=== PATIENT | male | born 1950 | race Caucasian/White ===

== ENCOUNTER 2021-12-23 11:54 | Emergency (ER) | payer MEDICARE, OTHER ==
--- NOTE | 2021-12-23 15:15 | ED ---
General Adult HPI - General Source: patient, EMS, RN notes reviewed, old records reviewed Mode of arrival: EMS Limitations: physical limitation <Gabriel Richardson - Last Filed: 12/23/21 15:41> <Blaze Simpson - Last Filed: 12/23/21 19:21> - General Chief complaint: Recheck/Abnormal Lab/Rx Stated complaint: PEG tube replaced Time Seen by Provider: 12/23/21 12:31 - History of Present Illness Initial comments: Patient is a 71-year-old male with past medical history remarkable for feeding tube, tracheostomy, hypothyroidism, hypertension who presents emergency Department complaining of feeding tube malfunction. Uncertain if it is a PEG tube or a G-tube. They were unable to flush it at the patient's facility. Presents for further evaluation of this time. Otherwise has no acute complaints at this time. Denies fever, abdominal pain. [facility] No medical records here in our department for the patient. Presents for further evaluation. (Gabriel Richardson) - Related Data Allergies Allergy/AdvReac Type Severity Reaction Status Date / Time Iodinated Contrast Media Allergy Unknown Verified 12/23/21 12:20 Penicillins Allergy Unknown Verified 12/23/21 12:20 Review of Systems ROS Other: All systems not noted in ROS Statement are negative. <Gabriel Richardson - Last Filed: 12/23/21 15:41> ROS Other: All systems not noted in ROS Statement are negative. <Blaze Simpson - Last Filed: 12/23/21 19:21> ROS Statement: Those systems with pertinent positive or pertinent negative responses have been documented in the HPI. Review of Systems: CONST: Denies fever EYES: Denies blurry vision ENT: Denies nasal congestion C/V: Denies Chest pain RESP: Denies shortness of breath GI: Denies abdominal pain : Denies dysuria SKIN: Denies rash. MSK: Denies joint pain. NEURO: Denies headache (Gabriel Richardson) Past Medical History History of Any Multi-Drug Resistant Organisms: None Reported Additional Past Surgical History / Comment(s): peg tube, tracheotomy Past Psychological History: No Psychological Hx Reported Smoking Status: Former smoker Past Alcohol Use History: Occasional Past Drug Use History: None Reported <Gabriel Richardson - Last Filed: 12/23/21 15:41> General Exam Limitations: physical limitation <Gabriel Richardson - Last Filed: 12/23/21 15:41> - General Exam Comments Initial Comments: General: Appears in no acute distress. HEAD: Normal with no signs of head trauma. EYES: PERRLA, EOMI, conjunctiva normal, no discharge. ENT: Hearing grossly intact, normal oropharynx. RESPIRATORY: Clear breath sounds bilaterally C/V: Regular rate and rhythm ABD: Abdomen is soft, nondistended. Feeding tube in place. Difficult to see if it is a PEG tube versus GJ tube. Does not flush. EXT: Normal range of motion for the patient. SKIN: No rashes or lesions observed on exposed skin. NEURO: Alert and oriented 4. No focal deficits. (Gabriel Richardson) Course <Blaze Simpson - Last Filed: 12/23/21 19:21> Vital Signs 12/23/21 12/23/21 12/23/21 12:07 16:00 16:32 Temperature 97.6 F Pulse Rate 97 98 98 Respiratory 20 18 19 Rate Blood Pressure 121/78 127/79 119/76 O2 Sat by Pulse 95 94 L 93 L Oximetry - Reevaluation(s) Reevaluation #1: 12/23/21 17:18 Abdominal x-ray findings were discussed with Dr. Salazar (general surgery). He recommends placing a replacement gastric tube in the ED. He states that he does not feel that a distal jejunal tube needs to be placed in the ED urgently at this time, and he states that that can be done at a later time if necessary. He recommends discharging the patient back to his assisted once his feeding tube has been replaced. He has no further recommendations at this time. (Blaze Simpson) Procedures - Feeding Tube Replacement Reason for Replacement: not functioning/damaged Initial Tube Inserted: greater than 2 weeks Type of Tube: jejunostomy Use of Tube: medications and feeding Insertion Site Prior to Procedure: clean Tube Used for Reinsertion: other (22 Belizean gastric tube) [place]an Tube Size (F): 22 Balloon Size (mls): 15 Verification of Placement: KUB Tube Secured by: tape/dressing Patient Tolerated Procedure: well, no complications Complications: other (none) <Blaze Simpson - Last Filed: 12/23/21 19:21> Medical Decision Making <Gabriel Richardson - Last Filed: 12/23/21 15:41> <Blaze Simpson - Last Filed: 12/23/21 19:21> - Medical Decision Making Based on the patient's presentation and physical exam, I'm concerned for feeding tube malfunction. Unknown what happened to this is. I initially believed it was a PEG tube, however the writing on the tube when I went to place it says jejunum. Appears somewhat different in nature. I contacted the on-call surgeon, Dr. Salazar, who recommended that we obtain an x-ray as well as attempt to clean it out with a brush. I was unable to flush it open. I was in agreement this plan. Cleaning was unsuccessful, as when they went to flush it again, there is a hole near the skin insertion site. Still needs to be replaced. X-ray still pending at this time. Signed out to Dr. Simpson. (Gabriel Richardson) Patient was endorsed to me by Dr. Richardson (secondary to shift change) with the patient's abdominal x-ray still pending. Dr. Richardson has discussed the patient's case with the on-call surgeon, and he recommended calling the on-call surgeon back with the patient's abdominal x-ray report. Case was discussed with the on-call surgeon (Dr. Salazar) after the patient's abdominal x-ray report returned. He recommended replacing the patient's feeding tube with a G-tube, and having the patient follow up with his primary care provider and GI as an outpatient. Patient's feeding tube was successfully replaced with a 22-Belizean gastric tube in the ED myself. KUB with gastric tube contrast injection was performed confirming appropriate placement and no leakage. Will discharge patient back to his assisted at this time. (Blaze Simpson) - Radiology Data Abdominal x-ray: PEG tube is visualized with single postcontrast imaging only with the distal tip projecting over the left abdomen. There is some increased density within the lumen of the tube. Upper abdominal surgical clips and sternotomy wires. Moderate stenosis of the arterial vasculature. KUB with gastric tube contrast: The gastrostomy tube appears to be in the gastric antrum. No evidence of a leak. (Blaze Simpson) Disposition <Gabriel Richardson - Last Filed: 08/26/22 15:41> Is patient prescribed a controlled substance at d/c from ED?: No Time of Disposition: 19:17 <Blaze Simpson - Last Filed: 12/23/21 19:21> Clinical Impression: Encounter for feeding tube placement Narrative: feeding tube malfunction (Gabriel Richardson) Disposition: HOME SELF-CARE Condition: Stable Additional Instructions: Return to the ER immediately should you develop a fever, vomiting, significant pain, inability to feed through the feeding tube, or new or worsening symptoms. Follow up closely with your primary care provider, as well as a GI doctor. Referrals: Nonstaff,Physician [Primary Care Provider] - 1-2 days Eloy Alford MD [STAFF PHYSICIAN] - 1-2 days Digna So MD [STAFF PHYSICIAN] - 1-2 days
--- NOTE | 2021-12-23 15:51 | XR ---
EXAMINATION TYPE: XR abdomen 1V DATE OF EXAM: 12/23/2021 3:21 PM INDICATION: Patient age:Male; 71 years old; Reason for study: gastric tube; COMPARISON: None. TECHNIQUE: One radiographic view of the abdomen was obtained. FINDINGS: PEG tube is visualized with single postcontrast imaging only with the distal tip projecting over the left abdomen. There is some increased density within the lumen of the tube. Upper abdominal surgical clips and sternotomy wires. Moderate stenosis of the arterial vasculature. IMPRESSION: Consider before and after PEG o gram study with [employer] and post administration of oral contrast throug h the PEG tube for definitive placement of distal tip.
[2021-12-23] MEDS ORDERED: MORPHINE SULFATE 4 MG/ML SYRINGE IVP STA (16:36)
[2021-12-23] MEDS ORDERED: MORPHINE SULFATE 4 MG/ML SYRINGE IM STA (16:48)
--- NOTE | 2021-12-23 18:56 | XR ---
EXAMINATION TYPE: XR KUB DATE OF EXAM: 12/23/2021 COMPARISON: 12/23/2021 HISTORY: Check tube placement TECHNIQUE: Single view FINDINGS: 20 mL of contrast was injected into the gastrostomy tube. There is contrast opacification o f the gastric antrum and the duodenum. No extravasation seen. IMPRESSION: The gastrostomy tube appears to be in the gastric antrum. No evidence of a leak.
[2021-12-23 20:32] VITALS: BP 103/72; PULSE 104; RESP 22; TEMP 97.9
== END 2021-12-23 23:00 | disposition home or self-care (01) ==
LOC: EC 11:54
DX: K94.23 Gastrostomy malfunction (principal); Z87.891 Personal history of nicotine dependence; Z88.0 Allergy status to penicillin; Z91.041 Radiographic dye allergy status
CPT/HCPCS: 99283; 43763; 74018; 96372; J2270; 43762

== ENCOUNTER 2021-12-26 18:20 | Inpatient (IN) | payer MEDICARE, OTHER ==
[2021-12-26] MEDS ORDERED: IPRATROPIUM-ALBUTEROL 3 ML NEB INHALATION STA (18:32)
[2021-12-26] MEDS ORDERED: SODIUM CHLORIDE 0.9% 1,000 ML IV STA ×2 (18:32)
[2021-12-26] MEDS ORDERED: AZITHROMYCIN 500 MG in SODIUM CHLORIDE 0.9% 250 ML IVPB STA (18:37)
[2021-12-26 19:18] LABS: Basophils # (A) 0.3 k/uL (0-0.2); Basophils % (A) 2 %; Eosinophils # (A) 0.2 k/uL (0-0.7); Eosinophils % (A) 2 %; HCT 44.6 % (39.0-53.0); HGB 13.8 gm/dL (13.0-17.5); Hypochromasia Slight; Lymphocytes # (A) 2.2 k/uL (1.0-4.8); Lymphocytes % (A) 20 %; MCV 100.2 fL (80.0-100.0); Macrocytosis Slight; Mean Platelet Volume 11.5; Monocytes # (A) 0.9 k/uL (0-1.0); Monocytes % (A) 8 %; Neutrophils # (A) 7.6 k/uL (1.3-7.7); Neutrophils % (A) 67 %; RBC 4.45 m/uL (4.30-5.90); RDW 14.6 % (11.5-15.5); WBC 11.3 k/uL (3.8-10.6)
[2021-12-26 19:27] LABS: Calcium 8.5 mg/dL (8.4-10.2); Magnesium 2.4 mg/dL (1.6-2.3); Potassium 4.3 mmol/L (3.5-5.1); Total Bilirubin 0.8 mg/dL (0.2-1.3)
[2021-12-26 19:33] LABS: Platelet Count 56 k/uL (150-450)
[2021-12-26 19:39] LABS: Partial Thromboplastin Time 21.5 sec (22.0-30.0); Prothrombin Time 11.1 sec (9.0-12.0)
--- NOTE | 2021-12-26 19:53 | XR ---
EXAMINATION TYPE: XR chest 1V portable DATE OF EXAM: 12/26/2021 COMPARISON: NONE HISTORY: Short of breath TECHNIQUE: Single view FINDINGS: Heart appears enlarged. There is coarse interstitial density in the lungs. No obvious heart failure. Thoracic aorta is atheromatous. There is tracheostomy tube. There are sternal wires. There is old left-sided rib fractures. There is deformity of the left shoulder which is not well visualized . IMPRESSION: Pulmonary fibrosis. Cardiomegaly. No obvious heart failure. Lower lobe pneumonia not enti rely excluded.
[2021-12-26] MEDS: LACTATED RINGERS 1,000 ML IV STA (20:55)
--- NOTE | 2021-12-26 21:47 | ED ---
SOB HPI - General Chief Complaint: Shortness of Breath Stated Complaint: Phneumonia Time Seen by Provider: 12/26/21 18:25 Source: EMS Mode of arrival: EMS Limitations: physical limitation - History of Present Illness Initial Comments: This 71-year-old male presents from the correction with difficulty in breathing. Exact history is not definitively determined but he apparently had an x-ray at the facility today and they noted pneumonia. He has had thick yellowish secretions coming from his tracheostomy tube. The patient also does not communicate well so it is difficult to obtain history. Very limited history is obtained per correction records. He presents hypoxic with some minimal hypotension. He does have a history of tracheostomy as well as loss of left arm and PEG tube present. Additional history is unknown and unobtainable. - Related Data Home Medications Medication Instructions Recorded Confirmed Famotidine [Pepcid] 20 mg PEG/G-TUBE BID 12/26/21 12/26/21 Furosemide 40 mg PEG/G-TUBE DAILY 12/26/21 12/26/21 Ipratropium-Albuterol Nebulize 3 ml INHALATION RT-Q6H PRN 12/26/21 12/26/21 [Duoneb 0.5 mg-3 mg/3 ml Soln] L.acidoph,Paracasei, B.lactis 1 cap PEG/G-TUBE BID 12/26/21 12/26/21 [Probiotic] Levothyroxine Sodium [Synthroid] 50 mcg PEG/G-TUBE DAILY 12/26/21 12/26/21 Metoprolol Tartrate [Lopressor] 25 mg PEG/G-TUBE BID 12/26/21 12/26/21 Potassium Chloride ER [K-Dur 20] 20 meq PEG/G-TUBE DAILY 12/26/21 12/26/21 Scopolamine 1.5mg/72hour 1 patch TRANSDERM Q72H 12/26/21 12/26/21 Sertraline HCl [Sertraline HCl 50 mg PEG/G-TUBE DAILY 12/26/21 12/26/21 Oral Conc] guaiFENesin-DM 100-10MG/5ML 10 ml PEG/G-TUBE TID@0700,1300,1900 12/26/21 12/26/21 [Robitussin DM] traMADol HCL 25 mg PO TID@0700,1300,1900 12/26/21 12/26/21 Allergies Allergy/AdvReac Type Severity Reaction Status Date / Time Iodinated Contrast Media Allergy Unknown Verified 12/26/21 21:03 Penicillins Allergy Unknown Verified 12/26/21 21:03 Review of Systems ROS Statement: Those systems with pertinent positive or pertinent negative responses have been documented in the HPI. ROS Other: All systems not noted in ROS Statement are negative. Past Medical History Additional Past Medical History / Comment(s): left arm amputation, trach, peg History of Any Multi-Drug Resistant Organisms: None Reported Additional Past Surgical History / Comment(s): peg tube, tracheotomy Past Psychological History: No Psychological Hx Reported Smoking Status: Former smoker Past Alcohol Use History: Occasional Past Drug Use History: None Reported General Exam - General Exam Comments Initial Comments: GENERAL: The patient is well nourished but slightly dehydrated.. VITAL SIGNS: Heart rate, blood pressure, respiratory rate reviewed as recorded in nurse's notes. EYES: Pupils are round and reactive. Extraocular movements are intact. No conjunctival / lid redness or swelling. ENT: No external evidence of injury, swelling, or ecchymosis. Airway is patent. Throat is clear. NECK: Nontender. No swelling or evidence of injury. No subcutaneous emphysema. Trachea is midline. No thyroid mass. Tracheostomy tube present with yellowish p hlegm-like material coming from tracheostomy tube. HEART: Regular rate and rhythm. Good peripheral pulses. LUNGS/CHEST: Breath sounds clear and equal bilaterally. No rales, rhonchi, or wheezes. No ecchymosis, subcutaneous emphysema, or tenderness. ABDOMEN: Abdomen soft without tenderness. No palpable masses or organomegaly. No peritoneal signs. No abdominal wall swelling or ecchymosis. EXTREMITIES: No extremity tenderness. Normal muscle tone and function. No thoracolumbar tenderness. Patient has loss of left arm. NEUROLOGIC: Sensation is grossly intact. Cranial nerve exam reveals face is s ymmetrical, tongue is midline, speech is difficult to understand. SKIN: No abrasions or ecchymosis is noted. No induration or masses noted. PSYCHIATRIC: Alert and seems to understand but is unable to communicate verbally. Limitations: physical limitation Course Vital Signs 12/26/21 12/26/21 12/26/21 18:23 18:33 19:10 Temperature 97.0 F L Pulse Rate 100 100 Respiratory 18 20 Rate Blood Pressure 93/56 O2 Sat by Pulse 88 L Oximetry Fraction of Inspired Oxygen (FIO2) 12/26/21 12/26/21 12/26/21 19: 19:25 20:00 Temperature 98.1 F Pulse Rate 102 H 92 Respiratory 17 Rate Blood Pressure 102/64 O2 Sat by Pulse 95 Oximetry Fraction of 35 Inspired Oxygen (FIO2) Medical Decision Making - Medical Decision Making The patient was seen and examined. All diagnostics were reviewed. Patient's pressure was slightly lower and therefore you're does receive some fluid hydrat ion. The chest x-ray is done and shows evidence of a likely left lower lobe infiltrate/pneumonia. Rocephin and Zithromax are initiated. He does receive a DuoNeb breathing treatment. Oxygen is given via tent over tracheostomy. Laboratory came back showing hypernatremia as well as hyperchloremia. There is slight leukocytosis as well. Additional fluids are given. Blood cultures are taken and are pending. Lactic acid is normal. It is felt as though he would benefit from admission for further treatment. His initial pulse ox was 88% on room air. He did go up to 94% on recheck. Case is discussed with internal medicine and patient was admitted to Dr. Hassan. Approximately 30 minutes cri [facility] care time is utilized and the treatment of the patient. - Lab Data Result diagrams: 12/26/21 19:05 12/26/21 19:05 Lab Results 12/26/21 12/26/21 12/26/21 Range/Units 19:05 19:05 19:05 WBC 11.3 H (3.8-10.6) k/uL RBC 4.45 (4.30-5.90) m/uL Hgb 13.8 (13.0-17.5) gm/dL Hct 44.6 (39.0-53.0) % MCV 100.2 H (80.0-100.0) fL MCH 31.0 (25.0-35.0) pg MCHC 31.0 (31.0-37.0) g/dL RDW 14.6 (11.5-15.5) % Plt Count 56 L (150-450) k/uL MPV 11.5 Neutrophils % 67 % Lymphocytes % 20 % Monocytes % 8 % Eosinophils % 2 % Basophils % 2 % Neutrophils # 7.6 (1.3-7.7) k/uL Lymphocytes # 2.2 (1.0-4.8) k/uL Monocytes # 0.9 (0-1.0) k/uL Eosinophils # 0.2 (0-0.7) k/uL Basophils # 0.3 H (0-0.2) k/uL Manual Slide Review Performed Hypochromasia Slight Macrocytosis Slight PT 11.1 (9.0-12.0) sec INR 1.0 (<1.2) APTT 21.5 L (22.0-30.0) sec Sodium 151 H (137-145) mmol/L Potassium 4.3 (3.5-5.1) mmol/L Chloride 111 H (98-107) mmol/L Carbon Dioxide 31 H (22-30) mmol/L Anion Gap 9 mmol/L BUN 77 H (9-20) mg/dL Creatinine 1.39 H (0.66-1.25) mg/dL Est GFR (CKD-EPI)AfAm 59 (>60 ml/min/1.73 sqM) Est GFR (CKD-EPI)NonAf 51 (>60 ml/min/1.73 sqM) Glucose 134 H (74-99) mg/dL Plasma Lactic Acid Sy (0.7-2.0) mmol/L Calcium 8.5 (8.4-10.2) mg/dL Magnesium 2.4 H (1.6-2.3) mg/dL Total Bilirubin 0.8 (0.2-1.3) mg/dL AST 87 H (17-59) U/L ALT 76 H (4-49) U/L Alkaline Phosphatase 324 H (38-126) U/L Troponin I (0.000-0.034) ng/mL Total Protein 8.0 (6.3-8.2) g/dL Albumin 3.0 L (3.5-5.0) g/dL 12/26/21 12/26/21 Range/Units 19:05 19:05 WBC (3.8-10.6) k/uL RBC (4.30-5.90) m/uL Hgb (13.0-17.5) gm/dL Hct (39.0-53.0) % MCV (80.0-100.0) fL MCH (25.0-35.0) pg MCHC (31.0-37.0) g/dL RDW (11.5-15.5) % Plt Count (150-450) k/uL MPV Neutrophils % % Lymphocytes % % Monocytes % % Eosinophils % % Basophils % % Neutrophils # (1.3-7.7) k/uL Lymphocytes # (1.0-4.8) k/uL Monocytes # (0-1.0) k/uL Eosinophils # (0-0.7) k/uL Basophils # (0-0.2) k/uL Manual Slide Review Hypochromasia Macrocytosis PT (9.0-12.0) sec INR (<1.2) APTT (22.0-30.0) sec Sodium (137-145) mmol/L Potassium (3.5-5.1) mmol/L Chloride (98-107) mmol/L Carbon Dioxide (22-30) mmol/L Anion Gap mmol/L BUN (9-20) mg/dL Creatinine (0.66-1.25) mg/dL Est GFR (CKD-EPI)AfAm (>60 ml/min/1.73 sqM) Est GFR (CKD-EPI)NonAf (>60 ml/min/1.73 sqM) Glucose (74-99) mg/dL Plasma Lactic Acid Sy 1.4 (0.7-2.0) mmol/L Calcium (8.4-10.2) mg/dL Magnesium (1.6-2.3) mg/dL Total Bilirubin (0.2-1.3) mg/dL AST (17-59) U/L ALT (4-49) U/L Alkaline Phosphatase (38-126) U/L Troponin I 0.032 (0.000-0.034) ng/mL Total Protein (6.3-8.2) g/dL Albumin (3.5-5.0) g/dL Disposition Clinical Impression: Acute respiratory failure, Pneumonia, Leukocytosis, Hypernatremia, Hyperchloremia, Transaminitis Disposition: ADMITTED IP TO THIS [facility] Condition: Fair Is patient prescribed a controlled substance at d/c from ED?: No Referrals: Nonstaff,Physician [Primary Care Provider] - 1-2 days Time of Disposition: 21:47 Decision Date: 12/26/21 Decision Time: 21:47
[2021-12-26] MEDS ORDERED: PNEUMONIA PROTOCOL UTILIZED 1 EACH MISC PO PRN (21:48)
[2021-12-26 22:15] LABS: Appearance,Urine Cloudy (Clear); Bacteria,Urine Occasional /hpf; Bilirubin,Urine Negative (Negative); Blood,Urine Negative (Negative); Color,Urine Yellow; Glucose,Urine (UA) Negative (Negative); Ketones,Urine Negative (Negative); Leukocyte Esterase,Urine Negative (Negative); Mucus,Urine Rare /hpf; Nitrite,Urine Negative (Negative); Protein,Urine Negative (Negative); RBC,Urine <1 /hpf (0-5); Specific Gravity,Urine 1.018 (1.001-1.035); WBC,Urine <1 /hpf (0-5)
[2021-12-27] MEDS: LACTATED RINGERS 1,000 ML IV STA (01:59)
[2021-12-27] MEDS: traMADol 50 MG TAB PEG/G-TUBE SCH ×3 (05:46→21:00)
[2021-12-27] MEDS: LEVOTHYROXINE 50 MCG TAB PEG/G-TUBE SCH (05:47)
[2021-12-27] MEDS: IPRATROPIUM-ALBUTEROL 3 ML NEB INHALATION PRN ×2 (08:03→12:17)
[2021-12-27] MEDS: guaiFENesin-DM 100-10MG/5ML 10 ML CUP PEG/G-TUBE SCH ×3 (08:03→21:01)
[2021-12-27] MEDS: LACTOBACILLUS ACIDOPH & BULGAR 1 EACH PACKET PEG/G-TUBE SCH ×2 (08:04→21:00)
[2021-12-27] MEDS: METOPROLOL TARTRATE 25 MG TAB PEG/G-TUBE SCH ×2 (08:04→21:00)
[2021-12-27] MEDS: ENOXAPARIN 40 MG/0.4 ML SYRINGE SQ SCH (08:04)
[2021-12-27] MEDS: FAMOTIDINE 20 MG TAB PEG/G-TUBE SCH ×2 (08:04→21:00)
[2021-12-27] MEDS: SCOPOLAMINE 1 MG/72 HR PATCH TRANSDERM SCH (08:05)
[2021-12-27] MEDS: SERTRALINE 50 MG TAB PEG/G-TUBE SCH (08:05)
[2021-12-27] MEDS ORDERED: FUROSEMIDE 40 MG TAB PEG/G-TUBE SCH (09:00)
[2021-12-27 10:10] LABS: Basophils # (A) 0.1 k/uL (0-0.2); Basophils % (A) 1 %; Eosinophils # (A) 0.2 k/uL (0-0.7); Eosinophils % (A) 2 %; HCT 42.4 % (39.0-53.0); HGB 13.2 gm/dL (13.0-17.5); Hypochromasia Slight; Lymphocytes # (A) 2.6 k/uL (1.0-4.8); Lymphocytes % (A) 26 %; MCH 31.8 pg (25.0-35.0); MCHC 31.1 g/dL (31.0-37.0); MCV 102.3 fL (80.0-100.0); Macrocytosis Slight; Mean Platelet Volume 11.2; Monocytes # (A) 0.7 k/uL (0-1.0); Monocytes % (A) 7 %; Neutrophils # (A) 6.1 k/uL (1.3-7.7); Neutrophils % (A) 62 %; RBC 4.15 m/uL (4.30-5.90); RDW 15.1 % (11.5-15.5); WBC 9.9 k/uL (3.8-10.6)
[2021-12-27 10:12] LABS: Platelet Count 133 k/uL (150-450)
[2021-12-27 10:17] LABS: African American GFR (CKD) 68 (>60 ml/min/1.73 sqM); Anion Gap 9 mmol/L; Blood Urea Nitrogen 63 mg/dL (9-20); Calcium 8.2 mg/dL (8.4-10.2); Carbon Dioxide 30 mmol/L (22-30); Chloride 117 mmol/L (98-107); Glucose 109 mg/dL (74-99); Non-African American GFR(CKD) 59 (>60 ml/min/1.73 sqM); Potassium 3.8 mmol/L (3.5-5.1); Sodium 156 mmol/L (137-145)
[2021-12-27] MEDS ORDERED: DEXTROSE 5% IN WATER 1,000 ML IV ONE (11:25)
--- NOTE | 2021-12-27 14:34 | P.HPIM ---
History of Present Illness H&P Date: 12/27/21 This is a pleasant 71-year-old male who has been a resident at [facility] and presented to the emergency department via EMS with difficulty in breathing. It was reported there was an x-ray done at the facility that was noted to have pneumonia and patient having increased yellow secretions from his tracheostomy tube. Patient is alert although does not communicate very well status post tr acheostomy and PEG tube placement from April where he had extensive pneumonia requiring tracheostomy placement. Patient had been residing at other [facility] facility's continued to have multiple episodes of pneumonia. Chest x-ray in the emergency department on admission shows pulmonary fibrosis cardiomegaly with no obvious heart failure with lower lobe pneumonia not entirely excluded. There is also noted old left-sided rib fractures and deformity of the left shoulder which is not well-visualized. Labs revealed a mildly elevated WBC of 11.3 with a hemoglobin of 13.8, platelets were 56, INR 1.0, sodium 151, potassium 4.3, creatinine 1.39 with a BUN of 77, lactic acid was 1.4 with magnesium of 2.4 and LFTs mildly elevated of an AST of 87 and ALT is 76 with an alk phos of 324, troponin was 0.032. Urinalysis was done which was negative and Covid, influenza were not detected. Patient is high risk for aspiration and is maintained on tube feeds. Plan is for patient to return to [facility] once stabilized and discharged. Patient's being started on IV antibiotics in the form of Zith romax and ceftriaxone and will add cefepime and consult infectious disease. Patient is requesting water although unsure if patient tolerates any oral intake and will consult speech and appreciate evaluation. Patient's sodium increased at 156 this morning and will add D5 in water and recommend gentle hydration and repeat labs in a.m. Recommend DuoNeb treatments 4 times a day and when necessary, sputum culture obtained and pending at this time along with blood cultures. Patient denies chest pain or palpitations. Patient is afebrile. Patient requesting water with no reports of nausea or vomiting noted. Review Of Systems: Unable to fully complete as patient is nonverbal PHYSICAL EXAMINATION: GENERAL: The patient is alert and oriented x3, nonverbal thin built, ill- appearing HEENT: Pupils are round and equally reacting to light. EOMI. no scleral icterus. No conjunctival pallor. Normocephalic, atraumatic. No pharyngeal erythema. No thyromegaly. Tracheostomy noted with purulent drainage around the site CARDIOVASCULAR: S1 and S2 muffled PULMONARY: diminished breath sounds bilaterally with some scattered rhonchi noted. ABDOMEN: soft. Nontender on exam. PEG tube noted non-distended, normoactive bowel sounds. No palpable organomegaly. MUSCULOSKELETAL: No joint swelling or deformity. EXTREMITIES: No cyanosis, clubbing, or pedal edema. NEUROLOGICAL: Gross neurological examination did not reveal any focal deficits. Diffuse weakness SKIN: No rashes. Assessment: Shortness of breath, secondary to pneumonia, possibly community-acquired Leukocytosis secondary to above Acute on chronic hypoxic respiratory failure secondary to pneumonia History of tracheostomy and PEG tube in April 2021 History of left arm amputation Hypernatremia secondary to dehydration Hyperchloremia Elevated LFTs, unknown etiology will monitor and repeat labs GI prophylaxis, Pepcid DVT prophylaxis, subcutaneous Lovenox Full code Plan: Recommend continue with DuoNeb treatments 4 times a day and when necessary Patient was given a dose of Zithromax and ceftriaxone and will add cefepime and consult infectious disease Sputum culture has been received and pending at this time and will await f inalized cultures Patient with hypernatremia most likely a component of dehydration with a sodium of 156 and was given normal saline and will discontinue and transition to D5 and water and follow-up labs LFTs elevated, transaminitis of unknown etiology and will repeat labs and monitor the trend Patient requesting water although poor historian and mostly nonverbal will consult speech and appreciate input and recommendations Patient to continue with PEG tube and tube feeds with consulted dietitian Case management is following and plan is to return to [facility] where he has a resident once stabilized and discharged Due to multiple complex medical issues, prognosis is guarded The impression and plan of care has been dictated by Tiesha Quinteros, nurse practitioner as directed. Dr. Sean MD I have performed a history and examination and MDM of this patient, discussed the same with the dictator, and agree with the dictator's assessment and plan as written ,documented as a scribe. Based on total visit time, I have performed more than 50% of the visit. Any additional findings or plans will be noted. Past Medical History Additional Past Medical History / Comment(s): left arm amputation, trach, peg History of Any Multi-Drug Resistant Organisms: None Reported Additional Past Surgical History / Comment(s): peg tube, tracheotomy Past Anesthesia/Blood Transfusion Reactions: Unable to Obtain Smoking Status: Former smoker Medications and Allergies Home Medications Medication Instructions Recorded Confirmed Type Famotidine [Pepcid] 20 mg PEG/G-TUBE BID 12/26/21 12/26/21 History Furosemide 40 mg PEG/G-TUBE DAILY 12/26/21 12/26/21 History Ipratropium-Albuterol Nebulize 3 ml INHALATION RT-Q6H PRN 12/26/21 12/26/21 History [Duoneb 0.5 mg-3 mg/3 ml Soln] L.acidoph,Paracasei, B.lactis 1 cap PEG/G-TUBE BID 12/26/21 12/26/21 History [Probiotic] Levothyroxine Sodium [Synthroid] 50 mcg PEG/G-TUBE DAILY 12/26/21 12/26/21 History Metoprolol Tartrate [Lopressor] 25 mg PEG/G-TUBE BID 12/26/21 12/26/21 History Potassium Chloride ER [K-Dur 20] 20 meq PEG/G-TUBE DAILY 12/26/21 12/26/21 History Scopolamine 1.5mg/72hour 1 patch TRANSDERM Q72H 12/26/21 12/26/21 History Sertraline HCl [Sertraline HCl 50 mg PEG/G-TUBE DAILY 12/26/21 12/26/21 History Oral Conc] guaiFENesin-DM 100-10MG/5ML 10 ml PEG/G-TUBE TID@0700,1300,1900 12/26/21 0 12/26/21 History [Robitussin DM] traMADol HCL 25 mg PO TID@0700,1300,1900 12/26/21 12/26/21 History Allergies Allergy/AdvReac Type Severity Reaction Status Date / Time Iodinated Contrast Media Allergy Unknown Verified 12/26/21 21:03 Penicillins Allergy Unknown Verified 12/26/21 21:03 Physical Exam Vitals: Vital Signs Temp Pulse Pulse Resp BP BP Pulse Ox 12/27/21 08:18 94 12/27/21 08:08 88 12/27/21 07:37 97.5 F L 103 H 20 94/43 84 L 12/27/21 04:00 12/27/21 01:37 97.7 F 100 15 107/66 90 L 12/26/21 20:00 98.1 F 92 17 102/64 95 12/26/21 19:25 102 H 12/26/21 19:22 12/26/21 19:10 100 12/26/21 18:33 20 12/26/21 18:23 97.0 F L 100 18 93/56 88 L FiO2 12/27/21 08:18 12/27/21 08:08 35 12/27/21 07:37 12/27/21 04:00 35 12/27/21 01:37 12/26/21 20:00 12/26/21 19:25 12/26/21 19:22 35 12/26/21 19:10 12/26/21 18:33 12/26/21 18:23 Intake and Output 12/26/21 12/27/21 12/27/21 22:59 06:59 14:59 Intake Total 2 Output Total 650 Balance -648 Intake: Oral 2 Output: Urine 650 Other: Weight 72.575 kg 72.575 kg Results CBC & Chem 7: 12/27/21 09:28 12/27/21 09:28 Labs: Abnormal Lab Results - Last 24 Hours (Table) 12/26/21 12/26/21 12/26/21 Range/Units 18:33 19:05 19:05 WBC 11.3 H (3.8-10.6) k/uL MCV 100.2 H (80.0-100.0) fL Plt Count 56 L (150-450) k/uL Basophils # 0.3 H (0-0.2) k/uL APTT 21.5 L (22.0-30.0) sec Sodium (137-145) mmol/L Chloride (98-107) mmol/L Carbon Dioxide (22-30) mmol/L BUN (9-20) mg/dL Creatinine (0.66-1.25) mg/dL Glucose (74-99) mg/dL Magnesium (1.6-2.3) mg/dL AST (17-59) U/L ALT (4-49) U/L Alkaline Phosphatase (38-126) U/L Albumin (3.5-5.0) g/dL Urine Bacteria Occasional H (None) /hpf Urine Mucus Rare H (None) /hpf 12/26/21 Range/Units 19:05 WBC (3.8-10.6) k/uL MCV (80.0-100.0) fL Plt Count (150-450) k/uL Basophils # (0-0.2) k/uL APTT (22.0-30.0) sec Sodium 151 H (137-145) mmol/L Chloride 111 H (98-107) mmol/L Carbon Dioxide 31 H (22-30) mmol/L BUN 77 H (9-20) mg/dL Creatinine 1.39 H (0.66-1.25) mg/dL Glucose 134 H (74-99) mg/dL Magnesium 2.4 H (1.6-2.3) mg/dL AST 87 H (17-59) U/L ALT 76 H (4-49) U/L Alkaline Phosphatase 324 H (38-126) U/L Albumin 3.0 L (3.5-5.0) g/dL Urine Bacteria (None) /hpf Urine Mucus (None) /hpf Microbiology - Last 24 Hours (Table) 12/26/21 19:34 Gram Stain - Preliminary Sputum Sputum Culture - Preliminary Thrombosis Risk Factor Assmnt - DVT/VTE Prophylaxis DVT/VTE Prophylaxis: Pharmacologic Prophylaxis ordered - Choose All That Apply Each Factor Represents 1 point: Medical pt on bed rest Each Risk Factor Represents 2 Points: Age 61-74 years Other congenital or acquired thrombophilia - If yes, enter type in comment: No Thrombosis Risk Factor Assessment Total Risk Factor Score: 3 Thrombosis Risk Factor Assessment Level: Moderate Risk Assessment and Plan Time with Patient: Greater than 30
[2021-12-27] MEDS: IPRATROPIUM-ALBUTEROL 3 ML NEB INHALATION SCH ×2 (17:04→19:59)
[2021-12-27] MEDS: CEFEPIME 2 GM in SODIUM CHLORIDE 0.9% 100 ML IVPB SCH (20:29)
[2021-12-27] MEDS ORDERED: AZITHROMYCIN 500 MG in SODIUM CHLORIDE 0.9% 250 ML IVPB SCH (21:00)
--- NOTE | 2021-12-27 21:41 | P.CONS ---
History of Present Illness - Reason for Consult Consult date: 12/27/21 Pneumonia Requesting physician: Tiesha Quinteros - Chief Complaint Increasing shortness of breath x one daily - History of Present Illness Patient is a 71-year-old male with a past medical history significant for a respiratory failure felt to be extubated requiring a tracheostomy and a PEG tube placement and residential resident patient was sent to the ER from the residential for evaluation of difficulty in breathing apparently the patient symptom has been going on for few days before presentation to the hospital no clear history of any nausea vomiting choking on the food patient on presentation to the hospital was afebrile and no fever recorded subsequently patient did have hypoxemia with O2 sats of 88% requiring supplemental oxygen the trach collar cu rrently on 35% FiO2 patient did have white count of 11.3 with a left shift BUN and creatinine was minimally elevated as well as liver enzymes urine was negative influenza christensen PCR and urine for Legionella antigen were negative patient blood cultures are currently pending sputum showing a gram-negative patient did have a chest x-ray pulmonary fibrosis lower lobe pneumonia not entirely excluded patient is currently being treated with a cefepime and azithromycin infectious disease was consulted for further management of antibiotic therapy most information has been obtained on review of the chart as the patient was not able for reliable history Review of Systems Positive points has been mentioned in HPI complete review could not be obtained because of his underlying mental status Past Medical History Additional Past Medical History / Comment(s): left arm amputation, trach, peg History of Any Multi-Drug Resistant Organisms: None Reported Additional Past Surgical History / Comment(s): peg tube, tracheotomy Past Anesthesia/Blood Transfusion Reactions: Unable to Obtain Smoking Status: Former smoker Medications and Allergies Home Medications Medication Instructions Recorded Confirmed Type Famotidine [Pepcid] 20 mg PEG/G-TUBE BID 12/26/21 12/26/21 History Furosemide 40 mg PEG/G-TUBE DAILY 12/26/21 12/26/21 History Ipratropium-Albuterol Nebulize 3 ml INHALATION RT-Q6H PRN 12/26/21 12/26/21 History [Duoneb 0.5 mg-3 mg/3 ml Soln] L.acidoph,Paracasei, B.lactis 1 cap PEG/G-TUBE BID 12/26/21 12/26/21 History [Probiotic] Levothyroxine Sodium [Synthroid] 50 mcg PEG/G-TUBE DAILY 12/26/21 12/26/21 History Metoprolol Tartrate [Lopressor] 25 mg PEG/G-TUBE BID 12/26/21 12/26/21 History Potassium Chloride ER [K-Dur 20] 20 meq PEG/G-TUBE DAILY 12/26/21 12/26/21 History Scopolamine 1.5mg/72hour 1 patch TRANSDERM Q72H 12/26/21 12/26/21 History Sertraline HCl [Sertraline HCl 50 mg PEG/G-TUBE DAILY 12/26/21 12/26/21 History Oral Conc] guaiFENesin-DM 100-10MG/5ML 10 ml PEG/G-TUBE TID@0700,1300,1900 12/26/21 12/26/21 History [Robitussin DM] traMADol HCL 25 mg PO TID@0700,1300,1900 12/26/21 12/26/21 History cefUROXime axetiL [Ceftin] 500 mg PO BID 7 Days #14 tab 12/30/21 Rx Allergies Allergy/AdvReac Type Severity Reaction Status Date / Time Iodinated Contrast Media Allergy Unknown Verified 12/26/21 21:03 Penicillins Allergy Unknown Verified 12/26/21 21:03 Physical Exam Vitals: Vital Signs Temp Pulse Pulse Resp BP BP Pulse Ox 12/27/21 17:26 92 12/27/21 17:04 88 12/27/21 14:00 98.1 F 80 18 91/48 93 L 12/27/21 12:31 96 12/27/21 12:18 92 12/27/21 08:18 94 12/27/21 08:08 88 12/27/21 08:00 103 H 12/27/21 07:45 90 92 L 12/27/21 07:37 97.5 F L 103 H 20 94/43 84 L 12/27/21 04:00 12/27/21 01:37 97.7 F 100 15 107/66 90 L 12/26/21 20:00 98.1 F 92 17 102/64 95 12/26/21 19:25 102 H 12/26/21 19:22 12/26/21 19:10 100 12/26/21 18:33 20 12/26/21 18:23 97.0 F L 100 18 93/56 88 L FiO2 12/27/21 17:26 12/27/21 17:04 12/27/21 14:00 12/27/21 12:31 12/27/21 12:18 12/27/21 08:18 12/27/21 08:08 35 12/27/21 08:00 12/27/21 07:45 12/27/21 07:37 12/27/21 04:00 35 12/27/21 01:37 12/26/21 20:00 12/26/21 19:25 12/26/21 19:22 35 12/26/21 19:10 12/26/21 18:33 12/26/21 18:23 Intake and Output 12/27/21 12/27/21 12/27/21 06:59 14:59 22:59 Intake Total 2 0 Output Total 650 Balance -648 0 Intake: Oral 2 0 Output: Urine 650 Other: Voiding Method Diaper Incontinent Weight 72.575 kg GENERAL DESCRIPTION: Elderly male lying in bed, no distress. No tachypnea or accessory muscle of respiration use. HEENT: Shows Pallor , no scleral icterus. Oral mucous membrane is dry. NECK: Trachea central, no drainage around the trachea LUNGS: Unlabored breathing. Coarse breast sounds bilaterally HEART: S1, S2, regular rate and rhythm. No loud murmur ABDOMEN: Soft, no tenderness , guarding or rigidity, no organomegaly EXTREMITIES: No edema of feet. SKIN: No rash, no masses palpable. NEUROLOGICAL: The patient is lethargic orientation could not be determined Results CBC & Chem 7: 12/30/21 06:09 12/30/21 06:09 Labs: Abnormal Lab Results - Last 24 Hours (Table) 12/26/21 12/26/21 12/26/21 Range/Units 18:33 19:05 19:05 WBC 11.3 H (3.8-10.6) k/uL RBC (4.30-5.90) m/uL MCV 100.2 H (80.0-100.0) fL Plt Count 56 L (150-450) k/uL Basophils # 0.3 H (0-0.2) k/uL APTT 21.5 L (22.0-30.0) sec Sodium (137-145) mmol/L Chloride (98-107) mmol/L Carbon Dioxide (22-30) mmol/L BUN (9-20) mg/dL Creatinine (0.66-1.25) mg/dL Glucose (74-99) mg/dL Calcium (8.4-10.2) mg/dL Magnesium (1.6-2.3) mg/dL AST (17-59) U/L ALT (4-49) U/L Alkaline Phosphatase (38-126) U/L Albumin (3.5-5.0) g/dL Urine Bacteria Occasional H (None) /hpf Urine Mucus Rare H (None) /hpf 12/26/21 12/27/21 12/27/21 Range/Units 19:05 09:28 09:28 WBC (3.8-10.6) k/uL RBC 4.15 L (4.30-5.90) m/uL MCV 102.3 H (80.0-100.0) fL Plt Count 133 L D (150-450) k/uL Basophils # (0-0.2) k/uL APTT (22.0-30.0) sec Sodium 151 H 156 H (137-145) mmol/L Chloride 111 H 117 H (98-107) mmol/L Carbon Dioxide 31 H (22-30) mmol/L BUN 77 H 63 H (9-20) mg/dL Creatinine 1.39 H (0.66-1.25) mg/dL Glucose 134 H 109 H (74-99) mg/dL Calcium 8.2 L (8.4-10.2) mg/dL Magnesium 2.4 H (1.6-2.3) mg/dL AST 87 H (17-59) U/L ALT 76 H (4-49) U/L Alkaline Phosphatase 324 H (38-126) U/L Albumin 3.0 L (3.5-5.0) g/dL Urine Bacteria (None) /hpf Urine Mucus (None) /hpf Microbiology - Last 24 Hours (Table) 12/26/21 19:34 Gram Stain - Preliminary Sputum Sputum Culture - Preliminary Gram Neg Bacilli Assessment and Plan (1) Pneumonia Current Visit: Yes Status: Acute Code(s): J18.9 - PNEUMONIA, UNSPECIFIED ORGANISM SNOMED Code(s): 381494998 Plan: 1patient presented to hospital with increasing shortness of breath which is likely multifactorial in this patient with a chronic trach and PEG and concern for right lower lobe pneumonia with a sputum showing a gram-negative we will need to cover for the resistant gram-negative keeping in mind the residential resident and history of recurrent pneumonia. 2we will check inflammatory markers. 3continue with cefepime however discontinue Zithromax. 4aspiration precaution. We will follow on clinical condition and cultures to further adjust medication if needed Thank you for this consultation will follow this patient along with you Time with Patient: Greater than 30
[2021-12-28] MEDS: ACETAMINOPHEN TAB 325 MG TAB PEG/G-TUBE PRN (02:00)
[2021-12-28] MEDS: traMADol 50 MG TAB PEG/G-TUBE SCH ×3 (05:57→21:35)
[2021-12-28] MEDS: LEVOTHYROXINE 50 MCG TAB PEG/G-TUBE SCH (05:57)
[2021-12-28] MEDS: guaiFENesin-DM 100-10MG/5ML 10 ML CUP PEG/G-TUBE SCH ×3 (05:57→21:35)
[2021-12-28] MEDS: SERTRALINE 50 MG TAB PEG/G-TUBE SCH (08:51)
[2021-12-28] MEDS: LACTOBACILLUS ACIDOPH & BULGAR 1 EACH PACKET PEG/G-TUBE SCH ×2 (08:51→21:35)
[2021-12-28] MEDS: FAMOTIDINE 20 MG TAB PEG/G-TUBE SCH ×2 (08:52→21:35)
[2021-12-28] MEDS: METOPROLOL TARTRATE 25 MG TAB PEG/G-TUBE SCH ×2 (08:52→21:35)
[2021-12-28] MEDS: ENOXAPARIN 40 MG/0.4 ML SYRINGE SQ SCH (08:52)
[2021-12-28] MEDS: CEFEPIME 2 GM in SODIUM CHLORIDE 0.9% 100 ML IVPB SCH (08:53)
[2021-12-28] MEDS: IPRATROPIUM-ALBUTEROL 3 ML NEB INHALATION SCH ×4 (09:17→21:41)
[2021-12-28 11:34] LABS: African American GFR (CKD) 60.3 (60.0-200.0); Albumin 2.5 g/dL (3.8-4.9); Albumin/Globulin Ratio 0.57 (1.60-3.17); Anion Gap 8.2 mmol/L (10.00-18.00); BUN/Creat Ratio 37.13 Ratio (12.00-20.00); Blood Urea Nitrogen 50.5 mg/dL (9.0-27.0); C Reactive Protein 1.5 mg/dL (0.00-0.80); Calcium 8.4 mg/dL (8.7-10.3); Carbon Dioxide 28.4 mmol/L (20.0-27.5); Globulin 4.4 g/dL (1.6-3.3); Magnesium 2.2 mg/dL (1.5-2.4); Potassium 3.6 mmol/L (3.5-5.5); Total Bilirubin 1.1 mg/dL (0.30-1.20); Total Protein 6.9 g/dL (6.2-8.2)
[2021-12-28 12:04] LABS: HCT 38.1 % (39.6-50.0); HGB 11.7 g/dL (13.0-17.0); MCH 31.5 pg (27.0-32.0); MCHC 30.7 g/dL (32.0-37.0); MCV 102.4 fL (80.0-97.0); NRBC Per 100 WBC 0 /100 WBCS (0.0-0.0); Platelet Count 125 X 10*3/uL (140-440); RBC 3.72 X 10*6/uL (4.40-5.60); RDW 16.3 % (11.5-14.5); WBC 12.69 X 10*3/uL (4.50-10.00)
[2021-12-28] MEDS: DEXTROSE 5% IN WATER 1,000 ML IV SCH (12:45)
--- NOTE | 2021-12-28 18:31 | P.PN ---
Subjective This is a pleasant 71-year-old male who has been a resident at [facility] and presented to the emergency department via EMS with difficulty in breathing. It was reported there was an x-ray done at the facility that was noted to have pneumonia and patient having increased yellow secretions from his tracheostomy tube. Patient is alert although does not communicate very well status post tracheostomy and PEG tube placement from April where he had extensive pneumonia requiring tracheostomy placement. Patient had been residing at other [facility] facility's continued to have multiple episodes of pneumonia. Chest x-ray in the emergency department on admission shows pulmonary fibrosis cardiomegaly with no obvious heart failure with lower lobe pneumonia not entirely excluded. There is also noted old left-sided rib fractures and deformity of the left shoulder which is not well-visualized. Labs revealed a mildly elevated WBC of 11.3 with a hemoglobin of 13.8, platelets were 56, INR 1.0, sodium 151, potassium 4.3, creatinine 1.39 with a BUN of 77, lactic acid was 1.4 with magnesium of 2.4 and LFTs mildly elevated of an AST of 87 and ALT is 76 with an alk phos of 324, troponin was 0.032. Urinalysis was done which was negative and Covid, influenza were not detected. Patient is high risk for aspiration and is maintained on tube feeds. Plan is for patient to return to [facility] once stabilized and discharged. Patient's being started on IV antibiotics in the form of Zithromax and ceftriaxone and will add cefepime and consult infectious disease. Patient is requesting water although unsure if patient tolerates any oral intake and will consult speech and appreciate evaluation. Patient's sodium increased at 156 this morning and will add D5 in water and recommend gentle hydration and repeat labs in a.m. Recommend DuoNeb treatments 4 times a day and when necessary, sputum culture obtained and pending at this time along with blood cultures. Patient denies chest pain or palpitations. Patient is afebrile. Patient requesting water with no reports of nausea or vomiting noted. 12/28/2021 Patient still being treated for pneumonia with sputum culture growing sensitive protein and therefore his antibiotic was suggested cefepime and downgraded into ceftriaxone 2 g daily. ID team on the case. Patient remains performed the confused, sitting up in bed, mildly tachypneic but does not follow commands. Most likely he is metabolic encephalopathy secondary to infection and significant hypernatremia, sodium is 153. He is not on IV fluid. We started him on D5W today and water flushes 100 mL every 6-8 hours through his PEG tube. 4gallstone at 0.15. He is on 8 L/m via his trach collar with FiO2 of 35%. Check labs in the morning Objective - Vital Signs Vital signs: Vital Signs Temp 98.4 F 12/28/21 07:43 Pulse 75 12/28/21 09:29 Resp 20 12/28/21 07:43 BP 114/73 12/28/21 07:43 Pulse Ox 98 12/28/21 08:48 FiO2 35 12/28/21 08:48 Intake & Output 12/27/21 12/28/21 12/28/21 18:59 06:59 18:59 Intake Total 0 0 Output Total 300 Balance 0 -300 Intake: Oral 0 0 Output: Urine 300 Other: Voiding Method Diaper Diaper Diaper Incontinent Incontinent Incontinent # Voids 1 - Exam -GENERAL: The patient is confused, not in any acute distress. Well developed, well nourished. HEENT: Pupils are round and equally reacting to light. EOMI. No scleral icterus. No conjunctival pallor. Normocephalic, atraumatic. No pharyngeal erythema. No thyromegaly. CARDIOVASCULAR: S1 and S2 present. No murmurs, rubs, or gallops. -PULMONARY: Chest is clear to auscultation, no wheezing or crackles. Status post tracheostomy -ABDOMEN: Soft, nontender, nondistended, normoactive bowel sounds. No palpable organomegaly. Status post PEG tube MUSCULOSKELETAL: No joint swelling or deformity. EXTREMITIES: No cyanosis, clubbing, or pedal edema. NEUROLOGICAL: Gross neurological examination did not reveal any focal deficits. SKIN: No rashes. no petechiae. - Labs CBC & Chem 7: 12/28/21 06:41 12/28/21 06:41 Labs: Microbiology - Last 24 Hours (Table) 12/26/21 19:34 Gram Stain - Final Sputum Sputum Culture - Final Proteus mirabilis 12/26/21 19:22 Blood Culture - Preliminary Blood No Growth after 24 hours 12/26/21 19:22 Blood Culture - Preliminary Blood No Growth after 24 hours Assessment and Plan Assessment: Metabolic/toxic encephalopathy Hospital acquired pneumonia, secondary to sensitive Proteus Acute hypoxic respiratory failure Hyponatremia secondary to significant dehydration History of tracheostomy and PEG tube in April 2021 History of left arm amputation Elevated LFTs, improving Plan: History a pleasant 71 years old male with pneumonia and hyponatremia Start D5 W and water flushes and monitor sodium level Continue with ceftriaxone, ID team on the case Check chest x-ray in the morning Start tube feeding, direct consult Labs and medication were reviewed.. Continue same treatment. Continue with symptomatic treatment. Resume home medication. Monitor lytes and vitals. DVT and GI prophylaxis. Further recommendations as per clinical course of the patient DVT prophylaxis: Subcutaneous Lovenox GI Prophylaxis: Pepcid Prognosis is guarded
[2021-12-29] MEDS: LEVOTHYROXINE 50 MCG TAB PEG/G-TUBE SCH (05:59)
[2021-12-29] MEDS: DEXTROSE 5% IN WATER 1,000 ML IV SCH ×2 (05:59→20:13)
[2021-12-29] MEDS: IPRATROPIUM-ALBUTEROL 3 ML NEB INHALATION SCH ×4 (09:20→21:05)
[2021-12-29] MEDS: METOPROLOL TARTRATE 25 MG TAB PEG/G-TUBE SCH ×2 (11:28→21:39)
[2021-12-29] MEDS: guaiFENesin-DM 100-10MG/5ML 10 ML CUP PEG/G-TUBE SCH ×3 (11:28→21:38)
[2021-12-29] MEDS: ENOXAPARIN 40 MG/0.4 ML SYRINGE SQ SCH (11:28)
[2021-12-29] MEDS: traMADol 50 MG TAB PEG/G-TUBE SCH ×3 (11:28→21:38)
[2021-12-29] MEDS: FAMOTIDINE 20 MG TAB PEG/G-TUBE SCH ×2 (11:32→21:38)
[2021-12-29] MEDS: SERTRALINE 50 MG TAB PEG/G-TUBE SCH (11:32)
[2021-12-29] MEDS: LACTOBACILLUS ACIDOPH & BULGAR 1 EACH PACKET PEG/G-TUBE SCH ×2 (11:32→21:38)
[2021-12-29 11:57] LABS: Basophils # (A) 0.03 X 10*3/uL (0.00-0.10); Basophils % (A) 0.3 %; Eosinophils # (A) 0.35 X 10*3/uL (0.04-0.35); Eosinophils % (A) 3.6 %; HCT 39.3 % (39.6-50.0); HGB 12.2 g/dL (13.0-17.0); Immature Grans, Automated 0.5 %; Lymphocytes # (A) 2.24 X 10*3/uL (0.90-5.00); Lymphocytes % (A) 23.2 %; MCH 32.1 pg (27.0-32.0); MCV 103.4 fL (80.0-97.0); Mean Platelet Volume 13.8 fL (9.5-12.2); Monocytes # (A) 0.85 X 10*3/uL (0.20-1.00); Monocytes % (A) 8.8 %; NRBC Per 100 WBC 0 /100 WBCS (0.0-0.0); Neutrophils # (A) 6.14 X 10*3/uL (1.80-7.70); Neutrophils % (A) 63.6 %; Platelet Count 109 X 10*3/uL (140-440); RDW 15.7 % (11.5-14.5); WBC 9.66 X 10*3/uL (4.50-10.00)
[2021-12-29 15:54] LABS: Albumin 2.2 g/dL (3.8-4.9); Albumin/Globulin Ratio 0.47 (1.60-3.17); Anion Gap 12.9 mmol/L (10.00-18.00); BUN/Creat Ratio 31.98 Ratio (12.00-20.00); Bilirubin, Conjugated 0.28 mg/dL (0.20-0.40); Bilirubin,Unconjugated 0.45 mg/dL (0.20-1.00); Blood Urea Nitrogen 37.1 mg/dL (9.0-27.0); Calcium 8.3 mg/dL (8.7-10.3); Carbon Dioxide 22.6 mmol/L (20.0-27.5); Globulin 4.6 g/dL (1.6-3.3); Total Bilirubin 0.7 mg/dL (0.30-1.20); Total Protein 6.8 g/dL (6.2-8.2)
--- NOTE | 2021-12-29 18:56 | P.PN ---
Subjective This is a pleasant 71-year-old male who has been a resident at [facility] and presented to the emergency department via EMS with difficulty in breathing. It was reported there was an x-ray done at the facility that was noted to have pneumonia and patient having increased yellow secretions from his tracheostomy tube. Patient is alert although does not communicate very well status post tracheostomy and PEG tube placement from April where he had extensive pneumonia requiring tracheostomy placement. Patient had been residing at other [facility] facility's continued to have multiple episodes of pneumonia. Chest x-ray in the emergency department on admission shows pulmonary fibrosis cardiomegaly with no obvious heart failure with lower lobe pneumonia not entirely excluded. There is also noted old left-sided rib fractures and deformity of the left shoulder which is not well-visualized. Labs revealed a mildly elevated WBC of 11.3 with a hemoglobin of 13.8, platelets were 56, INR 1.0, sodium 151, potassium 4.3, creatinine 1.39 with a BUN of 77, lactic acid was 1.4 with magnesium of 2.4 and LFTs mildly elevated of an AST of 87 and ALT is 76 with an alk phos of 324, troponin was 0.032. Urinalysis was done which was negative and Covid, influenza were not detected. Patient is high risk for aspiration and is maintained on tube feeds. Plan is for patient to return to [facility] once stabilized and discharged. Patient's being started on IV antibiotics in the form of Zithromax and ceftriaxone and will add cefepime and consult infectious disease. Patient is requesting water although unsure if patient tolerates any oral intake and will consult speech and appreciate evaluation. Patient's sodium increased at 156 this morning and will add D5 in water and recommend gentle hydration and repeat labs in a.m. Recommend DuoNeb treatments 4 times a day and when necessary, sputum culture obtained and pending at this time along with blood cultures. Patient denies chest pain or palpitations. Patient is afebrile. Patient requesting water with no reports of nausea or vomiting noted. 12/28/2021 Patient still being treated for pneumonia with sputum culture growing sensitive protein and therefore his antibiotic was suggested cefepime and downgraded into ceftriaxone 2 g daily. ID team on the case. Patient remains performed the confused, sitting up in bed, mildly tachypneic but does not follow commands. Most likely he is metabolic encephalopathy secondary to infection and significant hypernatremia, sodium is 153. He is not on IV fluid. We started him on D5W today and water flushes 100 mL every 6-8 hours through his PEG tube. 4gallstone at 0.15. He is on 8 L/m via his trach collar with FiO2 of 35%. Check labs in the morning 12/29/2021 Patient remains confused and hypernatremic with sodium 150. We will increase his D5W to 100 mL per hour and increase water flushes through PEG tube to 150 mL every 6-8 hours. Also is getting tube feeding and he is tolerating diet. He is hemodynamically stable, blood pressure borderline which looks stable. He is asymptomatic regarding this. He remains on ceftriaxone for left lower lobe pneumonia secondary to sensitive a Proteus per culture. Sodium today is 150. Remains on 8 L per minute of oxygen via trach collar with FiO2 of 35% Check chest x-ray tomorrow Objective - Vital Signs Vital signs: Vital Signs Temp 97.5 F L 12/29/21 02:00 Pulse 80 12/29/21 09:35 Resp 20 12/29/21 02:00 BP 94/57 12/29/21 02:00 Pulse Ox 96 12/29/21 09:21 FiO2 35 12/29/21 09:21 Intake & Output 12/28/21 12/29/21 12/29/21 18:59 06:59 18:59 Output Total 300 Balance -300 Weight 40 kg Output: Urine 300 Other: Voiding Method Diaper Diaper Incontinent Incontinent - Exam -GENERAL: The patient is confused, not in any acute distress. Well developed, well nourished. HEENT: Pupils are round and equally reacting to light. EOMI. No scleral icterus. No conjunctival pallor. Normocephalic, atraumatic. No pharyngeal erythema. No thyromegaly. CARDIOVASCULAR: S1 and S2 present. No murmurs, rubs, or gallops. -PULMONARY: Chest is clear to auscultation, no wheezing or crackles. Status post tracheostomy -ABDOMEN: Soft, nontender, nondistended, normoactive bowel sounds. No palpable organomegaly. Status post PEG tube MUSCULOSKELETAL: No joint swelling or deformity. EXTREMITIES: No cyanosis, clubbing, or pedal edema. NEUROLOGICAL: Gross neurological examination did not reveal any focal deficits. SKIN: No rashes. no petechiae. - Labs CBC & Chem 7: 12/29/21 07:19 12/29/21 07:19 Labs: Abnormal Lab Results - Last 24 Hours (Table) 12/28/21 12/28/21 12/28/21 Range/Units 06:41 06:41 06:41 WBC 12.69 H (4.50-10.00) X 10*3/uL RBC 3.72 L (4.40-5.60) X 10*6/uL Hgb 11.7 L (13.0-17.0) g/dL Hct 38.1 L (39.6-50.0) % MCV 102.4 H (80.0-97.0) fL MCHC 30.7 L (32.0-37.0) g/dL RDW 16.3 H (11.5-14.5) % Plt Count 125 L (140-440) X 10*3/uL MPV 14.0 H (9.5-12.2) fL Sodium 153 H (135-145) mmol/L Chloride 117 H (96-109) mmol/L Carbon Dioxide 28.4 H (20.0-27.5) mmol/L Anion Gap 8.20 L (10.00-18.00) mmol/L BUN 50.5 H (9.0-27.0) mg/dL Est GFR (CKD-EPI)NonAf 52.0 L (60.0-200.0) BUN/Creatinine Ratio 37.13 H (12.00-20.00) Ratio Glucose 118 H (70-110) mg/dL Calcium 8.4 L (8.7-10.3) mg/dL AST 64 H (14-35) U/L ALT 60 H (10-49) U/L C-Reactive Protein 1.50 H (0.00-0.80) mg/dL Albumin 2.5 L (3.8-4.9) g/dL Globulin 4.4 H (1.6-3.3) g/dL Albumin/Globulin Ratio 0.57 L (1.60-3.17) g/dL Procalcitonin 0.15 H (0.02-0.09) ng/mL Microbiology - Last 24 Hours (Table) 12/26/21 19:22 Blood Culture - Preliminary Blood No Growth after 48 hours 12/26/21 19:22 Blood Culture - Preliminary Blood No Growth after 48 hours 12/26/21 19:34 Gram Stain - Final Sputum Sputum Culture - Final Proteus mirabilis Assessment and Plan Assessment: Metabolic/toxic encephalopathy Hospital acquired pneumonia, secondary to sensitive Proteus Acute hypoxic respiratory failure Hyponatremia secondary to significant dehydration History of tracheostomy and PEG tube in April 2021 History of left arm amputation Elevated LFTs, improving Plan: History a pleasant 71 years old male with pneumonia and hyponatremia Start D5 W and water flushes and monitor sodium level Continue with ceftriaxone, ID team on the case Start tube feeding, direct consult Labs and medication were reviewed.. Continue same treatment. Continue with symptomatic treatment. Resume home medication. Monitor lytes and vitals. DVT and GI prophylaxis. Further recommendations as per clinical course of the patient DVT prophylaxis: Subcutaneous Lovenox GI Prophylaxis: Pepcid Prognosis is guarded
[2021-12-30] MEDS: ACETAMINOPHEN TAB 325 MG TAB PEG/G-TUBE PRN (01:44)
[2021-12-30] MEDS: DEXTROSE 5% IN WATER 1,000 ML IV SCH ×2 (03:36→13:51)
[2021-12-30] MEDS: IPRATROPIUM-ALBUTEROL 3 ML NEB INHALATION SCH ×4 (07:12→21:05)
[2021-12-30] MEDS: guaiFENesin-DM 100-10MG/5ML 10 ML CUP PEG/G-TUBE SCH ×2 (07:33→13:46)
[2021-12-30] MEDS: traMADol 50 MG TAB PEG/G-TUBE SCH ×2 (07:34→13:46)
[2021-12-30] MEDS: LEVOTHYROXINE 50 MCG TAB PEG/G-TUBE SCH (07:34)
[2021-12-30] MEDS: SCOPOLAMINE 1 MG/72 HR PATCH TRANSDERM SCH (07:36)
--- NOTE | 2021-12-30 08:10 | P.PN ---
Subjective Progress Note Date: 12/28/21 Principal diagnosis: Pneumonia Patient is a 71-year-old male with respiratory failure with chronic tracking. Presented to the hospital with difficulty breathing patient was hypoxic and did have evidence of lower lobe pneumonia with sputum finalized with Proteus. On today's evaluation that is 12/28/2021, the patient is afebrile the patient seemed to be breathing comfortably on trach collar, tolerating his tube feeds no vomiting or diarrhea has been reported patient was unable to provide any history Objective - Vital Signs Vital signs: Vital Signs Temp 97.9 F 12/28/21 09:00 Pulse 75 12/28/21 09:00 Resp 16 12/28/21 09:00 BP 106/65 12/28/21 09:00 Pulse Ox 96 12/28/21 09:00 FiO2 35 12/28/21 09:00 Intake & Output 12/28/21 8:59 Output Total Balance Weight 40 kg Output: Urine Other: Voiding Method Diaper Incontinent - Exam GENERAL DESCRIPTION: An elderly male lying in bed in no distress RESPIRATORY SYSTEM: Unlabored breathing , decreased breath sounds at bases HEART: S1 S2 regular rate and rhythm , ABDOMEN: Soft , no tenderness EXTREMITIES: No edema feet - Labs CBC & Chem 7: 12/29/21 07:19 12/29/21 07:19 Labs: Abnormal Lab Results - Last 24 Hours (Table) 12/28/21 12/29/21 Range/Units 06:41 07:19 RBC 3.80 L (4.40-5.60) X 10*6/uL Hgb 12.2 L (13.0-17.0) g/dL Hct 39.3 L (39.6-50.0) % MCV 103.4 H (80.0-97.0) fL MCH 32.1 H (27.0-32.0) pg MCHC 31.0 L (32.0-37.0) g/dL RDW 15.7 H (11.5-14.5) % Plt Count 109 L (140-440) X 10*3/uL MPV 13.8 H (9.5-12.2) fL Immature Gran # 0.05 H (0.00-0.04) X 10*3/uL Procalcitonin 0.15 H (0.02-0.09) ng/mL Microbiology - Last 24 Hours (Table) 12/26/21 19:22 Blood Culture - Preliminary Blood No Growth after 48 hours 12/26/21 19:22 Blood Culture - Preliminary Blood No Growth after 48 hours 12/26/21 19:34 Gram Stain - Final Sputum Sputum Culture - Final Proteus mirabilis Assessment and Plan (1) Pneumonia Current Visit: Yes Status: Acute Code(s): J18.9 - PNEUMONIA, UNSPECIFIED ORGANISM SNOMED Code(s): 686231226 Plan: 1patient presented to hospital with increasing shortness of breath which is likely multifactorial in this patient with a chronic trach and PEG and concern for right lower lobe pneumonia with a sputum showing a gram-negative we will need to cover for the resistant gram-negative keeping in mind the halfway resident and history of recurrent pneumonia. 2 aspiration precaution. 3patient's sputum has been finalized with Proteus sensitive pathogen antibiotics switched over to Rocephin 2 g daily
--- NOTE | 2021-12-30 08:13 | P.PN ---
Subjective Progress Note Date: 12/29/21 Principal diagnosis: Pneumonia Patient is a 71-year-old male with respiratory failure with chronic tracking. Presented to the hospital with difficulty breathing patient was hypoxic and did have evidence of lower lobe pneumonia with sputum finalized with Proteus. On today's evaluation that is 12/29/2021, the patient remains to be afebrile the patient is breathing comfortably on trach collar, the patient tolerating his tube feeds no vomiting or diarrhea has been reported patient was unable to provide any history Objective - Vital Signs Vital signs: Vital Signs Temp 97.5 F L 12/29/21 12:55 Pulse 65 12/29/21 12:55 Resp 16 12/29/21 12:55 BP 110/66 12/29/21 12:55 Pulse Ox 94 L 12/29/21 12:55 FiO2 35 12/29/21 12:55 Intake & Output 12/29/21 12:59 Weight Other: Voiding Method Diaper Incontinent - Exam GENERAL DESCRIPTION: An elderly male lying in bed in no distress RESPIRATORY SYSTEM: Unlabored breathing , decreased breath sounds at bases HEART: S1 S2 regular rate and rhythm , ABDOMEN: Soft , no tenderness EXTREMITIES: No edema feet - Labs CBC & Chem 7: 12/29/21 07:19 12/29/21 07:19 Labs: Abnormal Lab Results - Last 24 Hours (Table) 12/29/21 12/29/21 Range/Units 07:19 07:19 RBC 3.80 L (4.40-5.60) X 10*6/uL Hgb 12.2 L (13.0-17.0) g/dL Hct 39.3 L (39.6-50.0) % MCV 103.4 H (80.0-97.0) fL MCH 32.1 H (27.0-32.0) pg MCHC 31.0 L (32.0-37.0) g/dL RDW 15.7 H (11.5-14.5) % Plt Count 109 L (140-440) X 10*3/uL MPV 13.8 H (9.5-12.2) fL Immature Gran # 0.05 H (0.00-0.04) X 10*3/uL Sodium 150 H (135-145) mmol/L Chloride 114 H (96-109) mmol/L BUN 37.1 H (9.0-27.0) mg/dL BUN/Creatinine Ratio 31.98 H (12.00-20.00) Ratio Calcium 8.3 L (8.7-10.3) mg/dL AST 74 H (14-35) U/L ALT 58 H (10-49) U/L Albumin 2.2 L (3.8-4.9) g/dL Globulin 4.6 H (1.6-3.3) g/dL Albumin/Globulin Ratio 0.47 L (1.60-3.17) g/dL Microbiology - Last 24 Hours (Table) 12/26/21 19:22 Blood Culture - Preliminary Blood No Growth after 72 hours 12/26/21 19:22 Blood Culture - Preliminary Blood No Growth after 72 hours Assessment and Plan (1) Pneumonia Current Visit: Yes Status: Acute Code(s): J18.9 - PNEUMONIA, UNSPECIFIED ORGANISM SNOMED Code(s): 676687228 Plan: 1patient presented to hospital with increasing shortness of breath which is likely multifactorial in this patient with a chronic trach and PEG and concern for right lower lobe pneumonia with a sputum showing a gram-negative we will need to cover for the resistant gram-negative keeping in mind the [facility] resident and history of recurrent pneumonia. 2 aspiration precaution. 3patient's sputum has been finalized with Proteus sensitive pathogen patient is currently being treated with Rocephin 2 g daily with a plan to finish therapy with oral Ceftin Time with Patient: Less than 30
--- NOTE | 2021-12-30 09:21 | XR ---
EXAMINATION TYPE: XR chest 1V DATE OF EXAM: 12/30/2021 COMPARISON: 12/26/2021 HISTORY: Shortness of breath TECHNIQUE: Single frontal view of the chest is obtained. FINDINGS: Postoperative changes with tracheostomy tube. There is the absence of the left humerus luke gical. Bilateral lower lobe infiltrate and pleural effusion. Right rib cage deformities noted. Heart size stable with elevated left hemidiaphragm. Coarsened interstitium. IMPRESSION: Bilateral lower lobe infiltrates likely superimposed on a background COPD and chronic in terstitial lung disease. Superimposed interstitial pneumonitis in the differential diagnosis
[2021-12-30 09:38] LABS: African American GFR (CKD) 91.5 (60.0-200.0); Anion Gap 6.4 mmol/L (10.00-18.00); BUN/Creat Ratio 27.21 Ratio (12.00-20.00); Blood Urea Nitrogen 26.2 mg/dL (9.0-27.0); Calcium 7.9 mg/dL (8.7-10.3); Carbon Dioxide 26.3 mmol/L (20.0-27.5); Non-African American GFR(CKD) 78.9 (60.0-200.0); Potassium 3.7 mmol/L (3.5-5.5)
[2021-12-30 10:12] LABS: Basophils # (A) 0.04 X 10*3/uL (0.00-0.10); Basophils % (A) 0.5 %; Eosinophils # (A) 0.29 X 10*3/uL (0.04-0.35); Eosinophils % (A) 3.8 %; HCT 36.2 % (39.6-50.0); HGB 11.6 g/dL (13.0-17.0); Lymphocytes # (A) 2.38 X 10*3/uL (0.90-5.00); Mean Platelet Volume 13.5 fL (9.5-12.2); Monocytes # (A) 0.88 X 10*3/uL (0.20-1.00); Monocytes % (A) 11.5 %; NRBC Per 100 WBC 0 /100 WBCS (0.0-0.0); Neutrophils % (A) 52.2 %; Platelet Count 121 X 10*3/uL (140-440); RBC 3.62 X 10*6/uL (4.40-5.60); WBC 7.67 X 10*3/uL (4.50-10.00)
[2021-12-30] MEDS: ENOXAPARIN 40 MG/0.4 ML SYRINGE SQ SCH (10:40)
[2021-12-30] MEDS: FAMOTIDINE 20 MG TAB PEG/G-TUBE SCH (10:41)
[2021-12-30] MEDS: METOPROLOL TARTRATE 25 MG TAB PEG/G-TUBE SCH (10:42)
[2021-12-30] MEDS: LACTOBACILLUS ACIDOPH & BULGAR 1 EACH PACKET PEG/G-TUBE SCH (10:42)
[2021-12-30] MEDS: SERTRALINE 50 MG TAB PEG/G-TUBE SCH (10:43)
[2021-12-30 14:38] VITALS: BMI 15.1
--- NOTE | 2021-12-30 14:59 | P.PN ---
Subjective Progress Note Date: 12/30/21 Principal diagnosis: Pneumonia Patient is a 71-year-old male with respiratory failure with chronic tracking. Presented to the hospital with difficulty breathing patient was hypoxic and did have evidence of lower lobe pneumonia with sputum finalized with Proteus. On today's evaluation that is 12/30/2021, the patient continues to be afebrile the patient is breathing comfortably on trach collar, the patient is tolerating his tube feeds no vomiting or diarrhea has been reported patient cannot provide any reliable history Objective - Vital Signs Vital signs: Vital Signs Temp 98.1 F 12/30/21 13:18 Pulse 64 12/30/21 13:18 Resp 16 12/30/21 13:18 BP 106/53 12/30/21 13:18 Pulse Ox 96 12/30/21 13:18 FiO2 35 12/30/21 07:14 Intake & Output 12/29/21 12/30/21 12/30/21 18:59 06:59 18:59 Weight 48 kg Other: Voiding Method Diaper Diaper Incontinent Incontinent - Exam GENERAL DESCRIPTION: An elderly male lying in bed in no distress RESPIRATORY SYSTEM: Unlabored breathing , decreased breath sounds at bases HEART: S1 S2 regular rate and rhythm , ABDOMEN: Soft , no tenderness EXTREMITIES: No edema feet - Labs CBC & Chem 7: 12/30/21 06:09 12/30/21 06:09 Labs: Abnormal Lab Results - Last 24 Hours (Table) 12/29/21 12/30/21 12/30/21 Range/Units 07:19 06:09 06:09 RBC 3.62 L (4.40-5.60) X 10*6/uL Hgb 11.6 L (13.0-17.0) g/dL Hct 36.2 L (39.6-50.0) % MCV 100.0 H (80.0-97.0) fL RDW 15.0 H (11.5-14.5) % Plt Count 121 L (140-440) X 10*3/uL MPV 13.5 H (9.5-12.2) fL Immature Gran # 0.08 H (0.00-0.04) X 10*3/uL Sodium 150 H (135-145) mmol/L Chloride 114 H (96-109) mmol/L Anion Gap 6.40 L (10.00-18.00) mmol/L BUN 37.1 H (9.0-27.0) mg/dL BUN/Creatinine Ratio 31.98 H 27.21 H (12.00-20.00) Ratio Glucose 124 H (70-110) mg/dL Calcium 8.3 L 7.9 L (8.7-10.3) mg/dL AST 74 H (14-35) U/L ALT 58 H (10-49) U/L Albumin 2.2 L (3.8-4.9) g/dL Globulin 4.6 H (1.6-3.3) g/dL Albumin/Globulin Ratio 0.47 L (1.60-3.17) g/dL Microbiology - Last 24 Hours (Table) 12/26/21 19:22 Blood Culture - Preliminary Blood No Growth after 72 hours 12/26/21 19:22 Blood Culture - Preliminary Blood No Growth after 72 hours Assessment and Plan (1) Pneumonia Current Visit: Yes Status: Acute Code(s): J18.9 - PNEUMONIA, UNSPECIFIED ORGANISM SNOMED Code(s): 309326391 Plan: 1patient presented to hospital with increasing shortness of breath which is likely multifactorial in this patient with a chronic trach and PEG and concern for right lower lobe pneumonia with a sputum showing a gram-negative we will need to cover for the resistant gram-negative keeping in mind the long term resident and history of recurrent pneumonia. 2 aspiration precaution. 3patient's sputum has been finalized with Proteus sensitive pathogen patient seemed to have shown clinical improvement with Rocephin 2 g daily with a plan to finish therapy with oral Ceftin 7 days on discharge Time with Patient: Less than 30
[2021-12-31] MEDS: guaiFENesin-DM 100-10MG/5ML 10 ML CUP PEG/G-TUBE SCH ×4 (00:18→22:12)
[2021-12-31] MEDS: traMADol 50 MG TAB PEG/G-TUBE SCH ×4 (00:18→22:10)
[2021-12-31] MEDS: LACTOBACILLUS ACIDOPH & BULGAR 1 EACH PACKET PEG/G-TUBE SCH ×3 (00:19→22:12)
[2021-12-31] MEDS: FAMOTIDINE 20 MG TAB PEG/G-TUBE SCH ×3 (00:19→22:10)
[2021-12-31] MEDS: METOPROLOL TARTRATE 25 MG TAB PEG/G-TUBE SCH ×3 (00:19→22:11)
[2021-12-31] MEDS: HYDROcodone/APAP 7.5-325MG 1 EACH TAB PO PRN ×2 (00:19→14:44)
[2021-12-31] MEDS: PREGABALIN 100 MG CAP PO SCH ×2 (01:01→09:08)
[2021-12-31] MEDS: LEVOTHYROXINE 50 MCG TAB PEG/G-TUBE SCH (06:23)
[2021-12-31] MEDS: IPRATROPIUM-ALBUTEROL 3 ML NEB INHALATION SCH ×4 (09:07→19:37)
[2021-12-31] MEDS: SERTRALINE 50 MG TAB PEG/G-TUBE SCH (09:08)
[2021-12-31] MEDS: ENOXAPARIN 40 MG/0.4 ML SYRINGE SQ SCH (09:08)
[2021-12-31 12:14] LABS: Anion Gap 5.6 mmol/L (10.00-18.00); BUN/Creat Ratio 29.33 Ratio (12.00-20.00); Calcium 7.9 mg/dL (8.7-10.3); Carbon Dioxide 29.2 mmol/L (20.0-27.5); Non-African American GFR(CKD) 92.3 (60.0-200.0); Potassium 3.7 mmol/L (3.5-5.5)
[2021-12-31 12:58] LABS: Basophils # (A) 0.04 X 10*3/uL (0.00-0.10); Basophils % (A) 0.5 %; Eosinophils # (A) 0.29 X 10*3/uL (0.04-0.35); Eosinophils % (A) 3.6 %; HCT 35.4 % (39.6-50.0); HGB 11.4 g/dL (13.0-17.0); Immature Grans, Automated 1.1 %; Lymphocytes # (A) 2.64 X 10*3/uL (0.90-5.00); Lymphocytes % (A) 32.4 %; MCHC 32.2 g/dL (32.0-37.0); MCV 99.4 fL (80.0-97.0); Mean Platelet Volume 13.5 fL (9.5-12.2); Monocytes # (A) 0.81 X 10*3/uL (0.20-1.00); Monocytes % (A) 9.9 %; NRBC Per 100 WBC 0 /100 WBCS (0.0-0.0); Neutrophils # (A) 4.29 X 10*3/uL (1.80-7.70); Neutrophils % (A) 52.5 %; Platelet Count 125 X 10*3/uL (140-440); RBC 3.56 X 10*6/uL (4.40-5.60); WBC 8.16 X 10*3/uL (4.50-10.00)
--- NOTE | 2021-12-31 13:59 | P.PN ---
Subjective Progress Note Date: 12/30/21 71-year-old male who has been a resident at [facility] and presented to the emergency department via EMS with difficulty in breathing. It was reported there was an x-ray done at the facility that was noted to have pneumonia and patient having increased yellow secretions from his tracheostomy tube. Patient is alert although does not communicate very well status post tracheostomy and PEG tube placement from April where he had extensive pneumonia requiring tracheostomy placement. Patient had been residing at other [facility] facility's continued to have multiple episodes of pneumonia. Chest x-ray in the emergency department on admission shows pulmonary fibrosis cardiomegaly with no obvious heart failure with lower lobe pneumonia not entirely excluded. There is also noted old left-sided rib fractures and deformity of the left shoulder which is not well-visualized. Labs revealed a mildly elevated WBC of 11.3 with a hemoglobin of 13.8, platelets were 56, INR 1.0, sodium 151, potassium 4.3, creatinine 1.39 with a BUN of 77, lactic acid was 1.4 with magnesium of 2.4 and LFTs mildly elevated of an AST of 87 and ALT is 76 with an alk phos of 324, troponin was 0.032. Urinalysis was done which was negative and Covid, influenza were not detected. Patient is high risk for aspiration and is maintained on tube feeds. Plan is for patient to return to [facility] once stabilized and discharged. Patient's being started on IV antibiotics in the form of Zithromax and ceftriaxone and will add cefepime and consult infectious disease. Patient is requesting water although unsure if patient tolerates any oral intake and will consult speech and appreciate evaluation. Patient's sodium increased at 156 this morning and will add D5 in water and recommend gentle hydration and repeat labs in a.m. Recommend DuoNeb treatments 4 times a day and when necessary, sputum culture obtained and pending at this time along with blood cultures. Patient denies chest pain or palpitations. Patient is afebrile. Patient requesting water with no reports of nausea or vomiting noted. Objective - Vital Signs Vital signs: Vital Signs Temp 98.1 F 12/30/21 13:18 Pulse 64 12/30/21 13:18 Resp 16 12/30/21 13:18 BP 106/53 12/30/21 13:18 Pulse Ox 96 12/30/21 13:18 FiO2 35 09/02/22 07:14 Intake & Output 12/29/21 12/30/21 12/30/21 18:59 06:59 18:59 Weight 48 kg Other: Voiding Method Diaper Diaper Incontinent Incontinent - Exam -GENERAL: The patient is confused, not in any acute distress. Well developed, well nourished. HEENT: Pupils are round and equally reacting to light. EOMI. No scleral icterus. No conjunctival pallor. Normocephalic, atraumatic. No pharyngeal erythema. No thyromegaly. CARDIOVASCULAR: S1 and S2 present. No murmurs, rubs, or gallops. -PULMONARY: Chest is clear to auscultation, no wheezing or crackles. Status post tracheostomy -ABDOMEN: Soft, nontender, nondistended, normoactive bowel sounds. No palpable organomegaly. Status post PEG tube MUSCULOSKELETAL: No joint swelling or deformity. EXTREMITIES: No cyanosis, clubbing, or pedal edema. NEUROLOGICAL: Gross neurological examination did not reveal any focal deficits. SKIN: No rashes. no petechiae. - Labs CBC & Chem 7: 12/31/21 07:56 12/31/21 07:56 Labs: Abnormal Lab Results - Last 24 Hours (Table) 12/29/21 12/30/21 12/30/21 Range/Units 07:19 06:09 06:09 RBC 3.62 L (4.40-5.60) X 10*6/uL Hgb 11.6 L (13.0-17.0) g/dL Hct 36.2 L (39.6-50.0) % MCV 100.0 H (80.0-97.0) fL RDW 15.0 H (11.5-14.5) % Plt Count 121 L (140-440) X 10*3/uL MPV 13.5 H (9.5-12.2) fL Immature Gran # 0.08 H (0.00-0.04) X 10*3/uL Sodium 150 H (135-145) mmol/L Chloride 114 H (96-109) mmol/L Anion Gap 6.40 L (10.00-18.00) mmol/L BUN 37.1 H (9.0-27.0) mg/dL BUN/Creatinine Ratio 31.98 H 27.21 H (12.00-20.00) Ratio Glucose 124 H (70-110) mg/dL Calcium 8.3 L 7.9 L (8.7-10.3) mg/dL AST 74 H (14-35) U/L ALT 58 H (10-49) U/L Albumin 2.2 L (3.8-4.9) g/dL Globulin 4.6 H (1.6-3.3) g/dL Albumin/Globulin Ratio 0.47 L (1.60-3.17) g/dL Microbiology - Last 24 Hours (Table) 12/26/21 19:22 Blood Culture - Preliminary Blood No Growth after 72 hours 12/26/21 19:22 Blood Culture - Preliminary Blood No Growth after 72 hours Assessment and Plan Assessment: Metabolic/toxic encephalopathy Hospital acquired pneumonia, secondary to sensitive Proteus Acute hypoxic respiratory failure Hyponatremia secondary to significant dehydration History of tracheostomy and PEG tube in April 2021 History of left arm amputation Elevated LFTs, improving Plan: History a pleasant 71 years old male with pneumonia and hyponatremia Start D5 W and water flushes and monitor sodium level Continue with ceftriaxone, ID team on the case Start tube feeding, direct consult Labs and medication were reviewed.. Continue same treatment. Continue with symptomatic treatment. Resume home medication. Monitor lytes and vitals. DVT and GI prophylaxis. Further recommendations as per clinical course of the patient DVT prophylaxis: Subcutaneous Lovenox GI Prophylaxis: Pepcid Prognosis is guarded
--- NOTE | 2021-12-31 20:55 | P.PN ---
Subjective Progress Note Date: 12/31/21 Principal diagnosis: Metabolic/toxic encephalopathy Hospital acquired pneumonia Acute hypoxic respiratory failure Hyponatremia secondary to significant dehydration 71-year-old male who has been a resident at [facility] and presented to the emergency department via EMS with difficulty in breathing. It was reported there was an x-ray done at the facility that was noted to have pneumonia and patient having increased yellow secretions from his tracheostomy tube. Patient is alert although does not communicate very well status post tracheostomy and PEG tube placement from April where he had extensive pneumonia requiring tracheostomy placement. Patient had been residing at other [facility] facility's continued to have multiple episodes of pneumonia. Chest x-ray in the emergency department on admission shows pulmonary fibrosis cardiomegaly with no obvious heart failure with lower lobe pneumonia not entirely excluded. There is also noted old left-sided rib fractures and deformity of the left shoulder which is not well-visualized. Labs revealed a mildly elevated WBC of 11.3 with a hemoglobin of 13.8, platelets were 56, INR 1.0, sodium 151, potassium 4.3, creatinine 1.39 with a BUN of 77, lactic acid was 1.4 with magnesium of 2.4 and LFTs mildly elevated of an AST of 87 and ALT is 76 with an alk phos of 324, troponin was 0.032. Urinalysis was done which was negative and Covid, influenza were not detected. Patient is high risk for aspiration and is maintained on tube feeds. Plan is for patient to return to [facility] once stabilized and discharged. Patient's being started on IV antibiotics in the form of Zithromax and ceftriaxone and will add cefepime and consult infectious disease. Patient is requesting water although unsure if patient tolerates any oral intake and will consult speech and appreciate evaluation. Patient's sodium increased at 156 this morning and will add D5 in water and recommend gentle hydration and repeat labs in a.m. Recommend DuoNeb treatments 4 times a day and when necessary, sputum culture obtained and pending at this time along with blood cultures. Patient denies chest pain or palpitations. Patient is afebrile. Patient requesting water with no reports of nausea or vomiting noted. 12/31/2021 Patient is seen and evaluated and discussed with nursing staff Vital signs are stable with temperature of 98.1, pulse 73, respiration 18 and blood pressure of 110/58 Patient admitted to the hospital with right lower lobe pneumonia likely aspiration with sputum cultures showing gram-negative organisms; patient remains on IV antibiotics; aspiration precautions are in place; continue with Rocephin 2 g IV daily which will be completed with oral Ceftin for 7 days upon discharge - DEPLOYMENT ENGINEER is consulted and recommendations are pending Objective - Vital Signs Vital signs: Vital Signs Temp 98.4 F 12/31/21 13:54 Pulse 101 H 12/31/21 13:54 Resp 16 12/31/21 13:54 BP 116/72 12/31/21 13:54 Pulse Ox 100 12/31/21 13:54 FiO2 35 12/31/21 09:09 Intake & Output 12/30/21 12/31/21 12/31/21 18:59 06:59 18:59 Weight 48 kg 44 kg Other: Voiding Method Diaper External Catheter External Catheter Incontinent - Exam -GENERAL: The patient is confused, not in any acute distress. Well developed, well nourished. HEENT: Pupils are round and equally reacting to light. EOMI. No scleral icterus. No conjunctival pallor. Normocephalic, atraumatic. No pharyngeal erythema. No thyromegaly. CARDIOVASCULAR: S1 and S2 present. No murmurs, rubs, or gallops. -PULMONARY: Chest is clear to auscultation, no wheezing or crackles. Status post tracheostomy -ABDOMEN: Soft, nontender, nondistended, normoactive bowel sounds. No palpable organomegaly. Status post PEG tube MUSCULOSKELETAL: No joint swelling or deformity. EXTREMITIES: No cyanosis, clubbing, or pedal edema. NEUROLOGICAL: Gross neurological examination did not reveal any focal deficits. SKIN: No rashes. no petechiae. - Labs CBC & Chem 7: 12/31/21 07:56 12/31/21 07:56 Labs: Abnormal Lab Results - Last 24 Hours (Table) 12/31/21 12/31/21 Range/Units 07:56 07:56 RBC 3.56 L (4.40-5.60) X 10*6/uL Hgb 11.4 L (13.0-17.0) g/dL Hct 35.4 L (39.6-50.0) % MCV 99.4 H (80.0-97.0) fL RDW 15.0 H (11.5-14.5) % Plt Count 125 L (140-440) X 10*3/uL MPV 13.5 H (9.5-12.2) fL Immature Gran # 0.09 H (0.00-0.04) X 10*3/uL Carbon Dioxide 29.2 H (20.0-27.5) mmol/L Anion Gap 5.60 L (10.00-18.00) mmol/L BUN/Creatinine Ratio 29.33 H (12.00-20.00) Ratio Glucose 131 H (70-110) mg/dL Calcium 7.9 L (8.7-10.3) mg/dL Microbiology - Last 24 Hours (Table) 12/26/21 19:22 Blood Culture - Preliminary Blood No Growth after 96 hours 12/26/21 19:22 Blood Culture - Preliminary Blood No Growth after 96 hours Assessment and Plan Assessment: Metabolic/toxic encephalopathy Hospital acquired pneumonia, secondary to sensitive Proteus Acute hypoxic respiratory failure Hyponatremia secondary to significant dehydration History of tracheostomy and PEG tube in April 2021 History of left arm amputation Elevated LFTs, improving Plan: History a pleasant 71 years old male with pneumonia and hyponatremia Start D5 W and water flushes and monitor sodium level Continue with ceftriaxone, ID team on the case Start tube feeding, direct consult Labs and medication were reviewed.. Continue same treatment. Continue with symptomatic treatment. Resume home medication. Monitor lytes and vitals. DVT and GI prophylaxis. Further recommendations as per clinical course of the patient DVT prophylaxis: Subcutaneous Lovenox GI Prophylaxis: Pepcid Prognosis is guarded
[2022-01-01] MEDS: HYDROcodone/APAP 7.5-325MG 1 EACH TAB PO PRN ×2 (02:47→16:43)
[2022-01-01] MEDS: IPRATROPIUM-ALBUTEROL 3 ML NEB INHALATION SCH ×4 (09:09→19:58)
[2022-01-01 09:17] LABS: Basophils # (A) 0.03 X 10*3/uL (0.00-0.10); Basophils % (A) 0.4 %; Eosinophils # (A) 0.23 X 10*3/uL (0.04-0.35); HCT 34.8 % (39.6-50.0); HGB 11.2 g/dL (13.0-17.0); Immature Grans, Automated 0.9 %; Lymphocytes # (A) 2.01 X 10*3/uL (0.90-5.00); Lymphocytes % (A) 25.8 %; MCH 32.1 pg (27.0-32.0); MCHC 32.2 g/dL (32.0-37.0); MCV 99.7 fL (80.0-97.0); Mean Platelet Volume 13.6 fL (9.5-12.2); Monocytes # (A) 0.77 X 10*3/uL (0.20-1.00); Monocytes % (A) 9.9 %; NRBC Per 100 WBC 0 /100 WBCS (0.0-0.0); Neutrophils # (A) 4.68 X 10*3/uL (1.80-7.70); Platelet Count 124 X 10*3/uL (140-440); RBC 3.49 X 10*6/uL (4.40-5.60); RDW 15.2 % (11.5-14.5); WBC 7.79 X 10*3/uL (4.50-10.00)
[2022-01-01] MEDS: LACTOBACILLUS ACIDOPH & BULGAR 1 EACH PACKET PEG/G-TUBE SCH ×2 (09:41→20:36)
[2022-01-01] MEDS: ENOXAPARIN 40 MG/0.4 ML SYRINGE SQ SCH (09:41)
[2022-01-01] MEDS: METOPROLOL TARTRATE 25 MG TAB PEG/G-TUBE SCH ×2 (09:41→20:36)
[2022-01-01] MEDS: guaiFENesin-DM 100-10MG/5ML 10 ML CUP PEG/G-TUBE SCH ×3 (09:41→20:34)
[2022-01-01] MEDS: FAMOTIDINE 20 MG TAB PEG/G-TUBE SCH ×2 (09:41→20:34)
[2022-01-01] MEDS: SERTRALINE 50 MG TAB PEG/G-TUBE SCH (09:42)
[2022-01-01] MEDS: traMADol 50 MG TAB PEG/G-TUBE SCH ×3 (09:42→20:34)
[2022-01-01] MEDS: LEVOTHYROXINE 50 MCG TAB PEG/G-TUBE SCH (09:42)
[2022-01-01] MEDS: PREGABALIN 100 MG CAP PO SCH (09:42)
[2022-01-01 11:52] LABS: African American GFR (CKD) 104.2 (60.0-200.0); Anion Gap 8.8 mmol/L (10.00-18.00); BUN/Creat Ratio 27.63 Ratio (12.00-20.00); Blood Urea Nitrogen 22.1 mg/dL (9.0-27.0); Calcium 7.7 mg/dL (8.7-10.3); Carbon Dioxide 27.2 mmol/L (20.0-27.5); Non-African American GFR(CKD) 89.9 (60.0-200.0)
--- NOTE | 2022-01-01 16:49 | P.PN ---
Subjective Progress Note Date: 01/01/22 Principal diagnosis: Metabolic/toxic encephalopathy Hospital acquired pneumonia Acute hypoxic respiratory failure Hyponatremia secondary to significant dehydration 71-year-old male who has been a resident at [facility] and presented to the emergency department via EMS with difficulty in breathing. It was reported there was an x-ray done at the facility that was noted to have pneumonia and patient having increased yellow secretions from his tracheostomy tube. Patient is alert although does not communicate very well status post tracheostomy and PEG tube placement from April where he had extensive pneumonia requiring tracheostomy placement. Patient had been residing at other [facility] facility's continued to have multiple episodes of pneumonia. Chest x-ray in the emergency department on admission shows pulmonary fibrosis cardiomegaly with no obvious heart failure with lower lobe pneumonia not entirely excluded. There is also noted old left-sided rib fractures and deformity of the left shoulder which is not well-visualized. Labs revealed a mildly elevated WBC of 11.3 with a hemoglobin of 13.8, platelets were 56, INR 1.0, sodium 151, potassium 4.3, creatinine 1.39 with a BUN of 77, lactic acid was 1.4 with magnesium of 2.4 and LFTs mildly elevated of an AST of 87 and ALT is 76 with an alk phos of 324, troponin was 0.032. Urinalysis was done which was negative and Covid, influenza were not detected. Patient is high risk for aspiration and is maintained on tube feeds. Plan is for patient to return to [facility] once stabilized and discharged. Patient's being started on IV antibiotics in the form of Zithromax and ceftriaxone and will add cefepime and consult infectious disease. Patient is requesting water although unsure if patient tolerates any oral intake and will consult speech and appreciate evaluation. Patient's sodium increased at 156 this morning and will add D5 in water and recommend gentle hydration and repeat labs in a.m. Recommend DuoNeb treatments 4 times a day and when necessary, sputum culture obtained and pending at this time along with blood cultures. Patient denies chest pain or palpitations. Patient is afebrile. Patient requesting water with no reports of nausea or vomiting noted. 12/31/2021 Patient is seen and evaluated and discussed with nursing staff Vital signs are stable with temperature of 98.1, pulse 73, respiration 18 and blood pressure of 110/58 Patient admitted to the hospital with right lower lobe pneumonia likely aspiration with sputum cultures showing gram-negative organisms; patient remains on IV antibiotics; aspiration precautions are in place; continue with Rocephin 2 g IV daily which will be completed with oral Ceftin for 7 days upon discharge - MANAGER CREDIT COLLECTIONS is consulted and recommendations are pending 01/01/2022 Patient is seen and evaluated resting in bed; responds by opening eyes; no significant events Vital signs remained stable; lab review shows a WBC of 7.7, hemoglobin of 11.2, platelet count of 124, sodium 137, potassium 4.0, BUN/creatinine of 22/0.8 Patient remains on IV Rocephin 2 g daily with recommendations to switch to oral Ceftin for a total of 7 days postdischarge Await MANAGER CREDIT COLLECTIONS to evaluate Objective - Vital Signs Vital signs: Vital Signs Temp 98.2 F 01/01/22 08:00 Pulse 72 01/01/22 11:49 Resp 22 01/01/22 08:00 BP 107/56 01/01/22 08:00 Pulse Ox 95 01/01/22 09:09 FiO2 35 01/01/22 09:09 Intake & Output 12/31/21 01/01/22 01/01/22 18:59 06:59 18:59 Intake Total 0 Balance 0 Weight 50 kg Intake: Oral 0 Other: Voiding Method External Catheter External Catheter # Voids 3 # Bowel Movements 2 - Exam -GENERAL: The patient is confused, not in any acute distress. Well developed, well nourished. HEENT: Pupils are round and equally reacting to light. EOMI. No scleral icterus. No conjunctival pallor. Normocephalic, atraumatic. No pharyngeal erythema. No thyromegaly. CARDIOVASCULAR: S1 and S2 present. No murmurs, rubs, or gallops. -PULMONARY: Chest is clear to auscultation, no wheezing or crackles. Status post tracheostomy -ABDOMEN: Soft, nontender, nondistended, normoactive bowel sounds. No palpable organomegaly. Status post PEG tube MUSCULOSKELETAL: No joint swelling or deformity. EXTREMITIES: No cyanosis, clubbing, or pedal edema. NEUROLOGICAL: Gross neurological examination did not reveal any focal deficits. SKIN: No rashes. no petechiae. - Labs CBC & Chem 7: 01/01/22 03:18 01/01/22 03:18 Labs: Abnormal Lab Results - Last 24 Hours (Table) 12/31/21 12/31/21 01/01/22 Range/Units 07:56 07:56 03:18 RBC 3.56 L 3.49 L (4.40-5.60) X 10*6/uL Hgb 11.4 L 11.2 L (13.0-17.0) g/dL Hct 35.4 L 34.8 L (39.6-50.0) % MCV 99.4 H 99.7 H (80.0-97.0) fL MCH 32.1 H (27.0-32.0) pg RDW 15.0 H 15.2 H (11.5-14.5) % Plt Count 125 L 124 L (140-440) X 10*3/uL MPV 13.5 H 13.6 H (9.5-12.2) fL Immature Gran # 0.09 H 0.07 H (0.00-0.04) X 10*3/uL Carbon Dioxide 29.2 H (20.0-27.5) mmol/L Anion Gap 5.60 L (10.00-18.00) mmol/L BUN/Creatinine Ratio 29.33 H (12.00-20.00) Ratio Glucose 131 H (70-110) mg/dL Calcium 7.9 L (8.7-10.3) mg/dL 01/01/22 Range/Units 03:18 RBC (4.40-5.60) X 10*6/uL Hgb (13.0-17.0) g/dL Hct (39.6-50.0) % MCV (80.0-97.0) fL MCH (27.0-32.0) pg RDW (11.5-14.5) % Plt Count (140-440) X 10*3/uL MPV (9.5-12.2) fL Immature Gran # (0.00-0.04) X 10*3/uL Carbon Dioxide (20.0-27.5) mmol/L Anion Gap 8.80 L (10.00-18.00) mmol/L BUN/Creatinine Ratio 27.63 H (12.00-20.00) Ratio Glucose (70-110) mg/dL Calcium 7.7 L (8.7-10.3) mg/dL Microbiology - Last 24 Hours (Table) 12/26/21 19:22 Blood Culture - Preliminary Blood No Growth after 120 hours 12/26/21 19:22 Blood Culture - Preliminary Blood No Growth after 120 hours Assessment and Plan Assessment: Metabolic/toxic encephalopathy Hospital acquired pneumonia, secondary to sensitive Proteus Acute hypoxic respiratory failure Hyponatremia secondary to significant dehydration History of tracheostomy and PEG tube in April 2021 History of left arm amputation Elevated LFTs, improving Plan: History a pleasant 71 years old male with pneumonia and hyponatremia Start D5 W and water flushes and monitor sodium level Continue with ceftriaxone, ID team on the case Start tube feeding, direct consult Labs and medication were reviewed.. Continue same treatment. Continue with symptomatic treatment. Resume home medication. Monitor lytes and vitals. DVT and GI prophylaxis. Further recommendations as per clinical course of the patient DVT prophylaxis: Subcutaneous Lovenox GI Prophylaxis: Pepcid Prognosis is guarded
--- NOTE | 2022-01-01 17:30 | P.PN ---
Subjective Progress Note Date: 12/31/21 Principal diagnosis: Pneumonia Patient is a 71-year-old male with respiratory failure with chronic tracking. Presented to the hospital with difficulty breathing patient was hypoxic and did have evidence of lower lobe pneumonia with sputum finalized with Proteus. On today's evaluation that is 12/31/2021, the patient remains to be afebrile the patient is breathing comfortably on trach collar, the patient is tolerating his tube feeds no vomiting or diarrhea has been reported , patient was sleepy and did not answer any questions Objective - Vital Signs Vital signs: Vital Signs Temp 98.4 F 12/31/21 13:54 Pulse 76 12/31/21 15:21 Resp 16 12/31/21 13:54 BP 116/72 12/31/21 13:54 Pulse Ox 100 12/31/21 13:54 FiO2 35 12/31/21 09:09 Intake & Output 12/30/21 12/31/21 12/31/21 18:59 06:59 18:59 Weight 48 kg 44 kg Other: Voiding Method Diaper External Catheter External Catheter Incontinent - Exam GENERAL DESCRIPTION: An elderly male lying in bed in no distress RESPIRATORY SYSTEM: Unlabored breathing , decreased breath sounds at bases HEART: S1 S2 regular rate and rhythm , ABDOMEN: Soft , no tenderness EXTREMITIES: No edema feet - Labs CBC & Chem 7: 01/01/22 03:18 01/01/22 03:18 Labs: Abnormal Lab Results - Last 24 Hours (Table) 12/31/21 12/31/21 Range/Units 07:56 07:56 RBC 3.56 L (4.40-5.60) X 10*6/uL Hgb 11.4 L (13.0-17.0) g/dL Hct 35.4 L (39.6-50.0) % MCV 99.4 H (80.0-97.0) fL RDW 15.0 H (11.5-14.5) % Plt Count 125 L (140-440) X 10*3/uL MPV 13.5 H (9.5-12.2) fL Immature Gran # 0.09 H (0.00-0.04) X 10*3/uL Carbon Dioxide 29.2 H (20.0-27.5) mmol/L Anion Gap 5.60 L (10.00-18.00) mmol/L BUN/Creatinine Ratio 29.33 H (12.00-20.00) Ratio Glucose 131 H (70-110) mg/dL Calcium 7.9 L (8.7-10.3) mg/dL Microbiology - Last 24 Hours (Table) 12/26/21 19:22 Blood Culture - Preliminary Blood No Growth after 96 hours 12/26/21 19:22 Blood Culture - Preliminary Blood No Growth after 96 hours Assessment and Plan (1) Pneumonia Current Visit: Yes Status: Acute Code(s): J18.9 - PNEUMONIA, UNSPECIFIED OR GANISM SNOMED Code(s): 410042660 Plan: 1patient presented to hospital with increasing shortness of breath which is likely multifactorial in this patient with a chronic trach and PEG and concern for right lower lobe pneumonia with a sputum showing a gram-negative we will need to cover for the resistant gram-negative keeping in mind the senior care resident and history of recurrent pneumonia. 2 aspiration precaution. 3patient's sputum has been finalized with Proteus sensitive pathogen patient seemed to have shown clinical improvement with Rocephin 2 g daily which will be continued while inpatient Time with Patient: Less than 30
--- NOTE | 2022-01-01 17:31 | P.PN ---
Subjective Progress Note Date: 01/01/22 Principal diagnosis: Pneumonia Patient is a 71-year-old male with respiratory failure with chronic tracking. Presented to the hospital with difficulty breathing patient was hypoxic and did have evidence of lower lobe pneumonia with sputum finalized with Proteus. On today's evaluation that is 01/01/2022, the patient continues to be afebrile the patient is breathing comfortably on trach collar requiring a amount of FiO2, the patient is tolerating his tube feeds no vomiting or diarrhea has been reported , patient did not answer any questions Objective - Vital Signs Vital signs: Vital Signs Temp 97.9 F 01/01/22 14:00 Pulse 72 01/01/22 15:29 Resp 16 01/01/22 14:00 BP 104/70 01/01/22 14:00 Pulse Ox 95 01/01/22 15:15 FiO2 35 01/01/22 15:15 Intake & Output 12/31/21 01/01/22 01/01/22 18:59 06:59 18:59 Intake Total 0 Balance 0 Weight 50 kg Intake: Oral 0 Other: Voiding Method External Catheter External Catheter # Voids 3 # Bowel Movements 2 - Exam GENERAL DESCRIPTION: An elderly male lying in bed in no distress RESPIRATORY SYSTEM: Unlabored breathing , decreased breath sounds at bases HEART: S1 S2 regular rate and rhythm , ABDOMEN: Soft , no tenderness EXTREMITIES: No edema feet - Labs CBC & Chem 7: 01/01/22 03:18 01/01/22 03:18 Labs: Abnormal Lab Results - Last 24 Hours (Table) 01/01/22 01/01/22 Range/Units 03:18 03:18 RBC 3.49 L (4.40-5.60) X 10*6/uL Hgb 11.2 L (13.0-17.0) g/dL Hct 34.8 L (39.6-50.0) % MCV 99.7 H (80.0-97.0) fL MCH 32.1 H (27.0-32.0) pg RDW 15.2 H (11.5-14.5) % Plt Count 124 L (140-440) X 10*3/uL MPV 13.6 H (9.5-12.2) fL Immature Gran # 0.07 H (0.00-0.04) X 10*3/uL Anion Gap 8.80 L (10.00-18.00) mmol/L BUN/Creatinine Ratio 27.63 H (12.00-20.00) Ratio Calcium 7.7 L (8.7-10.3) mg/dL Microbiology - Last 24 Hours (Table) 12/26/21 19:22 Blood Culture - Preliminary Blood No Growth after 120 hours 12/26/21 19:22 Blood Culture - Preliminary Blood No Growth after 120 hours Assessment and Plan (1) Pneumonia Current Visit: Yes Status: Acute Code(s): J18.9 - PNEUMONIA, UNSPECIFIED ORGANISM SNOMED Code(s): 170967998 Plan: 1patient presented to hospital with increasing shortness of breath which is likely multifactorial in this patient with a chronic trach and PEG and concern for right lower lobe pneumonia with a sputum showing a gram-negative we will need to cover for the resistant gram-negative keeping in mind the long-term resident and history of recurrent pneumonia. 2 aspiration precaution. 3patient's sputum has been finalized with Proteus sensitive pathogen patient has shown clinical improvement with Rocephin 2 g daily which will be continued while inpatient and finishing therapy with oral Ceftin Time with Patient: Less than 30
[2022-01-02 04:05] LABS: HGB 12.1 gm/dL (13.0-17.5); Hypochromasia Slight; MCH 30.6 pg (25.0-35.0); MCHC 30.3 g/dL (31.0-37.0); MCV 100.9 fL (80.0-100.0); Macrocytosis Slight; Mean Platelet Volume 10.4; RBC 3.96 m/uL (4.30-5.90); RDW 14.6 % (11.5-15.5); WBC 7.8 k/uL (3.8-10.6)
[2022-01-02 04:28] LABS: African American GFR (CKD) >90 (>60 ml/min/1.73 sqM); Anion Gap 5 mmol/L; Blood Urea Nitrogen 24 mg/dL (9-20); Calcium 7.9 mg/dL (8.4-10.2); Carbon Dioxide 31 mmol/L (22-30); Chloride 102 mmol/L (98-107); Glucose 106 mg/dL (74-99); Non-African American GFR(CKD) >90 (>60 ml/min/1.73 sqM); Potassium 4.3 mmol/L (3.5-5.1); Sodium 138 mmol/L (137-145)
[2022-01-02 04:48] LABS: Band Neutrophils % 7 %; Eosinophils # (M) 0.23 k/uL (0-0.7); Lymphocytes # (M) 1.33 k/uL (1.0-4.8); Monocytes # (M) 0.55 k/uL (0-1.0); Myelocytes # (M) 0.08 k/uL (0); Myelocytes % 1 %; Neutrophils % (M) 65 %; Nucleated Red Blood Cells 0 /100 WBC (0-0); Total Cells Counted 200
[2022-01-02 04:49] LABS: Platelet Count 97 k/uL (150-450)
[2022-01-02] MEDS: HYDROcodone/APAP 7.5-325MG 1 EACH TAB PO PRN (05:10)
[2022-01-02] MEDS: LEVOTHYROXINE 50 MCG TAB PEG/G-TUBE SCH (05:12)
[2022-01-02] MEDS: IPRATROPIUM-ALBUTEROL 3 ML NEB INHALATION SCH ×4 (07:48→19:44)
[2022-01-02] MEDS: ENOXAPARIN 40 MG/0.4 ML SYRINGE SQ SCH (10:17)
[2022-01-02] MEDS: traMADol 50 MG TAB PEG/G-TUBE SCH ×3 (10:17→21:00)
[2022-01-02] MEDS: guaiFENesin-DM 100-10MG/5ML 10 ML CUP PEG/G-TUBE SCH ×3 (10:17→21:00)
[2022-01-02] MEDS: METOPROLOL TARTRATE 25 MG TAB PEG/G-TUBE SCH ×2 (10:18→21:00)
[2022-01-02] MEDS: LACTOBACILLUS ACIDOPH & BULGAR 1 EACH PACKET PEG/G-TUBE SCH ×2 (10:18→21:00)
[2022-01-02] MEDS: PREGABALIN 100 MG CAP PO SCH (10:18)
[2022-01-02] MEDS: SERTRALINE 50 MG TAB PEG/G-TUBE SCH (10:18)
[2022-01-02] MEDS: FAMOTIDINE 20 MG TAB PEG/G-TUBE SCH ×2 (10:18→21:00)
[2022-01-02] MEDS: SCOPOLAMINE 1 MG/72 HR PATCH TRANSDERM SCH (10:18)
--- NOTE | 2022-01-02 14:43 | P.PN ---
Subjective This is a pleasant 71-year-old male who has been a resident at [facility] and presented to the emergency department via EMS with difficulty in breathing. It was reported there was an x-ray done at the facility that was noted to have pneumonia and patient having increased yellow secretions from his tracheostomy tube. Patient is alert although does not communicate very well status post tracheostomy and PEG tube placement from April where he had extensive pneumonia requiring tracheostomy placement. Patient had been residing at other [facility] facility's continued to have multiple episodes of pneumonia. Chest x-ray in the emergency department on admission shows pulmonary fibrosis cardiomegaly with no obvious heart failure with lower lobe pneumonia not entirely excluded. There is also noted old left-sided rib fractures and deformity of the left shoulder which is not well-visualized. Labs revealed a mildly elevated WBC of 11.3 with a hemoglobin of 13.8, platelets were 56, INR 1.0, sodium 151, potassium 4.3, creatinine 1.39 with a BUN of 77, lactic acid was 1.4 with magnesium of 2.4 and LFTs mildly elevated of an AST of 87 and ALT is 76 with an alk phos of 324, troponin was 0.032. Urinalysis was done which was negative and Covid, influenza were not detected. Patient is high risk for aspiration and is maintained on tube feeds. Plan is for patient to return to [facility] once stabilized and discharged. Patient's being started on IV antibiotics in the form of Zithromax and ceftriaxone and will add cefepime and consult infectious disease. Patient is requesting water although unsure if patient tolerates any oral intake and will consult speech and appreciate evaluation. Patient's sodium increased at 156 this morning and will add D5 in water and recommend gentle hydration and repeat labs in a.m. Recommend DuoNeb treatments 4 times a day and when necessary, sputum culture obtained and pending at this time along with blood cultures. Patient denies chest pain or palpitations. Patient is afebrile. Patient requesting water with no reports of nausea or vomiting noted. 12/28/2021 Patient still being treated for pneumonia with sputum culture growing sensitive protein and therefore his antibiotic was suggested cefepime and downgraded into ceftriaxone 2 g daily. ID team on the case. Patient remains performed the confused, sitting up in bed, mildly tachypneic but does not follow commands. Most likely he is metabolic encephalopathy secondary to infection and significant hypernatremia, sodium is 153. He is not on IV fluid. We started him on D5W today and water flushes 100 mL every 6-8 hours through his PEG tube. 4gallstone at 0.15. He is on 8 L/m via his trach collar with FiO2 of 35%. Check labs in the morning 12/29/2021 Patient remains confused and hypernatremic with sodium 150. We will increase his D5W to 100 mL per hour and increase water flushes through PEG tube to 150 mL every 6-8 hours. Also is getting tube feeding and he is tolerating diet. He is hemodynamically stable, blood pressure borderline which looks stable. He is asymptomatic regarding this. He remains on ceftriaxone for left lower lobe pneumonia secondary to sensitive a Proteus per culture. Sodium today is 150. Remains on 8 L per minute of oxygen via trach collar with FiO2 of 35% Check chest x-ray tomorrow 01/02/2022 Patient is more awake and alert active today, he follows commands, is nonverbal because of his tracheostomy. He is status post left upper extremity amputation. History of have some coughing through his tracheostomy with some secretion which is been cleared. Also he has PEG tube chronic. Sputum culture is growing Proteus which is sensitive to ceftriaxone ID team on the case Possible discharge in 24-48 hours Objective - Vital Signs Vital signs: Vital Signs Temp 98.7 F 01/02/22 07:48 Pulse 84 01/02/22 11:23 Resp 16 01/02/22 07:51 BP 107/63 01/02/22 07:48 Pulse Ox 90 L 01/02/22 07:48 FiO2 35 01/02/22 07:45 Intake & Output 01/01/22 01/02/22 01/02/22 18:59 06:59 18:59 Intake Total 0 Output Total 200 Balance -200 Weight 43.5 kg Intake: Oral 0 Output: Urine 200 Other: Voiding Method External Catheter External Catheter # Voids 3 - Exam -GENERAL: The patient is confused, not in any acute distress. Well developed, well nourished. HEENT: Pupils are round and equally reacting to light. EOMI. No scleral icterus. No conjunctival pallor. Normocephalic, atraumatic. No pharyngeal erythema. No thyromegaly. CARDIOVASCULAR: S1 and S2 present. No murmurs, rubs, or gallops. -PULMONARY: Chest is clear to auscultation, no wheezing or crackles. Status post tracheostomy -ABDOMEN: Soft, nontender, nondistended, normoactive bowel sounds. No palpable organomegaly. Status post PEG tube MUSCULOSKELETAL: No joint swelling or deformity. EXTREMITIES: No cyanosis, clubbing, or pedal edema. NEUROLOGICAL: Gross neurological examination did not reveal any focal deficits. SKIN: No rashes. no petechiae. - Labs CBC & Chem 7: 01/02/22 03:16 01/02/22 03:16 Labs: Abnormal Lab Results - Last 24 Hours (Table) 01/02/22 01/02/22 Range/Units 03:16 03:16 RBC 3.96 L (4.30-5.90) m/uL Hgb 12.1 L (13.0-17.5) gm/dL MCV 100.9 H (80.0-100.0) fL MCHC 30.3 L (31.0-37.0) g/dL Plt Count 97 L (150-450) k/uL Myelocytes # (Manual) 0.08 H (0) k/uL Carbon Dioxide 31 H (22-30) mmol/L BUN 24 H (9-20) mg/dL Glucose 106 H (74-99) mg/dL Calcium 7.9 L (8.4-10.2) mg/dL Microbiology - Last 24 Hours (Table) 12/26/21 19:22 Blood Culture - Final Blood No Growth after 144 hours 12/26/21 19:22 Blood Culture - Final Blood No Growth after 144 hours Assessment and Plan Assessment: Metabolic/toxic encephalopathy Hospital acquired pneumonia, secondary to sensitive Proteus Acute hypoxic respiratory failure Hyponatremia secondary to significant dehydration History of tracheostomy and PEG tube in April 2021 History of left arm amputation Elevated LFTs, improving Plan: History a pleasant 71 years old male with pneumonia and hyponatremia Start D5 W and water flushes and monitor sodium level Continue with ceftriaxone, ID team on the case Start tube feeding, direct consult Labs and medication were reviewed.. Continue same treatment. Continue with symptomatic treatment. Resume home medication. Monitor lytes and vitals. DVT and GI prophylaxis. Further recommendations as per clinical course of the patient DVT prophylaxis: Subcutaneous Lovenox GI Prophylaxis: Pepcid Prognosis is guarded
[2022-01-03 00:05] LABS: Glucose,Whole Blood 109 mg/dL (70-110)
[2022-01-03 03:08] VITALS: BP 132/42; RESP 21; TEMP 99.8
[2022-01-03] MEDS: LEVOTHYROXINE 50 MCG TAB PEG/G-TUBE SCH (06:10)
[2022-01-03] MEDS: guaiFENesin-DM 100-10MG/5ML 10 ML CUP PEG/G-TUBE SCH (06:10)
[2022-01-03] MEDS: traMADol 50 MG TAB PEG/G-TUBE SCH (06:10)
[2022-01-03] MEDS: IPRATROPIUM-ALBUTEROL 3 ML NEB INHALATION SCH ×2 (07:58→11:43)
--- NOTE | 2022-01-03 08:28 | P.PN ---
Subjective Progress Note Date: 01/02/22 Principal diagnosis: Pneumonia Patient is a 71-year-old male with respiratory failure with chronic tracking. Presented to the hospital with difficulty breathing patient was hypoxic and did have evidence of lower lobe pneumonia with sputum finalized with Proteus. On today's evaluation that is 01/02/2022, the patient remains to be afebrile the patient is breathing comfortably on trach collar, the patient is tolerating his tube feeds no vomiting or diarrhea has been reported , no new changes reported Objective - Vital Signs Vital signs: Vital Signs Temp 98.7 F 01/02/22 18:23 Pulse 88 01/02/22 20:00 Resp 20 01/02/22 18:23 BP 125/80 01/02/22 18:23 Pulse Ox 90 L 01/02/22 18:23 FiO2 35 01/02/22 20:00 Intake & Output 01/02/22 01/02/22 01/03/22 06:59 18:59 06:59 Intake Total 0 450 Output Total 200 Balance -200 450 Weight 43.5 kg Intake: Oral 0 Tube Feeding 450 Output: Urine 200 Other: Voiding Method External Catheter # Voids 3 - Exam GENERAL DESCRIPTION: An elderly male lying in bed in no distress RESPIRATORY SYSTEM: Unlabored breathing , decreased breath sounds at bases HEART: S1 S2 regular rate and rhythm , ABDOMEN: Soft , no tenderness EXTREMITIES: No edema feet - Labs CBC & Chem 7: 01/02/22 03:16 01/02/22 03:16 Labs: Abnormal Lab Results - Last 24 Hours (Table) 01/02/22 01/02/22 Range/Units 03:16 03:16 RBC 3.96 L (4.30-5.90) m/uL Hgb 12.1 L (13.0-17.5) gm/dL MCV 100.9 H (80.0-100.0) fL MCHC 30.3 L (31.0-37.0) g/dL Plt Count 97 L (150-450) k/uL Myelocytes # (Manual) 0.08 H (0) k/uL Carbon Dioxide 31 H (22-30) mmol/L BUN 24 H (9-20) mg/dL Glucose 106 H (74-99) mg/dL Calcium 7.9 L (8.4-10.2) mg/dL Microbiology - Last 24 Hours (Table) 12/26/21 19:22 Blood Culture - Final Blood No Growth after 144 hours 12/26/21 19:22 Blood Culture - Final Blood No Growth after 144 hours Assessment and Plan (1) Pneumonia Current Visit: Yes Status: Acute Code(s): J18.9 - PNEUMONIA, UNSPECIFIED ORGANISM SNOMED Code(s): 552978701 Plan: 1patient presented to hospital with increasing shortness of breath which is l ikely multifactorial in this patient with a chronic trach and PEG and concern for right lower lobe pneumonia with a sputum showing a gram-negative we will need to cover for the resistant gram-negative keeping in mind the half-way resident and history of recurrent pneumonia. 2 aspiration precaution. 3patient's sputum has been finalized with Proteus sensitive pathogen patient continued to show clinical improvement with Rocephin 2 g daily finishing therapy with oral Ceftin Time with Patient: Less than 30
[2022-01-03] MEDS: PREGABALIN 100 MG CAP PO SCH (11:00)
[2022-01-03] MEDS: FAMOTIDINE 20 MG TAB PEG/G-TUBE SCH (11:00)
[2022-01-03] MEDS: METOPROLOL TARTRATE 25 MG TAB PEG/G-TUBE SCH (11:01)
[2022-01-03] MEDS: LACTOBACILLUS ACIDOPH & BULGAR 1 EACH PACKET PEG/G-TUBE SCH (11:14)
[2022-01-03] MEDS: ENOXAPARIN 40 MG/0.4 ML SYRINGE SQ SCH (11:14)
[2022-01-03] MEDS: SERTRALINE 50 MG TAB PEG/G-TUBE SCH (11:14)
[2022-01-03 11:39] LABS: Glucose,Whole Blood 137 mg/dL (70-110)
[2022-01-03 11:53] VITALS: PULSE 84
--- NOTE | 2022-01-03 11:53 | P.DS ---
Providers Date of admission: 12/26/21 21:48 Attending physician: Jing Hassan Consults: 12/27/21 12:21 Consult Physician Urgent Consulting Provider: Sunny Edmond Consult Reason/Comments: pna trach/peg Do you want consulting provider notified?: Yes Primary care physician: Physician Nonstaff Hospital Course: Diagnoses: Metabolic/toxic encephalopathy, resulting patient back to basic mental status Hospital acquired pneumonia, secondary to sensitive Proteus Acute hypoxic respiratory failure, improved Hypernatremia secondary to significant dehydration History of tracheostomy and PEG tube in April 2021 History of left arm amputation Elevated LFTs, improving Hospital course: This is a pleasant 71-year-old male who has been a resident at [facility] and presented to the emergency department via EMS with difficulty in breathing. It was reported there was an x-ray done at the facility that was noted to have pneumonia and patient having increased yellow secretions from his tracheostomy tube. Patient is alert although does not communicate very well status post tracheostomy and PEG tube placement from April where he had extensive pneumonia requiring tracheostomy placement. Patient had been residing at other ECF facility's continued to have multiple episodes of pneumonia. Chest x-ray in the emergency department on admission shows pulmonary fibrosis cardiomegaly with no obvious heart failure with lower lobe pneumonia not entirely excluded. Patient's was treated with IV hydration D5W and water flushes through PEG tube. His high sodium 156 on admission improved and currently 138. Patient's dentition status back to baseline, today he is interactive, follow command, nonverbal because of his tracheostomy, he status post left upper extremity amputation as well. However patient is able to Get by gesture and sounds and he states that he feels better and he agreeable to go to his ECF. Patient was cleared for discharge by ID team on Ceftin 7 days. Problems and management plan were discussed with the patient and he verbalized understanding and acceptance Patient was found stable and can be discharged home however he needs follow-up as an outpatient. Patient was instructed to follow up with PCP within one week and patient agrees Physical exam -Gen: patient is a awake, nonverbal interactive and follow-up commands , no distress CVS: S1-S2, RRR, no murmur -Lungs: B/L CTA, no wheezing. Status post tracheostomy -Abdomen: soft, no distention, no tenderness, positive bowel sounds. Status post PEG Extremity: no leg edema or induration Time spent more than 35 minutes Patient Condition at Discharge: Fair Plan - Discharge Summary Discharge Rx Participant: No New Discharge Prescriptions: New cefUROXime axetiL [Ceftin] 500 mg PO BID 7 Days #14 tab Continue traMADol HCL 25 mg PO TID@0700,1300,1900 L.acidoph,Paracasei, B.lactis [Probiotic] 1 cap PEG/G-TUBE BID Famotidine [Pepcid] 20 mg PEG/G-TUBE BID Sertraline HCl [Sertraline HCl Oral Conc] 50 mg PEG/G-TUBE DAILY Levothyroxine Sodium [Synthroid] 50 mcg PEG/G-TUBE DAILY Potassium Chloride ER [K-Dur 20] 20 meq PEG/G-TUBE DAILY Furosemide 40 mg PEG/G-TUBE DAILY Ipratropium-Albuterol Nebulize [Duoneb 0.5 mg-3 mg/3 ml Soln] 3 ml INHALATION RT-Q6H PRN PRN Reason: Shortness Of Breath guaiFENesin-DM 100-10MG/5ML [Robitussin DM] 10 ml PEG/G-TUBE TID@0700,1300,1900 Metoprolol Tartrate [Lopressor] 25 mg PEG/G-TUBE BID Scopolamine 1.5mg/72hour 1 patch TRANSDERM Q72H Discharge Medication List Famotidine [Pepcid] 20 mg PEG/G-TUBE BID 12/26/21 [History] Furosemide 40 mg PEG/G-TUBE DAILY 12/26/21 [History] Ipratropium-Albuterol Nebulize [Duoneb 0.5 mg-3 mg/3 ml Soln] 3 ml INHALATION RT-Q6H PRN 12/26/21 [History] L.acidoph,Paracasei, B.lactis [Probiotic] 1 cap PEG/G-TUBE BID 12/26/21 [History] Levothyroxine Sodium [Synthroid] 50 mcg PEG/G-TUBE DAILY 12/26/21 [History] Metoprolol Tartrate [Lopressor] 25 mg PEG/G-TUBE BID 12/26/21 [History] Potassium Chloride ER [K-Dur 20] 20 meq PEG/G-TUBE DAILY 12/26/21 [History] Scopolamine 1.5mg/72hour 1 patch TRANSDERM Q72H 12/26/21 [History] Sertraline HCl [Sertraline HCl Oral Conc] 50 mg PEG/G-TUBE DAILY 12/26/21 [History] guaiFENesin-DM 100-10MG/5ML [Robitussin DM] 10 ml PEG/G-TUBE TID@0700,1300,1900 12/26/21 [History] traMADol HCL 25 mg PO TID@0700,1300,1900 12/26/21 [History] cefUROXime axetiL [Ceftin] 500 mg PO BID 7 Days #14 tab 12/30/21 [Rx] Follow up Appointment(s)/Referral(s): Nonstaff,Physician [Primary Care Provider] - 1-2 days Discharge Disposition: TRANSFER TO SNF/ECF
[2022-01-03] MEDS ORDERED: CIPROFLOXACIN 0.3% OPHTH SOLN 5 ML BTL BOTH EYES SCH (12:00)
--- NOTE | 2022-01-04 15:54 | CDI ---
Documentation Clarification Form Date: 01/04/2022 03:33:07 PM From: Noreen Sweeney Phone: Admit Date: 12/26/2021 09:48:00 PM Patient Name: Davie Ureña Visit Number: [id number] Discharge Date: 01/03/2022 02:58:00 PM ATTENTION: The Clinical Documentation Specialists (CDI) and [facility] Coding Staff appreciate your assistance in clarifying documentation. Please respond to the clarification below the line at the bottom and electronically sign. The CDI & [facility] Coding staff will review the response and follow-up if needed. Please note: Queries are made part of the Legal Health Record. If you have any questions, please contact the author of this message via ITS. Dr. Cain E Sheet Your patient has diagnostic/radiology results: background COPD and chronic interstitial lung disease per CXR 12/30/21. Please clarify if there is an additional diagnosis and/or clinical significance related to this result. History/Risk Factors: 71yo M, Metabolic/toxic encephalopathy, HAP d/t Proteus, A/CHRF, Hyponatremia, dehydration, trach and PEG, LUE amputation, Elevated LFT, pulmonary fibrosis, cardiomegaly, Hx PNA, Hx smoking Vital Signs/Pulse Oximetry: Temp Pulse Resp BP Pulse Ox 12/27/21 97.5 F L 103 H 20 94/43 84 L Treatment: O2 is given via tent over tracheostomy; O2 sats of 88% requiring supplemental O2; trach collar currently on 35% FiO2; Remains on 8 L per minute of O2 via trach collar with FiO2 of 35%. Antibiotics: Patient was given a dose of Zithromax and ceftriaxone and will add cefepime and consult infectious disease Is there an additional diagnosis and/or clinical significance related to the above diagnostic/radiology result? [ ] Chronic obstructive pulmonary disease with acute lower respiratory infection [ ] Chronic interstitial lung disease [ ] Result is not clinically significant (no additional diagnosis) [ ] Other, please specify [ ] Unable to determine (Template Last Reviewed: May 2020) already mentioned in my discharge summary ( Hospital acquired pneumonia, secondary to sensitive Proteus) VIVID
--- NOTE | 2022-01-10 21:36 | P.PN ---
Subjective Progress Note Date: 01/03/22 Principal diagnosis: Pneumonia Patient is a 71-year-old male with respiratory failure with chronic trach, Presented to the hospital with difficulty breathing patient was hypoxic and did have evidence of lower lobe pneumonia with sputum finalized with Proteus. On today's evaluation that is 01/03/2022, the patient continues to be afebrile the patient is breathing comfortably on trach collar, the patient is tolerating his tube feeds no vomiting or diarrhea has been reported , overall feeling better Objective - Vital Signs Vital signs: Vital Signs Temp 99.8 F H 01/03/22 01:55 Pulse 84 01/03/22 11:51 Resp 21 01/03/22 01:55 BP 132/42 01/03/22 01:55 Pulse Ox 95 01/03/22 07:58 FiO2 35 01/03/22 07:58 Intake & Output 01/03/22 01/03/22 01/04/22 06:59 18:59 06:59 Intake Total 450 Balance 450 Weight 52 kg Intake: Tube Feeding 450 Other: Voiding Method External Catheter - Exam GENERAL DESCRIPTION: An elderly male lying in bed in no distress RESPIRATORY SYSTEM: Unlabored breathing , decreased breath sounds at bases HEART: S1 S2 regular rate and rhythm , ABDOMEN: Soft , no tenderness EXTREMITIES: No edema feet - Labs CBC & Chem 7: 01/02/22 03:16 01/02/22 03:16 Labs: Abnormal Lab Results - Last 24 Hours (Table) 01/03/22 Range/Units 11:37 POC Glucose (mg/dL) 137 H (70-110) mg/dL Assessment and Plan (1) Pneumonia Status: Acute Code(s): J18.9 - PNEUMONIA, UNSPECIFIED ORGANISM SNOMED Code(s): 478290194 Plan: 1patient presented to hospital with increasing shortness of breath which is likely multifactorial in this patient with a chronic trach and PEG and concern for right lower lobe pneumonia with a sputum showing a gram-negative we will need to cover for the resistant gram-negative keeping in mind the senior care resident and history of recurrent pneumonia. 2 aspiration precaution. 3patient's sputum has been finalized with Proteus sensitive pathogen patient has shown clinical improvement with Rocephin 2 g daily finishing therapy with oral Ceftin 7 days on discharge Time with Patient: Less than 30
== END 2022-01-03 14:58 | DRG 177 ==
LOC: EC 18:20 → 4SSUR 21:48
PROVIDERS: ADMIT Hospitalist; ATTEND Hospitalist
PROC: 05H933Z Insertion of Infusion Device into Right Brachial Vein, Percutaneous Approach (ICD-10-PCS; principal; 2021-12-29 21:30)
DX: J15.6 Pneumonia due to other Gram-negative bacteria (principal); G92.8 Other toxic encephalopathy; J96.21 Acute and chronic respiratory failure with hypoxia; E87.0 Hyperosmolality and hypernatremia; E87.1 Hypo-osmolality and hyponatremia; Z93.0 Tracheostomy status; J84.10 Pulmonary fibrosis, unspecified; I95.9 Hypotension, unspecified; B96.4 Proteus (mirabilis) (morganii) as the cause of diseases classified elsewhere; E86.0 Dehydration; E87.8 Other disorders of electrolyte and fluid balance, not elsewhere classified; R74.01 Elevation of levels of liver transaminase levels; K80.20 Calculus of gallbladder without cholecystitis without obstruction; Y95 Nosocomial condition; I51.7 Cardiomegaly; Z20.822 Contact with and (suspected) exposure to COVID-19; Z93.1 Gastrostomy status; Z79.899 Other long term (current) drug therapy; Z79.890 Hormone replacement therapy; Z88.0 Allergy status to penicillin; Z91.041 Radiographic dye allergy status; Z87.891 Personal history of nicotine dependence; Z87.01 Personal history of pneumonia (recurrent); Z87.81 Personal history of (healed) traumatic fracture; Z89.222 Acquired absence of left upper limb above elbow
CPT/HCPCS: 36410; 36415; 43762; 71045; 74018; 76937; 80048; 80053; 80076; 81001; 83605; 83735; 84145; 84484; 85025; 85027; 85610; 85730; 86140; 87040; 87070; 87077; 87186; 87205; 87449; 87502; 87635; 93005; 94640; 94760; 96361; 96365; 96366; 96372; 99283; 99291

== ENCOUNTER 2022-03-01 14:38 | Emergency (ER) | payer MEDICARE, OTHER ==
[2022-03-01 15:06] VITALS: TEMP 97.8
--- NOTE | 2022-03-01 17:21 | ED ---
General Adult HPI - General Chief complaint: Recheck/Abnormal Lab/Rx Stated complaint: PEG Tube replacement Time Seen by Provider: 03/01/22 16:08 Source: EMS Mode of arrival: EMS Limitations: language barrier - History of Present Illness Initial comments: This patient is 72-year-old man sent from [facility] to have evaluation of his peg tube. I was reported that the tube was leaking as the end of the tube had cracked. Tube is functional but leaking. They're concerned about skin breakdown developing due to always been moist now. -: unknown Location: abdomen Severity scale (1-10): 0 Consistency: constant Improves with: none Worsens with: none Associated Symptoms: denies other symptoms - Related Data Home Medications Medication Instructions Recorded Confirmed Famotidine [Pepcid] 20 mg PEG/G-TUBE BID 12/26/21 12/26/21 Furosemide 40 mg PEG/G-TUBE DAILY 12/26/21 12/26/21 Ipratropium-Albuterol Nebulize 3 ml INHALATION RT-Q6H PRN 12/26/21 12/26/21 [Duoneb 0.5 mg-3 mg/3 ml Soln] L.acidoph,Paracasei, B.lactis 1 cap PEG/G-TUBE BID 12/26/21 12/26/21 [Probiotic] Levothyroxine Sodium [Synthroid] 50 mcg PEG/G-TUBE DAILY 12/26/21 12/26/21 Metoprolol Tartrate [Lopressor] 25 mg PEG/G-TUBE BID 12/26/21 12/26/21 Potassium Chloride ER [K-Dur 20] 20 meq PEG/G-TUBE DAILY 12/26/21 12/26/21 Scopolamine 1.5mg/72hour 1 patch TRANSDERM Q72H 12/26/21 12/26/21 Sertraline HCl [Sertraline HCl 50 mg PEG/G-TUBE DAILY 12/26/21 12/26/21 Oral Conc] guaiFENesin-DM 100-10MG/5ML 10 ml PEG/G-TUBE TID@0700,1300,1900 12/26/21 12/26/21 [Robitussin DM] traMADol HCL 25 mg PO TID@0700,1300,1900 12/26/21 12/26/21 Previous Rx's Medication Instructions Recorded cefUROXime axetiL [Ceftin] 500 mg PO BID 7 Days #14 tab 12/30/21 Allergies Allergy/AdvReac Type Severity Reaction Status Date / Time Iodinated Contrast Media Allergy Unknown Verified 03/01/22 14:58 Penicillins Allergy Unknown Verified 03/01/22 14:58 Review of Systems ROS Statement: Those systems with pertinent positive or pertinent negative responses have been documented in the HPI. ROS Other: All systems not noted in ROS Statement are negative. Past Medical History Additional Past Medical History / Comment(s): left arm amputation, trach, peg History of Any Multi-Drug Resistant Organisms: None Reported Additional Past Surgical History / Comment(s): peg tube, tracheotomy Past Anesthesia/Blood Transfusion Reactions: Unable to Obtain Past Psychological History: No Psychological Hx Reported Smoking Status: Former smoker Past Alcohol Use History: None Reported Past Drug Use History: None Reported General Exam Limitations: language barrier General appearance: alert, in no apparent distress GI/Abdominal exam: Present: other (There is a #[address] in left upper quadrant. It is normal other than the tube has a crack at the end and the cap no longer fits.) Course Vital Signs 03/01/22 03/01/22 03/01/22 14:59 16:00 18:05 Temperature 97.8 F Pulse Rate 70 72 Respiratory 18 20 Rate Blood Pressure 96/66 100/63 O2 Sat by Pulse 97 92 L Oximetry Fraction of 35 Inspired Oxygen (FIO2) Medical Decision Making - Medical Decision Making I replaced the tube at the bedside without complication. Disposition Clinical Impression: Leaking PEG tube Disposition: HOME SELF-CARE Condition: Good Instructions (If sedation given, give patient instructions): PEG Tube Insertion (DC) Is patient prescribed a controlled substance at d/c from ED?: No Referrals: Amaris Jiménez DO [Primary Care Provider] - 1-2 days
[2022-03-01 19:13] VITALS: RESP 20
--- NOTE | 2022-03-01 19:14 | CT ---
EXAMINATION TYPE: CT abdomen wo con CT DLP: 431.3 mGycm, Automated exposure control for dose reduction was used. DATE OF EXAM: 03/01/2022 6:35 PM COMPARISON: Abdominal radiograph 12/23/2021. CLINICAL INDICATION:Male, 72 years old with history of PEG placement; peg tube placement. pt allergic to IA TECHNIQUE: Axial CT of the abdomen . Sagittal and coronal reformats were created on a separate works tation. Contrast used: None Oral contrast used: without Oral Contrast FINDINGS: LOWER CHEST: There is an elevated left diaphragm. Streaky2 interstitial lung markings in the right paul ng base. ABDOMEN LIVER: Nodular contour to liver. GALLBLADDER AND BILE DUCTS: Layering increased densities within the lumen consistent with gallstones are present. PANCREAS: Unremarkable. SPLEEN: Unremarkable. ADRENAL GLANDS: Unremarkable. KIDNEYS AND URETERS: Nonobstructing left renal calculi. No evidence of hydronephrosis. STOMACH AND BOWEL: No evidence of bowel obstruction. Inflatable peg tube cuff is near the felt to be within the duodenal bulb/first portion the duodenum. PERITONEUM: No evidence of pneumoperitoneum or free fluid. VASCULATURE: No evidence of aortic aneurysm. Atherosclerosis of the arterial vasculature. MUSCULOSKELETAL: No acute osseous abnormalities, multilevel disc degeneration changes throughout the spine. LYMPH NODES: No gross evidence for lymphadenopathy. SOFT TISSUE/ABDOMINAL WALL: Unremarkable IMPRESSION: 1. PEG tube in with distal tip/implantable cuff felt to be within the first portion of the duodenum/ duodenal bulb. 2. Cholelithiasis. 3. Atherosclerosis of the arterial vasculature. 4. Left obstructing renal calculi. 5. Nodular contour to liver correlate for cirrhosis.
[2022-03-01] MEDS ORDERED: MORPHINE SULFATE 4 MG/ML SYRINGE IM STA (19:31)
[2022-03-01 20:05] VITALS: BP 97/59; PULSE 79
== END 2022-03-01 20:32 | disposition home or self-care (01) ==
LOC: EC 14:38
DX: K94.23 Gastrostomy malfunction (principal); Z87.891 Personal history of nicotine dependence; Z91.041 Radiographic dye allergy status; Z88.0 Allergy status to penicillin; Z79.899 Other long term (current) drug therapy
CPT/HCPCS: 96372; 99284; 74150; 43762; J2270

== ENCOUNTER 2022-08-11 14:25 | Inpatient (IN) | payer MEDICARE, OTHER ==
--- NOTE | 2022-08-11 15:42 | ED ---
General Adult HPI - General Chief complaint: Recheck/Abnormal Lab/Rx Stated complaint: Feeding tube issues Time Seen by Provider: 08/11/22 14:34 Source: patient, EMS Mode of arrival: EMS Limitations: physical limitation - History of Present Illness Initial comments: Dictation was produced using [email or web address] dictation software. please excuse any grammatical, word or spelling errors. Chief Complaint: 72-year-old male with ability tracheostomy presents to the ER for dislodged PEG tube and fever 100.2 History of Present Illness: Patient is 72-year-old male he lives at one of the local nursing homes. He is noted to have a fever of 100.2 today. Actually his PEG tube was displaced. Patient complains some mild sore throat. Denies any f ever. Patient has extensive history of pneumonia. Denies any abdominal pain. The ROS documented in this emergency department record has been reviewed and confirmed by me. Those systems with pertinent positive or negative responses have been documented in the HPI. All other systems are other negative and/or noncontributory. - Related Data Home Medications Medication Instructions Recorded Confirmed Famotidine [Pepcid] 20 mg PEG/G-TUBE BID 12/26/21 08/11/22 Furosemide 40 mg PEG/G-TUBE DAILY 12/26/21 08/11/22 L.acidoph,Paracasei, B.lactis 1 cap PEG/G-TUBE BID 12/26/21 08/11/22 [Probiotic] Sertraline HCl [Sertraline HCl 50 mg PEG/G-TUBE DAILY 12/26/21 08/11/22 Oral Conc] Amino Acids/Protein Hydrolys 1 dose PO HS 08/11/22 08/11/22 [Pro-Stat Awc Liquid] Atropine Ophth Soln 1% 5Ml [Isopto 2 drop BUCCAL BID 08/11/22 08/11/22 Atropine 1% 5Ml] Diclofenac Sodium [Voltaren 2 gm TOPICAL Q8H PRN 08/11/22 08/11/22 Arthritis Pain 1% Gel] Donepezil [Aricept] 5 mg PEG/G-TUBE DAILY 08/11/22 08/11/22 Gentamicin 0.1% Cream 1 applic TOPICAL TID@0700,1300,1900 08/11/22 08/11/22 HYDROcodone/APAP 7.5-325MG [[place] 1 tab PEG/G-TUBE QID@05,11,,08/11/22 08/11/22 7.5-325] Levothyroxine Sodium [Synthroid] 75 mcg PEG/G-TUBE DAILY 08/11/22 08/11/22 Potassium Chloride 20 meq PEG/G-TUBE DAILY 08/11/22 08/11/22 Pregabalin [Lyrica] 50 mg PEG/G-TUBE BID 08/11/22 08/11/22 Propylene Glycol/Peg 400/Pf 1 drop BOTH EYES BID 08/11/22 08/11/22 [Systane 0.3-0.4% Ophth Dropperette] Allergies Allergy/AdvReac Type Severity Reaction Status Date / Time Iodinated Contrast Media Allergy Unknown Verified 08/11/22 19:02 Penicillins Allergy Unknown Verified 08/11/22 19:02 Review of Systems ROS Statement: Those systems with pertinent positive or pertinent negative responses have been documented in the HPI. ROS Other: All systems not noted in ROS Statement are negative. Past Medical History Additional Past Medical History / Comment(s): left arm amputation, trach, peg History of Any Multi-Drug Resistant Organisms: None Reported Additional Past Surgical History / Comment(s): peg tube, tracheotomy Past Anesthesia/Blood Transfusion Reactions: Unable to Obtain Past Psychological History: No Psychological Hx Reported Smoking Status: Former smoker Past Alcohol Use History: None Reported Past Drug Use History: None Reported General Exam - General Exam Comments Initial Comments: PHYSICAL EXAM: General Impression: Alert and oriented x3, not in acute distress, tracheostomy in place, cachexic HEENT: Normocephalic atraumatic, extra-ocular movements intact, pupils equal and reactive to light bilaterally, mucous membranes moist. Cardiovascular: Heart regular rate and rhythm Chest: Able to complete full sentences, no retractions, no tachypnea, diffuse rhonchi Abdomen: abdomen soft, non-tender, non-distended, no organomegaly Musculoskeletal: Pulses present and equal in all extremities, no peripheral edema Motor: no focal deficits noted Neurological: CN II-XII grossly intact, no focal motor or sensory deficits noted Skin: Intact with no visualized rashes, no decubitus ulcers Psych: Normal affect and mood Limitations: physical limitation Course Vital Signs 08/11/22 08/11/22 08/11/22 14:30 15:24 18:59 Temperature 99.0 F Pulse Rate 94 82 Respiratory 18 20 Rate Blood Pressure 100/61 99/63 O2 Sat by Pulse 98 94 L Oximetry Fraction of 40 Inspired Oxygen (FIO2) Medical Decision Making - Medical Decision Making Was pt. sent in by a medical professional or institution (, PA, MARKETING STRATEGIST, urgent care, hospital, or [facility]...) When possible be specific @ -Sent in from [facility] Did you speak to anyone other than the patient for history (EMS, parent, family, police, friend...)? What history was obtained from this source @ -No Did you review nursing and triage notes (agree or disagree)? Why? @ -I reviewed and agree with nursing and triage notes Were old charts reviewed (outside hosp., previous admission, EMS record, old EKG, old radiological studies, urgent care reports/EKG's, [facility] records)? Report findings @ -penitentiary charts reviewed Differential Diagnosis (chest pain, altered mental status, abdominal pain women, abdominal pain men, vaginal bleeding, musculoskeletal, weakness, fever, dyspnea, syncope, headache, dizziness, GI bleed, back pain, seizure, CVA, palpatations, mental health)? @ -Differential Fever: Pneumonia, viral URI, endocarditis, myocarditis, pericarditis, otitis, sinusitis, peritonsillar Abscess, retropharyngeal Abscess, epiglottitis, peritonitis, appendicitis, Emy cystitis, diverticulitis, hepatitis, colitis, UTI, PID, TOA, pyelonephritis, prostatitis, epididymitis, meningitis, ence phalitis, pulmonary embolism, CVA, thyroid storm, pancreatitis, adrenal crisis, cavernous sinus thrombosis, this is not meant to be an all-inclusive list. EKG interpreted by me (3pts min.). @ -My EKG interpretation: Ventricular rate 81, sinus rhythm,. Interval to 32, QRS 109, QTC 429 . No ID prolongation, no QTC prolongation, no ST or T-wave changes noted. EKG compared to 01/01/2022 showing no changes. Overall, this EKG is unremarkable X-rays interpreted by me (1pt min.). @ -Chest x-ray shows left basilar infiltrate CT interpreted by me (1pt min.). @ -None done U/S interpreted by me (1pt. min.). @ -None done What testing was considered but not performed or refused? (CT, X-rays, U/S, labs)? Why? @ -None What meds were considered but not given or refused? Why? @ -None Did you discuss the management of the patient with other professionals (professionals i.e. , PA, MARKETING STRATEGIST, lab, RT, psych nurse, social group worker, lubricating engineer, teacher, chief sustainability officer, piano case maker)? Give summary @ -Discussed Dr. sheet for admission Was smoking cessation discussed for >3mins.? @ -No Was critical care preformed (if so, how long)? @ -No Were there social determinants of health that impacted care today? How? (Homelessness, low income, unemployed, alcoholism, drug addiction, transportation, low edu. Level, literacy, decrease access to med. care, skilled nursing, rehab)? @ -No Was there de-escalation of care discussed even if they declined (Discuss DNR or withdrawal of care, Hospice)? DNR status @ -No What co-morbidities impacted this encounter? (DM, HTN, Smoking, COPD, CAD, Cancer, CVA, ARF, Chemo, Hep., AIDS, mental health diagnosis, sleep apnea, morbid obesity)? @ -Debility, tracheostomy Was patient admitted / discharged? Hospital course, mention meds given and route, prescriptions, significant lab abnormalities, going to OR and other pertinent info. @ -72-year-old male presents emergency department for low-grade temperature and alleged malposition feeding tube. Feeding tube was troubleshooting appears to be functioning well. X-ray shows infiltrate. Labs are unremarkable. Given patient's age and comorbidities he is high risk for rapid compensation. Started on IV antibiotics will be admitted with consultation of pulmonology Undiagnosed new problem with uncertain prognosis? @ -No Drug Therapy requiring intensive monitoring for toxicity (Heparin, Nitro, Insulin, Cardizem)? @ -No Were any procedures done? @ -No Diagnosis/symptom? Acute, or Chronic, or Acute on Chronic? Uncomplicated (without systemic symptoms) or Complicated (systemic symptoms)? @ -1. Acute pneumonia Side effects of treatment? @ -No Exacerbation, Progression, or Severe Exacerbation? @ -No Poses a threat to life or bodily function? How? (Chest pain, USA, MD, pneumonia, PE, COPD, DKA, ARF, appy, cholecystitis, CVA, Diverticulitis, Homicidal, Suicidal, threat to staff... and all critical care pts) @ -yes - Lab Data Result diagrams: 08/11/22 15:40 08/11/22 15:40 Lab Results 08/11/22 08/11/22 08/11/22 Range/Units 15:40 15:40 15:40 WBC 8.1 (3.8-10.6) k/uL RBC 2.86 L (4.30-5.90) m/uL Hgb 9.2 L (13.0-17.5) gm/dL Hct 27.8 L (39.0-53.0) % MCV 97.4 (80.0-100.0) fL MCH 32.2 (25.0-35.0) pg MCHC 33.1 (31.0-37.0) g/dL RDW 13.5 (11.5-15.5) % Plt Count 156 (150-450) k/uL MPV 8.9 Neutrophils % 65 % Lymphocytes % 24 % Monocytes % 7 % Eosinophils % 2 % Basophils % 0 % Neutrophils # 5.3 (1.3-7.7) k/uL Lymphocytes # 1.9 (1.0-4.8) k/uL Monocytes # 0.5 (0-1.0) k/uL Eosinophils # 0.2 (0-0.7) k/uL Basophils # 0.0 (0-0.2) k/uL Sodium 138 (137-145) mmol/L Potassium 5.5 H (3.5-5.1) mmol/L Chloride 100 (98-107) mmol/L Carbon Dioxide 37 H (22-30) mmol/L Anion Gap 1 mmol/L BUN 40 H (9-20) mg/dL Creatinine 0.94 (0.66-1.25) mg/dL Est GFR (CKD-EPI)AfAm >90 (>60 ml/min/1.73 sqM) Est GFR (CKD-EPI)NonAf 81 (>60 ml/min/1.73 sqM) Glucose 91 (74-99) mg/dL Plasma Lactic Acid Sy 1.3 (0.7-2.0) mmol/L Calcium 8.0 L (8.4-10.2) mg/dL Magnesium 2.0 (1.6-2.3) mg/dL Total Bilirubin 0.7 (0.2-1.3) mg/dL AST 46 (17-59) U/L ALT 21 (4-49) U/L Alkaline Phosphatase 158 H (38-126) U/L Troponin I (0.000-0.034) ng/mL Total Protein 8.2 (6.3-8.2) g/dL Albumin 3.1 L (3.5-5.0) g/dL Influenza Type A (PCR) (Not Detectd) Influenza Type B (PCR) (Not Detectd) RSV (PCR) (Not Detectd) SARS-CoV-2 (PCR) (Not Detectd) Group A Strep (PCR) (Not Detectd) 08/11/22 08/11/22 08/11/22 Range/Units 15:40 15:40 16:48 WBC (3.8-10.6) k/uL RBC (4.30-5.90) m/uL Hgb (13.0-17.5) gm/dL Hct (39.0-53.0) % MCV (80.0-100.0) fL MCH (25.0-35.0) pg MCHC (31.0-37.0) g/dL RDW (11.5-15.5) % Plt Count (150-450) k/uL MPV Neutrophils % % Lymphocytes % % Monocytes % % Eosinophils % % Basophils % % Neutrophils # (1.3-7.7) k/uL Lymphocytes # (1.0-4.8) k/uL Monocytes # (0-1.0) k/uL Eosinophils # (0-0.7) k/uL Basophils # (0-0.2) k/uL Sodium (137-145) mmol/L Potassium (3.5-5.1) mmol/L Chloride (98-107) mmol/L Carbon Dioxide (22-30) mmol/L Anion Gap mmol/L BUN (9-20) mg/dL Creatinine (0.66-1.25) mg/dL Est GFR (CKD-EPI)AfAm (>60 ml/min/1.73 sqM) Est GFR (CKD-EPI)NonAf (>60 ml/min/1.73 sqM) Glucose (74-99) mg/dL Plasma Lactic Acid Sy (0.7-2.0) mmol/L Calcium (8.4-10.2) mg/dL Magnesium (1.6-2.3) mg/dL Total Bilirubin (0.2-1.3) mg/dL AST (17-59) U/L ALT (4-49) U/L Alkaline Phosphatase (38-126) U/L Troponin I 0.015 (0.000-0.034) ng/mL Total Protein (6.3-8.2) g/dL Albumin (3.5-5.0) g/dL Influenza Type A (PCR) Not Detected (Not Detectd) Influenza Type B (PCR) Not Detected (Not Detectd) RSV (PCR) Not Detected (Not Detectd) SARS-CoV-2 (PCR) Not Detected (Not Detectd) Group A Strep (PCR) NOT DETECTED (Not Detectd) Disposition Clinical Impression: Pneumonia Disposition: ADMITTED IP TO THIS [facility] Condition: Fair Referrals: Amaris Jiménez DO [Primary Care Provider] - 1-2 days Decision Time: 18:07
--- NOTE | 2022-08-11 15:42 | XR ---
EXAMINATION TYPE: XR chest 1V portable DATE OF EXAM: 08/11/2022 3:29 PM COMPARISON: Chest radiographs from 12/30/2021 TECHNIQUE: XR chest 1V portable Portable AP radiograph of the chest. CLINICAL INDICATION:Male, 72 years old with history of fever; FINDINGS: Patient is rotated which limits evaluation. Lungs/Pleura: Left basilar patchy airspace opacities. No pneumothorax. Blunting of the left costophre mauricio angle. Pulmonary vascularity: Unremarkable. Heart/mediastinum: Cardiomediastinal silhouette is enlarged and stable. Atherosclerotic calcificatio ns are seen in the aorta. Musculoskeletal: No acute osseous pathology. Midline sternotomy wires are noted and stable. Surgical absence of the left humerus again. Other findings: Tracheostomy cannula redemonstrated. Loop recorder overlies the left chest. IMPRESSION: Left basilar infiltrate with small left pleural effusion and cardiomegaly.
[2022-08-11 16:17] LABS: Basophils % (A) 0 %; Eosinophils # (A) 0.2 k/uL (0-0.7); Eosinophils % (A) 2 %; HCT 27.8 % (39.0-53.0); HGB 9.2 gm/dL (13.0-17.5); Lymphocytes # (A) 1.9 k/uL (1.0-4.8); Lymphocytes % (A) 24 %; MCH 32.2 pg (25.0-35.0); MCHC 33.1 g/dL (31.0-37.0); MCV 97.4 fL (80.0-100.0); Mean Platelet Volume 8.9; Monocytes # (A) 0.5 k/uL (0-1.0); Monocytes % (A) 7 %; Neutrophils # (A) 5.3 k/uL (1.3-7.7); Neutrophils % (A) 65 %; Platelet Count 156 k/uL (150-450); RBC 2.86 m/uL (4.30-5.90); RDW 13.5 % (11.5-15.5); WBC 8.1 k/uL (3.8-10.6)
[2022-08-11 16:33] LABS: ALT 21 U/L (4-49); African American GFR (CKD) >90 (>60 ml/min/1.73 sqM); Anion Gap 1 mmol/L; Blood Urea Nitrogen 40 mg/dL (9-20); Carbon Dioxide 37 mmol/L (22-30); Chloride 100 mmol/L (98-107); Glucose 91 mg/dL (74-99); Non-African American GFR(CKD) 81 (>60 ml/min/1.73 sqM); Sodium 138 mmol/L (137-145); Total Bilirubin 0.7 mg/dL (0.2-1.3)
[2022-08-11 16:39] LABS: AST 46 U/L (17-59); Albumin 3.1 g/dL (3.5-5.0); Alkaline Phosphatase 158 U/L (38-126); Potassium 5.5 mmol/L (3.5-5.1); Total Protein 8.2 g/dL (6.3-8.2)
[2022-08-11] MEDS ORDERED: CEFEPIME 2 GM in SODIUM CHLORIDE 0.9% 100 ML IVPB STA (16:45)
[2022-08-11] MEDS ORDERED: SODIUM CHLORIDE 0.9% 100 ML BAG IV SCH (19:15)
[2022-08-11] MEDS ORDERED: PNEUMONIA PROTOCOL UTILIZED 1 EACH MISC PO PRN (20:17)
[2022-08-11] MEDS: SODIUM CHLORIDE 0.9% 1,000 ML IV SCH (20:48)
[2022-08-11] MEDS ORDERED: SODIUM BICARB 8.4% 50 ML SYR (1 MEQ/ML) IV STA (21:57)
[2022-08-11] MEDS ORDERED: ALBUTEROL NEBULIZED 2.5 MG/3 ML INHALATION ONE (22:00)
--- NOTE | 2022-08-11 22:08 | P.HPIM ---
History of Present Illness This is a pleasant 72 years old male who was sent from residential for respiratory difficulty suspicious for pneumonia. Patient has history of PEG tube and tracheostomy and left upper extremity amputation he was sent from his residential for concerns of displaced PEG tube, as per emergency room staff PEG tube was checked and there is no displacement. Patient was in this facility a few with the view months ago for pneumonia. Patient is poor historian, he is awake and alert, he has difficulty coming patient because of his dyspnea and tracheostomy. No abdominal pain. No abdominal tenderness and soft. PEG tube in place. Temperature is 90.9. He is saturating 94% on FiO2 of 40% via trach collar Labs showing no leukocytosis with WC8.1, hemoglobin 9.2, rest of CBC, BMP and liver enzymes were unremarkable. Potassium 5.5 which is slightly elevated but sample was hemolyzed. We given 1 dose of bicarb and albuterol and held his home dose of potassium and recheck potassium level tomorrow. Troponin is negative. Patient was out of negative including RSV coronavirus. Group a Streptococcus is negative EKG showing wide complex QRS with sinus rhythm at 81, evidence of left bundle branch block, similar to EKG seen from 08/06/2021 Chest x-ray showed left basilar infiltrates with small left pleural effusion and cardiomegaly Review of Systems ROS unobtainable: due to endotracheal tube Past Medical History Additional Past Medical History / Comment(s): left arm amputation, trach, peg History of Any Multi-Drug Resistant Organisms: None Reported Additional Past Surgical History / Comment(s): peg tube, tracheotomy Past Anesthesia/Blood Transfusion Reactions: Unable to Obtain Past Psychological History: No Psychological Hx Reported Smoking Status: Former smoker Past Alcohol Use History: None Reported Past Drug Use History: None Reported Medications and Allergies Home Medications Medication Instructions Recorded Confirmed Type Famotidine [Pepcid] 20 mg PEG/G-TUBE BID 12/26/21 08/11/22 History Furosemide 40 mg PEG/G-TUBE DAILY 12/26/21 08/11/22 History L.acidoph,Paracasei, B.lactis 1 cap PEG/G-TUBE BID 12/26/21 08/11/22 History [Probiotic] Sertraline HCl [Sertraline HCl 50 mg PEG/G-TUBE DAILY 12/26/21 08/11/22 History Oral Conc] Amino Acids/Protein Hydrolys 1 dose PO HS 08/11/22 08/11/22 History [Pro-Stat Awc Liquid] Atropine Ophth Soln 1% 5Ml [Isopto 2 drop BUCCAL BID 08/11/22 08/11/22 History Atropine 1% 5Ml] Diclofenac Sodium [Voltaren 2 gm TOPICAL Q8H PRN 08/11/22 08/11/22 History Arthritis Pain 1% Gel] Donepezil [Aricept] 5 mg PEG/G-TUBE DAILY 08/11/22 08/11/22 History Gentamicin 0.1% Cream 1 applic TOPICAL TID@0700,1300,1900 08/11/22 08/11/22 History HYDROcodone/APAP 7.5-325MG [[place] 1 tab PEG/G-TUBE QID@05,11,,08/11/22 08/11/22 History 7.5-325] Levothyroxine Sodium [Synthroid] 75 mcg PEG/G-TUBE DAILY 08/11/22 08/11/22 History Potassium Chloride 20 meq PEG/G-TUBE DAILY 08/11/22 08/11/22 History Pregabalin [Lyrica] 50 mg PEG/G-TUBE BID 08/11/22 08/11/22 History Propylene Glycol/Peg 400/Pf 1 drop BOTH EYES BID 08/11/22 08/11/22 History [Systane 0.3-0.4% Ophth Dropperette] Allergies Allergy/AdvReac Type Severity Reaction Status Date / Time Iodinated Contrast Media Allergy Unknown Verified 08/11/22 19:02 Penicillins Allergy Unknown Verified 08/11/22 19:02 Physical Exam Vitals: Vital Signs Temp Pulse Resp BP Pulse Ox FiO2 08/11/22 21:47 79 18 116/85 94 L 08/11/22 18:59 82 20 99/63 94 L 08/11/22 15:24 40 08/11/22 14:30 99.0 F 94 18 100/61 98 Intake and Output 08/11/22 08/11/22 08/11/22 06:59 14:59 22:59 Other: Weight 52.163 kg GENERAL: The patient is alert and oriented x3, not in any acute distress. Well developed, well nourished. -HEENT: Pupils are round and equally reacting to light. EOMI. No scleral icterus. No conjunctival pallor. Normocephalic, atraumatic. No pharyngeal erythema. No thyromegaly. Tracheostomy in place with purulent discharge CARDIOVASCULAR: S1 and S2 present. No murmurs, rubs, or gallops. PULMONARY: Chest is clear to auscultation, no wheezing or crackles. -ABDOMEN: Soft, nontender, nondistended, normoactive bowel sounds. No palpable organomegaly. PEG tube in place MUSCULOSKELETAL: No joint swelling or deformity. EXTREMITIES: No cyanosis, clubbing, or pedal edema. NEUROLOGICAL: Gross neurological examination did not reveal any focal deficits. SKIN: No rashes. no petechiae. Results CBC & Chem 7: 08/11/22 15:40 08/11/22 15:40 Labs: Abnormal Lab Results - Last 24 Hours (Table) 08/11/22 08/11/22 Range/Units 15:40 15:40 RBC 2.86 L (4.30-5.90) m/uL Hgb 9.2 L (13.0-17.5) gm/dL Hct 27.8 L (39.0-53.0) % Potassium 5.5 H (3.5-5.1) mmol/L Carbon Dioxide 37 H (22-30) mmol/L BUN 40 H (9-20) mg/dL Calcium 8.0 L (8.4-10.2) mg/dL Alkaline Phosphatase 158 H (38-126) U/L Albumin 3.1 L (3.5-5.0) g/dL Assessment and Plan Assessment: Healthcare acquired pneumonia, he has history of sensitive Proteus pneumonia Acute hypoxic respiratory failure, improved History of tracheostomy and PEG tube in April 2021 History of left arm amputation Plan: Continue with antibiotics cefepime Breathing treatment and albuterol Follow-up sputum culture Dietary consult and may resume PEG tube feeding after that. Labs and medication were reviewed.. Continue same treatment. Continue with symptomatic treatment. Resume home medication. Monitor labs and vitals. DVT and GI prophylaxis. Further recommendations as per clinical course of the patient DVT prophylaxis: Subcutaneous heparin GI Prophylaxis: Pepcid PT/OT: Pending Prognosis is guarded
[2022-08-11] MEDS: HYDROcodone/APAP 7.5-325MG 1 EACH TAB PEG/G-TUBE SCH (22:56)
[2022-08-12 02:25] LABS: Appearance,Urine Clear (Clear); Bilirubin,Urine Negative (Negative); Blood,Urine Negative (Negative); Color,Urine Yellow; Glucose,Urine (UA) Negative (Negative); Ketones,Urine Negative (Negative); Leukocyte Esterase,Urine Moderate (Negative); Mucus,Urine Rare /hpf; Nitrite,Urine Negative (Negative); PH, Urine 7.5 (5.0-8.0); Protein,Urine Trace (Negative); Specific Gravity,Urine 1.015 (1.001-1.035); Squamous Epithelial Cell,Urine <1 /hpf (0-4); WBC,Urine 8 /hpf (0-5)
[2022-08-12] MEDS: LEVOTHYROXINE 75 MCG TAB PEG/G-TUBE SCH (06:04)
[2022-08-12] MEDS: CEFEPIME 2 GM in SODIUM CHLORIDE 0.9% 100 ML IVPB SCH ×2 (06:04→17:52)
[2022-08-12] MEDS: HYDROcodone/APAP 7.5-325MG 1 EACH TAB PEG/G-TUBE SCH ×4 (06:04→22:00)
[2022-08-12] MEDS: GENTAMICIN 0.1% CREAM 15 GM TUBE TOPICAL SCH ×3 (06:11→20:21)
--- NOTE | 2022-08-12 07:23 | XR ---
EXAMINATION TYPE: XR chest 1V portable DATE OF EXAM: 08/12/2022 6:34 AM COMPARISON: Chest radiographs from 08/11/2022 TECHNIQUE: XR chest 1V portable Portable AP radiograph of the chest. CLINICAL INDICATION:Male, 72 years old with history of pneumonia; FINDINGS: Patient is rotated which limits evaluation. Lungs/Pleura: Left basilar patchy airspace opacity is redemonstrated. No pneumothorax. Blunting of th e left costophrenic angle. Pulmonary vascularity: Unremarkable. Heart/mediastinum: Cardiomediastinal silhouette is enlarged and stable. Atherosclerotic calcificatio ns are seen in the aorta. Musculoskeletal: No acute osseous pathology. Midline sternotomy wires are noted and stable. Surgical absence of the left humerus again. Other findings: Tracheostomy cannula redemonstrated. Loop recorder overlies the left chest. IMPRESSION: Overall unchanged examination with similar left basilar infiltrate with small left pleural effusion a nd cardiomegaly.
[2022-08-12] MEDS: FAMOTIDINE 8 MG/ML ORAL.SUSP PEG/G-TUBE SCH ×2 (09:54→23:08)
[2022-08-12] MEDS: SERTRALINE 50 MG TAB PEG/G-TUBE SCH (09:54)
[2022-08-12] MEDS: FUROSEMIDE 40 MG TAB PEG/G-TUBE SCH (09:54)
[2022-08-12] MEDS: PREGABALIN 50 MG CAP PEG/G-TUBE SCH ×2 (09:54→22:00)
[2022-08-12] MEDS: HEPARIN SODIUM,PORCINE/PF 5,000 UNIT/0.5 ML SYRINGE SQ SCH ×2 (09:54→22:01)
[2022-08-12] MEDS: DONEPEZIL 5 MG TAB PEG/G-TUBE SCH (10:03)
--- NOTE | 2022-08-12 11:36 | P.CNPUL ---
History of Present Illness Consult date: 08/12/22 Requesting physician: Ant Wyatt Reason for consult: hypoxemia Chief complaint: Fever, PEG tube displaced History of present illness: This is a 72-year-old male patient who resides at [facility] [place] [facility] and has a history of anemias extensive pneumonia in April 2021 that required t racheostomy and PEG tube placements. He also has a history of left arm amputation, former smoker. He was brought here to the emergency room yesterday for a displaced PEG tube, fever and complaints of sore throat. Chest x-ray reveals left basilar infiltrate/atelectasis with small effusion. Cardiomegaly. Tracheostomy cannula demonstrated. Loop recorder over the left chest. Surgical absence of the left humerus. White count 8.1. Hemoglobin 9.2. Platelets 156. Sodium 138. Potassium 5.5. Bicarb 37. BUN 40. Creatinine 0.94. Glucose 91. Troponin negative 1. Urinalysis with trace glucose, moderate leukocyte esterase, high WBC. Influenza screen negative. COVID-19 screen negative. Group A strep negative. RSV negative. Sputum culture pending. Legionella culture pending. Pro-calcitonin pending. He's been initiated on cefepime. He is seen today in consultation on the regular medical floor. Currently resting comfortably in bed. T-piece at 10 L equal to 40% FiO2. Currently afebrile. Hemodynamically stable. Review of Systems ROS unobtainable: due to mental status Past Medical History Additional Past Medical History / Comment(s): left arm amputation, trach, peg History of Any Multi-Drug Resistant Organisms: None Reported Additional Past Surgical History / Comment(s): peg tube, tracheotomy Past Anesthesia/Blood Transfusion Reactions: Unable to Obtain Past Psychological History: No Psychological Hx Reported Smoking Status: Former smoker Past Alcohol Use History: None Reported Past Drug Use History: None Reported Medications and Allergies Home Medications Medication Instructions Recorded Confirmed Type Famotidine [Pepcid] 20 mg PEG/G-TUBE BID 12/26/21 08/11/22 History Furosemide 40 mg PEG/G-TUBE DAILY 12/26/21 08/11/22 History L.acidoph,Paracasei, B.lactis 1 cap PEG/G-TUBE BID 12/26/21 08/11/22 History [Probiotic] Sertraline HCl [Sertraline HCl 50 mg PEG/G-TUBE DAILY 12/26/21 08/11/22 History Oral Conc] Amino Acids/Protein Hydrolys 1 dose PO HS 08/11/22 08/11/22 History [Pro-Stat Awc Liquid] Atropine Ophth Soln 1% 5Ml [Isopto 2 drop BUCCAL BID 08/11/22 08/11/22 History Atropine 1% 5Ml] Diclofenac Sodium [Voltaren 2 gm TOPICAL Q8H PRN 08/11/22 08/11/22 History Arthritis Pain 1% Gel] Donepezil [Aricept] 5 mg PEG/G-TUBE DAILY 08/11/22 08/11/22 History Gentamicin 0.1% Cream 1 applic TOPICAL TID@0700,1300,1900 08/11/22 08/11/22 History HYDROcodone/APAP 7.5-325MG [[place] 1 tab PEG/G-TUBE QID@05,11,,08/11/22 08/11/22 History 7.5-325] Levothyroxine Sodium [Synthroid] 75 mcg PEG/G-TUBE DAILY 08/11/22 08/11/22 History Potassium Chloride 20 meq PEG/G-TUBE DAILY 08/11/22 08/11/22 History Pregabalin [Lyrica] 50 mg PEG/G-TUBE BID 08/11/22 08/11/22 History Propylene Glycol/Peg 400/Pf 1 drop BOTH EYES BID 08/11/22 08/11/22 History [Systane 0.3-0.4% Ophth Dropperette] Allergies Allergy/AdvReac Type Severity Reaction Status Date / Time Iodinated Contrast Media Allergy Unknown Verified 08/11/22 19:02 Penicillins Allergy Unknown Verified 08/11/22 19:02 Physical Exam Vitals: Vital Signs Temp Pulse Pulse Resp BP BP Pulse Ox 08/12/22 08:22 08/12/22 08:00 98.5 F 86 20 131/64 96 08/12/22 00:30 97.5 F L 80 15 143/77 99 08/12/22 00:08 97.7 F 71 15 132/70 97 08/11/22 21:47 79 18 116/85 94 L 08/11/22 18:59 82 20 99/63 94 L 08/11/22 15:24 08/11/22 14:30 99.0 F 94 18 100/61 98 FiO2 08/12/22 08:22 40 08/12/22 08:00 40 08/12/22 00:30 08/12/22 00:08 08/11/22 21:47 08/11/22 18:59 08/11/22 15:24 40 08/11/22 14:30 Intake and Output 08/11/22 08/12/22 08/12/22 22:59 06:59 14:59 Other: Voiding Method Diaper # Voids 3 Weight 52.163 kg GENERAL EXAM: Alert, 72-year-old male patient, tracheostomy tube in place with T piece 40% FiO2, comfortable in no apparent distress. HEAD: Normocephalic. EYES: Normal reaction of pupils, equal size. NOSE: Clear with pink turbinates. THROAT:No erythema or exudates. NECK: Tracheostomy tube in place. No masses, no JVD. CHEST: No chest wall deformity. LUNGS: Equal air entry with few scattered rhonchi. CVS: S1 and S2 normal with no audible murmur, regular rhythm. ABDOMEN: PEG tube secured in place. No hepatosplenomegaly, normal bowel sounds, no guarding or rigidity. SPINE: No scoliosis or deformity SKIN: No rashes CENTRAL NERVOUS SYSTEM: No focal deficits, tone is normal in all 4 extremities. EXTREMITIES: Left upper extremity amputation. There is no peripheral edema. No clubbing, no cyanosis. Peripheral pulses are intact. Results - Laboratory Findings CBC and BMP: 08/11/22 15:40 08/11/22 15:40 Abnormal lab findings: Abnormal Labs 08/11/22 08/11/22 08/12/22 15:40 15:40 01:45 RBC 2.86 L Hgb 9.2 L Hct 27.8 L Potassium 5.5 H Carbon Dioxide 37 H BUN 40 H Calcium 8.0 L Alkaline Phosphatase 158 H Albumin 3.1 L Urine Protein Trace H Ur Leukocyte Esterase Moderate H Urine WBC 8 H Urine Mucus Rare H - Diagnostic Findings Chest x-ray: image reviewed Assessment and Plan Assessment: Febrile illness suspect secondary to possible early pneumonia, aspiration from displaced PEG tube. Possible urinary tract infection. Procalcitonin pending. Influenza, COVID-19, strep, RSV screens all negative all excluded History of extensive pneumonia most requiring tracheostomy and PEG tube placements in April 2021 History of left arm amputation Hypothyroidism History of anxiety/depression snf resident Plan: The patient was seen and evaluated Chest x-ray, labs and medications reviewed Currently on 40% FiO2 via T piece Continue antibiotics for now Check a pro-calcitonin Continue bronchodilators as needed We will continue to follow and make further recommendations based on his clinical status I have personally seen and examined the patient, performed the documentation and the assessment and plan as written. Number of minutes spent on the visit: 20.
[2022-08-12] MEDS: SODIUM CHLORIDE 0.9% 1,000 ML IV SCH (12:46)
[2022-08-12] MEDS: ATROPINE OPHTH SOLN 1% 5ML BTL OPHTHALMIC SCH ×2 (12:46→22:01)
[2022-08-12 13:22] LABS: Basophils # (A) 0.02 X 10*3/uL (0.00-0.10); Basophils % (A) 0.3 %; Eosinophils # (A) 0.25 X 10*3/uL (0.04-0.35); Eosinophils % (A) 3.3 %; HCT 30.2 % (39.6-50.0); HGB 9.3 g/dL (13.0-17.0); Immature Grans, Automated 0.1 %; Lymphocytes # (A) 2.02 X 10*3/uL (0.90-5.00); Lymphocytes % (A) 26.3 %; MCH 31.2 pg (27.0-32.0); MCHC 30.8 g/dL (32.0-37.0); MCV 101.3 fL (80.0-97.0); Mean Platelet Volume 12.2 fL (9.5-12.2); Monocytes % (A) 9.1 %; NRBC Per 100 WBC 0 /100 WBCS (0.0-0.0); Neutrophils # (A) 4.68 X 10*3/uL (1.80-7.70); Neutrophils % (A) 60.9 %; Platelet Count 123 X 10*3/uL (140-440); RBC 2.98 X 10*6/uL (4.40-5.60); RDW 13.6 % (11.5-14.5); WBC 7.68 X 10*3/uL (4.50-10.00)
[2022-08-12 13:35] LABS: African American GFR (CKD) 98.5 (60.0-200.0); Anion Gap 9.2 mmol/L (10.00-18.00); BUN/Creat Ratio 31.33 Ratio (12.00-20.00); Blood Urea Nitrogen 28.2 mg/dL (9.0-27.0); Calcium 8.4 mg/dL (8.7-10.3); Carbon Dioxide 28.8 mmol/L (20.0-27.5); Potassium 3.9 mmol/L (3.5-5.5)
[2022-08-12] MEDS ORDERED: CEFEPIME 1 GM in SODIUM CHLORIDE 0.9% 100 ML IVPB SCH (18:54)
--- NOTE | 2022-08-12 18:55 | P.PN ---
Subjective This is a pleasant 72 years old male who was sent from detention for respiratory difficulty suspicious for pneumonia. Patient has history of PEG tube and tracheostomy and left upper extremity amputation he was sent from his detention for concerns of displaced PEG tube, as per emergency room staff PEG tube was checked and there is no displacement. Patient was in this facility a few with the [facility] months ago for pneumonia. Patient is poor historian, he is awake and alert, he has difficulty coming patient because of his dyspnea and tracheostomy. No abdominal pain. No abdominal tenderness and soft. PEG tube in place. Temperature is 90.9. He is saturating 94% on FiO2 of 40% via trach collar Labs showing no leukocytosis with WC8.1, hemoglobin 9.2, rest of CBC, BMP and liver enzymes were unremarkable. Potassium 5.5 which is slightly elevated but sample was hemolyzed. We given 1 dose of bicarb and albuterol and held his home dose of potassium and recheck potassium level tomorrow. Troponin is negative. Patient was out of negative including RSV coronavirus. Group a Streptococcus is negative EKG showing wide complex QRS with sinus rhythm at 81, evidence of left bundle branch block, similar to EKG seen from 08/06/2021 Chest x-ray showed left basilar infiltrates with small left pleural effusion and cardiomegaly 08/12/2022 Patient generally doing well, he was admitted with possible pneumonia seen with some consolidation on the chest x-ray However patient showed quick improvement in his symptoms recur He has no fever or leukocytosis. Pro-calcitonin is normal 0.06. Patient currently on cefepime with sputum culture is pending. Patient has a lot of secretions were tracheostomy tube. The secretions time of purulent however I don't think the patient has pneumonia, most likely he has possible aspiration pneumonitis. I think we can discharge the patient back to his detention. However we will wait for pulmonary clearance PEG tube is working and is going to be tried by staff with close monitoring of residual Objective - Vital Signs Vital signs: Vital Signs Temp 98.5 F 08/12/22 08:00 Pulse 86 08/12/22 08:00 Resp 20 08/12/22 08:00 BP 131/64 08/12/22 08:00 Pulse Ox 96 08/12/22 08:00 FiO2 40 08/12/22 08:22 Intake & Output 08/11/22 08/12/2223 18:59 06:59 18:59 Weight 52.163 kg 52.163 kg Other: Voiding Method Diaper # Voids 3 - Labs CBC & Chem 7: 08/12/22 06:12 08/12/22 06:12 Labs: Abnormal Lab Results - Last 24 Hours (Table) 08/11/22 08/11/22 08/12/22 Range/Units 15:40 15:40 01:45 RBC 2.86 L (4.30-5.90) m/uL Hgb 9.2 L (13.0-17.5) gm/dL Hct 27.8 L (39.0-53.0) % Potassium 5.5 H (3.5-5.1) mmol/L Carbon Dioxide 37 H (22-30) mmol/L BUN 40 H (9-20) mg/dL Calcium 8.0 L (8.4-10.2) mg/dL Alkaline Phosphatase 158 H (38-126) U/L Albumin 3.1 L (3.5-5.0) g/dL Urine Protein Trace H (Negative) Ur Leukocyte Esterase Moderate H (Negative) Urine WBC 8 H (0-5) /hpf Urine Mucus Rare H (None) /hpf Assessment and Plan Assessment: Most likely aspiration pneumonitis rather than infectious pneumonia Acute hypoxic respiratory failure, resolved History of tracheostomy and PEG tube in April 2021 History of left arm amputation Plan: I will lower the dose of cefepime to 1 mg twice a day . I think patient can be discharged back to his detention either on no antibiotics or short course of oral/PEG tube antibiotic. Breathing treatment and albuterol Resume tube feeding and monitor residual Dietary consult Labs and medication were reviewed.. Continue same treatment. Continue with symptomatic treatment. Resume home medication. Monitor labs and vitals. DVT and GI prophylaxis. Further recommendations as per clinical course of the patient DVT prophylaxis: Subcutaneous heparin GI Prophylaxis: Pepcid
[2022-08-12] MEDS: CEFEPIME 1 GM in SODIUM CHLORIDE 0.9% 50 ML IVPB SCH (22:00)
[2022-08-13] MEDS: LEVOTHYROXINE 75 MCG TAB PEG/G-TUBE SCH (06:06)
[2022-08-13] MEDS: HYDROcodone/APAP 7.5-325MG 1 EACH TAB PEG/G-TUBE SCH ×4 (06:06→22:42)
[2022-08-13] MEDS: GENTAMICIN 0.1% CREAM 15 GM TUBE TOPICAL SCH ×3 (06:56→19:34)
[2022-08-13] MEDS: CEFEPIME 1 GM in SODIUM CHLORIDE 0.9% 50 ML IVPB SCH (09:22)
[2022-08-13] MEDS: FAMOTIDINE 8 MG/ML ORAL.SUSP PEG/G-TUBE SCH ×2 (09:22→20:23)
[2022-08-13] MEDS: ATROPINE OPHTH SOLN 1% 5ML BTL OPHTHALMIC SCH ×2 (09:23→20:23)
[2022-08-13] MEDS: HEPARIN SODIUM,PORCINE/PF 5,000 UNIT/0.5 ML SYRINGE SQ SCH ×2 (09:23→20:23)
[2022-08-13] MEDS: PREGABALIN 50 MG CAP PEG/G-TUBE SCH ×2 (09:24→20:40)
[2022-08-13] MEDS: SERTRALINE 50 MG TAB PEG/G-TUBE SCH (09:24)
[2022-08-13] MEDS: FUROSEMIDE 40 MG TAB PEG/G-TUBE SCH (09:24)
[2022-08-13] MEDS: DONEPEZIL 5 MG TAB PEG/G-TUBE SCH (09:24)
[2022-08-13] MEDS: SODIUM CHLORIDE 0.9% 1,000 ML IV SCH (11:21)
--- NOTE | 2022-08-13 11:43 | P.PN ---
Subjective Progress Note Date: 08/13/22 This is a 72-year-old male patient who resides at [facility] and has a history of anemias extensive pneumonia in April 2021 that required tracheostomy and PEG tube placements. He also has a history of left arm amputation, former smoker. He was brought here to the emergency room yesterday for a displaced PEG tube, fever and complaints of sore throat. Chest x-ray reveals left basilar infiltrate/atelectasis with small effusion. Cardiomegaly. Tracheostomy cannula demonstrated. Loop recorder over the left chest. Surgical absence of the left humerus. White count 8.1. Hemoglobin 9.2. Platelets 156. Sodium 138. Potassium 5.5. Bicarb 37. BUN 40. Creatinine 0.94. Glucose 91. Troponin negative 1. Urinalysis with trace glucose, moderate leukocyte esterase, high WBC. Influenza screen negative. COVID-19 screen negative. Group A strep negative. RSV negative. Sputum culture pending. Legionella culture pending. Pro-calcitonin pending. He's been initiated on cefepime. He is seen today in consultation on the regular medical floor. Currently resting comfortably in bed. T-piece at 10 L equal to 40% FiO2. Currently afebrile. Hemodynamically stable. The patient is seen today 08/13/2022 in follow-up on the regular medical floor. He is currently resting in bed. Awake. Maintaining O2 saturations in the 90s on 35% FiO2 via trach T piece. Blood cultures reveal no growth to date. Sputum culture pending. Legionella culture pending. White count 7.6. Hemoglobin 9.3. Platelets 123. Sodium 142. Potassium 3.9. Bicarb 29. BUN 28. Creatinine 0.9. Pro-calcitonin 0.06. He is currently on cefepime. Objective - Vital Signs Vital signs: Vital Signs Temp 98.9 F 08/13/22 07:36 Pulse 90 08/13/22 07:36 Resp 17 08/13/22 07:36 BP 94/59 08/13/22 07:36 Pulse Ox 97 08/13/22 07:36 FiO2 35 08/13/22 02:47 Intake & Output 08/12/22 08/13/22 08/13/22 18:59 06:59 18:59 Intake Total 30 Output Total 100 Balance -70 Weight 52.163 kg 62.5 kg Intake: Oral 0 Tube Feeding 30 Output: Urine 100 Other: Voiding Method Urinal Urinal Urinal Diaper Incontinent # Voids 4 1 # Bowel Movements 2 - Exam GENERAL EXAM: Alert, 72-year-old male patient, tracheostomy tube in place with T piece 35% FiO2, comfortable in no apparent distress. HEAD: Normocephalic. EYES: Normal reaction of pupils, equal size. NOSE: Clear with pink turbinates. THROAT:No erythema or exudates. NECK: Tracheostomy tube in place. No masses, no JVD. CHEST: No chest wall deformity. LUNGS: Equal air entry with few scattered rhonchi. CVS: S1 and S2 normal with no audible murmur, regular rhythm. ABDOMEN: PEG tube secured in place. No hepatosplenomegaly, normal bowel sounds, no guarding or rigidity. SPINE: No scoliosis or deformity SKIN: No rashes CENTRAL NERVOUS SYSTEM: No focal deficits, tone is normal in all 4 extremities. EXTREMITIES: Left upper extremity amputation. There is no peripheral edema. No clubbing, no cyanosis. Peripheral pulses are intact. - Labs CBC & Chem 7: 08/12/22 06:12 08/12/22 06:12 Labs: Abnormal Lab Results - Last 24 Hours (Table) 08/12/22 08/12/22 Range/Units 06:12 06:12 RBC 2.98 L (4.40-5.60) X 10*6/uL Hgb 9.3 L (13.0-17.0) g/dL Hct 30.2 L (39.6-50.0) % MCV 101.3 H (80.0-97.0) fL MCHC 30.8 L (32.0-37.0) g/dL Plt Count 123 L (140-440) X 10*3/uL Carbon Dioxide 28.8 H (20.0-27.5) mmol/L Anion Gap 9.20 L (10.00-18.00) mmol/L BUN 28.2 H (9.0-27.0) mg/dL BUN/Creatinine Ratio 31.33 H (12.00-20.00) Ratio Calcium 8.4 L (8.7-10.3) mg/dL Microbiology - Last 24 Hours (Table) 08/11/22 21:56 Gram Stain - Preliminary Sputum Sputum Culture - Preliminary 08/11/22 15:55 Blood Culture - Preliminary Blood No Growth after 24 hours 08/11/22 15:40 Blood Culture - Preliminary Blood No Growth after 24 hours 08/11/22 21:45 Legionella Culture - Preliminary Sputum Assessment and Plan Assessment: Febrile illness suspect secondary to possible early pneumonia, aspiration from displaced PEG tube. Possible urinary tract infection. Influenza, COVID-19, strep, RSV screens all negative. Pro-calcitonin 0.06. Cefepime is discontinued. We will add empiric antibiotics in the form of azithromycin. History of extensive pneumonia most requiring tracheostomy and PEG tube placements in April 2021 History of left arm amputation Hypothyroidism History of anxiety/depression [facility] resident Plan: The patient was seen and evaluated Labs and medications reviewed Currently on 35% FiO2 via T piece [place] within normal limits Cefepime discontinue Add azithromycin empirically Continue bronchodilators as needed We will continue to follow I have personally seen and examined the patient, performed the documentation and the assessment and plan as written. Number of minutes spent on the visit: 10.
--- NOTE | 2022-08-13 14:19 | P.PN ---
Subjective Progress Note Date: 08/13/22 This is a pleasant 72 years old male who was sent from group home for respiratory difficulty suspicious for pneumonia. Patient has history of PEG tube and tracheostomy and left upper extremity amputation he was sent from his group home for concerns of displaced PEG tube, as per emergency room staff PEG tube was checked and there is no displacement. Patient was in this facility a few with [facility] months ago for pneumonia. Patient is poor historian, he is awake and alert, he has difficulty coming patient because of his dyspnea and tracheostomy. No abdominal pain. No abdominal tenderness and soft. PEG tube in place. Temperature is 90.9. He is saturating 94% on FiO2 of 40% via trach collar Labs showing no leukocytosis with WC8.1, hemoglobin 9.2, rest of CBC, BMP and liver enzymes were unremarkable. Potassium 5.5 which is slightly elevated but sample was hemolyzed. We given 1 dose of bicarb and albuterol and held his home dose of potassium and recheck potassium level tomorrow. Troponin is negative. Patient was out of negative including RSV coronavirus. Group a Streptococcus is negative EKG showing wide complex QRS with sinus rhythm at 81, evidence of left bundle branch block, similar to EKG seen from 08/06/2021 Chest x-ray showed left basilar infiltrates with small left pleural effusion and cardiomegaly 08/12/2022 Patient generally doing well, he was admitted with possible pneumonia seen with some consolidation on the chest x-ray However patient showed quick improvement in his symptoms recur He has no fever or leukocytosis. Pro-calcitonin is normal 0.06. Patient currently on cefepime with sputum culture is pending. Patient has a lot of secretions were tracheostomy tube. The secretions time of purulent however I don't think the patient has pneumonia, most likely he has possible aspiration pneumonitis. I think we can discharge the patient back to his group home. However we will wait for pulmonary clearance PEG tube is working and is going to be tried by staff with close monitoring of residual 16. Patient seen and examined. Patient currently on 35% FiO2 via trach T piece. Nursing staff has been noticing a lot of secretions from the trach site. White count this morning is 7.68, hemoglobin 9.3, sodium 142, potassium 3.9, BUN is 28.2, creatinine 0.9. REVIEW OF SYSTEMS: CONSTITUTIONAL: No fever, no malaise,. CARDIOVASCULAR: No chest pain, no palpitations, no syncope. PULMONARY: No shortness of breath, no cough, GASTROINTESTINAL: No diarrhea, no nausea, no vomiting, no abdominal pain. NEUROLOGICAL: No headaches, no weakness, PHYSICAL EXAMINATION: GENERAL: The patient is alert and oriented x3, not in any acute distress. Well developed, well nourished. HEENT: Pupils are round and equally reacting to light. EOMI. No scleral icterus. No conjunctival pallor. Normocephalic, atraumatic. No pharyngeal erythema. No th yromegaly. Trach seen secretions noticeable CARDIOVASCULAR: S1 and S2 present. No murmurs, rubs, or gallops. PULMONARY: Diminished breath sounds at the bases bilaterally ABDOMEN: Soft, nontender, nondistended, normoactive bowel sounds. No palpable organomegaly. PEG tube MUSCULOSKELETAL: No joint swelling or deformity. EXTREMITIES: No cyanosis, clubbing, or pedal edema. NEUROLOGICAL: Gross neurological examination did not reveal any focal deficits. SKIN: No rashes. Assessment and plan Most likely aspiration pneumonitis rather than infectious pneumonia Acute hypoxic respiratory failure, resolved History of tracheostomy and PEG tube in April 2021 History of left arm amputation Plan: Monitor vital signs Monitor CBC Follow-up on blood cultures. Continue cefepime Breathing treatment and albuterol Continue tube feeding ID consult Pulmonology on board Labs and medication were reviewed.Further recommendations as per clinical course of the patient Objective - Vital Signs Vital signs: Vital Signs Temp 98.9 F 08/13/22 07:36 Pulse 90 08/13/22 07:36 Resp 17 08/13/22 07:36 BP 94/59 08/13/22 07:36 Pulse Ox 97 08/13/22 07:36 FiO2 35 08/13/22 02:47 Intake & Output 08/12/22 08/13/22 08/13/22 18:59 06:59 18:59 Intake Total 30 Output Total 100 Balance -70 Weight 52.163 kg 62.5 kg Intake: Oral 0 Tube Feeding 30 Output: Urine 100 Other: Voiding Method Urinal Urinal Urinal Diaper Incontinent # Voids 4 1 # Bowel Movements 2 - Labs CBC & Chem 7: 08/12/22 06:12 08/12/22 06:12 Labs: Abnormal Lab Results - Last 24 Hours (Table) 08/12/22 08/12/22 Range/Units 06:12 06:12 RBC 2.98 L (4.40-5.60) X 10*6/uL Hgb 9.3 L (13.0-17.0) g/dL Hct 30.2 L (39.6-50.0) % MCV 101.3 H (80.0-97.0) fL MCHC 30.8 L (32.0-37.0) g/dL Plt Count 123 L (140-440) X 10*3/uL Carbon Dioxide 28.8 H (20.0-27.5) mmol/L Anion Gap 9.20 L (10.00-18.00) mmol/L BUN 28.2 H (9.0-27.0) mg/dL BUN/Creatinine Ratio 31.33 H (12.00-20.00) Ratio Calcium 8.4 L (8.7-10.3) mg/dL Microbiology - Last 24 Hours (Table) 08/11/22 21:56 Gram Stain - Preliminary Sputum Sputum Culture - Preliminary 08/11/22 15:55 Blood Culture - Preliminary Blood No Growth after 24 hours 08/11/22 15:40 Blood Culture - Preliminary Blood No Growth after 24 hours 08/11/22 21:45 Legionella Culture - Preliminary Sputum
[2022-08-13] MEDS: MORPHINE SULFATE 2 MG/ML SYRINGE IVP PRN ×2 (14:55→20:19)
[2022-08-13 21:22] LABS: Glucose,Whole Blood 120 mg/dL (70-110)
--- NOTE | 2022-08-13 21:33 | P.CONS ---
History of Present Illness - Reason for Consult Consult date: 08/13/22 - History of Present Illness Patient is a 72-year-old male with a past medical history significant for extensive pneumonia in April 2021 requiring tracheostomy and PEG tube placement in this patient currently resident of the local [facility] patient was sent to the ER on 08/11/2022 for dislodged PEG tube and complaints of sore throat patient on presentation to the hospital did have a low-grade fever of 99 degrees following height no high-grade fever has been recorded since then patient did have a normal white count kidney function has been normal liver enzymes are normal urine was mildly positive influenza RSV and COVID testing was negative patient did have blood and sputum cultures currently pending patient did have a chest x-ray left basilar infiltrate and small effusion and cardiomegaly concerning for possible pneumonia patient has been treated with the cefepime and Zithromax which subsequently has been discontinued by pulmonary this morning infectious disease was consulted for further management of antibiotic therapy by the admitting team most information has been obtained from review the chart talking to the nursing staff and the patient himself was not a very good historian however he did answer some questions Past Medical History Additional Past Medical History / Comment(s): left arm amputation, trach, peg History of Any Multi-Drug Resistant Organisms: None Reported Additional Past Surgical History / Comment(s): peg tube, tracheotomy Past Anesthesia/Blood Transfusion Reactions: Unable to Obtain Past Psychological History: No Psychological Hx Reported Smoking Status: Former smoker Past Alcohol Use History: None Reported Past Drug Use History: None Reported Medications and Allergies Home Medications Medication Instructions Recorded Confirmed Type Famotidine [Pepcid] 20 mg PEG/G-TUBE BID 12/26/21 08/11/22 History Furosemide 40 mg PEG/G-TUBE DAILY 12/26/21 08/11/22 History L.acidoph,Paracasei, B.lactis 1 cap PEG/G-TUBE BID 12/26/21 08/11/22 History [Probiotic] Sertraline HCl [Sertraline HCl 50 mg PEG/G-TUBE DAILY 12/26/21 08/11/22 History Oral Conc] Amino Acids/Protein Hydrolys 1 dose PO HS 08/11/22 08/11/22 History [Pro-Stat Awc Liquid] Atropine Ophth Soln 1% 5Ml [Isopto 2 drop BUCCAL BID 08/11/22 08/11/22 History Atropine 1% 5Ml] Diclofenac Sodium [Voltaren 2 gm TOPICAL Q8H PRN 08/11/22 08/11/22 History Arthritis Pain 1% Gel] Donepezil [Aricept] 5 mg PEG/G-TUBE DAILY 08/11/22 08/11/22 History Gentamicin 0.1% Cream 1 applic TOPICAL TID@0700,1300,1900 08/11/22 08/11/22 History HYDROcodone/APAP 7.5-325MG [[place] 1 tab PEG/G-TUBE QID@05,,,08/11/22 08/11/22 History 7.5-325] Levothyroxine Sodium [Synthroid] 75 mcg PEG/G-TUBE DAILY 08/11/22 08/11/22 History Potassium Chloride 20 meq PEG/G-TUBE DAILY 08/11/22 08/11/22 History Pregabalin [Lyrica] 50 mg PEG/G-TUBE BID 08/11/22 08/11/22 History Propylene Glycol/Peg 400/Pf 1 drop BOTH EYES BID 08/11/22 08/11/22 History [Systane 0.3-0.4% Ophth Dropperette] Allergies Allergy/AdvReac Type Severity Reaction Status Date / Time Iodinated Contrast Media Allergy Unknown Verified 08/11/22 19:02 Penicillins Allergy Unknown Verified 08/11/22 19:02 Physical Exam Vitals: Vital Signs Temp Pulse Resp BP Pulse Ox FiO2 08/13/22 07:40 35 08/13/22 07:36 98.9 F 90 17 94/59 97 08/13/22 03:30 97.1 F L 81 18 119/69 98 08/13/22 02:47 35 08/13/22 02:37 100 35 08/13/22 00:29 97.9 F 73 19 110/63 100 08/12/22 22:35 40 08/12/22 21:00 20 Intake and Output 08/12/22 08/13/22 08/13/22 22:59 06:59 14:59 Intake Total 15 80 Output Total 100 Balance -85 80 Intake: Oral 0 Tube Feeding 15 80 Output: Urine 100 Other: Voiding Method Urinal Urinal Diaper Incontinent # Voids 1 1 # Bowel Movements 2 Weight 62.5 kg Results CBC & Chem 7: 08/14/22 07:00 08/14/22 07:00 Labs: Microbiology - Last 24 Hours (Table) 08/11/22 21:56 Gram Stain - Preliminary Sputum Sputum Culture - Preliminary 08/11/22 15:55 Blood Culture - Preliminary Blood No Growth after 24 hours 08/11/22 15:40 Blood Culture - Preliminary Blood No Growth after 24 hours 08/11/22 21:45 Legionella Culture - Preliminary Sputum Assessment and Plan Plan: 1patient is 72-year-old male with a history of respiratory failure failed to be extubated currently to have a trach and PEG admitted to the hospital with a dislodged PEG tube patient did not have any fever during this hospital stay patient did have a normal white count procalcitonin had been 0.06 chest x-ray with a left-sided effusion possible atelectasis clinically not behaving as pneumonia, agree with description of antibiotic at this point and the patient will monitor closely off antibiotic therapy We will follow on clinical condition and cultures to further adjust medication if needed Thank you for this consultation we will follow the patient along with you Time with Patient: Greater than 30
[2022-08-14 00:43] LABS: Glucose,Whole Blood 109 mg/dL (70-110)
[2022-08-14] MEDS: LEVOTHYROXINE 75 MCG TAB PEG/G-TUBE SCH (06:01)
[2022-08-14] MEDS: HYDROcodone/APAP 7.5-325MG 1 EACH TAB PEG/G-TUBE SCH ×4 (06:01→21:23)
[2022-08-14] MEDS: SODIUM CHLORIDE 0.9% 1,000 ML IV SCH (06:02)
[2022-08-14] MEDS: GENTAMICIN 0.1% CREAM 15 GM TUBE TOPICAL SCH ×3 (06:02→21:04)
[2022-08-14 06:56] LABS: Glucose,Whole Blood 113 mg/dL (70-110)
[2022-08-14] MEDS: FAMOTIDINE 8 MG/ML ORAL.SUSP PEG/G-TUBE SCH ×2 (09:12→21:57)
[2022-08-14] MEDS: FUROSEMIDE 40 MG TAB PEG/G-TUBE SCH (09:12)
[2022-08-14] MEDS: HEPARIN SODIUM,PORCINE/PF 5,000 UNIT/0.5 ML SYRINGE SQ SCH ×2 (09:12→21:24)
[2022-08-14] MEDS: PREGABALIN 50 MG CAP PEG/G-TUBE SCH ×2 (09:12→21:23)
[2022-08-14] MEDS: AZITHROMYCIN 1,200 MG/30 ML BOTTLE PO SCH (09:12)
[2022-08-14] MEDS: SERTRALINE 50 MG TAB PEG/G-TUBE SCH (09:12)
[2022-08-14] MEDS: DONEPEZIL 5 MG TAB PEG/G-TUBE SCH (09:12)
[2022-08-14] MEDS: ATROPINE OPHTH SOLN 1% 5ML BTL OPHTHALMIC SCH ×2 (09:13→21:24)
[2022-08-14 11:48] LABS: Basophils # (A) 0.02 X 10*3/uL (0.00-0.10); Basophils % (A) 0.3 %; Eosinophils # (A) 0.19 X 10*3/uL (0.04-0.35); Eosinophils % (A) 2.7 %; HCT 28.8 % (39.6-50.0); HGB 8.9 g/dL (13.0-17.0); Immature Grans, Automated 0.1 %; Lymphocytes # (A) 2.01 X 10*3/uL (0.90-5.00); Lymphocytes % (A) 28.6 %; MCH 31.3 pg (27.0-32.0); MCHC 30.9 g/dL (32.0-37.0); MCV 101.4 fL (80.0-97.0); Mean Platelet Volume 12.1 fL (9.5-12.2); Monocytes # (A) 0.75 X 10*3/uL (0.20-1.00); Monocytes % (A) 10.7 %; NRBC Per 100 WBC 0 /100 WBCS (0.0-0.0); Neutrophils # (A) 4.06 X 10*3/uL (1.80-7.70); Neutrophils % (A) 57.6 %; Platelet Count 124 X 10*3/uL (140-440); RBC 2.84 X 10*6/uL (4.40-5.60); RDW 13.6 % (11.5-14.5); WBC 7.04 X 10*3/uL (4.50-10.00)
[2022-08-14 11:52] LABS: Glucose,Whole Blood 152 mg/dL (70-110)
[2022-08-14 12:03] LABS: African American GFR (CKD) 98.5 (60.0-200.0); Albumin 2.7 g/dL (3.8-4.9); Albumin/Globulin Ratio 0.57 (1.60-3.17); Anion Gap 4.1 mmol/L (10.00-18.00); BUN/Creat Ratio 21.56 Ratio (12.00-20.00); Blood Urea Nitrogen 19.4 mg/dL (9.0-27.0); Calcium 8.2 mg/dL (8.7-10.3); Carbon Dioxide 29.9 mmol/L (20.0-27.5); Globulin 4.7 g/dL (1.6-3.3); Potassium 3.8 mmol/L (3.5-5.5); Total Bilirubin 0.5 mg/dL (0.30-1.20); Total Protein 7.4 g/dL (6.2-8.2)
--- NOTE | 2022-08-14 13:03 | P.PN ---
Subjective Progress Note Date: 08/14/22 Principal diagnosis: Shortness of breath/pneumonia. This is a 72-year-old male patient who resides at [facility] and has a history of anemias extensive pneumonia in April 2021 that required tracheostomy and PEG tube placements. He also has a history of left arm amputat ion, former smoker. He was brought here to the emergency room yesterday for a displaced PEG tube, fever and complaints of sore throat. Chest x-ray reveals left basilar infiltrate/atelectasis with small effusion. Cardiomegaly. Tracheostomy cannula demonstrated. Loop recorder over the left chest. Surgical absence of the left humerus. White count 8.1. Hemoglobin 9.2. Platelets 156. Sodium 138. Potassium 5.5. Bicarb 37. BUN 40. Creatinine 0.94. Glucose 91. Troponin negative 1. Urinalysis with trace glucose, moderate leukocyte esterase, high WBC. Influenza screen negative. COVID-19 screen negative. Group A strep negative. RSV negative. Sputum culture pending. Legionella cu lture pending. Pro-calcitonin pending. He's been initiated on cefepime. He is seen today in consultation on the regular medical floor. Currently resting comfortably in bed. T-piece at 10 L equal to 40% FiO2. Currently afebrile. Hemodynamically stable. The patient is seen today 08/13/2022 in follow-up on the regular medical floor. He is currently resting in bed. Awake. Maintaining O2 saturations in the 90s on 35% FiO2 via trach T piece. Blood cultures reveal no growth to date. Sputum culture pending. Legionella culture pending. White count 7.6. Hemoglobin 9.3. Platelets 123. Sodium 142. Potassium 3.9. Bicarb 29. BUN 28. Creatinine 0.9. Pro-calcitonin 0.06. He is currently on cefepime. Progress note dated 08/14/2022. 72-year-old male seen and examined in room 484. The patient is on a trach collar 35%. She's getting Jevity via PEG tube, at 65 mL an hour, to be in creased to 70 mL an hour. He is getting saline at 50 mL an hour. Clinically, the patient appears to be about the same. He is neither worse or better. Laboratory data includes a white count of 7.04, hemoglobin 8.9, hematocrit 28.8, and a platelet count of 124,000. The patient's sodium was 141, potassium 3.8, chlorides 107, CO2 30, BUN 19, creatinine 0.9. The closest 111. Calcium 8.2. Pro-calcitonin level was 0.06. Urinary Legionella antigen was negative. Influenza A and influenza B studies were both negative. Testing for RSV and coronavirus were also negative. Objective - Vital Signs Vital signs: Vital Signs Temp 98.2 F 08/14/22 07:43 Pulse 89 08/14/22 07:43 Resp 18 08/14/22 09:00 BP 115/65 08/14/22 04:13 Pulse Ox 96 08/14/22 09:34 FiO2 35 08/13/22 07:40 Intake & Output 08/13/22 08/14/22 08/14/22 18:59 06:59 18:59 Intake Total 80 45 Balance 80 45 Weight 64 kg Intake: Tube Feeding 80 45 Other: Voiding Method Urinal Diaper Diaper Incontinent # Voids 1 1 - Exam No acute distress, lethargic today. He does arouse and respond appropriately. HEENT examination is grossly unremarkable. Neck supple. Full range of motion. No adenopathy thyromegaly or neck vein distention. A midline tracheostomy tube is noted. He is receiving a trach collar at 35%. Cardiovascular examination reveals regular rhythm rate. S1-S2 normal. No S3 or S4. No discernible murmur noted. Heart sounds are distant. Heart rate 89 bpm. Lungs reveal scattered bilateral rhonchi and expiratory wheezes. No crackles. Breath sounds equal bilaterally but diminished throughout. Abdomen is soft, with bowel sounds. A PEG tube is noted. Extremities are intact. No cyanosis clubbing or edema. Skin is without rash or lesion. Neurologic examination is brief but nonfocal. - Labs CBC & Chem 7: 08/14/22 07:00 08/14/22 07:00 Labs: Abnormal Lab Results - Last 24 Hours (Table) 08/13/22 08/14/22 08/14/22 Range/Units 21:20 06:48 07:00 RBC 2.84 L (4.40-5.60) X 10*6/uL Hgb 8.9 L (13.0-17.0) g/dL Hct 28.8 L (39.6-50.0) % MCV 101.4 H (80.0-97.0) fL MCHC 30.9 L (32.0-37.0) g/dL Plt Count 124 L (140-440) X 10*3/uL Carbon Dioxide (20.0-27.5) mmol/L Anion Gap (10.00-18.00) mmol/L BUN/Creatinine Ratio (12.00-20.00) Ratio Glucose (70-110) mg/dL POC Glucose (mg/dL) 120 H 113 H (70-110) mg/dL Calcium (8.7-10.3) mg/dL Albumin (3.8-4.9) g/dL Globulin (1.6-3.3) g/dL Albumin/Globulin Ratio (1.60-3.17) g/dL 08/14/22 08/14/22 Range/Units 07:00 11:49 RBC (4.40-5.60) X 10*6/uL Hgb (13.0-17.0) g/dL Hct (39.6-50.0) % MCV (80.0-97.0) fL MCHC (32.0-37.0) g/dL Plt Count (140-440) X 10*3/uL Carbon Dioxide 29.9 H (20.0-27.5) mmol/L Anion Gap 4.10 L (10.00-18.00) mmol/L BUN/Creatinine Ratio 21.56 H (12.00-20.00) Ratio Glucose 111 H (70-110) mg/dL POC Glucose (mg/dL) 152 H (70-110) mg/dL Calcium 8.2 L (8.7-10.3) mg/dL Albumin 2.7 L (3.8-4.9) g/dL Globulin 4.7 H (1.6-3.3) g/dL Albumin/Globulin Ratio 0.57 L (1.60-3.17) g/dL Microbiology - Last 24 Hours (Table) 08/11/22 21:56 Gram Stain - Final Sputum Sputum Culture - Final 08/11/22 15:55 Blood Culture - Preliminary Blood No Growth after 48 hours 08/11/22 15:40 Blood Culture - Preliminary Blood No Growth after 48 hours Assessment and Plan Assessment: Febrile illness suspect secondary to possible early pneumonia, aspiration from displaced PEG tube. Possible urinary tract infection. Influenza, COVID-19, strep, RSV screens all negative. Pro-calcitonin 0.06. Cefepime is discontinued. We will add empiric antibiotics in the form of azithromycin. History of extensive pneumonia most requiring tracheostomy and PEG tube placements in April 2021. History of left arm amputation. Hypothyroidism. History of anxiety/depression. halfway resident. Plan: Plan dated 08/14/2022. The patient appears to be stable. The patient's currently just on of azithromycin. The patient's pro-calcitonin level was low. He is getting trach collar 35%. Saturations are adequate. Hemodynamically, he is stable. Cefepime was discontinued. He continues on bronchodilators. We will continue to follow the patient and make recommendations along the way. Prognosis is certainly guarded. Time with Patient: Less than 30
--- NOTE | 2022-08-14 15:35 | P.PN ---
Subjective Progress Note Date: 08/14/22 This is a pleasant 72 years old male who was sent from correction for respiratory difficulty suspicious for pneumonia. Patient has history of PEG tube and tracheostomy and left upper extremity amputation he was sent from his correction for concerns of displaced PEG tube, as per emergency room staff PEG tube was checked and there is no displacement. Patient was in this facility a few with the view months ago for pneumonia. Patient is poor historian, he is awake and alert, he has difficulty coming patient because of his dyspnea and tracheostomy. No abdominal pain. No abdominal tenderness and soft. PEG tube in place. Temperature is 90.9. He is saturating 94% on FiO2 of 40% via trach collar Labs showing no leukocytosis with WC8.1, hemoglobin 9.2, rest of CBC, BMP and liver enzymes were unremarkable. Potassium 5.5 which is slightly elevated but sample was hemolyzed. We given 1 dose of bicarb and albuterol and held his home dose of potassium and recheck potassium level tomorrow. Troponin is negative. Patient was out of negative including RSV coronavirus. Group a Streptococcus is negative EKG showing wide complex QRS with sinus rhythm at 81, evidence of left bundle branch block, similar to EKG seen from 08/06/2021 Chest x-ray showed left basilar infiltrates with small left pleural effusion and cardiomegaly 08/12/2022 Patient generally doing well, he was admitted with possible pneumonia seen with some consolidation on the chest x-ray However patient showed quick improvement in his symptoms recur He has no fever or leukocytosis. Pro-calcitonin is normal 0.06. Patient currently on cefepime with sputum culture is pending. Patient has a lot of secretions were tracheostomy tube. The secretions time of purulent however I don't think the patient has pneumonia, most likely he has possible aspiration pneumonitis. I think we can discharge the patient back to his correction. However we will wait for pulmonary clearance PEG tube is working and is going to be tried by staff with close monitoring of residual 16. Patient seen and examined. Patient currently on 35% FiO2 via trach T piece. Nursing staff has been noticing a lot of secretions from the trach site. White count this morning is 7.68, hemoglobin 9.3, sodium 142, potassium 3.9, BUN is 28.2, creatinine 0.9. 08/14. Patient seen and examined. Vital signs this morning are temperature 98 .2, heart rate 89, respirations 18, currently saturating 96% on 9 L of oxygen via t piece REVIEW OF SYSTEMS: CONSTITUTIONAL: No fever, no malaise,. CARDIOVASCULAR: No chest pain, no palpitations, no syncope. PULMONARY: No shortness of breath, no cough, GASTROINTESTINAL: No diarrhea, no nausea, no vomiting, no abdominal pain. NEUROLOGICAL: No headaches, no weakness, PHYSICAL EXAMINATION: GENERAL: The patient is alert and oriented x3, not in any acute distress. Well developed, well nourished. HEENT: Pupils are round and equally reacting to light. EOMI. No scleral icterus. No conjunctival pallor. Normocephalic, atraumatic. No pharyngeal erythema. No thyromegaly. Trach seen secretions noticeable CARDIOVASCULAR: S1 and S2 present. No murmurs, rubs, or gallops. PULMONARY: Diminished breath sounds at the bases bilaterally ABDOMEN: Soft, nontender, nondistended, normoactive bowel sounds. No palpable organomegaly. PEG tube MUSCULOSKELETAL: No joint swelling or deformity. EXTREMITIES: No cyanosis, clubbing, or pedal edema. NEUROLOGICAL: Gross neurological examination did not reveal any focal deficits. SKIN: No rashes. Assessment and plan Most likely aspiration pneumonitis rather than infectious pneumonia Acute hypoxic respiratory failure, resolved History of tracheostomy and PEG tube in April 2021 History of left arm amputation Plan: Monitor vital signs Monitor CBC Follow-up on blood cultures. Breathing treatment and albuterol Continue tube feeding ID on board, he agreed with continuation of azithromycin for now, DC cefepime Pulmonology on board Labs and medication were reviewed.Further recommendations as per clinical course of the patient Objective - Vital Signs Vital signs: Vital Signs Temp 98.2 F 08/14/22 07:43 Pulse 89 08/14/22 07:43 Resp 18 08/14/22 07:43 BP 115/65 08/14/22 04:13 Pulse Ox 96 08/14/22 09:34 FiO2 35 08/13/22 07:40 Intake & Output 08/13/22 08/14/22 08/14/22 18:59 06:59 18:59 Intake Total 80 45 Balance 80 45 Weight 64 kg Intake: Tube Feeding 80 45 Other: Voiding Method Urinal Diaper Incontinent # Voids 1 - Labs CBC & Chem 7: 08/14/22 07:00 08/14/22 07:00 Labs: Abnormal Lab Results - Last 24 Hours (Table) 08/13/22 08/14/22 Range/Units 21:20 06:48 POC Glucose (mg/dL) 120 H 113 H (70-110) mg/dL Microbiology - Last 24 Hours (Table) 08/11/22 21:56 Gram Stain - Final Sputum Sputum Culture - Final 08/11/22 15:55 Blood Culture - Preliminary Blood No Growth after 48 hours 08/11/22 15:40 Blood Culture - Preliminary Blood No Growth after 48 hours
[2022-08-14 16:54] LABS: Glucose,Whole Blood 87 mg/dL (70-110)
[2022-08-14 21:05] LABS: Glucose,Whole Blood 132 mg/dL (70-110)
--- NOTE | 2022-08-14 21:51 | P.PN ---
Subjective Progress Note Date: 08/14/22 Principal diagnosis: Questionable pneumonia and need for antibiotic therapy Patient is a 72-year-old male with a past medical history significant for extensive pneumonia in April 2021 requiring tracheostomy and PEG tube placement in this patient [facility] patient was sent to the ER on 08/11/2022 for dislodged PEG tube, patient did have abnormal chest x-ray with left lower lobe infiltrate and effusion and concern for possible pneumonia. On today's evaluation that is 08/14/2022, the patient is afebrile patient is currently breathing comfortably on a trach collar patient is slightly sleepy today and did not answer any question no vomiting or diarrhea has been reported Objective - Vital Signs Vital signs: Vital Signs Temp 98.2 F 08/14/22 07:43 Pulse 89 08/14/22 07:43 Resp 18 08/14/22 09:00 BP 115/65 08/14/22 04:13 Pulse Ox 96 08/14/22 09:34 FiO2 35 08/13/22 07:40 Intake & Output 08/13/22 08/14/22 08/14/22 18:59 06:59 18:59 Intake Total 80 45 Balance 80 45 Weight 64 kg Intake: Tube Feeding 80 45 Other: Voiding Method Urinal Diaper Diaper Incontinent # Voids 1 1 - Exam GENERAL DESCRIPTION: An elderly male lying in bed in no distress RESPIRATORY SYSTEM: Unlabored breathing , decreased breath sounds at bases HEART: S1 S2 regular rate and rhythm , ABDOMEN: Soft , no tenderness EXTREMITIES: No edema feet - Labs CBC & Chem 7: 08/14/22 07:00 08/14/22 07:00 Labs: Abnormal Lab Results - Last 24 Hours (Table) 08/13/22 08/14/22 08/14/22 Range/Units 21:20 06:48 07:00 RBC 2.84 L (4.40-5.60) X 10*6/uL Hgb 8.9 L (13.0-17.0) g/dL Hct 28.8 L (39.6-50.0) % MCV 101.4 H (80.0-97.0) fL MCHC 30.9 L (32.0-37.0) g/dL Plt Count 124 L (140-440) X 10*3/uL Carbon Dioxide (20.0-27.5) mmol/L Anion Gap (10.00-18.00) mmol/L BUN/Creatinine Ratio (12.00-20.00) Ratio Glucose (70-110) mg/dL POC Glucose (mg/dL) 120 H 113 H (70-110) mg/dL Calcium (8.7-10.3) mg/dL Albumin (3.8-4.9) g/dL Globulin (1.6-3.3) g/dL Albumin/Globulin Ratio (1.60-3.17) g/dL 08/14/22 08/14/22 Range/Units 07:00 11:49 RBC (4.40-5.60) X 10*6/uL Hgb (13.0-17.0) g/dL Hct (39.6-50.0) % MCV (80.0-97.0) fL MCHC (32.0-37.0) g/dL Plt Count (140-440) X 10*3/uL Carbon Dioxide 29.9 H (20.0-27.5) mmol/L Anion Gap 4.10 L (10.00-18.00) mmol/L BUN/Creatinine Ratio 21.56 H (12.00-20.00) Ratio Glucose 111 H (70-110) mg/dL POC Glucose (mg/dL) 152 H (70-110) mg/dL Calcium 8.2 L (8.7-10.3) mg/dL Albumin 2.7 L (3.8-4.9) g/dL Globulin 4.7 H (1.6-3.3) g/dL Albumin/Globulin Ratio 0.57 L (1.60-3.17) g/dL Microbiology - Last 24 Hours (Table) 08/11/22 21:56 Gram Stain - Final Sputum Sputum Culture - Final 08/11/22 15:55 Blood Culture - Preliminary Blood No Growth after 48 hours 08/11/22 15:40 Blood Culture - Preliminary Blood No Growth after 48 hours Assessment and Plan (1) Abnormal chest x-ray Current Visit: Yes Status: Acute Code(s): R93.89 - ABNORMAL FINDINGS ON DX IMAGING OF OTH BODY STRUCTURES SNOMED Code(s): 280200533 Plan: 1patient is 72-year-old male with a history of respiratory failure failed to be extubated currently to have a trach and PEG admitted to the hospital with a dislodged PEG tube patient did not have any fever during this hospital stay patient did have a normal white count procalcitonin had been 0.06 chest x-ray with a left-sided effusion possible atelectasis clinically not behaving as pneumonia, 2the patient blood as well as sputum culture had been negative we will continue monitor patient closely off antibiotic therapy Time with Patient: Less than 30
[2022-08-15 00:18] LABS: Glucose,Whole Blood 129 mg/dL (70-110)
[2022-08-15] MEDS: MORPHINE SULFATE 2 MG/ML SYRINGE IVP PRN ×3 (01:30→20:23)
[2022-08-15] MEDS: SODIUM CHLORIDE 0.9% 1,000 ML IV SCH ×2 (02:13→15:37)
[2022-08-15] MEDS: HYDROcodone/APAP 7.5-325MG 1 EACH TAB PEG/G-TUBE SCH ×4 (06:08→21:53)
[2022-08-15] MEDS: LEVOTHYROXINE 75 MCG TAB PEG/G-TUBE SCH (06:08)
[2022-08-15] MEDS: GENTAMICIN 0.1% CREAM 15 GM TUBE TOPICAL SCH ×3 (07:00→19:07)
[2022-08-15] MEDS: DONEPEZIL 5 MG TAB PEG/G-TUBE SCH (09:53)
[2022-08-15] MEDS: SERTRALINE 50 MG TAB PEG/G-TUBE SCH (09:53)
[2022-08-15] MEDS: FUROSEMIDE 40 MG TAB PEG/G-TUBE SCH (09:53)
[2022-08-15] MEDS: PREGABALIN 50 MG CAP PEG/G-TUBE SCH ×2 (09:53→21:53)
[2022-08-15] MEDS: HEPARIN SODIUM,PORCINE/PF 5,000 UNIT/0.5 ML SYRINGE SQ SCH ×2 (09:53→21:52)
[2022-08-15] MEDS: AZITHROMYCIN 1,200 MG/30 ML BOTTLE PO SCH (09:55)
[2022-08-15] MEDS: FAMOTIDINE 8 MG/ML ORAL.SUSP PEG/G-TUBE SCH ×2 (09:55→21:52)
[2022-08-15] MEDS: ATROPINE OPHTH SOLN 1% 5ML BTL OPHTHALMIC SCH (09:56)
[2022-08-15 11:59] LABS: Glucose,Whole Blood 128 mg/dL (70-110)
--- NOTE | 2022-08-15 12:33 | P.PN ---
Subjective Progress Note Date: 08/15/22 This is a 72-year-old male patient who resides at [facility] and has a history of extensive pneumonia in April 2021 that required tracheostomy and PEG tube placements. He also has a history of left arm amputation, former smoker. He was brought here to the emergency room yesterday for a displaced PEG tube, fever and complaints of sore throat. Chest x-ray reveals left basilar infiltrate/atelectasis with small effusion. Cardiomegaly. Tracheostomy cannula demonstrated. Loop recorder over the left chest. Surgical absence of the left humerus. White count 8.1. Hemoglobin 9.2. Platelets 156. Sodium 138. Potassium 5.5. Bicarb 37. BUN 40. Creatinine 0.94. Glucose 91. Troponin ne gative 1. Urinalysis with trace glucose, moderate leukocyte esterase, high WBC. Influenza screen negative. COVID-19 screen negative. Group A strep negative. RSV negative. Sputum culture pending. Legionella culture pending. Pro-calcitonin pending. He's been initiated on cefepime. He is seen today in consultation on the regular medical floor. Currently resting comfortably in bed. T-piece at 10 L equal to 40% FiO2. Currently afebrile. Hemodynamically stable. The patient is seen today 08/13/2022 in follow-up on the regular medical floor. He is currently resting in bed. Awake. Maintaining O2 saturations in the 90s on 35% FiO2 via trach T piece. Blood cultures reveal no growth to date. Sputum culture pending. Legionella culture pending. White count 7.6. Hemoglobin 9.3. Platelets 123. Sodium 142. Potassium 3.9. Bicarb 29. BUN 28. Creatinine 0.9. Pro-calcitonin 0.06. He is currently on cefepime. Progress note dated 08/14/2022. 72-year-old male seen and examined in room 484. The patient is on a trach collar 35%. She's getting Jevity via PEG tube, at 65 mL an hour, to be increased to 70 mL an hour. He is getting saline at 50 mL an hour. Clinically, the patient appears to be about the same. He is neither worse or better. Laboratory data includes a white count of 7.04, hemoglobin 8.9, hematocrit 28.8, and a platelet count of 124,000. The patient's sodium was 141, potassium 3.8, chlorides 107, CO2 30, BUN 19, creatinine 0.9. The closest 111. Calcium 8.2. Pro-calcitonin level was 0.06. Urinary Legionella antigen was negative. Influenza A and influenza B studies were both negative. Testing for RSV and coronavirus were also negative. On today's evaluation of 08/15/2022, the patient continues to have copious amounts of rest or secretions. The patient is considered for a potential aspiration pneumonia. He had a temperature 100.4 this morning. His sputum sample was sent and the culture is still pending for now. Meanwhile, the patien t is covered with broad-spectrum antibiotics and the patient is currently on Zithromax. The WBC count is at 7 with a hemoglobin of 8.9 and a platelet count of 124. The BUN is 19 with a creatinine of 0.9 and a sodium level is at 141. Pro-calcitonin level was at 0.57. Legionella urine antigen was negative. Covid 19 and the rest of the vital screening was all negative. Objective - Vital Signs Vital signs: Vital Signs Temp 100.4 F H 08/15/22 07:50 Pulse 109 H 08/15/22 07:50 Resp 20 08/15/22 07:50 BP 110/62 08/15/22 07:50 Pulse Ox 97 08/15/22 07:50 FiO2 35 08/15/22 09:54 Intake & Output 08/14/22 08/15/22 08/15/22 18:59 06:59 18:59 Intake Total 3435 Balance 3435 Weight 64 kg 64 kg Intake: Tube Feeding 3024 Other 411 Other: Voiding Method Diaper Diaper # Voids 1 # Bowel Movements 1 - Exam No acute distress, lethargic today. He does arouse and respond appropriately. HEENT examination is grossly unremarkable. Neck supple. Full range of motion. No adenopathy thyromegaly or neck vein distention. A midline tracheostomy tube is noted. He is receiving a trach collar at 35%. Cardiovascular examination reveals regular rhythm rate. S1-S2 normal. No S3 or S4. No discernible murmur noted. Heart sounds are distant. Lungs reveal scattered bilateral rhonchi and expiratory wheezes. No crackles. Breath sounds equal bilaterally but diminished throughout. Abdomen is soft, with bowel sounds. A PEG tube is noted. Extremities are intact. No cyanosis clubbing or edema. Skin is without rash or lesion. Neurologic examination is brief but nonfocal. - Labs CBC & Chem 7: 08/14/22 07:00 08/14/22 07:00 Labs: Abnormal Lab Results - Last 24 Hours (Table) 08/14/22 08/15/22 08/15/22 Range/Units 21:04 00:17 11:57 POC Glucose (mg/dL) 132 H 129 H 128 H (70-110) mg/dL Microbiology - Last 24 Hours (Table) 08/11/22 15:55 Blood Culture - Preliminary Blood No Growth after 72 hours 08/11/22 15:40 Blood Culture - Preliminary Blood No Growth after 72 hours 08/11/22 21:56 Gram Stain - Final Sputum Sputum Culture - Final Assessment and Plan Plan: Febrile illness suspect secondary to possible early pneumonia, aspiration from displaced PEG tube. Possible urinary tract infection. Influenza, COVID-19, strep, RSV screens all negative. Pro-calcitonin 0.06. History of extensive pneumonia most requiring tracheostomy and PEG tube placements in April 2021. History of left arm amputation. Hypothyroidism. History of anxiety/depression. [facility]. Plan: The patient continues to have significant amount of rest or secretions. Based on his group home status, I would suggest adding cefepime in combination with Zithromax pending further cultures. Patient is currently on 35% Ventimask Recurrent aspiration and suctioning and Pulmicort toileting Continue tube feeding for now We'll continue to follow
[2022-08-15] MEDS: CEFEPIME 2 GM in SODIUM CHLORIDE 0.9% 100 ML IVPB SCH ×2 (12:50→23:58)
--- NOTE | 2022-08-15 14:22 | P.PN ---
Subjective Progress Note Date: 08/15/22 This is a pleasant 72 years old male who was sent from [place] [facility] for respiratory difficulty suspicious for pneumonia. Patient has history of PEG tube and tracheostomy and left upper extremity amputation he was sent from his [place] [facility] for concerns of displaced PEG tube, as per emergency room staff PEG tube was checked and there is no displacement. Patient was in this facility a few with the [facility] months ago for pneumonia. Patient is poor historian, he is awake and alert, he has difficulty coming patient because of his dyspnea and tracheostomy. No abdominal pain. No abdominal tenderness and soft. PEG tube in place. Temperature is 90.9. He is saturating 94% on FiO2 of 40% via trach collar Labs showing no leukocytosis with WC8.1, hemoglobin 9.2, rest of CBC, BMP and liver enzymes were unremarkable. Potassium 5.5 which is slightly elevated but sample was hemolyzed. We given 1 dose of bicarb and albuterol and held his home dose of potassium and recheck potassium level tomorrow. Troponin is negative. Patient was out of negative including RSV coronavirus. Group a Streptococcus is negative EKG showing wide complex QRS with sinus rhythm at 81, evidence of left bundle branch block, similar to EKG seen from 08/06/2021 Chest x-ray showed left basilar infiltrates with small left pleural effusion and cardiomegaly 08/12/2022 Patient generally doing well, he was admitted with possible pneumonia seen with some consolidation on the chest x-ray However patient showed quick improvement in his symptoms recur He has no fever or leukocytosis. Pro-calcitonin is normal 0.06. Patient currently on cefepime with sputum culture is pending. Patient has a lot of secretions were tracheostomy tube. The secretions time of purulent however I don't think the patient has pneumonia, most likely he has possible aspiration pneumonitis. I think we can discharge the patient back to his [place] [facility]. However we will wait for pulmonary clearance PEG tube is working and is going to be tried by staff with close monitoring of residual 16. Patient seen and examined. Patient currently on 35% FiO2 via trach T piece. Nursing staff has been noticing a lot of secretions from the trach site. White count this morning is 7.68, hemoglobin 9.3, sodium 142, potassium 3.9, BUN is 28.2, creatinine 0.9. 08/14. Patient seen and examined. Vital signs this morning are temperature 98 .2, heart rate 89, respirations 18, currently saturating 96% on 9 L of oxygen via t piece 08/15. Patient seen and examined. Patient continues to have excessive secretions. Patient had low-grade fever at 100.4 this morning REVIEW OF SYSTEMS: CONSTITUTIONAL: No fever, no malaise,. CARDIOVASCULAR: No chest pain, no palpitations, no syncope. PULMONARY: No shortness of breath, no cough, GASTROINTESTINAL: No diarrhea, no nausea, no vomiting, no abdominal pain. NEUROLOGICAL: No headaches, no weakness, PHYSICAL EXAMINATION: GENERAL: The patient is alert and oriented x3, not in any acute distress. Well developed, well nourished. HEENT: Pupils are round and equally reacting to light. EOMI. No scleral icterus. No conjunctival pallor. Normocephalic, atraumatic. No pharyngeal erythema. No thyromegaly. Trach seen secretions noticeable CARDIOVASCULAR: S1 and S2 present. No murmurs, rubs, or gallops. PULMONARY: Diminished breath sounds at the bases bilaterally ABDOMEN: Soft, nontender, nondistended, normoactive bowel sounds. No palpable organomegaly. PEG tube MUSCULOSKELETAL: No joint swelling or deformity. EXTREMITIES: No cyanosis, clubbing, or pedal edema. NEUROLOGICAL: Gross neurological examination did not reveal any focal deficits. SKIN: No rashes. Assessment and plan Most likely aspiration pneumonitis rather than infectious pneumonia Acute hypoxic respiratory failure, resolved History of tracheostomy and PEG tube in April 2021 History of left arm amputation Plan: Monitor vital signs Monitor CBC Follow-up on blood cultures. Breathing treatment and albuterol Continue tube feeding Continue cefepime and azithromycin. Follow-up in ID recommendations Pulmonology on board Labs and medication were reviewed.Further recommendations as per clinical course of the patient Objective - Vital Signs Vital signs: Vital Signs Temp 100.4 F H 08/15/22 07:50 Pulse 109 H 08/15/22 07:50 Resp 20 08/15/22 07:50 BP 110/62 08/15/22 07:50 Pulse Ox 97 08/15/22 07:50 FiO2 35 08/15/22 13:59 Intake & Output 08/14/22 08/15/22 08/15/22 18:59 06:59 18:59 Intake Total 3435 Balance 3435 Weight 64 kg 64 kg Intake: Tube Feeding 3024 Other 411 Other: Voiding Method Diaper Diaper # Voids 1 # Bowel Movements 1 - Labs CBC & Chem 7: 08/14/22 07:00 08/14/22 07:00 Labs: Abnormal Lab Results - Last 24 Hours (Table) 08/14/22 08/15/22 08/15/22 Range/Units 21:04 00:17 11:57 POC Glucose (mg/dL) 132 H 129 H 128 H (70-110) mg/dL Microbiology - Last 24 Hours (Table) 08/11/22 21:45 Legionella Culture - Preliminary Sputum 08/11/22 15:55 Blood Culture - Preliminary Blood No Growth after 72 hours 08/11/22 15:40 Blood Culture - Preliminary Blood No Growth after 72 hours
[2022-08-15] MEDS: SCOPOLAMINE 1 MG/72 HR PATCH TRANSDERM SCH (15:36)
[2022-08-15 16:54] LABS: Glucose,Whole Blood 138 mg/dL (70-110)
[2022-08-15] MEDS: ALBUTEROL NEBULIZED 2.5 MG/3 ML INHALATION PRN (17:01)
[2022-08-15] MEDS ORDERED: ACETAMINOPHEN TAB 325 MG TAB PO PRN (20:46)
[2022-08-15 21:20] LABS: Glucose,Whole Blood 129 mg/dL (70-110)
--- NOTE | 2022-08-15 21:47 | P.PN ---
Subjective Progress Note Date: 08/15/22 Principal diagnosis: Questionable pneumonia and need for antibiotic therapy Patient is a 72-year-old male with a past medical history significant for extensive pneumonia in April 2021 requiring tracheostomy and PEG tube placement in this patient currently resident of the local senior living patient was sent to the ER on 08/11/2022 for dislodged PEG tube, patient did have abnormal chest x-ray with left lower lobe infiltrate and effusion and concern for possible pneumonia. On today's evaluation that is 08/15/2022, the patient did spike a low-grade fever 100.4F this morning, the patient is currently breathing comfortably on a trach collar patient denies any chest pain worsening cough no abdominal pain and no diarrhea has been reported Objective - Vital Signs Vital signs: Vital Signs Temp 100.4 F H 08/15/22 07:50 Pulse 109 H 08/15/22 07:50 Resp 20 08/15/22 07:50 BP 110/62 08/15/22 07:50 Pulse Ox 97 08/15/22 07:50 FiO2 35 08/15/22 13:59 Intake & Output 08/14/22 08/15/22 08/15/22 18:59 06:59 18:59 Intake Total 3435 Balance 3435 Weight 64 kg 64 kg Intake: Tube Feeding 3024 Other 411 Other: Voiding Method Diaper Diaper # Voids 1 # Bowel Movements 1 - Exam GENERAL DESCRIPTION: An elderly male lying in bed in no distress RESPIRATORY SYSTEM: Unlabored breathing , decreased breath sounds at bases HEART: S1 S2 regular rate and rhythm , ABDOMEN: Soft , no tenderness EXTREMITIES: No edema feet - Labs CBC & Chem 7: 08/14/22 07:00 08/14/22 07:00 Labs: Abnormal Lab Results - Last 24 Hours (Table) 08/14/22 08/15/22 08/15/22 Range/Units 21:04 00:17 11:57 POC Glucose (mg/dL) 132 H 129 H 128 H (70-110) mg/dL Microbiology - Last 24 Hours (Table) 08/11/22 21:45 Legionella Culture - Preliminary Sputum 08/11/22 15:55 Blood Culture - Preliminary Blood No Growth after 72 hours 08/11/22 15:40 Blood Culture - Preliminary Blood No Growth after 72 hours Assessment and Plan (1) Abnormal chest x-ray Current Visit: Yes Status: Acute Code(s): R93.89 - ABNORMAL FINDINGS ON DX IMAGING OF OTH BODY STRUCTURES SNOMED Code(s): 211768379 Plan: 1patient is 72-year-old male with a history of respiratory failure failed to be extubated currently to have a trach and PEG admitted to the hospital with a dislodged PEG tube patient did not have any fever during this hospital stay patient did have a normal white count procalcitonin had been 0.06 chest x-ray with a left-sided effusion possible atelectasis clinically not behaving as pneumonia, 2the patient did have a new fever cultures will be repeated cefepime has been admitted to continue evaluating for repeat culture finalized Time with Patient: Less than 30
[2022-08-15] MEDS ORDERED: LORazepam 2 MG/ML INJ IV STA (21:50)
[2022-08-15] MEDS: ATROPINE OPHTH SOLN 1% 5ML BTL SUBLINGUAL SCH (21:55)
[2022-08-16] MEDS: LEVOTHYROXINE 75 MCG TAB PEG/G-TUBE SCH (06:06)
[2022-08-16] MEDS: HYDROcodone/APAP 7.5-325MG 1 EACH TAB PEG/G-TUBE SCH ×4 (06:06→20:39)
[2022-08-16] MEDS: GENTAMICIN 0.1% CREAM 15 GM TUBE TOPICAL SCH ×3 (06:07→20:22)
[2022-08-16] MEDS: DONEPEZIL 5 MG TAB PEG/G-TUBE SCH (09:35)
[2022-08-16] MEDS: FAMOTIDINE 8 MG/ML ORAL.SUSP PEG/G-TUBE SCH ×2 (09:35→20:41)
[2022-08-16] MEDS: HEPARIN SODIUM,PORCINE/PF 5,000 UNIT/0.5 ML SYRINGE SQ SCH ×2 (09:35→20:39)
[2022-08-16] MEDS: SERTRALINE 50 MG TAB PEG/G-TUBE SCH (09:35)
[2022-08-16] MEDS: FUROSEMIDE 40 MG TAB PEG/G-TUBE SCH (09:35)
[2022-08-16] MEDS: PREGABALIN 50 MG CAP PEG/G-TUBE SCH ×2 (09:35→20:41)
[2022-08-16] MEDS: AZITHROMYCIN 1,200 MG/30 ML BOTTLE PO SCH (09:36)
[2022-08-16] MEDS: ATROPINE OPHTH SOLN 1% 5ML BTL SUBLINGUAL SCH ×2 (09:49→20:23)
--- NOTE | 2022-08-16 12:02 | XR ---
EXAMINATION TYPE: XR chest 1V DATE OF EXAM: 08/16/2022 COMPARISON: 08/12/2022 HISTORY: Shortness of breath TECHNIQUE: Single frontal view of the chest is obtained. FINDINGS: There is a tracheostomy tube, multiple median sternotomy wires, and a cardiac loop recorder. The left humerus is not present. The heart size is unchanged. The cardiac mediastinal silhouette is unchanged. There is a patchy airs pace opacity within the inferior aspect of the right upper lobe. There is stable slight elevation of the left hemidiaphragm. There is a trace left pleural effusion. There are patchy airspace opacity at the bilateral lung bases. There is no pneumothorax. IMPRESSION: Grossly stable bilateral patchy airspace opacities. This may relate to atelectasis or pneumonia.
[2022-08-16 12:12] LABS: Glucose,Whole Blood 143 mg/dL (70-110)
[2022-08-16] MEDS: CEFEPIME 2 GM in SODIUM CHLORIDE 0.9% 100 ML IVPB SCH ×2 (12:40→23:32)
[2022-08-16] MEDS: SODIUM CHLORIDE 0.9% 1,000 ML IV SCH ×2 (14:13→21:39)
--- NOTE | 2022-08-16 16:05 | P.PN ---
Subjective Progress Note Date: 08/16/22 This is a 72-year-old male patient who resides at [facility] and has a history of extensive pneumonia in April 2021 that required tracheostomy and PEG tube placements. He also has a history of left arm amputation, former smoker. He was brought here to the emergency room yesterday for a displaced PEG tube, fever and complaints of sore throat. Chest x-ray reveals left basilar infiltrate/atelectasis with small effusion. Cardiomegaly. Tracheostomy cannula demonstrated. Loop recorder over the left chest. Surgical absence of the left humerus. White count 8.1. Hemoglobin 9.2. Platelets 156. Sodium 138. Potassium 5.5. Bicarb 37. BUN 40. Creatinine 0.94. Glucose 91. Troponin ne gative 1. Urinalysis with trace glucose, moderate leukocyte esterase, high WBC. Influenza screen negative. COVID-19 screen negative. Group A strep negative. RSV negative. Sputum culture pending. Legionella culture pending. Pro-calcitonin pending. He's been initiated on cefepime. He is seen today in consultation on the regular medical floor. Currently resting comfortably in bed. T-piece at 10 L equal to 40% FiO2. Currently afebrile. Hemodynamically stable. The patient is seen today 08/13/2022 in follow-up on the regular medical floor. He is currently resting in bed. Awake. Maintaining O2 saturations in the 90s on 35% FiO2 via trach T piece. Blood cultures reveal no growth to date. Sputum culture pending. Legionella culture pending. White count 7.6. Hemoglobin 9.3. Platelets 123. Sodium 142. Potassium 3.9. Bicarb 29. BUN 28. Creatinine 0.9. Pro-calcitonin 0.06. He is currently on cefepime. Progress note dated 08/14/2022. 72-year-old male seen and examined in room 484. The patient is on a trach collar 35%. She's getting Jevity via PEG tube, at 65 mL an hour, to be increased to 70 mL an hour. He is getting saline at 50 mL an hour. Clinically, the patient appears to be about the same. He is neither worse or better. Laboratory data includes a white count of 7.04, hemoglobin 8.9, hematocrit 28.8, and a platelet count of 124,000. The patient's sodium was 141, potassium 3.8, chlorides 107, CO2 30, BUN 19, creatinine 0.9. The closest 111. Calcium 8.2. Pro-calcitonin level was 0.06. Urinary Legionella antigen was negative. Influenza A and influenza B studies were both negative. Testing for RSV and coronavirus were also negative. On today's evaluation of 08/15/2022, the patient continues to have copious amounts of rest or secretions. The patient is considered for a potential aspiration pneumonia. He had a temperature 100.4 this morning. His sputum sample was sent and the culture is still pending for now. Meanwhile, the patien t is covered with broad-spectrum antibiotics and the patient is currently on Zithromax. The WBC count is at 7 with a hemoglobin of 8.9 and a platelet count of 124. The BUN is 19 with a creatinine of 0.9 and a sodium level is at 141. Pro-calcitonin level was at 0.57. Legionella urine antigen was negative. Covid 19 and the rest of the vital screening was all negative. On today's evaluation of 08/16/2022,, the patient's condition is unchanged and the patient continues to have copious amounts of respiratory secretions and is requiring frequent suctioning. A repeat chest x-ray was done and it showed stable patchy bilateral airspace opacities and the patient remains on the same antibiotic coverage included a combination of Zithromax and Zosyn. The patient continues also to receive enteral feeding for nutritional support. No aspiration noted. Note that his pro calcitonin level remains low at 0.08. He is on a scopolamine patch the patient is also using DuoNeb about treatments [id number]. Objective - Vital Signs Vital signs: Vital Signs Temp 97.4 F L 08/16/22 14:00 Pulse 86 08/16/22 15:18 Resp 20 08/16/22 15:18 BP 132/66 08/16/22 14:00 Pulse Ox 99 08/16/22 14:00 FiO2 35 08/16/22 08:46 Intake & Output 08/15/22 08/16/22 08/16/22 18:59 06:59 18:59 Weight 66 kg Other: Voiding Method Diaper Diaper Diaper - Exam No acute distress, lethargic today. He does arouse and respond appropriately. HEENT examination is grossly unremarkable. Neck supple. Full range of motion. No adenopathy thyromegaly or neck vein distention. A midline tracheostomy tube is noted. He is receiving a trach collar at 35%. Cardiovascular examination reveals regular rhythm rate. S1-S2 normal. No S3 or S4. No discernible murmur noted. Heart sounds are distant. Lungs reveal scattered bilateral rhonchi and expiratory wheezes. No crackles. Breath sounds equal bilaterally but diminished throughout. Abdomen is soft, with bowel sounds. A PEG tube is noted. Extremities are intact. No cyanosis clubbing or edema. Skin is without rash or lesion. Neurologic examination is brief but nonfocal. - Labs CBC & Chem 7: 08/14/22 07:00 08/14/22 07:00 Labs: Abnormal Lab Results - Last 24 Hours (Table) 08/15/22 08/15/22 08/16/22 Range/Units 16:53 21:16 12:11 POC Glucose (mg/dL) 138 H 129 H 143 H (70-110) mg/dL Microbiology - Last 24 Hours (Table) 08/16/22 06:15 Gram Stain - Preliminary Gastric Aspirate Sputum Culture - Preliminary 08/11/22 15:55 Blood Culture - Preliminary Blood No Growth after 96 hours 08/11/22 15:40 Blood Culture - Preliminary Blood No Growth after 96 hours 08/11/22 21:45 Legionella Culture - Preliminary Sputum Assessment and Plan Plan: Febrile illness suspect secondary to possible early pneumonia, aspiration from displaced PEG tube. Possible urinary tract infection. Influenza, COVID-19, strep, RSV screens all negative. Pro-calcitonin 0.06. The patient continues to have stable patchy bilateral pulmonary infiltrates and the pro calcitonin level remains low. History of extensive pneumonia most requiring tracheostomy and PEG tube placements in April 2021. History of left arm amputation. Hypothyroidism. History of anxiety/depression. half-way resident. Plan: The patient continues to have significant amount of rest or secretions. Patient is currently on 35% Ventimask Recurrent aspiration and suctioning and Pulmicort toileting Continue same antibiotic coverage Continue scopolamine patch Chest x-ray findings are stable Continue tube feeding for now We'll continue to follow We'll make further recommendations based on progress.
--- NOTE | 2022-08-16 16:34 | P.PN ---
Subjective Progress Note Date: 08/16/22 Principal diagnosis: Questionable pneumonia and need for antibiotic therapy Patient is a 72-year-old male with a past medical history significant for extensive pneumonia in April 2021 requiring tracheostomy and PEG tube placement in this patient currently resident of the local intermediate patient was sent to the ER on 08/11/2022 for dislodged PEG tube, patient did have abnormal chest x-ray with left lower lobe infiltrate and effusion and concern for possible pneumonia. On today's evaluation that is 08/16/2022, the patient did spike a low-grade fever 101.F last night, the patient is afebrile this morning, the patient is currently breathing comfortably on a trach collar patient denies any chest pain worsening cough no abdominal pain and no diarrhea has been reported Objective - Vital Signs Vital signs: Vital Signs Temp 98.3 F 08/16/22 08:10 Pulse 86 08/16/22 08:10 Resp 16 08/16/22 08:10 BP 108/58 08/16/22 08:10 Pulse Ox 95 08/16/22 08:46 FiO2 35 08/16/22 08:46 Intake & Output 08/15/22 08/16/22 08/16/22 18:59 06:59 18:59 Weight 66 kg Other: Voiding Method Diaper Diaper Diaper - Exam GENERAL DESCRIPTION: An elderly male lying in bed in no distress RESPIRATORY SYSTEM: Unlabored breathing , decreased breath sounds at bases HEART: S1 S2 regular rate and rhythm , ABDOMEN: Soft , no tenderness EXTREMITIES: No edema feet - Labs CBC & Chem 7: 08/14/22 07:00 08/14/22 07:00 Labs: Abnormal Lab Results - Last 24 Hours (Table) 08/15/22 08/15/22 08/16/22 Range/Units 16:53 21:16 12:11 POC Glucose (mg/dL) 138 H 129 H 143 H (70-110) mg/dL Microbiology - Last 24 Hours (Table) 08/16/22 06:15 Gram Stain - Preliminary Gastric Aspirate Sputum Culture - Preliminary 08/11/22 15:55 Blood Culture - Preliminary Blood No Growth after 96 hours 08/11/22 15:40 Blood Culture - Preliminary Blood No Growth after 96 hours 08/11/22 21:45 Legionella Culture - Preliminary Sputum Assessment and Plan (1) Abnormal chest x-ray Current Visit: Yes Status: Acute Code(s): R93.89 - ABNORMAL FINDINGS ON DX IMAGING OF OTH BODY STRUCTURES SNOMED Code(s): 306222357 Plan: 1patient is 72-year-old male with a history of respiratory failure failed to be extubated currently to have a trach and PEG admitted to the hospital with a dislodged PEG tube patient did have a new fever and concerning for possible gram-negative/aspiration pneumonia blood and sputum culture has been obtained those will be followed 2-patient to continue cefepime while waiting for the cultures to finalize Time with Patient: Less than 30
[2022-08-16] MEDS ORDERED: LORazepam 2 MG/ML INJ IV STA (16:47)
[2022-08-16 17:54] LABS: Glucose,Whole Blood 136 mg/dL (70-110)
--- NOTE | 2022-08-16 20:18 | P.PN ---
Subjective This is a pleasant 72 years old male who was sent from shelter for respiratory difficulty suspicious for pneumonia. Patient has history of PEG tube and tracheostomy and left upper extremity amputation he was sent from his shelter for concerns of displaced PEG tube, as per emergency room staff PEG tube was checked and there is no displacement. Patient was in this facility a few with the view months ago for pneumonia. Patient is poor historian, he is awake and alert, he has difficulty coming patient because of his dyspnea and tracheostomy. No abdominal pain. No abdominal tenderness and soft. PEG tube in place. Temperature is 90.9. He is saturating 94% on FiO2 of 40% via trach collar Labs showing no leukocytosis with WC8.1, hemoglobin 9.2, rest of CBC, BMP and liver enzymes were unremarkable. Potassium 5.5 which is slightly elevated but sample was hemolyzed. We given 1 dose of bicarb and albuterol and held his home dose of potassium and recheck potassium level tomorrow. Troponin is negative. Patient was out of negative including RSV coronavirus. Group a Streptococcus is negative EKG showing wide complex QRS with sinus rhythm at 81, evidence of left bundle branch block, similar to EKG seen from 08/06/2021 Chest x-ray showed left basilar infiltrates with small left pleural effusion and cardiomegaly 08/12/2022 Patient generally doing well, he was admitted with possible pneumonia seen with some consolidation on the chest x-ray However patient showed quick improvement in his symptoms recur He has no fever or leukocytosis. Pro-calcitonin is normal 0.06. Patient currently on cefepime with sputum culture is pending. Patient has a lot of secretions were tracheostomy tube. The secretions time of purulent however I don't think the patient has pneumonia, most likely he has possible aspiration pneumonitis. I think we can discharge the patient back to his shelter. However we will wait for pulmonary clearance PEG tube is working and is going to be tried by staff with close monitoring of residual 08/16/2022 Patient developed low-grade fever yesterday however chest x-ray and protocol stronger [place] most likely patient is having recurrent aspiration pneumonitis. However there is no obvious infectious process. No leukocytosis and clinically looks the same. Mentation is at baseline PEG tube is with you feeding at 90 mL per hour Also he is receiving normal saline at 50 mL/h. Pro-calcitonin remains normal at 0.08 Objective - Vital Signs Vital signs: Vital Signs Temp 98.3 F 08/16/22 08:10 Pulse 86 08/16/22 08:10 Resp 16 08/16/22 08:10 BP 108/58 08/16/22 08:10 Pulse Ox 95 08/16/22 08:46 FiO2 35 08/16/22 08:46 Intake & Output 08/15/22 08/16/22 08/16/22 18:59 06:59 18:59 Weight 66 kg Other: Voiding Method Diaper Diaper Diaper - Exam GENERAL: The patient is alert and oriented x3, not in any acute distress. Well developed, well nourished. -HEENT: Pupils are round and equally reacting to light. EOMI. No scleral icterus. No conjunctival pallor. Normocephalic, atraumatic. No pharyngeal erythema. No thyromegaly. Tracheostomy in place with purulent discharge CARDIOVASCULAR: S1 and S2 present. No murmurs, rubs, or gallops. PULMONARY: Chest is clear to auscultation, no wheezing or crackles. -ABDOMEN: Soft, nontender, nondistended, normoactive bowel sounds. No palpable organomegaly. PEG tube in place MUSCULOSKELETAL: No joint swelling or deformity. EXTREMITIES: No cyanosis, clubbing, or pedal edema. NEUROLOGICAL: Gross neurological examination did not reveal any focal deficits. SKIN: No rashes. no petechiae. - Labs CBC & Chem 7: 08/14/22 07:00 08/14/22 07:00 Labs: Abnormal Lab Results - Last 24 Hours (Table) 08/15/22 08/15/22 08/16/22 Range/Units 16:53 21:16 12:11 POC Glucose (mg/dL) 138 H 129 H 143 H (70-110) mg/dL Microbiology - Last 24 Hours (Table) 08/16/22 06:15 Sputum Culture - Preliminary Gastric Aspirate 08/11/22 15:55 Blood Culture - Preliminary Blood No Growth after 96 hours 08/11/22 15:40 Blood Culture - Preliminary Blood No Growth after 96 hours 08/11/22 21:45 Legionella Culture - Preliminary Sputum Assessment and Plan Assessment: Most likely aspiration pneumonitis rather than infectious pneumonia Acute hypoxic respiratory failure, resolved History of tracheostomy and PEG tube in April 2021 History of left arm amputation Plan: I will lower the dose of cefepime to 2 mg twice a day and Zithromax . Most likely patient has recurrent aspiration pneumonitis rather than aspiration pneumonia. However patient is high-risk for infection and has continued curre ntly on antibiotic Breathing treatment and albuterol Resume tube feeding and monitor residual Dietary consult Labs and medication were reviewed.. Continue same treatment. Continue with symptomatic treatment. Resume home medication. Monitor labs and vitals. DVT and GI prophylaxis. Further recommendations as per clinical course of the patient DVT prophylaxis: Subcutaneous heparin GI Prophylaxis: Pepcid
[2022-08-16 20:38] LABS: Glucose,Whole Blood 115 mg/dL (70-110)
[2022-08-16] MEDS: MORPHINE SULFATE 2 MG/ML SYRINGE IVP PRN (23:32)
[2022-08-16 23:42] LABS: Glucose,Whole Blood 129 mg/dL (70-110)
[2022-08-17] MEDS: MORPHINE SULFATE 2 MG/ML SYRINGE IVP PRN ×5 (02:55→23:59)
[2022-08-17] MEDS: LEVOTHYROXINE 75 MCG TAB PEG/G-TUBE SCH (06:10)
[2022-08-17] MEDS: HYDROcodone/APAP 7.5-325MG 1 EACH TAB PEG/G-TUBE SCH ×4 (06:10→22:43)
[2022-08-17] MEDS: GENTAMICIN 0.1% CREAM 15 GM TUBE TOPICAL SCH ×3 (06:11→22:32)
[2022-08-17 06:26] LABS: Glucose,Whole Blood 178 mg/dL (70-110)
[2022-08-17] MEDS ORDERED: ALPRAZolam 0.5 MG TAB PO STA (07:47)
[2022-08-17] MEDS ORDERED: ALPRAZolam 0.5 MG TAB PO PRN (07:47)
[2022-08-17] MEDS: FUROSEMIDE 40 MG TAB PEG/G-TUBE SCH (08:36)
[2022-08-17] MEDS: PREGABALIN 50 MG CAP PEG/G-TUBE SCH ×2 (08:36→22:28)
[2022-08-17] MEDS: SERTRALINE 50 MG TAB PEG/G-TUBE SCH (08:36)
[2022-08-17] MEDS: HEPARIN SODIUM,PORCINE/PF 5,000 UNIT/0.5 ML SYRINGE SQ SCH ×2 (08:36→22:32)
[2022-08-17] MEDS: DONEPEZIL 5 MG TAB PEG/G-TUBE SCH (08:36)
[2022-08-17] MEDS: FAMOTIDINE 8 MG/ML ORAL.SUSP PEG/G-TUBE SCH ×2 (08:37→22:28)
[2022-08-17] MEDS: AZITHROMYCIN 1,200 MG/30 ML BOTTLE PO SCH (08:37)
[2022-08-17] MEDS: ATROPINE OPHTH SOLN 1% 5ML BTL SUBLINGUAL SCH ×2 (08:38→22:32)
--- NOTE | 2022-08-17 10:45 | P.OP ---
Date of Procedure: 08/17/22 Preoperative Diagnosis: Malnutrition Postoperative Diagnosis: Malnutrition Procedure(s) Performed: Replacement of PEG tube with 16-[place] SAMARA tube Anesthesia: none Surgeon: Florentin Almendarez Estimated Blood Loss (ml): 0 Pathology: none sent Condition: stable Disposition: floor Description of Procedure: The patient was placed on his bed in supine position. The PEG tube site was examined. The 16[place] SAMARA tube was placed site. Gastric contents was seen entering the PEG tube. The balloon was inflated with 5 mL of saline. Patient tolerated procedure well.
[2022-08-17 11:29] LABS: Glucose,Whole Blood 152 mg/dL (70-110)
[2022-08-17 11:55] LABS: Basophils # (A) 0.01 X 10*3/uL (0.00-0.10); Basophils % (A) 0.2 %; Eosinophils % (A) 4.2 %; HCT 27.4 % (39.6-50.0); HGB 8.3 g/dL (13.0-17.0); Immature Grans, Automated 0.4 %; Lymphocytes # (A) 0.84 X 10*3/uL (0.90-5.00); Lymphocytes % (A) 17.8 %; MCH 31.3 pg (27.0-32.0); MCHC 30.3 g/dL (32.0-37.0); MCV 103.4 fL (80.0-97.0); Mean Platelet Volume 12.5 fL (9.5-12.2); Monocytes # (A) 0.58 X 10*3/uL (0.20-1.00); Monocytes % (A) 12.3 %; NRBC Per 100 WBC 0 /100 WBCS (0.0-0.0); Neutrophils # (A) 3.07 X 10*3/uL (1.80-7.70); Neutrophils % (A) 65.1 %; Platelet Count 84 X 10*3/uL (140-440); RBC 2.65 X 10*6/uL (4.40-5.60); RDW 13.6 % (11.5-14.5); WBC 4.72 X 10*3/uL (4.50-10.00)
[2022-08-17] MEDS: CEFEPIME 2 GM in SODIUM CHLORIDE 0.9% 100 ML IVPB SCH ×2 (12:41→23:59)
[2022-08-17 12:50] VITALS: BMI 24.5
[2022-08-17] MEDS ORDERED: DORNASE ALFA 1 MG/ML 2.5 ML AMP INHALATION SCH ×2 (13:15→16:00)
--- NOTE | 2022-08-17 13:18 | P.PN ---
Subjective This is a pleasant 72 years old male who was sent from skilled nursing for respiratory difficulty suspicious for pneumonia. Patient has history of PEG tube and tracheostomy and left upper extremity amputation he was sent from his skilled nursing for concerns of displaced PEG tube, as per emergency room staff PEG tube was checked and there is no displacement. Patient was in this facility a few with the view months ago for pneumonia. Patient is poor historian, he is awake and alert, he has difficulty coming patient because of his dyspnea and tracheostomy. No abdominal pain. No abdominal tenderness and soft. PEG tube in place. Temperature is 90.9. He is saturating 94% on FiO2 of 40% via trach collar Labs showing no leukocytosis with WC8.1, hemoglobin 9.2, rest of CBC, BMP and liver enzymes were unremarkable. Potassium 5.5 which is slightly elevated but sample was hemolyzed. We given 1 dose of bicarb and albuterol and held his home dose of potassium and recheck potassium level tomorrow. Troponin is negative. Patient was out of negative including RSV coronavirus. Group a Streptococcus is negative EKG showing wide complex QRS with sinus rhythm at 81, evidence of left bundle branch block, similar to EKG seen from 08/06/2021 Chest x-ray showed left basilar infiltrates with small left pleural effusion and cardiomegaly 08/12/2022 Patient generally doing well, he was admitted with possible pneumonia seen with some consolidation on the chest x-ray However patient showed quick improvement in his symptoms recur He has no fever or leukocytosis. Pro-calcitonin is normal 0.06. Patient currently on cefepime with sputum culture is pending. Patient has a lot of secretions were tracheostomy tube. The secretions time of purulent however I don't think the patient has pneumonia, most likely he has possible aspiration pneumonitis. I think we can discharge the patient back to his skilled nursing. However we will wait for pulmonary clearance PEG tube is working and is going to be tried by staff with close monitoring of residual 08/16/2022 Patient developed low-grade fever yesterday however chest x-ray and protocol stronger [place] most likely patient is having recurrent aspiration pneumonitis. However there is no obvious infectious process. No leukocytosis and clinically looks the same. Mentation is at baseline PEG tube is with you feeding at 90 mL per hour Also he is receiving normal saline at 50 mL/h. Pro-calcitonin remains normal at 0.08 08/17/2022 Patient still suffering from thick secretions and he got agitated, he has He was secretions developed through the tracheostomy tube and there are thick, he become agitated and he pulled his IV line and PEG tube. We placed him on Xanax 0.5 mg when necessary and that did not help him so give dose of morphine. Patient currently feels better We will add dornase alpha mucolytic inhalation. Surgery team consult placed to back. Most likely patient has recurrent pneumonitis from copious secretions and aspiration. No more fever and her remains on cefepime Monitor platelets and hemoglobin Objective - Vital Signs Vital signs: Vital Signs Temp 97.9 F 08/17/22 08:00 Pulse 117 H 08/17/22 08:00 Resp 17 08/17/22 08:00 BP 133/59 08/17/22 08:00 Pulse Ox 97 08/17/22 08:00 FiO2 35 08/16/22 22:18 Intake & Output 08/16/22 08/17/22 08/17/22 18:59 06:59 18:59 Output Total 150 Balance -150 Weight 69 kg 69 kg Output: Urine 150 Other: Voiding Method Diaper Diaper # Voids 1 1 - Exam GENERAL: The patient is alert and oriented x3, not in any acute distress. Well developed, well nourished. -HEENT: Pupils are round and equally reacting to light. EOMI. No scleral icterus. No conjunctival pallor. Normocephalic, atraumatic. No pharyngeal erythema. No thyromegaly. Tracheostomy in place with purulent discharge CARDIOVASCULAR: S1 and S2 present. No murmurs, rubs, or gallops. PULMONARY: Chest is clear to auscultation, no wheezing or crackles. -ABDOMEN: Soft, nontender, nondistended, normoactive bowel sounds. No palpable organomegaly. PEG tube in place MUSCULOSKELETAL: No joint swelling or deformity. EXTREMITIES: No cyanosis, clubbing, or pedal edema. NEUROLOGICAL: Gross neurological examination did not reveal any focal deficits. SKIN: No rashes. no petechiae. - Labs CBC & Chem 7: 08/17/22 06:09 08/14/22 07:00 Labs: Abnormal Lab Results - Last 24 Hours (Table) 08/16/22 08/16/22 08/16/22 Range/Units 17:52 20:36 23:31 RBC (4.40-5.60) X 10*6/uL Hgb (13.0-17.0) g/dL Hct (39.6-50.0) % MCV (80.0-97.0) fL MCHC (32.0-37.0) g/dL Plt Count (140-440) X 10*3/uL Plt Count Comment MPV (9.5-12.2) fL Lymphocytes # (0.90-5.00) X 10*3/uL POC Glucose (mg/dL) 136 H 115 H 129 H (70-110) mg/dL 08/17/22 08/17/22 08/17/22 Range/Units 06:09 06:24 11:27 RBC 2.65 L (4.40-5.60) X 10*6/uL Hgb 8.3 L (13.0-17.0) g/dL Hct 27.4 L (39.6-50.0) % MCV 103.4 H (80.0-97.0) fL MCHC 30.3 L (32.0-37.0) g/dL Plt Count 84 L (140-440) X 10*3/uL Plt Count Comment DECREASED A MPV 12.5 H (9.5-12.2) fL Lymphocytes # 0.84 L (0.90-5.00) X 10*3/uL POC Glucose (mg/dL) 178 H 152 H (70-110) mg/dL Microbiology - Last 24 Hours (Table) 08/15/22 23:00 Blood Culture - Preliminary Blood 08/11/22 15:55 Blood Culture - Preliminary Blood No Growth after 120 hours 08/11/22 15:40 Blood Culture - Preliminary Blood No Growth after 120 hours 08/16/22 06:15 Gram Stain - Preliminary Gastric Aspirate Sputum Culture - Preliminary Assessment and Plan Assessment: Most likely aspiration pneumonitis rather than infectious pneumonia Acute hypoxic respiratory failure, resolved History of tracheostomy and PEG tube in April 2021 History of left arm amputation Plan: Surgical team to place PEG tube Add dornase alpha I will lower the dose of cefepime to 2 mg twice a day and Zithromax . Most likely patient has recurrent aspiration pneumonitis rather than aspiration pneumonia. However patient is high-risk for infection and has continued currently on antibiotic Breathing treatment and albuterol Resume tube feeding and monitor residual Dietary consult Labs and medication were reviewed.. Continue same treatment. Continue with symptomatic treatment. Resume home medication. Monitor labs and vitals. DVT and GI prophylaxis. Further recommendations as per clinical course of the patient DVT prophylaxis: Subcutaneous heparin GI Prophylaxis: Pepcid
--- NOTE | 2022-08-17 13:18 | P.GSCN ---
History of Present Illness Consult date: 08/17/22 History of present illness: CHIEF COMPLAINT: Displaced PEG tube HISTORY OF PRESENT ILLNESS: This is a 72-year-old male hospitalized with pneumonia. Patient also had evidence of a displaced PEG tube. Surgical service has been consulted for replacement of PEG tube. Dr. Almendarez replace PEG tube at bedside this morning. PAST MEDICAL HISTORY: See below PAST SURGICAL HISTORY: See below MEDICATIONS: See below ALLERGIES: See below SOCIAL HISTORY: No illicit drug use. REVIEW OF SYSTEMS: CONSTITUTIONAL: Denies fever or chills. HEENT: Denies blurred vision, vision changes, or eye pain. Denies hemoptysis CARDIOVASCULAR: Denies chest pain or pressure. RESPIRATORY: No shortness of breath. GASTROINTESTINAL: See HPI for pertinent findings HEMATOLOGIC: Denies bleeding disorders. GENITOURINARY: Denies any blood in urine or increased urinary frequency. SKIN: Denies pruitis. Denies rash. PHYSICAL EXAM: VITAL SIGNS: Reviewed GENERAL: Well-developed in no acute distress. ABDOMEN: Soft. Nondistended. Nontender NEUROLOGIC: Awake and alert LABORATORY DATA: WBC 4. 72 HgB 8.3 platelets 84 Sodium is 101 potassium is 3.8 creatinine 0.9 IMAGING: ASSESSMENT: 1. Malfunctioning PEG tube status post replacement of peg tube at the bedside by Dr. Almendarez PLAN: -Okay to resume tube feeds -Continue supportive care Thank you for this consultation Physician Health Consultant note has been reviewed by physician. Signing provider agrees with the documented findings, assessment, and plan of care. Past Medical History Additional Past Medical History / Comment(s): left arm amputation, trach, peg History of Any Multi-Drug Resistant Organisms: None Reported Additional Past Surgical History / Comment(s): peg tube, tracheotomy Past Anesthesia/Blood Transfusion Reactions: Unable to Obtain Past Psychological History: No Psychological Hx Reported Smoking Status: Former smoker Past Alcohol Use History: None Reported Past Drug Use History: None Reported Medications and Allergies Home Medications Medication Instructions Recorded Confirmed Type Famotidine [Pepcid] 20 mg PEG/G-TUBE BID 12/26/21 08/11/22 History Furosemide 40 mg PEG/G-TUBE DAILY 12/26/21 08/11/22 History L.acidoph,Paracasei, B.lactis 1 cap PEG/G-TUBE BID 12/26/21 08/11/22 History [Probiotic] Sertraline HCl [Sertraline HCl 50 mg PEG/G-TUBE DAILY 12/26/21 08/11/22 History Oral Conc] Amino Acids/Protein Hydrolys 1 dose PO HS 08/11/22 08/11/22 History [Pro-Stat Awc Liquid] Atropine Ophth Soln 1% 5Ml [Isopto 2 drop BUCCAL BID 08/11/22 08/11/22 History Atropine 1% 5Ml] Diclofenac Sodium [Voltaren 2 gm TOPICAL Q8H PRN 08/11/22 08/11/22 History Arthritis Pain 1% Gel] Donepezil [Aricept] 5 mg PEG/G-TUBE DAILY 08/11/22 08/11/22 History Gentamicin 0.1% Cream 1 applic TOPICAL TID@0700,1300,1900 08/11/22 08/11/22 History HYDROcodone/APAP 7.5-325MG [[place] 1 tab PEG/G-TUBE QID@05,11,17,23 08/11/22 08/11/22 History 7.5-325] Levothyroxine Sodium [Synthroid] 75 mcg PEG/G-TUBE DAILY 08/11/22 08/11/22 History Potassium Chloride 20 meq PEG/G-TUBE DAILY 08/11/22 08/11/22 History Pregabalin [Lyrica] 50 mg PEG/G-TUBE BID 08/11/22 08/11/22 History Propylene Glycol/Peg 400/Pf 1 drop BOTH EYES BID 08/11/22 08/11/22 History [Systane 0.3-0.4% Ophth [place]] Allergies Allergy/AdvReac Type Severity Reaction Status Date / Time Iodinated Contrast Media Allergy Unknown Verified 08/11/22 19:02 Penicillins Allergy Unknown Verified 08/11/22 19:02 Surgical - Exam Vital Signs Temp Pulse Resp BP Pulse Ox 99.0 F 94 18 100/61 98 08/11/22 14:30 08/11/22 14:30 08/11/22 14:30 08/11/22 14:30 08/11/22 14:30 Results - Labs 08/17/22 06:09 08/14/22 07:00 Abnormal Lab Results - Last 24 Hours (Table) 08/16/22 08/16/22 08/16/22 Range/Units 17:52 20:36 23:31 RBC (4.40-5.60) X 10*6/uL Hgb (13.0-17.0) g/dL Hct (39.6-50.0) % MCV (80.0-97.0) fL MCHC (32.0-37.0) g/dL Plt Count (140-440) X 10*3/uL Plt Count Comment MPV (9.5-12.2) fL Lymphocytes # (0.90-5.00) X 10*3/uL POC Glucose (mg/dL) 136 H 115 H 129 H (70-110) mg/dL 08/17/22 08/17/22 08/17/22 Range/Units 06:09 06:24 11:27 RBC 2.65 L (4.40-5.60) X 10*6/uL Hgb 8.3 L (13.0-17.0) g/dL Hct 27.4 L (39.6-50.0) % MCV 103.4 H (80.0-97.0) fL MCHC 30.3 L (32.0-37.0) g/dL Plt Count 84 L (140-440) X 10*3/uL Plt Count Comment DECREASED A MPV 12.5 H (9.5-12.2) fL Lymphocytes # 0.84 L (0.90-5.00) X 10*3/uL POC Glucose (mg/dL) 178 H 152 H (70-110) mg/dL Microbiology - Last 24 Hours (Table) 08/15/22 23:00 Blood Culture - Preliminary Blood 08/11/22 15:55 Blood Culture - Preliminary Blood No Growth after 120 hours 08/11/22 15:40 Blood Culture - Preliminary Blood No Growth after 120 hours 08/16/22 06:15 Gram Stain - Preliminary Gastric Aspirate Sputum Culture - Preliminary
[2022-08-17 13:53] LABS: African American GFR (CKD) 107.4 (60.0-200.0); Anion Gap 6.9 mmol/L (10.00-18.00); BUN/Creat Ratio 29.18 Ratio (12.00-20.00); Blood Urea Nitrogen 21.3 mg/dL (9.0-27.0); Carbon Dioxide 27.7 mmol/L (20.0-27.5); Non-African American GFR(CKD) 92.7 (60.0-200.0); Potassium 5.2 mmol/L (3.5-5.5)
--- NOTE | 2022-08-17 15:47 | P.PN ---
Subjective Progress Note Date: 08/17/22 Principal diagnosis: Questionable pneumonia and need for antibiotic therapy Patient is a 72-year-old male with a past medical history significant for extensive pneumonia in April 2021 requiring tracheostomy and PEG tube placement in this patient currently resident of the local long term patient was sent to the ER on 08/11/2022 for dislodged PEG tube, patient did have abnormal chest x-ray with left lower lobe infiltrate and effusion and concern for possible pneumonia. On today's evaluation that is 08/17/2022, the patient is afebrile today, the patient is breathing comfortably on a trach collar, slightly restless and unable to provide any history, no vomiting or diarrhea has been reported by the nursing staff Objective - Vital Signs Vital signs: Vital Signs Temp 97.9 F 08/17/22 08:00 Pulse 117 H 08/17/22 08:00 Resp 17 08/17/22 08:00 BP 133/59 08/17/22 08:00 Pulse Ox 97 08/17/22 08:00 FiO2 35 08/16/22 22:18 Intake & Output 08/16/22 08/17/22 08/17/22 18:59 06:59 18:59 Output Total 150 Balance -150 Weight 69 kg 69 kg Output: Urine 150 Other: Voiding Method Diaper Diaper # Voids 1 1 - Exam GENERAL DESCRIPTION: An elderly male lying in bed in no distress RESPIRATORY SYSTEM: Unlabored breathing , decreased breath sounds at bases HEART: S1 S2 regular rate and rhythm , ABDOMEN: Soft , no tenderness EXTREMITIES: No edema feet - Labs CBC & Chem 7: 08/17/22 06:09 08/17/22 06:09 Labs: Abnormal Lab Results - Last 24 Hours (Table) 08/16/22 08/16/22 08/16/22 Range/Units 17:52 20:36 23:31 RBC (4.40-5.60) X 10*6/uL Hgb (13.0-17.0) g/dL Hct (39.6-50.0) % MCV (80.0-97.0) fL MCHC (32.0-37.0) g/dL Plt Count (140-440) X 10*3/uL Plt Count Comment MPV (9.5-12.2) fL Lymphocytes # (0.90-5.00) X 10*3/uL Carbon Dioxide (20.0-27.5) mmol/L Anion Gap (10.00-18.00) mmol/L BUN/Creatinine Ratio (12.00-20.00) Ratio Glucose (70-110) mg/dL POC Glucose (mg/dL) 136 H 115 H 129 H (70-110) mg/dL Calcium (8.7-10.3) mg/dL 08/17/22 08/17/22 08/17/22 Range/Units 06:09 06:09 06:24 RBC 2.65 L (4.40-5.60) X 10*6/uL Hgb 8.3 L (13.0-17.0) g/dL Hct 27.4 L (39.6-50.0) % MCV 103.4 H (80.0-97.0) fL MCHC 30.3 L (32.0-37.0) g/dL Plt Count 84 L (140-440) X 10*3/uL Plt Count Comment DECREASED A MPV 12.5 H (9.5-12.2) fL Lymphocytes # 0.84 L (0.90-5.00) X 10*3/uL Carbon Dioxide 27.7 H (20.0-27.5) mmol/L Anion Gap 6.90 L (10.00-18.00) mmol/L BUN/Creatinine Ratio 29.18 H (12.00-20.00) Ratio Glucose 168 H (70-110) mg/dL POC Glucose (mg/dL) 178 H (70-110) mg/dL Calcium 8.0 L (8.7-10.3) mg/dL 08/17/22 Range/Units 11:27 RBC (4.40-5.60) X 10*6/uL Hgb (13.0-17.0) g/dL Hct (39.6-50.0) % MCV (80.0-97.0) fL MCHC (32.0-37.0) g/dL Plt Count (140-440) X 10*3/uL Plt Count Comment MPV (9.5-12.2) fL Lymphocytes # (0.90-5.00) X 10*3/uL Carbon Dioxide (20.0-27.5) mmol/L Anion Gap (10.00-18.00) mmol/L BUN/Creatinine Ratio (12.00-20.00) Ratio Glucose (70-110) mg/dL POC Glucose (mg/dL) 152 H (70-110) mg/dL Calcium (8.7-10.3) mg/dL Microbiology - Last 24 Hours (Table) 08/15/22 23:00 Blood Culture - Preliminary Blood 08/11/22 15:55 Blood Culture - Preliminary Blood No Growth after 120 hours 08/11/22 15:40 Blood Culture - Preliminary Blood No Growth after 120 hours 08/16/22 06:15 Gram Stain - Preliminary Gastric Aspirate Sputum Culture - Preliminary Assessment and Plan (1) Abnormal chest x-ray Current Visit: Yes Status: Acute Code(s): R93.89 - ABNORMAL FINDINGS ON DX IMAGING OF OTH BODY STRUCTURES SNOMED Code(s): 533184284 Plan: 1patient is 72-year-old male with a history of respiratory failure failed to be extubated currently to have a trach and PEG admitted to the hospital with a dislodged PEG tube patient did have a new fever and concerning for possible gram-negative/aspiration pneumonia blood and sputum culture has been obtained those are currently pending 2-patient to continue cefepime and moderate clinical course closely Time with Patient: Less than 30
[2022-08-17 16:51] LABS: Glucose,Whole Blood 134 mg/dL (70-110)
--- NOTE | 2022-08-17 19:07 | P.PN ---
Subjective Progress Note Date: 08/17/22 This is a 72-year-old male patient who resides at [facility] and has a history of extensive pneumonia in April 2021 that required tracheostomy and PEG tube placements. He also has a history of left arm amputation, former smoker. He was brought here to the emergency room yesterday for a displaced PEG tube, fever and complaints of sore throat. Chest x-ray reveals left basilar infiltrate/atelectasis with small effusion. Cardiomegaly. Tracheostomy cannula demonstrated. Loop recorder over the left chest. Surgical absence of the left humerus. White count 8.1. Hemoglobin 9.2. Platelets 156. Sodium 138. Potassium 5.5. Bicarb 37. BUN 40. Creatinine 0.94. Glucose 91. Troponin ne gative 1. Urinalysis with trace glucose, moderate leukocyte esterase, high WBC. Influenza screen negative. COVID-19 screen negative. Group A strep negative. RSV negative. Sputum culture pending. Legionella culture pending. Pro-calcitonin pending. He's been initiated on cefepime. He is seen today in consultation on the regular medical floor. Currently resting comfortably in bed. T-piece at 10 L equal to 40% FiO2. Currently afebrile. Hemodynamically stable. The patient is seen today 08/13/2022 in follow-up on the regular medical floor. He is currently resting in bed. Awake. Maintaining O2 saturations in the 90s on 35% FiO2 via trach T piece. Blood cultures reveal no growth to date. Sputum culture pending. Legionella culture pending. White count 7.6. Hemoglobin 9.3. Platelets 123. Sodium 142. Potassium 3.9. Bicarb 29. BUN 28. Creatinine 0.9. Pro-calcitonin 0.06. He is currently on cefepime. Progress note dated 08/14/2022. 72-year-old male seen and examined in room 484. The patient is on a trach collar 35%. She's getting Jevity via PEG tube, at 65 mL an hour, to be increased to 70 mL an hour. He is getting saline at 50 mL an hour. Clinically, the patient appears to be about the same. He is neither worse or better. Laboratory data includes a white count of 7.04, hemoglobin 8.9, hematocrit 28.8, and a platelet count of 124,000. The patient's sodium was 141, potassium 3.8, chlorides 107, CO2 30, BUN 19, creatinine 0.9. The closest 111. Calcium 8.2. Pro-calcitonin level was 0.06. Urinary Legionella antigen was negative. Influenza A and influenza B studies were both negative. Testing for RSV and coronavirus were also negative. On today's evaluation of 08/15/2022, the patient continues to have copious amounts of rest or secretions. The patient is considered for a potential aspiration pneumonia. He had a temperature 100.4 this morning. His sputum sample was sent and the culture is still pending for now. Meanwhile, the patien t is covered with broad-spectrum antibiotics and the patient is currently on Zithromax. The WBC count is at 7 with a hemoglobin of 8.9 and a platelet count of 124. The BUN is 19 with a creatinine of 0.9 and a sodium level is at 141. Pro-calcitonin level was at 0.57. Legionella urine antigen was negative. Covid 19 and the rest of the vital screening was all negative. On today's evaluation of 08/16/2022,, the patient's condition is unchanged and the patient continues to have copious amounts of respiratory secretions and is requiring frequent suctioning. A repeat chest x-ray was done and it showed stable patchy bilateral airspace opacities and the patient remains on the same antibiotic coverage included a combination of Zithromax and Zosyn. The patient continues also to receive enteral feeding for nutritional support. No aspiration noted. Note that his pro calcitonin level remains low at 0.08. He is on a scopolamine patch the patient is also using DuoNeb about treatments [id number]. On 08/17/2022, the patient is having still copious amount of rest or secretions and the patient is still requiring frequent suctioning. He was having more shortness of breath yesterday. Overnight, he became restless and agitated. He pulled out his PEG tube. The tube was inserted and subsequently the patient pulled the tube again. Currently doesn't have any catheter 4 enteral feeding access to the GI tract. In terms of his breathing, he is on 35% Ventimask. There is at 8 L oxygen flow. His current pulse ox is 98%. Slightly tachycardic with a heart rate of 104. Respirations around 18. His sputum culture was negative. He remains on broad-spectrum antibiotics. He is on a combination of cefepime and Zithromax. He also has a scopolamine patch. He is on bronchodilators with albuterol updrafts 4 times a day. I went ahead and added IV Solu-Medrol also. He is also receiving Lasix through his PEG tube on a daily basis. His ability to count is at 4.7 with a hemoglobin of 8.3. He has chronic thrombocytopenia with a platelet count of 84. The BUN is at 21 with a cr eatinine of 0.7 and a sodium level is at 142. Objective - Vital Signs Vital signs: Vital Signs Temp 98.5 F 08/17/22 14:00 Pulse 104 H 08/17/22 14:00 Resp 18 08/17/22 14:00 BP 144/74 08/17/22 14:00 Pulse Ox 98 08/17/22 14:00 FiO2 35 08/16/22 22:18 Intake & Output 08/16/22 08/17/22 08/17/22 18:59 06:59 18:59 Output Total 150 Balance -150 Weight 69 kg 69 kg Output: Urine 150 Other: Voiding Method Diaper Diaper # Voids 1 1 - Exam No acute distress, lethargic today. He does arouse and respond appropriately. The patient is on a 35% trach collar. HEENT examination is grossly unremarkable. Neck supple. Full range of motion. No adenopathy thyromegaly or neck vein distention. A midline tracheostomy tube is noted. He is receiving a trach collar at 35%. Cardiovascular examination reveals regular rhythm rate. S1-S2 normal. No S3 or S4. No discernible murmur noted. Heart sounds are distant. Lungs reveal scattered bilateral rhonchi and expiratory wheezes. No crackles. Breath sounds equal bilaterally but diminished throughout. Abdomen is soft, with bowel sounds. A PEG tube is noted. Extremities are intact. No cyanosis clubbing or edema. Skin is without rash or lesion. Neurologic examination is brief but nonfocal. - Labs CBC & Chem 7: 08/17/22 06:09 08/17/22 06:09 Labs: Abnormal Lab Results - Last 24 Hours (Table) 08/16/22 08/16/22 08/17/22 Range/Units 20:36 23:31 06:09 RBC 2.65 L (4.40-5.60) X 10*6/uL Hgb 8.3 L (13.0-17.0) g/dL Hct 27.4 L (39.6-50.0) % MCV 103.4 H (80.0-97.0) fL MCHC 30.3 L (32.0-37.0) g/dL Plt Count 84 L (140-440) X 10*3/uL Plt Count Comment DECREASED A MPV 12.5 H (9.5-12.2) fL Lymphocytes # 0.84 L (0.90-5.00) X 10*3/uL Carbon Dioxide (20.0-27.5) mmol/L Anion Gap (10.00-18.00) mmol/L BUN/Creatinine Ratio (12.00-20.00) Ratio Glucose (70-110) mg/dL POC Glucose (mg/dL) 115 H 129 H (70-110) mg/dL Calcium (8.7-10.3) mg/dL 08/17/22 08/17/22 08/17/22 Range/Units 06:09 06:24 11:27 RBC (4.40-5.60) X 10*6/uL Hgb (13.0-17.0) g/dL Hct (39.6-50.0) % MCV (80.0-97.0) fL MCHC (32.0-37.0) g/dL Plt Count (140-440) X 10*3/uL Plt Count Comment MPV (9.5-12.2) fL Lymphocytes # (0.90-5.00) X 10*3/uL Carbon Dioxide 27.7 H (20.0-27.5) mmol/L Anion Gap 6.90 L (10.00-18.00) mmol/L BUN/Creatinine Ratio 29.18 H (12.00-20.00) Ratio Glucose 168 H (70-110) mg/dL POC Glucose (mg/dL) 178 H 152 H (70-110) mg/dL Calcium 8.0 L (8.7-10.3) mg/dL 08/17/22 Range/Units 16:49 RBC (4.40-5.60) X 10*6/uL Hgb (13.0-17.0) g/dL Hct (39.6-50.0) % MCV (80.0-97.0) fL MCHC (32.0-37.0) g/dL Plt Count (140-440) X 10*3/uL Plt Count Comment MPV (9.5-12.2) fL Lymphocytes # (0.90-5.00) X 10*3/uL Carbon Dioxide (20.0-27.5) mmol/L Anion Gap (10.00-18.00) mmol/L BUN/Creatinine Ratio (12.00-20.00) Ratio Glucose (70-110) mg/dL POC Glucose (mg/dL) 134 H (70-110) mg/dL Calcium (8.7-10.3) mg/dL Microbiology - Last 24 Hours (Table) 08/11/22 15:40 Blood Culture - Final Blood No Growth after 144 hours 08/15/22 23:00 Blood Culture - Preliminary Blood 08/11/22 15:55 Blood Culture - Preliminary Blood No Growth after 120 hours 08/16/22 06:15 Gram Stain - Preliminary Gastric Aspirate Sputum Culture - Preliminary Assessment and Plan Plan: Severe tracheobronchitis with a suspected early pneumonia. Pro-calcitonin level was not elevated and the patient's sputum cultures were negative. Nevertheless, the patient continues to have copious rest or secretions that seemed to be quite postinfectious in nature. Is currently on scopolamine patch. He is also receiving IV antibiotics with accommodation of cefepime and Zithromax and steroids were also added. History of extensive pneumonia most requiring tracheostomy and PEG tube placements in April 2021. History of left arm amputation. Hypothyroidism. History of anxiety/depression. longterm resident. Enteral feeding for nutritional support via PEG tube. The patient pulled out his PEG tube on multiple occasions. Plan: The patient continues to have significant amount of rest or secretions. Obtain another set of sputum Gram stain and culture Continue frequent suctioning Patient is currently on 35% Ventimask Recurrent aspiration and suctioning and Pulmicort toileting Continue same antibiotic coverage Continue scopolamine patch Add IV Solu-Medrol Chest x-ray findings are stable, repeat chest x-ray in the morning Patient will need reinsertion of a PEG tube We'll continue to follow We'll make further recommendations based on progress. DNR/DNI CODE STATUS
[2022-08-17] MEDS: ALBUTEROL NEBULIZED 2.5 MG/3 ML INHALATION PRN (21:27)
[2022-08-17 21:33] LABS: Glucose,Whole Blood 108 mg/dL (70-110)
[2022-08-17] MEDS: SODIUM CHLORIDE 0.9% 1,000 ML IV SCH (22:28)
[2022-08-17] MEDS: methylPREDNISolone SOD SUCCI 125 MG/2 ML VIAL IV SCH (23:59)
[2022-08-18 00:06] LABS: Glucose,Whole Blood 99 mg/dL (70-110)
[2022-08-18] MEDS: ALBUTEROL NEBULIZED 2.5 MG/3 ML INHALATION PRN ×3 (01:37→20:37)
[2022-08-18 03:35] LABS: Glucose,Whole Blood 166 mg/dL (70-110)
[2022-08-18] MEDS: MORPHINE SULFATE 2 MG/ML SYRINGE IVP PRN ×6 (03:58→21:07)
[2022-08-18] MEDS: HYDROcodone/APAP 7.5-325MG 1 EACH TAB PEG/G-TUBE SCH ×4 (05:01→23:12)
[2022-08-18] MEDS: methylPREDNISolone SOD SUCCI 125 MG/2 ML VIAL IV SCH ×4 (05:49→23:55)
[2022-08-18] MEDS: SODIUM CHLORIDE 0.9% 1,000 ML IV SCH (05:50)
[2022-08-18 06:10] LABS: Glucose,Whole Blood 128 mg/dL (70-110)
[2022-08-18] MEDS: LEVOTHYROXINE 75 MCG TAB PEG/G-TUBE SCH (06:19)
[2022-08-18] MEDS: GENTAMICIN 0.1% CREAM 15 GM TUBE TOPICAL SCH ×3 (06:19→17:34)
--- NOTE | 2022-08-18 07:51 | XR ---
EXAMINATION TYPE: XR chest 1V portable DATE OF EXAM: 08/18/2022 7:07 AM COMPARISON: Chest radiographs from 08/16/2022 TECHNIQUE: XR chest 1V portable Frontal view of the chest. CLINICAL INDICATION:Male, 72 years old with history of dyspnea; FINDINGS: Poor penetration positioning today's exam. Lungs/Pleura: Right midlung airspace opacities. There is elevated left diaphragm. Multifocal airspace opacities. No evidence of pneumothorax or pleural effusion. Pulmonary vascularity: Unremarkable. Heart/mediastinum: Cardiomediastinal silhouette is unremarkable. A loop recorder projects over the le ft thorax over the heart. Musculoskeletal: No acute osseous pathology. Midline sternotomy wires are noted. Chronic intermittent left upper extremity. Other findings: None Lines/Tubes: Tracheostomy cannula tip projecting over the trachea. IMPRESSION: Bilateral airspace opacities with elevated left diaphragm. Patient positioning is slightly off.
[2022-08-18] MEDS: ATROPINE OPHTH SOLN 1% 5ML BTL SUBLINGUAL SCH ×2 (08:01→22:37)
[2022-08-18] MEDS: DONEPEZIL 5 MG TAB PEG/G-TUBE SCH (08:08)
[2022-08-18] MEDS: AZITHROMYCIN 1,200 MG/30 ML BOTTLE PO SCH (08:08)
[2022-08-18] MEDS: FUROSEMIDE 40 MG TAB PEG/G-TUBE SCH (08:09)
[2022-08-18] MEDS: PREGABALIN 50 MG CAP PEG/G-TUBE SCH ×2 (08:09→22:29)
[2022-08-18] MEDS: FAMOTIDINE 8 MG/ML ORAL.SUSP PEG/G-TUBE SCH ×2 (08:09→22:29)
[2022-08-18] MEDS: HEPARIN SODIUM,PORCINE/PF 5,000 UNIT/0.5 ML SYRINGE SQ SCH ×2 (08:09→23:56)
[2022-08-18] MEDS: SERTRALINE 50 MG TAB PEG/G-TUBE SCH (08:09)
[2022-08-18] MEDS ORDERED: MORPHINE SULFATE 2 MG/ML SYRINGE IVP STA (08:31)
[2022-08-18] MEDS ORDERED: DEXTROSE 5%-0.9% NACL 1,000 ML IV SCH (08:45)
[2022-08-18 10:10] LABS: Basophils % (A) 0 %; Eosinophils % (A) 0 %; HCT 26.2 % (39.0-53.0); HGB 8.3 gm/dL (13.0-17.5); Hypochromasia Moderate; Lymphocytes # (A) 0.5 k/uL (1.0-4.8); Lymphocytes % (A) 13 %; MCH 32.3 pg (25.0-35.0); MCHC 31.7 g/dL (31.0-37.0); MCV 101.8 fL (80.0-100.0); Macrocytosis Slight; Mean Platelet Volume 9.5; Monocytes # (A) 0.1 k/uL (0-1.0); Monocytes % (A) 2 %; Neutrophils # (A) 2.9 k/uL (1.3-7.7); Neutrophils % (A) 84 %; Platelet Count 115 k/uL (150-450); RBC 2.58 m/uL (4.30-5.90); RDW 13.4 % (11.5-15.5); WBC 3.5 k/uL (3.8-10.6)
[2022-08-18 10:24] LABS: African American GFR (CKD) >90 (>60 ml/min/1.73 sqM); Anion Gap 3 mmol/L; Blood Urea Nitrogen 24 mg/dL (9-20); Carbon Dioxide 35 mmol/L (22-30); Chloride 105 mmol/L (98-107); Glucose 140 mg/dL (74-99); Non-African American GFR(CKD) >90 (>60 ml/min/1.73 sqM); Potassium 5.1 mmol/L (3.5-5.1); Sodium 143 mmol/L (137-145)
[2022-08-18 11:25] LABS: Glucose,Whole Blood 154 mg/dL (70-110)
[2022-08-18] MEDS ORDERED: FUROSEMIDE 10 MG/ML 4 ML VIAL IV STA ×2 (12:27→20:30)
--- NOTE | 2022-08-18 12:34 | P.PN ---
Subjective This is a pleasant 72 years old male who [facility] difficulty suspicious for pneumonia. Patient has history of PEG tube and tracheostomy and left upper extremity amputation he was [facility] his [facility] for concerns of displaced PEG tube, as per emergency room staff PEG tube was checked and there is no displacement. Patient was in this facility a few with the [facility] months ago for pneumonia. Patient is poor historian, he is awake and alert, he has difficulty coming patient because of his dyspnea and tracheostomy. No abdominal pain. No abdominal tenderness and soft. PEG tube in place. Temperature is 90.9. He is saturating 94% on FiO2 of 40% via trach collar Labs showing no leukocytosis with WC8.1, hemoglobin 9.2, rest of CBC, BMP and liver enzymes were unremarkable. Potassium 5.5 which is slightly elevated but sample was hemolyzed. We given 1 dose of bicarb and albuterol and held his home dose of potassium and recheck potassium level tomorrow. Troponin is negative. Patient was out of negative including RSV coronavirus. Group a Streptococcus is negative EKG showing wide complex QRS with sinus rhythm at 81, evidence of left bundle branch block, similar to EKG seen from 08/06/2021 Chest x-ray showed left basilar infiltrates with small left pleural effusion and cardiomegaly 08/12/2022 Patient generally doing well, he was admitted with possible pneumonia seen with some consolidation on the chest x-ray However patient showed quick improvement in his symptoms recur He has no fever or leukocytosis. Pro-calcitonin is normal 0.06. Patient currently on cefepime with sputum culture is pending. Patient has a lot of secretions were tracheostomy tube. The secretions time of purulent however I don't think the patient has pneumonia, most likely he has possible aspiration pneumonitis. I think we can [facility] the patient back [facility]. However we will wait for pulmonary clearance PEG tube is working and is going to be tried by staff with close monitoring of residual 08/16/2022 Patient developed low-grade fever yesterday however chest x-ray and protocol stronger [place] most likely patient is having recurrent aspiration pneumonitis. However there is no obvious infectious process. No leukocytosis and clinically looks the same. Mentation is at baseline PEG tube is with you feeding at 90 mL per hour Also he is receiving normal saline at 50 mL/h. Pro-calcitonin remains normal at 0.08 08/17/2022 Patient still suffering from thick secretions and he got agitated, he has He was secretions developed through the tracheostomy tube and there are thick, he become agitated and he pulled his IV line and PEG tube. We placed him on Xanax 0.5 mg when necessary and that did not help him so give dose of morphine. Patient currently feels better We will add dornase alpha mucolytic inhalation. Surgery team consult placed to back. Most likely patient has recurrent pneumonitis from copious secretions and aspiration. No more fever and her remains on cefepime Monitor platelets and hemoglobin 08/18/2022 Patient remains with respiratory difficulty and of course secretion and harsh breath sounds. He got agitated at times and they required to give him IV morphine to help him with his tachypnea. He pulled his PEG tube and because he still developed and agitation at time were going to hold for at least 24 hours to stabilization first. His chest x-ray from today showing bilateral infiltrate. Patient is already on a broad-spectrum antibiotic. His pro-calcitonin was low. He was on normal saline at 50 mL/h and proBNP is slightly elevated at 1900. Patient is not gett ing his oral 40 mg of Lasix because he has no PEG tube for now therefore we switch him on IV Lasix 40 mg daily and we switched his fluids to D5 half-normal saline at 50 mL per hour. His saturation is acceptable. He has mild pancytopenia. Patient is also complaining of from chest pain on the top of his dyspnea therefore we continued morphine 2 mg every 3 hours when necessary Prognosis remains guarded Objective - Vital Signs Vital signs: Vital Signs Temp 97.8 F 08/18/22 08:00 Pulse 103 H 08/18/22 08:00 Resp 17 08/18/22 08:00 BP 103/51 08/18/22 08:00 Pulse Ox 94 L 08/18/22 08:00 FiO2 40 08/18/22 01:51 Intake & Output 08/17/22 08/18/22 08/18/22 18:59 06:59 18:59 Intake Total 100 Output Total 150 Balance -150 100 Weight 69 kg 69 kg Intake: Intake, IV Titration 100 Amount Cefepime 2 gm In Sodium 100 Chloride 0.9% 100 ml @ 25 mls/hr IVPB Q12HR@0000, 1200 [facility] Rx#:[id number] Output: Urine 150 Other: Voiding Method Diaper Diaper # Voids 1 2 - Exam GENERAL: The patient is alert and oriented x3, not in any acute distress. Well developed, well nourished. -HEENT: Pupils are round and equally reacting to light. EOMI. No scleral icterus. No conjunctival pallor. Normocephalic, atraumatic. No pharyngeal erythema. No thyromegaly. Tracheostomy in place with purulent discharge CARDIOVASCULAR: S1 and S2 present. No murmurs, rubs, or gallops. PULMONARY: Chest is clear to auscultation, no wheezing or crackles. -ABDOMEN: Soft, nontender, nondistended, normoactive bowel sounds. No palpable organomegaly. PEG tube in place MUSCULOSKELETAL: No joint swelling or deformity. EXTREMITIES: No cyanosis, clubbing, or pedal edema. NEUROLOGICAL: Gross neurological examination did not reveal any focal deficits. SKIN: No rashes. no petechiae. - Labs CBC & Chem 7: 08/18/22 09:33 08/18/22 09:33 Labs: Abnormal Lab Results - Last 24 Hours (Table) 08/17/22 08/17/22 08/18/22 Range/Units 06:09 16:49 03:15 WBC (3.8-10.6) k/uL RBC (4.30-5.90) m/uL Hgb (13.0-17.5) gm/dL Hct (39.0-53.0) % MCV (80.0-100.0) fL Plt Count (150-450) k/uL Lymphocytes # (1.0-4.8) k/uL Carbon Dioxide 27.7 H (20.0-27.5) mmol/L Anion Gap 6.90 L (10.00-18.00) mmol/L BUN (9-20) mg/dL BUN/Creatinine Ratio 29.18 H (12.00-20.00) Ratio Glucose 168 H (70-110) mg/dL POC Glucose (mg/dL) 134 H 166 H (70-110) mg/dL Calcium 8.0 L (8.7-10.3) mg/dL 08/18/22 08/18/22 08/18/22 Range/Units 05:54 09:33 09:33 WBC 3.5 L (3.8-10.6) k/uL RBC 2.58 L (4.30-5.90) m/uL Hgb 8.3 L (13.0-17.5) gm/dL Hct 26.2 L (39.0-53.0) % MCV 101.8 H (80.0-100.0) fL Plt Count 115 L (150-450) k/uL Lymphocytes # 0.5 L (1.0-4.8) k/uL Carbon Dioxide 35 H (20.0-27.5) mmol/L Anion Gap (10.00-18.00) mmol/L BUN 24 H (9-20) mg/dL BUN/Creatinine Ratio (12.00-20.00) Ratio Glucose 140 H (70-110) mg/dL POC Glucose (mg/dL) 128 H (70-110) mg/dL Calcium 8.0 L (8.7-10.3) mg/dL 08/18/22 Range/Units 11:24 WBC (3.8-10.6) k/uL RBC (4.30-5.90) m/uL Hgb (13.0-17.5) gm/dL Hct (39.0-53.0) % MCV (80.0-100.0) fL Plt Count (150-450) k/uL Lymphocytes # (1.0-4.8) k/uL Carbon Dioxide (20.0-27.5) mmol/L Anion Gap (10.00-18.00) mmol/L BUN (9-20) mg/dL BUN/Creatinine Ratio (12.00-20.00) Ratio Glucose (70-110) mg/dL POC Glucose (mg/dL) 154 H (70-110) mg/dL Calcium (8.7-10.3) mg/dL Microbiology - Last 24 Hours (Table) 08/18/22 01:51 Sputum Culture - Preliminary Sputum 08/15/22 23:00 Blood Culture - Preliminary Blood 08/11/22 15:55 Blood Culture - Final Blood No Growth after 144 hours 08/11/22 15:40 Blood Culture - Final Blood No Growth after 144 hours Assessment and Plan Assessment: Most likely aspiration pneumonitis rather than infectious pneumonia Acute hypoxic respiratory failure, resolved History of tracheostomy and PEG tube in April 2021 History of left arm amputation Plan: Surgical team to place PEG tube (on hold after he pulled it for second time, we don't reassess in 24 hours) Continue with scopolamine I will lower the dose of cefepime to 2 mg twice a day and Zithromax . Gingiva fluids to D5 half-normal saline and start IV Lasix 40 mg daily continue with pain management morphine Breathing treatment and albuterol Resume tube feeding and monitor residual Dietary consult Labs and medication were reviewed.. Continue same treatment. Continue with symptomatic treatment. Resume home medication. Monitor labs and vitals. DVT and GI prophylaxis. Further recommendations as per clinical course of the patient DVT prophylaxis: Subcutaneous heparin GI Prophylaxis: Pepcid
--- NOTE | 2022-08-18 12:59 | P.PN ---
Subjective Progress Note Date: 08/18/22 CHIEF COMPLAINT: PEG tube displacement HISTORY OF PRESENT ILLNESS: Patient had PEG tube replaced yesterday by Dr. beck at bedside. Patient apparently pulled out his PEG tube again. Patient is confused. Lying in bed. Has bedside sitter. PHYSICAL EXAM: VITAL SIGNS: Reviewed. GENERAL: Well-developed in no acute distress. ABDOMEN: Soft. Nondistended. Nontender. PEG tube site dressing clean dry and intact NEUROLOGIC: Alert and oriented. Cranial nerves II through XII grossly intact. ASSESSMENT: 1. Displaced PEG tube 2 PLAN: -We'll await further recommendations per medicine service if they want another peg tube placed. -Continue supportive care Physician Cake Knocker note has been reviewed by physician. Signing provider agrees with the documented findings, assessment, and plan of care. Objective - Vital Signs Vital signs: Vital Signs Temp 97.8 F 08/18/22 08:00 Pulse 103 H 08/18/22 08:00 Resp 17 08/18/22 08:00 BP 103/51 08/18/22 08:00 Pulse Ox 94 L 08/18/22 08:00 FiO2 40 08/18/22 01:51 Intake & Output 08/17/22 08/18/22 08/18/22 18:59 06:59 18:59 Intake Total 100 Output Total 150 Balance -150 100 Weight 69 kg 69 kg Intake: Intake, IV Titration 100 Amount Cefepime 2 gm In Sodium 100 Chloride 0.9% 100 ml @ 25 mls/hr IVPB Q12HR@0000, 1200 [facility] Rx#:[id number] Output: Urine 150 Other: Voiding Method Diaper Diaper # Voids 1 2 - Labs CBC & Chem 7: 08/18/22 09:33 08/18/22 09:33 Labs: Abnormal Lab Results - Last 24 Hours (Table) 08/17/22 08/17/22 08/18/22 Range/Units 06:09 16:49 03:15 WBC (3.8-10.6) k/uL RBC (4.30-5.90) m/uL Hgb (13.0-17.5) gm/dL Hct (39.0-53.0) % MCV (80.0-100.0) fL Plt Count (150-450) k/uL Lymphocytes # (1.0-4.8) k/uL Carbon Dioxide 27.7 H (20.0-27.5) mmol/L Anion Gap 6.90 L (10.00-18.00) mmol/L BUN (9-20) mg/dL BUN/Creatinine Ratio 29.18 H (12.00-20.00) Ratio Glucose 168 H (70-110) mg/dL POC Glucose (mg/dL) 134 H 166 H (70-110) mg/dL Calcium 8.0 L (8.7-10.3) mg/dL 08/18/22 08/18/22 08/18/22 Range/Units 05:54 09:33 09:33 WBC 3.5 L (3.8-10.6) k/uL RBC 2.58 L (4.30-5.90) m/uL Hgb 8.3 L (13.0-17.5) gm/dL Hct 26.2 L (39.0-53.0) % MCV 101.8 H (80.0-100.0) fL Plt Count 115 L (150-450) k/uL Lymphocytes # 0.5 L (1.0-4.8) k/uL Carbon Dioxide 35 H (20.0-27.5) mmol/L Anion Gap (10.00-18.00) mmol/L BUN 24 H (9-20) mg/dL BUN/Creatinine Ratio (12.00-20.00) Ratio Glucose 140 H (70-110) mg/dL POC Glucose (mg/dL) 128 H (70-110) mg/dL Calcium 8.0 L (8.7-10.3) mg/dL 08/18/22 Range/Units 11:24 WBC (3.8-10.6) k/uL RBC (4.30-5.90) m/uL Hgb (13.0-17.5) gm/dL Hct (39.0-53.0) % MCV (80.0-100.0) fL Plt Count (150-450) k/uL Lymphocytes # (1.0-4.8) k/uL Carbon Dioxide (20.0-27.5) mmol/L Anion Gap (10.00-18.00) mmol/L BUN (9-20) mg/dL BUN/Creatinine Ratio (12.00-20.00) Ratio Glucose (70-110) mg/dL POC Glucose (mg/dL) 154 H (70-110) mg/dL Calcium (8.7-10.3) mg/dL Microbiology - Last 24 Hours (Table) 08/18/22 01:51 Sputum Culture - Preliminary Sputum 08/15/22 23:00 Blood Culture - Preliminary Blood 08/11/22 15:55 Blood Culture - Final Blood No Growth after 144 hours 08/11/22 15:40 Blood Culture - Final Blood No Growth after 144 hours
--- NOTE | 2022-08-18 13:09 | P.PN ---
Subjective Progress Note Date: 08/18/22 Principal diagnosis: Questionable pneumonia and need for antibiotic therapy Patient is a 72-year-old male with a past medical history significant for extensive pneumonia in April 2021 requiring tracheostomy and PEG tube placement in this patient currently resident of the local detention patient was sent to the ER on 08/11/2022 for dislodged PEG tube, patient did have abnormal chest x-ray with left lower lobe infiltrate and effusion and concern for possible pneumonia. On today's evaluation that is 08/18/2022, the patient overall fever pattern has improved, the patient is breathing comfortably on a trach collar hour remains to be restless and unable to provide any history, no vomiting or diarrhea has been reported by the nursing staff Objective - Vital Signs Vital signs: Vital Signs Temp 97.8 F 08/18/22 08:00 Pulse 103 H 08/18/22 08:00 Resp 17 08/18/22 08:00 BP 103/51 08/18/22 08:00 Pulse Ox 94 L 08/18/22 08:00 FiO2 40 08/18/22 01:51 Intake & Output 08/17/22 08/18/22 08/18/22 18:59 06:59 18:59 Intake Total 100 Output Total 150 Balance -150 100 Weight 69 kg 69 kg Intake: Intake, IV Titration 100 Amount Cefepime 2 gm In Sodium 100 Chloride 0.9% 100 ml @ 25 mls/hr IVPB Q12HR@0000, 1200 [facility] Rx#:[id number] Output: Urine 150 Other: Voiding Method Diaper Diaper # Voids 1 2 - Exam GENERAL DESCRIPTION: An elderly male lying in bed in no distress RESPIRATORY SYSTEM: Unlabored breathing , decreased breath sounds at bases HEART: S1 S2 regular rate and rhythm , ABDOMEN: Soft , no tenderness EXTREMITIES: No edema feet - Labs CBC & Chem 7: 08/18/22 09:33 08/18/22 09:33 Labs: Abnormal Lab Results - Last 24 Hours (Table) 08/17/22 08/17/22 08/18/22 Range/Units 06:09 16:49 03:15 WBC (3.8-10.6) k/uL RBC (4.30-5.90) m/uL Hgb (13.0-17.5) gm/dL Hct (39.0-53.0) % MCV (80.0-100.0) fL Plt Count (150-450) k/uL Lymphocytes # (1.0-4.8) k/uL Carbon Dioxide 27.7 H (20.0-27.5) mmol/L Anion Gap 6.90 L (10.00-18.00) mmol/L BUN (9-20) mg/dL BUN/Creatinine Ratio 29.18 H (12.00-20.00) Ratio Glucose 168 H (70-110) mg/dL POC Glucose (mg/dL) 134 H 166 H (70-110) mg/dL Calcium 8.0 L (8.7-10.3) mg/dL 08/18/22 08/18/22 08/18/22 Range/Units 05:54 09:33 09:33 WBC 3.5 L (3.8-10.6) k/uL RBC 2.58 L (4.30-5.90) m/uL Hgb 8.3 L (13.0-17.5) gm/dL Hct 26.2 L (39.0-53.0) % MCV 101.8 H (80.0-100.0) fL Plt Count 115 L (150-450) k/uL Lymphocytes # 0.5 L (1.0-4.8) k/uL Carbon Dioxide 35 H (20.0-27.5) mmol/L Anion Gap (10.00-18.00) mmol/L BUN 24 H (9-20) mg/dL BUN/Creatinine Ratio (12.00-20.00) Ratio Glucose 140 H (70-110) mg/dL POC Glucose (mg/dL) 128 H (70-110) mg/dL Calcium 8.0 L (8.7-10.3) mg/dL 08/18/22 Range/Units 11:24 WBC (3.8-10.6) k/uL RBC (4.30-5.90) m/uL Hgb (13.0-17.5) gm/dL Hct (39.0-53.0) % MCV (80.0-100.0) fL Plt Count (150-450) k/uL Lymphocytes # (1.0-4.8) k/uL Carbon Dioxide (20.0-27.5) mmol/L Anion Gap (10.00-18.00) mmol/L BUN (9-20) mg/dL BUN/Creatinine Ratio (12.00-20.00) Ratio Glucose (70-110) mg/dL POC Glucose (mg/dL) 154 H (70-110) mg/dL Calcium (8.7-10.3) mg/dL Microbiology - Last 24 Hours (Table) 08/18/22 01:51 Sputum Culture - Preliminary Sputum 08/15/22 23:00 Blood Culture - Preliminary Blood 08/11/22 15:55 Blood Culture - Final Blood No Growth after 144 hours 08/11/22 15:40 Blood Culture - Final Blood No Growth after 144 hours Assessment and Plan (1) Abnormal chest x-ray Current Visit: Yes Status: Acute Code(s): R93.89 - ABNORMAL FINDINGS ON DX IMAGING OF OTH BODY STRUCTURES SNOMED Code(s): 688430470 Plan: 1patient is 72-year-old male with a history of respiratory failure failed to be extubated currently to have a trach and PEG admitted to the hospital with a dislodged PEG tube patient did have a new fever and concerning for possible gram-negative/aspiration pneumonia blood and sputum culture has be en obtained those are currently pending 2-patient to continue cefepime while waiting for culture finalized and monitor clinical course closely Time with Patient: Less than 30
[2022-08-18] MEDS: CEFEPIME 2 GM in SODIUM CHLORIDE 0.9% 100 ML IVPB SCH ×2 (13:32→23:56)
[2022-08-18] MEDS: DEXTROSE 5%-0.45% NACL 1,000 ML IV SCH (13:32)
--- NOTE | 2022-08-18 13:52 | CDI ---
Documentation Clarification Form Date: 08/18/2022 1:41:16 PM From: Fannie Villa RN, CCDS Email: [email or web address] Admit Date: 08/11/2022 8:19:00 PM Patient Name: Davie Ureña Visit Number: [id number] Discharge Date: ATTENTION: The Clinical Documentation Specialists (CDI) and [facility] Coding Staff appreciate your assistance in clarifying documentation. Please respond to the clarification below the line at the bottom and electronically sign. The CDI & [facility] Coding staff will review the response and follow-up if needed. Please note: Queries are made part of the Legal Health Record. If you have any questions, please contact the author of this message via ITS. Dr. Cain E Sheet The Registered Dietitian assessment on 08/12 indicates this patient meets criteria for severe malnutrition. Based on this information and the findings below, is there an additional diagnosis that is clinically appropriate for this patient? History/Risk Factors: recurrent pneumonia needing a tracheostomy. Upper extremity amputation. Clinical Indicators: Per RD: NPO, underweight, receives 100% nutrition through TF. RD Consult Assessment: "subcutaneous fat loss, muscle wasting. Severe malnutrition in the context of chronic illness." Current BMI: 18.6 Weight Loss: 39% wt loss x1 year Treatment: Jevity 1.0 advance up to 90ml/hr Dietary Consult: as above Lab monitoring: daily Is there an additional diagnosis that is clinically appropriate for this patient? [ ] Severe Protein-Calorie Malnutrition [ ] No additional diagnosis/Not clinically significant [ ] Other condition, please specify [ ] Unable to Determine dx: Severe Protein-Calorie Malnutrition MTDD
[2022-08-18] MEDS: SCOPOLAMINE 1 MG/72 HR PATCH TRANSDERM SCH (14:13)
[2022-08-18] MEDS: FUROSEMIDE 10 MG/ML 4 ML VIAL IV SCH (14:45)
--- NOTE | 2022-08-18 15:19 | P.PN ---
Subjective Progress Note Date: 08/18/22 This is a 72-year-old male patient who resides at [facility] and has a history of extensive pneumonia in April 2021 that required tracheostomy and PEG tube placements. He also has a history of left arm amputation, former smoker. He was brought here to the emergency room yesterday for a displaced PEG tube, fever and complaints of sore throat. Chest x-ray reveals left basilar infiltrate/atelectasis with small effusion. Cardiomegaly. Tracheostomy cannula demonstrated. Loop recorder over the left chest. Surgical absence of the left humerus. White count 8.1. Hemoglobin 9.2. Platelets 156. Sodium 138. Potassium 5.5. Bicarb 37. BUN 40. Creatinine 0.94. Glucose 91. Troponin ne gative 1. Urinalysis with trace glucose, moderate leukocyte esterase, high WBC. Influenza screen negative. COVID-19 screen negative. Group A strep negative. RSV negative. Sputum culture pending. Legionella culture pending. Pro-calcitonin pending. He's been initiated on cefepime. He is seen today in consultation on the regular medical floor. Currently resting comfortably in bed. T-piece at 10 L equal to 40% FiO2. Currently afebrile. Hemodynamically stable. The patient is seen today 08/13/2022 in follow-up on the regular medical floor. He is currently resting in bed. Awake. Maintaining O2 saturations in the 90s on 35% FiO2 via trach T piece. Blood cultures reveal no growth to date. Sputum culture pending. Legionella culture pending. White count 7.6. Hemoglobin 9.3. Platelets 123. Sodium 142. Potassium 3.9. Bicarb 29. BUN 28. Creatinine 0.9. Pro-calcitonin 0.06. He is currently on cefepime. Progress note dated 08/14/2022. 72-year-old male seen and examined in room 484. The patient is on a trach collar 35%. She's getting Jevity via PEG tube, at 65 mL an hour, to be increased to 70 mL an hour. He is getting saline at 50 mL an hour. Clinically, the patient appears to be about the same. He is neither worse or better. Laboratory data includes a white count of 7.04, hemoglobin 8.9, hematocrit 28.8, and a platelet count of 124,000. The patient's sodium was 141, potassium 3.8, chlorides 107, CO2 30, BUN 19, creatinine 0.9. The closest 111. Calcium 8.2. Pro-calcitonin level was 0.06. Urinary Legionella antigen was negative. Influenza A and influenza B studies were both negative. Testing for RSV and coronavirus were also negative. On today's evaluation of 08/15/2022, the patient continues to have copious amounts of rest or secretions. The patient is considered for a potential aspiration pneumonia. He had a temperature 100.4 this morning. His sputum sample was sent and the culture is still pending for now. Meanwhile, the patien t is covered with broad-spectrum antibiotics and the patient is currently on Zithromax. The WBC count is at 7 with a hemoglobin of 8.9 and a platelet count of 124. The BUN is 19 with a creatinine of 0.9 and a sodium level is at 141. Pro-calcitonin level was at 0.57. Legionella urine antigen was negative. Covid 19 and the rest of the vital screening was all negative. On today's evaluation of 08/16/2022,, the patient's condition is unchanged and the patient continues to have copious amounts of respiratory secretions and is requiring frequent suctioning. A repeat chest x-ray was done and it showed stable patchy bilateral airspace opacities and the patient remains on the same antibiotic coverage included a combination of Zithromax and Zosyn. The patient continues also to receive enteral feeding for nutritional support. No aspiration noted. Note that his pro calcitonin level remains low at 0.08. He is on a scopolamine patch the patient is also using DuoNeb about treatments [id number]. On 08/17/2022, the patient is having still copious amount of rest or secretions and the patient is still requiring frequent suctioning. He was having more shortness of breath yesterday. Overnight, he became restless and agitated. He pulled out his PEG tube. The tube was inserted and subsequently the patient pulled the tube again. Currently doesn't have any catheter 4 enteral feeding access to the GI tract. In terms of his breathing, he is on 35% Ventimask. There is at 8 L oxygen flow. His current pulse ox is 98%. Slightly tachycardic with a heart rate of 104. Respirations around 18. His sputum culture was negative. He remains on broad-spectrum antibiotics. He is on a combination of cefepime and Zithromax. He also has a scopolamine patch. He is on bronchodilators with albuterol updrafts 4 times a day. I went ahead and added IV Solu-Medrol also. He is also receiving Lasix through his PEG tube on a daily basis. His ability to count is at 4.7 with a hemoglobin of 8.3. He has chronic thrombocytopenia with a platelet count of 84. The BUN is at 21 with a cr eatinine of 0.7 and a sodium level is at 142. 08/18/2022, the patient is still completely uncooperative. I think he is intentionally pulling out his tracheostomy tube. He is already pulled out the speculum on several occasions. He seems to be quite miserable. He is not having any significant respiratory distress. Respiratory secretions have somewhat subsided compared to yesterday. Currently is not receiving any feeding as the patient does not have any PEG tube. He is a DNR/DNI CODE STATUS. He remains on 35% trach collar. In terms of antibiotic treatment, the antibiotic coverage essentially the same. The patient remains on cefepime and Zithromax. He is also on IV Solu-Medrol. His receiving Lasix 40 mg IV scheduled on a daily basis. His echoes at 3.5 with a hemoglobin of 8.3. He is a 24 with a creatinine of 0.6. Sodium is at 143. At times he gets agitated. This is at the bedside. Objective - Vital Signs Vital signs: Vital Signs Temp 97.8 F 08/18/22 08:00 Pulse 103 H 08/18/22 08:00 Resp 17 08/18/22 08:00 BP 103/51 08/18/22 08:00 Pulse Ox 94 L 08/18/22 08:00 FiO2 40 08/18/22 01:51 Intake & Output 08/17/22 08/18/22 08/18/22 18:59 06:59 18:59 Intake Total 100 Output Total 150 Balance -150 100 Weight 69 kg 69 kg Intake: Intake, IV Titration 100 Amount Cefepime 2 gm In Sodium 100 Chloride 0.9% 100 ml @ 25 mls/hr IVPB Q12HR@0000, 1200 [facility] Rx#:[id number] Output: Urine 150 Other: Voiding Method Diaper Diaper # Voids 1 2 - Exam No acute distress, lethargic today. He does arouse and respond appropriately. The patient is on a 35% trach collar. HEENT examination is grossly unremarkable. Neck supple. Full range of motion. No adenopathy thyromegaly or neck vein distention. A midline tracheostomy tube is noted. He is receiving a trach collar at 35%. Cardiovascular examination reveals regular rhythm rate. S1-S2 normal. No S3 or S4. No discernible murmur noted. Heart sounds are distant. Lungs reveal scattered bilateral rhonchi and expiratory wheezes. No crackles. Breath sounds equal bilaterally but diminished throughout. Abdomen is soft, with bowel sounds. A PEG tube is noted. Extremities are intact. No cyanosis clubbing or edema. Skin is without rash or lesion. Neurologic examination is brief but nonfocal. - Labs CBC & Chem 7: 08/18/22 09:33 08/18/22 09:33 Labs: Abnormal Lab Results - Last 24 Hours (Table) 08/17/22 08/18/22 08/18/22 Range/Units 16:49 03:15 05:54 WBC (3.8-10.6) k/uL RBC (4.30-5.90) m/uL Hgb (13.0-17.5) gm/dL Hct (39.0-53.0) % MCV (80.0-100.0) fL Plt Count (150-450) k/uL Lymphocytes # (1.0-4.8) k/uL Carbon Dioxide (22-30) mmol/L BUN (9-20) mg/dL Glucose (74-99) mg/dL POC Glucose (mg/dL) 134 H 166 H 128 H (70-110) mg/dL Calcium (8.4-10.2) mg/dL 08/18/22 08/18/22 08/18/22 Range/Units 09:33 09:33 11:24 WBC 3.5 L (3.8-10.6) k/uL RBC 2.58 L (4.30-5.90) m/uL Hgb 8.3 L (13.0-17.5) gm/dL Hct 26.2 L (39.0-53.0) % MCV 101.8 H (80.0-100.0) fL Plt Count 115 L (150-450) k/uL Lymphocytes # 0.5 L (1.0-4.8) k/uL Carbon Dioxide 35 H (22-30) mmol/L BUN 24 H (9-20) mg/dL Glucose 140 H (74-99) mg/dL POC Glucose (mg/dL) 154 H (70-110) mg/dL Calcium 8.0 L (8.4-10.2) mg/dL Microbiology - Last 24 Hours (Table) 08/18/22 01:51 Sputum Culture - Preliminary Sputum 08/15/22 23:00 Blood Culture - Preliminary Blood 08/11/22 15:55 Blood Culture - Final Blood No Growth after 144 hours 08/11/22 15:40 Blood Culture - Final Blood No Growth after 144 hours Assessment and Plan Plan: Severe tracheobronchitis with a suspected early pneumonia. Pro-calcitonin level was not elevated and the patient's sputum cultures were negative. Nevertheless, the patient continues to have copious rest or secretions that seemed to be quite postinfectious in nature. Is currently on scopolamine patch. He is also receiving IV antibiotics with accommodation of cefepime and Zithromax and steroids were also added. History of extensive pneumonia most requiring tracheostomy and PEG tube placements in April 2021. History of left arm amputation. Hypothyroidism. History of anxiety/depression. [facility] resident. Enteral feeding for nutritional support via PEG tube. The patient pulled out his PEG tube on multiple occasions. Currently not receiving any form of enteral feeding. Plan: Respiratory status is unchanged/stable Respiratory secretions are less compared to yesterday Repeat sputum samples are pending in terms of cultures Continue frequent suctioning Patient is currently on 35% Ventimask Recurrent aspiration and suctioning and Pulmicort toileting Continue same antibiotic coverage Continue scopolamine patch Continue IV Solu-Medrol Chest x-ray findings are stable, and the patient has patchy pulmonary infiltrates/atelectasis Patient will need reinsertion of a PEG tube We'll continue to follow We'll make further recommendations based on progress. DNR/DNI CODE STATUS Patient is completely uncooperative. I believe this is intentional. A serious discussion is to be done with the patient and his family regarding goals of treatment. He may be a good candidate for palliative/hospice care.
[2022-08-18 16:46] LABS: Appearance,Urine Clear (Clear); Bilirubin,Urine Negative (Negative); Blood,Urine Negative (Negative); Color,Urine Light Yellow; Glucose,Urine (UA) Negative (Negative); Ketones,Urine Negative (Negative); Leukocyte Esterase,Urine Large (Negative); Mucus,Urine Rare /hpf; Nitrite,Urine Negative (Negative); PH, Urine 5.5 (5.0-8.0); Protein,Urine Trace (Negative); RBC,Urine 2 /hpf (0-5); Specific Gravity,Urine 1.008 (1.001-1.035); Squamous Epithelial Cell,Urine <1 /hpf (0-4); Urobilinogen,Urine <2.0 mg/dL (<2.0); WBC,Urine 12 /hpf (0-5)
[2022-08-18] MEDS ORDERED: LORazepam 2 MG/ML INJ IV ONE (22:26)
[2022-08-18 23:47] LABS: Glucose,Whole Blood 148 mg/dL (70-110)
[2022-08-19] MEDS: MORPHINE SULFATE 2 MG/ML SYRINGE IVP PRN ×4 (00:41→21:34)
[2022-08-19] MEDS: LEVOTHYROXINE 75 MCG TAB PEG/G-TUBE SCH (05:37)
[2022-08-19] MEDS: HYDROcodone/APAP 7.5-325MG 1 EACH TAB PEG/G-TUBE SCH ×4 (05:37→21:33)
[2022-08-19 06:24] LABS: Glucose,Whole Blood 127 mg/dL (70-110)
[2022-08-19] MEDS: methylPREDNISolone SOD SUCCI 125 MG/2 ML VIAL IV SCH ×3 (06:37→17:47)
--- NOTE | 2022-08-19 09:36 | P.PN ---
Progress Note - Text Progress Note Date: 08/19/22 Patient remains clinically unchanged. It is unsure if his he will be made hospice. If he requires a feeding tube a new PEG tube was placed on Sunday.
[2022-08-19 10:25] LABS: African American GFR (CKD) 98.5 (60.0-200.0); Anion Gap 11.1 mmol/L (10.00-18.00); BUN/Creat Ratio 46.78 Ratio (12.00-20.00); Blood Urea Nitrogen 42.1 mg/dL (9.0-27.0); Calcium 8.5 mg/dL (8.7-10.3); Carbon Dioxide 28.9 mmol/L (20.0-27.5)
[2022-08-19] MEDS: GENTAMICIN 0.1% CREAM 15 GM TUBE TOPICAL SCH ×3 (10:30→21:32)
[2022-08-19] MEDS: ATROPINE OPHTH SOLN 1% 5ML BTL SUBLINGUAL SCH ×2 (10:31→21:32)
[2022-08-19] MEDS: SODIUM CHLORIDE 0.9% 1,000 ML IV SCH (10:31)
[2022-08-19] MEDS: DEXTROSE 5%-0.45% NACL 1,000 ML IV SCH (10:31)
[2022-08-19] MEDS: FUROSEMIDE 10 MG/ML 4 ML VIAL IV SCH (10:32)
[2022-08-19 10:43] LABS: Basophils # (A) 0 X 10*3/uL (0.00-0.10); Basophils % (A) 0 %; Eosinophils # (A) 0 X 10*3/uL (0.04-0.35); Eosinophils % (A) 0 %; HCT 26.1 % (39.6-50.0); HGB 7.8 g/dL (13.0-17.0); Immature Grans, Automated 0.2 %; Lymphocytes # (A) 0.97 X 10*3/uL (0.90-5.00); Lymphocytes % (A) 19.6 %; MCH 31.1 pg (27.0-32.0); MCHC 29.9 g/dL (32.0-37.0); Mean Platelet Volume 12.3 fL (9.5-12.2); Monocytes # (A) 0.45 X 10*3/uL (0.20-1.00); Monocytes % (A) 9.1 %; NRBC Per 100 WBC 0 /100 WBCS (0.0-0.0); Neutrophils # (A) 3.51 X 10*3/uL (1.80-7.70); Neutrophils % (A) 71.1 %; Platelet Count 112 X 10*3/uL (140-440); RBC 2.51 X 10*6/uL (4.40-5.60); RDW 13.7 % (11.5-14.5); WBC 4.94 X 10*3/uL (4.50-10.00)
[2022-08-19] MEDS: ALBUTEROL NEBULIZED 2.5 MG/3 ML INHALATION PRN ×3 (10:55→20:15)
[2022-08-19] MEDS: AZITHROMYCIN 1,200 MG/30 ML BOTTLE PO SCH (11:36)
[2022-08-19] MEDS: DONEPEZIL 5 MG TAB PEG/G-TUBE SCH (11:36)
[2022-08-19] MEDS: FAMOTIDINE 8 MG/ML ORAL.SUSP PEG/G-TUBE SCH ×2 (11:37→21:33)
[2022-08-19] MEDS: PREGABALIN 50 MG CAP PEG/G-TUBE SCH ×2 (11:37→21:33)
[2022-08-19] MEDS: HEPARIN SODIUM,PORCINE/PF 5,000 UNIT/0.5 ML SYRINGE SQ SCH ×2 (11:37→21:33)
[2022-08-19] MEDS: SERTRALINE 50 MG TAB PEG/G-TUBE SCH (11:37)
[2022-08-19 11:44] LABS: Glucose,Whole Blood 139 mg/dL (70-110)
[2022-08-19] MEDS ORDERED: HALOPERIDOL LACTATE 5 MG/ML 1 ML VIAL IM PRN (11:51)
[2022-08-19] MEDS ORDERED: HYDROmorphone 0.5 MG/0.5 ML SYRINGE IVP PRN (11:52)
--- NOTE | 2022-08-19 12:49 | P.PN ---
Subjective Progress Note Date: 08/19/22 This is a 72-year-old male patient who resides at [facility] and has a history of extensive pneumonia in April 2021 that required tracheostomy and PEG tube placements. He also has a history of left arm amputation, former smoker. He was brought here to the emergency room yesterday for a displaced PEG tube, fever and complaints of sore throat. Chest x-ray reveals left basilar infiltrate/atelectasis with small effusion. Cardiomegaly. Tracheostomy cannula demonstrated. Loop recorder over the left chest. Surgical absence of the left humerus. White count 8.1. Hemoglobin 9.2. Platelets 156. Sodium 138. Potassium 5.5. Bicarb 37. BUN 40. Creatinine 0.94. Glucose 91. Troponin ne gative 1. Urinalysis with trace glucose, moderate leukocyte esterase, high WBC. Influenza screen negative. COVID-19 screen negative. Group A strep negative. RSV negative. Sputum culture pending. Legionella culture pending. Pro-calcitonin pending. He's been initiated on cefepime. He is seen today in consultation on the regular medical floor. Currently resting comfortably in bed. T-piece at 10 L equal to 40% FiO2. Currently afebrile. Hemodynamically stable. The patient is seen today 08/13/2022 in follow-up on the regular medical floor. He is currently resting in bed. Awake. Maintaining O2 saturations in the 90s on 35% FiO2 via trach T piece. Blood cultures reveal no growth to date. Sputum culture pending. Legionella culture pending. White count 7.6. Hemoglobin 9.3. Platelets 123. Sodium 142. Potassium 3.9. Bicarb 29. BUN 28. Creatinine 0.9. Pro-calcitonin 0.06. He is currently on cefepime. Progress note dated 08/14/2022. 72-year-old male seen and examined in room 484. The patient is on a trach collar 35%. She's getting Jevity via PEG tube, at 65 mL an hour, to be increased to 70 mL an hour. He is getting saline at 50 mL an hour. Clinically, the patient appears to be about the same. He is neither worse or better. Laboratory data includes a white count of 7.04, hemoglobin 8.9, hematocrit 28.8, and a platelet count of 124,000. The patient's sodium was 141, potassium 3.8, chlorides 107, CO2 30, BUN 19, creatinine 0.9. The closest 111. Calcium 8.2. Pro-calcitonin level was 0.06. Urinary Legionella antigen was negative. Influenza A and influenza B studies were both negative. Testing for RSV and coronavirus were also negative. On today's evaluation of 08/15/2022, the patient continues to have copious amounts of rest or secretions. The patient is considered for a potential aspiration pneumonia. He had a temperature 100.4 this morning. His sputum sample was sent and the culture is still pending for now. Meanwhile, the patien t is covered with broad-spectrum antibiotics and the patient is currently on Zithromax. The WBC count is at 7 with a hemoglobin of 8.9 and a platelet count of 124. The BUN is 19 with a creatinine of 0.9 and a sodium level is at 141. Pro-calcitonin level was at 0.57. Legionella urine antigen was negative. Covid 19 and the rest of the vital screening was all negative. On today's evaluation of 08/16/2022,, the patient's condition is unchanged and the patient continues to have copious amounts of respiratory secretions and is requiring frequent suctioning. A repeat chest x-ray was done and it showed stable patchy bilateral airspace opacities and the patient remains on the same antibiotic coverage included a combination of Zithromax and Zosyn. The patient continues also to receive enteral feeding for nutritional support. No aspiration noted. Note that his pro calcitonin level remains low at 0.08. He is on a scopolamine patch the patient is also using DuoNeb about treatments [id number]. On 08/17/2022, the patient is having still copious amount of rest or secretions and the patient is still requiring frequent suctioning. He was having more shortness of breath yesterday. Overnight, he became restless and agitated. He pulled out his PEG tube. The tube was inserted and subsequently the patient pulled the tube again. Currently doesn't have any catheter 4 enteral feeding access to the GI tract. In terms of his breathing, he is on 35% Ventimask. There is at 8 L oxygen flow. His current pulse ox is 98%. Slightly tachycardic with a heart rate of 104. Respirations around 18. His sputum culture was negative. He remains on broad-spectrum antibiotics. He is on a combination of cefepime and Zithromax. He also has a scopolamine patch. He is on bronchodilators with albuterol updrafts 4 times a day. I went ahead and added IV Solu-Medrol also. He is also receiving Lasix through his PEG tube on a daily basis. His ability to count is at 4.7 with a hemoglobin of 8.3. He has chronic thrombocytopenia with a platelet count of 84. The BUN is at 21 with a cr eatinine of 0.7 and a sodium level is at 142. 08/18/2022, the patient is still completely uncooperative. I think he is intentionally pulling out his tracheostomy tube. He is already pulled out the speculum on several occasions. He seems to be quite miserable. He is not having any significant respiratory distress. Respiratory secretions have somewhat subsided compared to yesterday. Currently is not receiving any feeding as the patient does not have any PEG tube. He is a DNR/DNI CODE STATUS. He remains on 35% trach collar. In terms of antibiotic treatment, the antibiotic coverage essentially the same. The patient remains on cefepime and Zithromax. He is also on IV Solu-Medrol. His receiving Lasix 40 mg IV scheduled on a daily basis. His echoes at 3.5 with a hemoglobin of 8.3. He is a 24 with a creatinine of 0.6. Sodium is at 143. At times he gets agitated. This is at the bedside. 08/19/2022, respiratory status is more stable and the patient is still requiring respiratory suctioning for secretions. Nevertheless, the patient seems to be less of breath. He remains on a trach collar. Unable to take any other oral medications the patient does not have a PEG tube at this point in time. Surgery was consulted again for reinsertion of the PACU. Remains on bronchodilators. Remains on IV cefepime. He does have a gram-negative pneumonia which is currently being treated with bronchodilators and steroids and antibiotics. He is also on a scopolamine patch. She is to much more comfortable on today's evaluation. Objective - Vital Signs Vital signs: Vital Signs Temp 98.4 F 08/19/22 06:55 Pulse 111 H 04/22/23 11:06 Resp 22 08/19/22 11:06 BP 127/54 08/19/22 06:55 Pulse Ox 99 08/19/22 06:55 FiO2 35 08/19/22 08:27 Intake & Output 08/18/22 08/19/22 08/19/22 18:59 06:59 18:59 Output Total 450 Balance -450 Output: Urine 450 Other: Voiding Method Diaper External Catheter - Exam No acute distress, lethargic today. He does arouse and respond appropriately. The patient is on a 35% trach collar. HEENT examination is grossly unremarkable. Neck supple. Full range of motion. No adenopathy thyromegaly or neck vein distention. A midline tracheostomy tube is noted. He is receiving a trach collar at 35%. Cardiovascular examination reveals regular rhythm rate. S1-S2 normal. No S3 or S4. No discernible murmur noted. Heart sounds are distant. Lungs reveal scattered bilateral rhonchi and expiratory wheezes. No crackles. Breath sounds equal bilaterally but diminished throughout. Abdomen is soft, with bowel sounds. A PEG tube is noted. Extremities are intact. No cyanosis clubbing or edema. Skin is without rash or lesion. Neurologic examination is brief but nonfocal. - Labs CBC & Chem 7: 08/19/22 05:49 08/19/22 05:49 Labs: Abnormal Lab Results - Last 24 Hours (Table) 08/18/22 08/18/22 08/19/22 Range/Units 16:00 23:45 05:49 RBC 2.51 L (4.40-5.60) X 10*6/uL Hgb 7.8 L (13.0-17.0) g/dL Hct 26.1 L (39.6-50.0) % MCV 104.0 H (80.0-97.0) fL MCHC 29.9 L (32.0-37.0) g/dL Plt Count 112 L (140-440) X 10*3/uL Plt Count Comment DECREASED A MPV 12.3 H (9.5-12.2) fL Eosinophils # 0 L (0.04-0.35) X 10*3/uL Carbon Dioxide (20.0-27.5) mmol/L BUN (9.0-27.0) mg/dL BUN/Creatinine Ratio (12.00-20.00) Ratio Glucose (70-110) mg/dL POC Glucose (mg/dL) 148 H (70-110) mg/dL Calcium (8.7-10.3) mg/dL Urine Protein Trace H (Negative) Ur Leukocyte Esterase Large H (Negative) Urine WBC 12 H (0-5) /hpf Urine Mucus Rare H (None) /hpf 08/19/22 08/19/22 08/19/22 Range/Units 05:49 06:22 11:43 RBC (4.40-5.60) X 10*6/uL Hgb (13.0-17.0) g/dL Hct (39.6-50.0) % MCV (80.0-97.0) fL MCHC (32.0-37.0) g/dL Plt Count (140-440) X 10*3/uL Plt Count Comment MPV (9.5-12.2) fL Eosinophils # (0.04-0.35) X 10*3/uL Carbon Dioxide 28.9 H (20.0-27.5) mmol/L BUN 42.1 H (9.0-27.0) mg/dL BUN/Creatinine Ratio 46.78 H (12.00-20.00) Ratio Glucose 123 H (70-110) mg/dL POC Glucose (mg/dL) 127 H 139 H (70-110) mg/dL Calcium 8.5 L (8.7-10.3) mg/dL Urine Protein (Negative) Ur Leukocyte Esterase (Negative) Urine WBC (0-5) /hpf Urine Mucus (None) /hpf Microbiology - Last 24 Hours (Table) 08/16/22 06:15 Gram Stain - Preliminary Gastric Aspirate Sputum Culture - Preliminary Proteus mirabilis Pseudomonas spec 08/18/22 01:51 Gram Stain - Preliminary Sputum Sputum Culture - Preliminary 08/15/22 23:00 Blood Culture - Preliminary Blood Assessment and Plan Plan: Severe tracheobronchitis with a suspected early pneumonia. Pro-calcitonin level was not elevated and the patient's sputum cultures were negative. Nevertheless, the patient continues to have copious rest or secretions that seemed to be quite postinfectious in nature. Is currently on scopolamine patch. He is also receiving IV antibiotics with accommodation of cefepime and Zithromax and steroids were also added. History of extensive pneumonia most requiring tracheostomy and PEG tube placements in April 2021. History of left arm amputation. Hypothyroidism. History of anxiety/depression. prison resident. Enteral feeding for nutritional support via PEG tube. The patient pulled out his PEG tube on multiple occasions. Currently not receiving any form of enteral feeding. Plan: Respiratory status slightly improved compared to yesterday, see above-mentioned discussion Respiratory secretions are less compared to yesterday Repeat sputum samples are pending in terms of cultures, results are still pending for now Continue frequent suctioning Patient is currently on 35% Ventimask Recurrent aspiration and suctioning and Pulmicort toileting Continue same antibiotic coverage Continue scopolamine patch Continue IV Solu-Medrol Chest x-ray findings are stable, and the patient has patchy pulmonary infiltrates/atelectasis Patient will need reinsertion of a PEG tube, surgery was asked to evaluate her condition We'll continue to follow We'll make further recommendations based on progress. DNR/DNI CODE STATUS
[2022-08-19] MEDS: CEFEPIME 2 GM in SODIUM CHLORIDE 0.9% 100 ML IVPB SCH (13:43)
[2022-08-19] MEDS: diphenhydrAMINE 50 MG/ML 1 ML VIAL IVP PRN (15:58)
[2022-08-19 16:36] LABS: Glucose,Whole Blood 142 mg/dL (70-110)
--- NOTE | 2022-08-19 19:10 | P.PN ---
Subjective This is a pleasant 72 years old male who was sent from prison for respiratory difficulty suspicious for pneumonia. Patient has history of PEG tube and tracheostomy and left upper extremity amputation he was sent from his prison for concerns of displaced PEG tube, as per emergency room staff PEG tube was checked and there is no displacement. Patient was in this facility a few with the view months ago for pneumonia. Patient is poor historian, he is awake and alert, he has difficulty coming patient because of his dyspnea and tracheostomy. No abdominal pain. No abdominal tenderness and soft. PEG tube in place. Temperature is 90.9. He is saturating 94% on FiO2 of 40% via trach collar Labs showing no leukocytosis with WC8.1, hemoglobin 9.2, rest of CBC, BMP and liver enzymes were unremarkable. Potassium 5.5 which is slightly elevated but sample was hemolyzed. We given 1 dose of bicarb and albuterol and held his home dose of potassium and recheck potassium level tomorrow. Troponin is negative. Patient was out of negative including RSV coronavirus. Group a Streptococcus is negative EKG showing wide complex QRS with sinus rhythm at 81, evidence of left bundle branch block, similar to EKG seen from 08/06/2021 Chest x-ray showed left basilar infiltrates with small left pleural effusion and cardiomegaly 08/12/2022 Patient generally doing well, he was admitted with possible pneumonia seen with some consolidation on the chest x-ray However patient showed quick improvement in his symptoms recur He has no fever or leukocytosis. Pro-calcitonin is normal 0.06. Patient currently on cefepime with sputum culture is pending. Patient has a lot of secretions were tracheostomy tube. The secretions time of purulent however I don't think the patient has pneumonia, most likely he has possible aspiration pneumonitis. I think we can discharge the patient back to his prison. However we will wait for pulmonary clearance PEG tube is working and is going to be tried by staff with close monitoring of residual 08/16/2022 Patient developed low-grade fever yesterday however chest x-ray and protocol stronger [place] most likely patient is having recurrent aspiration pneumonitis. However there is no obvious infectious process. No leukocytosis and clinically looks the same. Mentation is at baseline PEG tube is with you feeding at 90 mL per hour Also he is receiving normal saline at 50 mL/h. Pro-calcitonin remains normal at 0.08 08/17/2022 Patient still suffering from thick secretions and he got agitated, he has He was secretions developed through the tracheostomy tube and there are thick, he become agitated and he pulled his IV line and PEG tube. We placed him on Xanax 0.5 mg when necessary and that did not help him so give dose of morphine. Patient currently feels better We will add dornase alpha mucolytic inhalation. Surgery team consult placed to back. Most likely patient has recurrent pneumonitis from copious secretions and aspiration. No more fever and her remains on cefepime Monitor platelets and hemoglobin 08/18/2022 Patient remains with respiratory difficulty and of course secretion and harsh breath sounds. He got agitated at times and they required to give him IV morphine to help him with his tachypnea. He pulled his PEG tube and because he still developed and agitation at time were going to hold for at least 24 hours to stabilization first. His chest x-ray from today showing bilateral infiltrate. Patient is already on a broad-spectrum antibiotic. His pro-calcitonin was low. He was on normal saline at 50 mL/h and proBNP is slightly elevated at 1900. Patient is not gett ing his oral 40 mg of Lasix because he has no PEG tube for now therefore we switch him on IV Lasix 40 mg daily and we switched his fluids to D5 half-normal saline at 50 mL per hour. His saturation is acceptable. He has mild pancytopenia. Patient is also complaining of from chest pain on the top of his dyspnea therefore we continued morphine 2 mg every 3 hours when necessary Prognosis remains guarded 08/19/2022 Patient remains Agitated at times and its difficult to control him although when I saw him this morning he was more calm slightly anxious and fidgety, sister was at bedside and plan discussed with the patient and her and all questions answered and she is agreeable. It looks like he is complaining of from both pain and anxiety, because there is no PEG tube we are trying to control medication. We stop the morphine 2 mg and put him on Dilaudid 0.5 mg and he developed significant itching therefore we stop the Dilaudid that would put him back on morphine and if he needs more we will increase the dose 2 mg up to [address] him on Haldol to help him with anxiety but past did not help him and the nurse suspected that made him worse and more anxious therefore was stopped Haldol and we put him on Ativan IV when necessary as well as Benadryl IV when necessary which will help with the itching as well . Because of his agitation he pulled his PEG tube which was replaced by surgery team, they are reconsulted and plan to place PEG tube on Sunday, this will give time to control his agitation as well as it was already placed and he pulled it out. Risk of these medication including risk of respiratory and cardiac depression are explained to the patient and sister and they're agreeable to continue with this medication to control his symptoms He remains on cefepime, somewhat culture is growing sensitive for Proteus and Pseudomonas however sputum culture still pending. ProBNP was elevated suspicious for fluid overload and he was placed on IV Lasix 40 mg daily compared to 40 mg orally/PEG at home. Also he is on IV Solu-Medrol. And on heparin for DVT prophylaxis. Objective - Vital Signs Vital signs: Vital Signs Temp 98.4 F 08/19/22 06:55 Pulse 96 08/19/22 15:42 Resp 22 08/19/22 11:06 BP 127/54 08/19/22 06:55 Pulse Ox 98 08/19/22 15:43 FiO2 35 08/19/22 15:43 Intake & Output 08/19/22 08/19/22 08/20/22 06:59 18:59 06:59 Output Total 450 Balance -450 Output: Urine 450 Other: Voiding Method External Catheter - Exam GENERAL: The patient is alert and oriented x3, not in any acute distress. Well developed, well nourished. -HEENT: Pupils are round and equally reacting to light. EOMI. No scleral icterus. No conjunctival pallor. Normocephalic, atraumatic. No pharyngeal erythema. No thyromegaly. Tracheostomy in place with purulent discharge CARDIOVASCULAR: S1 and S2 present. No murmurs, rubs, or gallops. PULMONARY: Chest is clear to auscultation, no wheezing or crackles. -ABDOMEN: Soft, nontender, nondistended, normoactive bowel sounds. No palpable organomegaly. PEG tube in place MUSCULOSKELETAL: No joint swelling or deformity. EXTREMITIES: No cyanosis, clubbing, or pedal edema. NEUROLOGICAL: Gross neurological examination did not reveal any focal deficits. SKIN: No rashes. no petechiae. - Labs CBC & Chem 7: 08/19/22 05:49 08/19/22 05:49 Labs: Abnormal Lab Results - Last 24 Hours (Table) 08/18/22 08/19/22 08/19/22 Range/Units 23:45 05:49 05:49 RBC 2.51 L (4.40-5.60) X 10*6/uL Hgb 7.8 L (13.0-17.0) g/dL Hct 26.1 L (39.6-50.0) % MCV 104.0 H (80.0-97.0) fL MCHC 29.9 L (32.0-37.0) g/dL Plt Count 112 L (140-440) X 10*3/uL Plt Count Comment DECREASED A MPV 12.3 H (9.5-12.2) fL Eosinophils # 0 L (0.04-0.35) X 10*3/uL Carbon Dioxide 28.9 H (20.0-27.5) mmol/L BUN 42.1 H (9.0-27.0) mg/dL BUN/Creatinine Ratio 46.78 H (12.00-20.00) Ratio Glucose 123 H (70-110) mg/dL POC Glucose (mg/dL) 148 H (70-110) mg/dL Calcium 8.5 L (8.7-10.3) mg/dL 08/19/22 08/19/22 08/19/22 Range/Units 06:22 11:43 16:34 RBC (4.40-5.60) X 10*6/uL Hgb (13.0-17.0) g/dL Hct (39.6-50.0) % MCV (80.0-97.0) fL MCHC (32.0-37.0) g/dL Plt Count (140-440) X 10*3/uL Plt Count Comment MPV (9.5-12.2) fL Eosinophils # (0.04-0.35) X 10*3/uL Carbon Dioxide (20.0-27.5) mmol/L BUN (9.0-27.0) mg/dL BUN/Creatinine Ratio (12.00-20.00) Ratio Glucose (70-110) mg/dL POC Glucose (mg/dL) 127 H 139 H 142 H (70-110) mg/dL Calcium (8.7-10.3) mg/dL Microbiology - Last 24 Hours (Table) 08/16/22 06:15 Gram Stain - Preliminary Gastric Aspirate Sputum Culture - Preliminary Proteus mirabilis Pseudomonas spec 08/18/22 01:51 Gram Stain - Preliminary Sputum Sputum Culture - Preliminary Assessment and Plan Assessment: Most likely aspiration pneumonitis rather than infectious pneumonia Acute hypoxic respiratory failure, resolved History of tracheostomy and PEG tube in April 2021 History of left arm amputation Plan: Surgical team to place PEG tube (on hold after he pulled it for second time, probably on Sunday) Continue with scopolamine I will lower the dose of cefepime to 2 mg twice a day and Zithromax . Gingiva fluids to D5 half-normal saline and start IV Lasix 40 mg daily continue with pain management morphine Continue with Ativan for agitation Continue with Benadryl for agitation and itching Breathing treatment and albuterol Labs and medication were reviewed.. Continue same treatment. Continue with symptomatic treatment. Resume home medication. Monitor labs and vitals. DVT and GI prophylaxis. Further recommendations as per clinical course of the patient DVT prophylaxis: Subcutaneous heparin GI Prophylaxis: Pepcid Prognosis is guarded
[2022-08-19] MEDS: LORazepam 2 MG/ML INJ IV PRN (21:34)
--- NOTE | 2022-08-19 23:11 | P.PN ---
Subjective Progress Note Date: 08/19/22 Principal diagnosis: Questionable pneumonia and need for antibiotic therapy Patient is a 72-year-old male with a past medical history significant for extensive pneumonia in April 2021 requiring tracheostomy and PEG tube placement in this patient currently resident of the local long term patient was sent to the ER on 08/11/2022 for dislodged PEG tube, patient did have abnormal chest x-ray with left lower lobe infiltrate and effusion and concern for possible pneumonia. On today's evaluation that is 08/19/2022, the patient remains to be afebrile, the patient is breathing comfortably on a trach collar hour remains to be restless and unable to provide any history, no vomiting or diarrhea has been reported however the patient pulled out his PEG tube again Objective - Vital Signs Vital signs: Vital Signs Temp 98.4 F 08/19/22 06:55 Pulse 93 08/19/22 06:55 Resp 17 08/19/22 06:55 BP 127/54 08/19/22 06:55 Pulse Ox 99 08/19/22 06:55 FiO2 35 08/19/22 08:27 Intake & Output 08/18/22 08/19/22 08/19/22 18:59 06:59 18:59 Output Total 450 Balance -450 Output: Urine 450 Other: Voiding Method Diaper External Catheter - Exam GENERAL DESCRIPTION: An elderly male lying in bed in no distress RESPIRATORY SYSTEM: Unlabored breathing , diminished breath sounds HEART: S1 S2 regular rate and rhythm , ABDOMEN: Soft , no tenderness EXTREMITIES: No edema feet Exam completed with the help of PASTRY MIXER - Labs CBC & Chem 7: 08/19/22 05:49 08/19/22 05:49 Labs: Abnormal Lab Results - Last 24 Hours (Table) 08/18/22 08/18/22 08/18/22 Range/Units 09:33 09:33 11:24 WBC 3.5 L (3.8-10.6) k/uL RBC 2.58 L (4.30-5.90) m/uL Hgb 8.3 L (13.0-17.5) gm/dL Hct 26.2 L (39.0-53.0) % MCV 101.8 H (80.0-100.0) fL Plt Count 115 L (150-450) k/uL Lymphocytes # 0.5 L (1.0-4.8) k/uL Carbon Dioxide 35 H (22-30) mmol/L BUN 24 H (9-20) mg/dL Glucose 140 H (74-99) mg/dL POC Glucose (mg/dL) 154 H (70-110) mg/dL Calcium 8.0 L (8.4-10.2) mg/dL Urine Protein (Negative) Ur Leukocyte Esterase (Negative) Urine WBC (0-5) /hpf Urine Mucus (None) /hpf 08/18/22 08/18/22 08/19/22 Range/Units 16:00 23:45 06:22 WBC (3.8-10.6) k/uL RBC (4.30-5.90) m/uL Hgb (13.0-17.5) gm/dL Hct (39.0-53.0) % MCV (80.0-100.0) fL Plt Count (150-450) k/uL Lymphocytes # (1.0-4.8) k/uL Carbon Dioxide (22-30) mmol/L BUN (9-20) mg/dL Glucose (74-99) mg/dL POC Glucose (mg/dL) 148 H 127 H (70-110) mg/dL Calcium (8.4-10.2) mg/dL Urine Protein Trace H (Negative) Ur Leukocyte Esterase Large H (Negative) Urine WBC 12 H (0-5) /hpf Urine Mucus Rare H (None) /hpf Microbiology - Last 24 Hours (Table) 08/18/22 01:51 Gram Stain - Preliminary Sputum Sputum Culture - Preliminary 08/15/22 23:00 Blood Culture - Preliminary Blood Assessment and Plan (1) Abnormal chest x-ray Current Visit: Yes Status: Acute Code(s): R93.89 - ABNORMAL FINDINGS ON DX IMAGING OF OTH BODY STRUCTURES SNOMED Code(s): 412518294 Plan: 1patient is 72-year-old male with a history of respiratory failure failed to be extubated currently to have a trach and PEG admitted to the hospital with a dislodged PEG tube patient did have a new fever and concerning for possible gram-negative/aspiration pneumonia blood and sputum culture has been obtained those are currently pending 2-patient fever has resolved white count has normalized, patient to continue cefepime while waiting for culture finalized and monitor clinical course closely This was a tele health visit Time with Patient: Less than 30
[2022-08-20] MEDS: CEFEPIME 2 GM in SODIUM CHLORIDE 0.9% 100 ML IVPB SCH (00:05)
[2022-08-20] MEDS: methylPREDNISolone SOD SUCCI 125 MG/2 ML VIAL IV SCH ×2 (00:07→06:02)
[2022-08-20] MEDS: MORPHINE SULFATE 2 MG/ML SYRINGE IVP PRN ×3 (00:08→07:02)
[2022-08-20] MEDS: diphenhydrAMINE 50 MG/ML 1 ML VIAL IVP PRN ×2 (00:08→09:54)
[2022-08-20 00:11] LABS: Glucose,Whole Blood 145 mg/dL (70-110)
[2022-08-20] MEDS: LORazepam 2 MG/ML INJ IV PRN ×2 (03:43→08:15)
[2022-08-20 05:14] LABS: Glucose,Whole Blood 203 mg/dL (70-110)
[2022-08-20] MEDS: HYDROcodone/APAP 7.5-325MG 1 EACH TAB PEG/G-TUBE SCH ×2 (05:59→09:46)
[2022-08-20] MEDS: LEVOTHYROXINE 75 MCG TAB PEG/G-TUBE SCH (05:59)
[2022-08-20] MEDS: DEXTROSE 5%-0.45% NACL 1,000 ML IV SCH (05:59)
[2022-08-20] MEDS: SODIUM CHLORIDE 0.9% 1,000 ML IV SCH (05:59)
[2022-08-20 06:16] LABS: ABG Base Excess 10.2 mmol/L; ABG HCO3 35 mmol/L (21-25); ABG PCO2 55 mmHg (35-45); ABG PH 7.41 (7.35-7.45); ABG PO2 60 mmHg (83-108); ABG TCO2 37 mmol/L (19-24); Allen Test Performed? Yes
[2022-08-20 06:44] LABS: Glucose,Whole Blood 175 mg/dL (70-110)
--- NOTE | 2022-08-20 07:16 | XR ---
EXAMINATION TYPE: XR chest 1V portable DATE OF EXAM: 08/20/2022 HISTORY: Shortness of breath. COMPARISON: 08/18/2022 TECHNIQUE: Single view of the chest is submitted. FINDINGS: Demonstrated are scattered senescent parenchymal change. Increasing opacity left mid and left lower lung zone may reflect atelectasis, infiltrate and/or effus ion. There is improved aeration throughout the right lung. Tracheostomy tube is unchanged in position. Sternotomy wires in place. The heart is stable. Hilar and mediastinal structures are within normal limits. Degenerative changes are seen of the dorsal spine. IMPRESSION: 1. Increasing opacity left mid and left lower lung zone may reflect atelectasis, infiltrate and/or e ffusion. There is improved aeration throughout the right lung.
[2022-08-20 07:52] VITALS: PULSE 111
[2022-08-20] MEDS ORDERED: LORazepam 2 MG/ML INJ IV PRN (08:23)
[2022-08-20] MEDS ORDERED: MORPHINE SULFATE 4 MG/ML SYRINGE IVP PRN (08:23)
[2022-08-20 08:24] VITALS: BP 140/73; RESP 19; TEMP 97.7
[2022-08-20] MEDS: DONEPEZIL 5 MG TAB PEG/G-TUBE SCH (09:44)
[2022-08-20] MEDS: FAMOTIDINE 8 MG/ML ORAL.SUSP PEG/G-TUBE SCH (09:44)
[2022-08-20] MEDS: SERTRALINE 50 MG TAB PEG/G-TUBE SCH (09:45)
[2022-08-20] MEDS: PREGABALIN 50 MG CAP PEG/G-TUBE SCH (09:45)
[2022-08-20] MEDS: HEPARIN SODIUM,PORCINE/PF 5,000 UNIT/0.5 ML SYRINGE SQ SCH (09:49)
[2022-08-20] MEDS: FUROSEMIDE 10 MG/ML 4 ML VIAL IV SCH (09:49)
[2022-08-20] MEDS: GENTAMICIN 0.1% CREAM 15 GM TUBE TOPICAL SCH (09:49)
[2022-08-20] MEDS: ATROPINE OPHTH SOLN 1% 5ML BTL SUBLINGUAL SCH (09:49)
--- NOTE | 2022-08-20 10:07 | P.PN ---
Progress Note - Text Progress Note Date: 08/20/22 Patient remains same. He'll be scheduled for PEG tube placement tomorrow.
[2022-08-20 10:34] LABS: African American GFR (CKD) 98.5 (60.0-200.0); BUN/Creat Ratio 68.78 Ratio (12.00-20.00); Blood Urea Nitrogen 61.9 mg/dL (9.0-27.0); Calcium 8.1 mg/dL (8.7-10.3)
[2022-08-20] MEDS ORDERED: MORPHINE SULFATE (100 MG/2 ML) 100 MG in SODIUM CHLORIDE 0.9% 100 ML IV SCH (11:30)
[2022-08-20 11:59] LABS: Basophils # (A) 0 X 10*3/uL (0.00-0.10); Basophils % (A) 0 %; Eosinophils # (A) 0 X 10*3/uL (0.04-0.35); Eosinophils % (A) 0 %; HCT 24.8 % (39.6-50.0); HGB 7.4 g/dL (13.0-17.0); Immature Grans, Automated 0.4 %; Lymphocytes # (A) 0.74 X 10*3/uL (0.90-5.00); Lymphocytes % (A) 10.4 %; MCH 30.5 pg (27.0-32.0); MCHC 29.8 g/dL (32.0-37.0); MCV 102.1 fL (80.0-97.0); Mean Platelet Volume 11.6 fL (9.5-12.2); Monocytes # (A) 0.61 X 10*3/uL (0.20-1.00); Monocytes % (A) 8.5 %; NRBC Per 100 WBC 0 /100 WBCS (0.0-0.0); Neutrophils # (A) 5.76 X 10*3/uL (1.80-7.70); Neutrophils % (A) 80.7 %; Platelet Count 178 X 10*3/uL (140-440); RBC 2.43 X 10*6/uL (4.40-5.60); RDW 13.5 % (11.5-14.5); WBC 7.14 X 10*3/uL (4.50-10.00)
--- NOTE | 2022-08-21 08:33 | P.DS ---
Providers Date of admission: 08/11/22 20:19 Attending physician: Ant Wyatt MD Consults: 08/11/22 20:17 Consult Physician Routine Consulting Provider: J Luis Cornelius Consult Reason/Comments: pneumonia Do you want consulting provider notified?: Yes 08/13/22 10:19 Consult Physician Routine Consulting Provider: Sunny Edmond Consult Reason/Comments: Sepsis, pneumonia, Do you want consulting provider notified?: Yes 08/17/22 09:19 Consult Physician Urgent Consulting Provider: Florentin Almendarez Consult Reason/Comments: Pt. pulled out PEG tube Do you want consulting provider notified?: Yes Primary care physician: Amaris Jiménez DO Hospital Course: Diagnoses: aspiration pneumonitis and infectious pneumonia Metabolic/toxic encephalopathy secondary to Acute hypoxic respiratory failure, History of tracheostomy and PEG tube in April 2021 History of left arm amputation Hospital course: This is a pleasant 72 years old male who was [facility] for respiratory difficulty suspicious for pneumonia. Patient has history of PEG tube and tracheostomy and left upper extremity amputation he was sent from his [facility] for concerns of displaced PEG tube, as per emergency room staff PEG tube was checked and there is no displacement. Patient was in this facility a few with the view months ago for pneumonia. Patient has been treated with different antibiotic including cefepime, Zithromax, Flagyl. Patient has been followed by pulmonary and infectious disease team. He got agitation frequently and pulling his tracheostomy tube and PEG tube more than once. Several comment medication has been tried now much success including morphine, Dilaudid, abdominal, Ativan, Benadryl. Despite treatment patient continued to worsen and not improving much. Repeat chest x- ray showing persistent and worsening left lung Which may reflect atelectasis, infiltrate and/or effusion. Improved . Patient of the right lung. Because of his age and complex medical issue, lack of improvement despite multiple THERAPY options. Cystoscopy was at bedside yesterday and today and they want to discuss the case with hospice team. Family/systemic side hospice confirmed to me by hospice nurse. Hospice care was initiated which looks appropriate for now for patient as his life expectancy is less than 6 months. Patient has no code order. Physical exam -Gen: patient is a calm but confused, does not follow command, no distress CVS: S1-S2, RRR, no murmur -Lungs: B/L CTA, no wheezing. Tachypneic, decreased breath sounds on the left side, tracheostomy tube in place -Abdomen: soft, no distention, no tenderness, positive bowel sounds. PEG tube as pulled out and wound is clean with a dressing in place Extremity: no leg edema or induration Time spent more than 35 minutes Patient Condition at Discharge: Fair Plan - Discharge Summary New Discharge Prescriptions: No Action L.acidoph,Paracasei, B.lactis [Probiotic] 1 cap PEG/G-TUBE BID Famotidine [Pepcid] 20 mg PEG/G-TUBE BID Sertraline HCl [Sertraline HCl Oral Conc] 50 mg PEG/G-TUBE DAILY Furosemide 40 mg PEG/G-TUBE DAILY Atropine Ophth Soln 1% 5Ml [Isopto Atropine 1% 5Ml] 2 drop BUCCAL BID Amino Acids/Protein Hydrolys [Pro-Stat Awc Liquid] 1 dose PO HS Potassium Chloride 20 meq PEG/G-TUBE DAILY Donepezil [Aricept] 5 mg PEG/G-TUBE DAILY Levothyroxine Sodium [Synthroid] 75 mcg PEG/G-TUBE DAILY HYDROcodone/APAP 7.5-325MG [[place] 7.5-325] 1 tab PEG/G-TUBE QID@05,11,17,23 Gentamicin 0.1% Cream 1 applic TOPICAL TID@0700,1300,1900 Propylene Glycol/Peg 400/Pf [Systane 0.3-0.4% Ophth Dropperette] 1 drop BOTH EYES BID Pregabalin [Lyrica] 50 mg PEG/G-TUBE BID Diclofenac Sodium [Voltaren Arthritis Pain 1% Gel] 2 gm TOPICAL Q8H PRN PRN Reason: JOINT, RIGHT HAND PAIN Discharge Medication List Famotidine [Pepcid] 20 mg PEG/G-TUBE BID 12/26/21 [History] Furosemide 40 mg PEG/G-TUBE DAILY 12/26/21 [History] L.acidoph,Paracasei, B.lactis [Probiotic] 1 cap PEG/G-TUBE BID 12/26/21 [History] Sertraline HCl [Sertraline HCl Oral Conc] 50 mg PEG/G-TUBE DAILY 12/26/21 [History] Amino Acids/Protein Hydrolys [Pro-Stat Awc Liquid] 1 dose PO HS 08/11/22 [History] Atropine Ophth Soln 1% 5Ml [Isopto Atropine 1% 5Ml] 2 drop BUCCAL BID 08/11/22 [History] Diclofenac Sodium [Voltaren Arthritis Pain 1% Gel] 2 gm TOPICAL Q8H PRN 08/11/22 [History] Donepezil [Aricept] 5 mg PEG/G-TUBE DAILY 08/11/22 [History] Gentamicin 0.1% Cream 1 applic TOPICAL TID@0700,1300,1900 08/11/22 [History] HYDROcodone/APAP 7.5-325MG [[place] 7.5-325] 1 tab PEG/G-TUBE QID@05,11,17,23 08/11/22 [History] Levothyroxine Sodium [Synthroid] 75 mcg PEG/G-TUBE DAILY 08/11/22 [History] Potassium Chloride 20 meq PEG/G-TUBE DAILY 08/11/22 [History] Pregabalin [Lyrica] 50 mg PEG/G-TUBE BID 08/11/22 [History] Propylene Glycol/Peg 400/Pf [Systane 0.3-0.4% Ophth Dropperette] 1 drop BOTH EYES BID 08/11/22 [History] Follow up Appointment(s)/Referral(s): Amaris Jiménez DO [Primary Care Provider] - 1-2 days Discharge Disposition: HOME WITH HOSPICE
== END 2022-08-20 11:25 | disposition still patient (30) | DRG 177 ==
LOC: SUPCPDRO 14:25 → EC 14:25 → 4SSUR 20:19
PROVIDERS: ADMIT Internal Medicine; ATTEND Internal Medicine
PROC: 3E0H76Z Introduction of Nutritional Substance into Lower GI, Via Natural or Artificial Opening (ICD-10-PCS; 2022-08-11)
PROC: 0D20XUZ Change Feeding Device in Upper Intestinal Tract, External Approach (ICD-10-PCS; principal; 2022-08-17)
DX: J15.8 Pneumonia due to other specified bacteria (principal); E43 Unspecified severe protein-calorie malnutrition; J96.21 Acute and chronic respiratory failure with hypoxia; G92.8 Other toxic encephalopathy; K94.23 Gastrostomy malfunction; D61.818 Other pancytopenia; Z16.24 Resistance to multiple antibiotics; Z68.1 Body mass index [BMI] 19.9 or less, adult; J98.11 Atelectasis; N39.0 Urinary tract infection, site not specified; I11.9 Hypertensive heart disease without heart failure; E03.9 Hypothyroidism, unspecified; F32.A Depression, unspecified; M19.90 Unspecified osteoarthritis, unspecified site; Z66 Do not resuscitate; Z51.5 Encounter for palliative care; B96.4 Proteus (mirabilis) (morganii) as the cause of diseases classified elsewhere; B96.5 Pseudomonas (aeruginosa) (mallei) (pseudomallei) as the cause of diseases classified elsewhere; J40 Bronchitis, not specified as acute or chronic; F41.9 Anxiety disorder, unspecified; I44.7 Left bundle-branch block, unspecified; J69.0 Pneumonitis due to inhalation of food and vomit; Y95 Nosocomial condition; Z20.822 Contact with and (suspected) exposure to COVID-19; Z93.0 Tracheostomy status; Z87.01 Personal history of pneumonia (recurrent); Z87.891 Personal history of nicotine dependence; Z88.0 Allergy status to penicillin; Z91.041 Radiographic dye allergy status; Z79.899 Other long term (current) drug therapy; Z79.890 Hormone replacement therapy; Z79.891 Long term (current) use of opiate analgesic; Z89.212 Acquired absence of left upper limb below elbow
CPT/HCPCS: 36410; 36415; 36600; 71045; 76937; 80048; 80053; 81001; 82805; 83605; 83735; 83880; 84145; 84484; 85025; 87040; 87070; 87077; 87186; 87205; 87449; 87636; 87651; 93005; 94640; 94760; 96361; 96365; 96366; 96375; 99285

== ENCOUNTER 2022-08-20 11:33 | Inpatient (IN) | payer MEDICAID, MEDICARE, OTHER ==
[2022-08-20] MEDS ORDERED: MORPHINE SULFATE 2 MG/ML SYRINGE IV PRN (11:56)
[2022-08-20] MEDS ORDERED: ONDANSETRON 4 MG/2 ML VIAL IVP PRN (11:56)
[2022-08-20] MEDS ORDERED: ACETAMINOPHEN SUPPOSITORY 650 MG SUPP RECTAL PRN (11:56)
[2022-08-20] MEDS ORDERED: HALOPERIDOL LACTATE 5 MG/ML 1 ML VIAL IM PRN (11:56)
[2022-08-20] MEDS ORDERED: SODIUM CHLORIDE 0.9% 1,000 ML IV SCH (12:00)
[2022-08-20] MEDS: MORPHINE SULFATE (100 MG/2 ML) 100 MG in SODIUM CHLORIDE 0.9% 100 ML IV SCH (13:30)
[2022-08-20] MEDS: SODIUM CHLORIDE 0.9% 1,000 ML IV SCH (13:30)
[2022-08-20] MEDS: GLYCOPYRROLATE 0.2 MG/ML 2 ML VIAL IVP PRN (17:40)
[2022-08-20] MEDS: LORazepam 2 MG/ML INJ IV PRN (21:56)
[2022-08-21] MEDS: LORazepam 2 MG/ML INJ IV PRN ×4 (03:12→20:59)
[2022-08-21] MEDS: SODIUM CHLORIDE 0.9% 1,000 ML IV SCH (14:26)
[2022-08-21] MEDS: GLYCOPYRROLATE 0.2 MG/ML 2 ML VIAL IVP PRN (14:40)
--- NOTE | 2022-08-21 15:35 | P.HPIM ---
History of Present Illness H&P Date: 08/21/22 This is a 72 year old male with medical history of left arm amputation and patient also has a trach and PEG tube replacement in April 2021 following hospitalization for extensive pneumonia. Patient resides at the residential and was sent to the hospital with concern for displaced PEG tube which was checked on admission and found to be functioning appropriately. Patient was in this facility recently and was treated for pneumonia at that time. Patient was noted to have dyspnea on admission and initial work up reveals left basilar infiltrate and small left pleural effusion. Patient utilizing trach collar with fio2 of 40%. Patient improved initially with and found to have negative procalcitonin level, there is no fever or luekocytosis. He was started on IV cefepime. Patient has a lot of secretions were tracheostomy tube and there is possibility of patient having some aspiration pneumonitis. Patient did develope low grade fever and pulmonary consultation felt patient likely having recurrent aspiration pneumonia. He was resumed on tube feedings and tolerating. Patient still suffering from thick secretions and he got agitated, he has had secretions developed through the tracheostomy tube and there are thick, he become agitated and he pulled his IV line and PEG tube. Patient had PEG tube replaced for which he did pull it out again. Patient continues with significant respiratory distress with worsening secretions. Patient had chest x-ray done showed increased E left mid and left lower lung zone may reflect atelectasis infiltrate and/or effusion he does have improved aeration in the right lung. She continued on IV antibiotic therapy with pulmonary and ID following. Patient had significant respiratory discomfort and was requiring increased oxygen. Sputum culture did come back positive for Proteus mirabilis and also stenotrophomonas maltophilia. Family at the bedside and requested hospice services and patient has been made GIP is currently evaluated on a morphine drip and scopalomine patch for his excess secretions. Patient reports having discomfort and holding left abdomen. Morphine gtt is increased. Unable to complete full review of systems patient is currently unable to converse. He does not gas and asking if he is having pain. PHYSICAL EXAMINATION: GENERAL: The patient is alert and oriented x1, Excess secretions and having mild respiratory distress HEENT: Pupils are round and equally reacting to light. EOMI. No scleral icterus. No conjunctival pallor. Normocephalic, atraumatic. No pharyngeal erythema. No thyromegaly. CARDIOVASCULAR: S1 and S2 present. No murmurs, rubs, or gallops. PULMONARY: Coarse scattered wheezing throughout ABDOMEN: Soft, nontender, nondistended, normoactive bowel sounds. No palpable organomegaly. MUSCULOSKELETAL: No joint swelling or deformity. EXTREMITIES: No cyanosis, clubbing, or pedal edema. left arm amputation NEUROLOGICAL: Diffuse weakness. SKIN: No rashes. Assessment and Plan Assessment Acute hypoxic respiratory failure secondary to tracheobronchitis with early pneumonia with possible aspiration pneumonitis. The aspiration pneumonitis has felt present on admission. History of extensive pneumonia requiring tracheostomy and PEG tube placement in April 2021 History of left arm amputation History of hypothyroidism History of anxiety/depression General Medical debility Do Not Resuscitate/Do Not Intubate Plan Patient is opened with [facility] hospice services. Continue with morphine drip and titrate for pain and increased respiratory rate Continue with rubinol and suctioning of excess secretions The impression and plan of care has been dictated by Debby Delatorre Nurse Practitioner as directed. Dr. Sean MD I have performed a history and physical examination and medical decision making of this patient, discussed the same with the dictator, and agree with the dictators assessment and plan as written, documented as a scribe. Based on total visit time, I have performed more than 50% of this visit. Past Medical History Additional Past Medical History / Comment(s): left arm amputation, trach, peg History of Any Multi-Drug Resistant Organisms: None Reported Additional Past Surgical History / Comment(s): peg tube, tracheotomy Past Anesthesia/Blood Transfusion Reactions: Unable to Obtain Past Psychological History: No Psychological Hx Reported Smoking Status: Former smoker Past Alcohol Use History: None Reported Past Drug Use History: None Reported Medications and Allergies Home Medications Medication Instructions Recorded Confirmed Type Famotidine [Pepcid] 20 mg PEG/G-TUBE BID 12/26/21 08/20/22 History Furosemide 40 mg PEG/G-TUBE DAILY 12/26/21 08/20/22 History L.acidoph,Paracasei, B.lactis 1 cap PEG/G-TUBE BID 12/26/21 08/20/22 History [Probiotic] Sertraline HCl [Sertraline HCl 50 mg PEG/G-TUBE DAILY 12/26/21 08/20/22 History Oral Conc] Amino Acids/Protein Hydrolys 1 dose PO HS 08/11/22 08/20/22 History [Pro-Stat Awc Liquid] Atropine Ophth Soln 1% 5Ml [Isopto 2 drop BUCCAL BID 08/11/22 08/20/22 History Atropine 1% 5Ml] Diclofenac Sodium [Voltaren 2 gm TOPICAL Q8H PRN 08/11/22 08/20/22 History Arthritis Pain 1% Gel] Donepezil [Aricept] 5 mg PEG/G-TUBE DAILY 08/11/22 08/20/22 History Gentamicin 0.1% Cream 1 applic TOPICAL TID@0700,1300,1900 08/11/22 08/20/22 History HYDROcodone/APAP 7.5-325MG [[place] 1 tab PEG/G-TUBE QID@05,11,,23 08/11/22 08/20/22 History 7.5-325] Levothyroxine Sodium [Synthroid] 75 mcg PEG/G-TUBE DAILY 08/11/22 08/20/22 History Potassium Chloride 20 meq PEG/G-TUBE DAILY 08/11/22 08/20/22 History Pregabalin [Lyrica] 50 mg PEG/G-TUBE BID 08/11/22 08/20/22 History Propylene Glycol/Peg 400/Pf 1 drop BOTH EYES BID 08/11/22 08/20/22 History [Systane 0.3-0.4% Ophth Dropperette] Allergies Allergy/AdvReac Type Severity Reaction Status Date / Time Iodinated Contrast Media Allergy Unknown Verified 08/11/22 19:02 Penicillins Allergy Unknown Verified 08/11/22 19:02 Physical Exam Vitals: Vital Signs Pulse Resp Pulse Ox FiO2 08/21/22 08:52 14 08/21/22 08:18 40 08/21/22 08:10 82 14 99 08/20/22 20:41 40 08/20/22 20:00 87 21 99 Intake and Output 08/21/22 08/21/22 08/21/22 06:59 14:59 22:59 Intake Total 33.49 Output Total 500 Balance -500 33.49 Intake: Intake, IV Titration 33.49 Amount Morphine Sulfate (100 mg/ 33.49 2 ml) 100 mg In Sodium Chloride 0.9% 100 ml @ 1 MG/HR 1.02 mls/hr IV . Q24H [facility] Rx#:[id number] Output: Urine 500 Assessment and Plan Time with Patient: Less than 30
[2022-08-21] MEDS: MORPHINE SULFATE (100 MG/2 ML) 100 MG in SODIUM CHLORIDE 0.9% 100 ML IV SCH ×2 (18:53→23:01)
[2022-08-22] MEDS: LORazepam 2 MG/ML INJ IV PRN ×2 (01:48→08:44)
[2022-08-22] MEDS: SODIUM CHLORIDE 0.9% 1,000 ML IV SCH (12:49)
--- NOTE | 2022-08-22 16:33 | P.PN ---
Subjective Progress Note Date: 08/22/22 This is a 72 year old male with medical history of left arm amputation and patient also has a trach and PEG tube replacement in April 2021 following hospitalization for extensive pneumonia. [facility] and was [facility] to the hospital with concern for displaced PEG tube which was silvio cked on admission and found to be functioning appropriately. Patient was in this facility recently and was treated for pneumonia at that time. Patient was noted to have dyspnea on admission and initial work up reveals left basilar infiltrate and small left pleural effusion. Patient utilizing trach collar with fio2 of 40%. Patient improved initially with and found to have negative procalcitonin level, there is no fever or luekocytosis. He was started on IV cefepime. Patient has a lot of secretions were tracheostomy tube and there is possibility of patient having some aspiration pneumonitis. Patient did develope low grade fever and pulmonary consultation felt patient likely having recurrent aspiration pneumonia. He was resumed on tube feedings and tolerating. Patient still suffering from thick secretions and he got agitated, he has had secretions developed through the tracheostomy tube and there are thick, he become agitated and he pulled his IV line and PEG tube. Patient had PEG tube replaced for which he did pull it out again. Patient continues with significant respiratory distress with worsening secretions. Patient had chest x-ray done showed increased E left mid and left lower lung zone may reflect atelectasis infiltrate and/or effusion he does have improved aeration in the right lung. She continued on IV antibiotic therapy with pulmonary and ID following. Patient had sign ificant respiratory discomfort and was requiring increased oxygen. Sputum culture did come back positive for Proteus mirabilis and also stenotrophomonas maltophilia. Family at the bedside and requested hospice services and patient has been made GIP is currently evaluated on a morphine drip and scopalomine patch for his excess secretions. Patient reports having discomfort and holding left abdomen. Morphine gtt is increased. 08/22/2022 Patient is evaluated today on the medical floor. He continues on a morphine drip currently rate is infusing at 5.61 mL's per hour. Patient appears to be resting more comfortably. Is receiving Ativan IV every 4 hours. Patient maintaining oxygen saturations on a 10 L 40% FiO2 trach collar. Respirations 98. PHYSICAL EXAMINATION: GENERAL: The patient is alert and oriented x1, Excess secretions. HEENT: Pupils are round and equally reacting to light. EOMI. No scleral icterus. No conjunctival pallor. Normocephalic, atraumatic. No pharyngeal erythema. No thyromegaly. CARDIOVASCULAR: S1 and S2 present. No murmurs, rubs, or gallops. PULMONARY: Coarse scattered wheezing throughout ABDOMEN: Soft, nontender, nondistended, normoactive bowel sounds. No palpable organomegaly. MUSCULOSKELETAL: No joint swelling or deformity. EXTREMITIES: No cyanosis, clubbing, or pedal edema. left arm amputation NEUROLOGICAL: Diffuse weakness. SKIN: No rashes. Assessment and Plan Assessment Acute hypoxic respiratory failure secondary to tracheobronchitis with early pneumonia with possible aspiration pneumonitis. The aspiration pneumonitis was felt present on admission. History of extensive pneumonia requiring tracheostomy and PEG tube placement in April 2021 History of left arm amputation History of hypothyroidism History of anxiety/depression General Medical debility Do Not Resuscitate/Do Not Intubate Plan Patient is opened with [facility] hospice services. Continue with morphine drip and titrate for pain and increased respiratory rate Continue with rubinol and suctioning of excess secretions The impression and plan of care has been dictated by Debby Delatorre, Nurse Practitioner as directed. Dr. Sean MD I have performed a history and physical examination and medical decision making of this patient, discussed the same with the dictator, and agree with the dictators assessment and plan as written, documented as a scribe. Based on total visit time, I have performed more than 50% of this visit. Objective - Vital Signs Vital signs: Vital Signs Temp Pulse 98 08/22/22 16:00 Resp 18 08/22/22 16:00 BP Pulse Ox 93 L 08/22/22 16:00 FiO2 40 08/22/22 10:01 Intake & Output 08/21/22 08/22/22 08/22/22 18:59 06:59 18:59 Intake Total 33.49 57.120 Balance 33.49 57.120 Intake: Intake, IV Titration 33.49 57.120 Amount Morphine Sulfate (100 mg/ 33.49 57.120 2 ml) 100 mg In Sodium Chloride 0.9% 100 ml @ 1 MG/HR 1.02 mls/hr IV . Q24H [facility] Rx#:[id number] Oral 0 Other: Voiding Method Diaper # Voids 3 2 Assessment and Plan Time with Patient: Less than 30
[2022-08-22] MEDS: MORPHINE SULFATE (100 MG/2 ML) 100 MG in SODIUM CHLORIDE 0.9% 100 ML IV SCH (16:43)
[2022-08-22] MEDS: SCOPOLAMINE 1 MG/72 HR PATCH TRANSDERM SCH (21:31)
[2022-08-22] MEDS: GLYCOPYRROLATE 0.2 MG/ML 2 ML VIAL IVP PRN (21:32)
[2022-08-23] MEDS: GLYCOPYRROLATE 0.2 MG/ML 2 ML VIAL IVP PRN ×2 (05:38→13:34)
[2022-08-23] MEDS: MORPHINE SULFATE (100 MG/2 ML) 100 MG in SODIUM CHLORIDE 0.9% 100 ML IV SCH ×2 (06:33→17:38)
[2022-08-23] MEDS: LORazepam 2 MG/ML INJ IV PRN ×2 (11:07→15:06)
[2022-08-23] MEDS: SODIUM CHLORIDE 0.9% 1,000 ML IV SCH (13:31)
[2022-08-23] MEDS ORDERED: LORazepam 2 MG/ML INJ IV PRN (15:36)
[2022-08-23] MEDS: LORazepam 2 MG/ML INJ IV SCH ×2 (15:54→20:47)
--- NOTE | 2022-08-23 20:33 | P.PN ---
Subjective This is a 72 year old male with medical history of left arm amputation and patient also has a trach and PEG tube replacement in April 2021 following hospitalization for extensive pneumonia. [facility] resides at the senior living and was sent to the hospital with concern for displaced PEG tube which was checked on admission and found to be functioning appropriately. Patient was in this facility recently and was treated for pneumonia at that time. Patient was noted to have dyspnea on admission and initial work up reveals left basilar infiltrate and small left pleural effusion. Patient utilizing trach collar with fio2 of 40%. Patient improved initially with and found to have negative procalcitonin level, there is no fever or luekocytosis. He was started on IV cefepime. Patient has a lot of secretions were tracheostomy tube and there is possibility of patient having some aspiration pneumonitis. Patient did develope low grade fever and pulmonary consultation felt patient likely having recurrent aspiration pneumonia. He was resumed on tube feedings and tolerating. Patient still suffering from thick secretions and he got agitated, he has had secretions developed through the tracheostomy tube and there are thick, he become agitated and he pulled his IV line and PEG tube. Patient had PEG tube replaced for which he did pull it out again. Patient continues with significant respiratory distress with worsening secretions. Patient had chest x-ray done showed increased E left mid and left lower lung zone may reflect atelectasis infiltrate and/or effusion he does have improved aeration in the right lung. She continued on IV antibiotic therapy with pulmonary and ID following. Patient had significant respiratory discomfort and was requiring increased oxygen. Sputum culture did come back positive for Proteus mirabilis and also stenotrophomonas maltophilia. Family at the bedside and requested hospice services and patient has been made GIP is currently evaluated on a morphine drip and scopalomine patch for his excess secretions. Patient reports having discomfort and holding left abdomen. Morphine gtt is increased. 08/22/2022 Patient is evaluated today on the medical floor. He continues on a morphine drip currently rate is infusing at 5.61 mL's per hour. Patient appears to be resting more comfortably. Is receiving Ativan IV every 4 hours. Patient maintaining oxygen saturations on a 10 L 40% FiO2 trach collar. Respirations 98. 08/23/2022 Patient looks comfortable and patient, does not look in pain, not restless. Patient is sleeping most of the time, awake for repositioning, mostly lethargic Patient continued with morphine drip He's on Ativan when necessary but he does not needed Also discussed scopolamine patch Objective - Vital Signs Vital signs: Vital Signs Temp Pulse 100 08/23/22 01:58 Resp 13 08/23/22 07:19 BP Pulse Ox 97 08/23/22 07:19 FiO2 40 08/23/22 08:24 Intake & Output 08/22/22 08/23/22 08/23/22 18:59 06:59 18:59 Intake Total 65.731 95.372 35.273 Balance 65.731 95.372 35.273 Intake: Intake, IV Titration 65.731 95.372 35.273 Amount Morphine Sulfate (100 mg/ 65.731 95.372 35.273 2 ml) 100 mg In Sodium Chloride 0.9% 100 ml @ 1 MG/HR 1.02 mls/hr IV . Q24H [facility] Rx#:[id number] Oral 0 Other: Voiding Method Diaper Incontinent Incontinent # Voids 3 4 - Exam -GENERAL: The patient is sleeping comfortable, no distress HEENT: Pupils are round and equally reacting to light. EOMI. No scleral icterus. No conjunctival pallor. Normocephalic, atraumatic. No pharyngeal erythema. No thyromegaly. Trachea: CARDIOVASCULAR: S1 and S2 present. No murmurs, rubs, or gallops. PULMONARY: Chest is clear to auscultation, no wheezing or crackles. ABDOMEN: Soft, nontender, nondistended, normoactive bowel sounds. No palpable organomegaly. MUSCULOSKELETAL: No joint swelling or deformity. EXTREMITIES: No cyanosis, clubbing, or pedal edema. NEUROLOGICAL: Gross neurological examination did not reveal any focal deficits. SKIN: No rashes. no petechiae. Assessment and Plan Assessment: Progressive aspiration pneumonitis rather than infectious pneumonia Acute hypoxic respiratory failure, resolved History of tracheostomy and PEG tube in April 2021 History of left arm amputation Plan: Continue with End-of-life care, hospice care Continue with morphine drip Continue with the scalpel in patch Ativan when necessary, although not needed Monitor for any signs of restlessness or agony Prognosis is very poor DO NOT RESUSCITATE
[2022-08-24] MEDS: LORazepam 2 MG/ML INJ IV SCH ×6 (00:08→21:14)
[2022-08-24] MEDS: MORPHINE SULFATE (100 MG/2 ML) 100 MG in SODIUM CHLORIDE 0.9% 100 ML IV SCH ×5 (01:33→23:55)
[2022-08-24 09:52] VITALS: BMI 21.7
[2022-08-24] MEDS: SODIUM CHLORIDE 0.9% 1,000 ML IV SCH (18:32)
--- NOTE | 2022-08-24 20:35 | P.PN ---
Subjective This is a 72 year old male with medical history of left arm amputation and patient also has a trach and PEG tube replacement in April 2021 following hospitalization for extensive pneumonia. [facility] and was [facility] to the hospital with concern for displaced PEG tube which was checked on admission and found to be functioning appropriately. Patient was in this facility recently and was treated for pneumonia at that time. Patient was noted to have dyspnea on admission and initial work up reveals left basilar infiltrate and small left pleural effusion. Patient utilizing trach collar with fio2 of 40%. Patient improved initially with and found to have negative procalcitonin level, there is no fever or luekocytosis. He was started on IV cefepime. Patient has a lot of secretions were tracheostomy tube and there is possibility of patient having some aspiration pneumonitis. Patient did develope low grade fever and pulmonary consultation felt patient likely having recurrent aspiration pneumonia. He was resumed on tube feedings and tolerating. Patient still suffering from thick secretions and he got agitated, he has had secretions developed through the tracheostomy tube and there are thick, he become agitated and he pulled his IV line and PEG tube. Patient had PEG tube replaced for which he did pull it out again. Patient continues with significant respiratory distress with worsening secretions. Patient had chest x-ray done showed increased E left mid and left lower lung zone may reflect atelectasis infiltrate and/or effusion he does have improved aeration in the right lung. She continued on IV antibiotic therapy with pulmonary and ID following. Patient had significant respiratory discomfort and was requiring increased oxygen. Sputum culture did come back positive for Proteus mirabilis and also stenotrophomonas maltophilia. Family at the bedside and requested hospice services and patient has been made GIP is currently evaluated on a morphine drip and scopalomine patch for his excess secretions. Patient reports having discomfort and holding left abdomen. Morphine gtt is increased. 08/22/2022 Patient is evaluated today on the medical floor. He continues on a morphine drip currently rate is infusing at 5.61 mL's per hour. Patient appears to be resting more comfortably. Is receiving Ativan IV every 4 hours. Patient maintaining oxygen saturations on a 10 L 40% FiO2 trach collar. Respirations 98. 08/23/2022 Patient looks comfortable and patient, does not look in pain, not restless. Patient is sleeping most of the time, awake for repositioning, mostly lethargic Patient continued with morphine drip He's on Ativan when necessary but he does not needed Also discussed scopolamine patch 08/24/2029 Patient looks comfortable, he is sleeping most of the time Continue with morphine drip Breathing is quiet, no respiratory distress. We will continue with hospice care, continue monitoring Objective - Vital Signs Vital signs: Vital Signs Temp Pulse 84 08/24/22 06:50 Resp 12 08/24/22 09:37 BP Pulse Ox 86 L 08/24/22 09:37 FiO2 35 08/24/22 07:57 Intake & Output 08/23/22 08/24/22 08/24/22 18:59 06:59 18:59 Intake Total 93.623 83.25 119.317 Balance 93.623 83.25 119.317 Weight 61 kg Intake: Intake, IV Titration 93.623 83.25 119.317 Amount Morphine Sulfate (100 mg/ 93.623 83.25 119.317 2 ml) 100 mg In Sodium Chloride 0.9% 100 ml @ 1 MG/HR 1.02 mls/hr IV . Q24H [facility] Rx#:[id number] Other: Voiding Method Incontinent Diaper # Voids 1 4 - Exam -GENERAL: The patient is sleeping comfortable, no distress HEENT: Pupils are round and equally reacting to light. EOMI. No scleral icterus. No conjunctival pallor. Normocephalic, atraumatic. No pharyngeal erythema. No thyromegaly. Trachea: CARDIOVASCULAR: S1 and S2 present. No murmurs, rubs, or gallops. PULMONARY: Chest is clear to auscultation, no wheezing or crackles. ABDOMEN: Soft, nontender, nondistended, normoactive bowel sounds. No palpable organomegaly. MUSCULOSKELETAL: No joint swelling or deformity. EXTREMITIES: No cyanosis, clubbing, or pedal edema. NEUROLOGICAL: Gross neurological examination did not reveal any focal deficits. SKIN: No rashes. no petechiae. Assessment and Plan Assessment: Progressive aspiration pneumonitis rather than infectious pneumonia Acute hypoxic respiratory failure, resolved History of tracheostomy and PEG tube in April 2021 History of left arm amputation Plan: Continue with End-of-life care, hospice care Continue with morphine drip Continue with the scalpel in patch Ativan when necessary, although not needed Monitor for any signs of restlessness or agony Prognosis is very poor DO NOT RESUSCITATE
[2022-08-25] MEDS: LORazepam 2 MG/ML INJ IV SCH ×7 (00:13→23:48)
[2022-08-25] MEDS: MORPHINE SULFATE (100 MG/2 ML) 100 MG in SODIUM CHLORIDE 0.9% 100 ML IV SCH ×6 (04:27→22:56)
[2022-08-25 09:58] VITALS: BP 85/70; TEMP 98.2
--- NOTE | 2022-08-25 17:07 | P.PN ---
Subjective This is a 72 year old male with medical history of left arm amputation and patient also has a trach and PEG tube replacement in April 2021 following hospitalization for extensive pneumonia. [facility] and was sent to the hospital with concern for displaced PEG tube which was checked on admission and found to be functioning appropriately. Patient was in this facility recently and was treated for pneumonia at that time. Patient was noted to have dyspnea on admission and initial work up reveals left basilar infiltrate and small left pleural effusion. Patient utilizing trach collar with fio2 of 40%. Patient improved initially with and found to have negative procalcitonin level, there is no fever or luekocytosis. He was started on IV cefepime. Patient has a lot of secretions were tracheostomy tube and there is possibility of patient having some aspiration pneumonitis. Patient did develope low grade fever and pulmonary consultation felt patient likely having recurrent aspiration pneumonia. He was resumed on tube feedings and tolerating. Patient still suffering from thick secretions and he got agitated, he has had secretions developed through the tracheostomy tube and there are thick, he become agitated and he pulled his IV line and PEG tube. Patient had PEG tube replaced for which he did pull it out again. Patient continues with significant respiratory distress with worsening secretions. Patient had chest x-ray done showed increased E left mid and left lower lung zone may reflect atelectasis infiltrate and/or effusion he does have improved aeration in the right lung. She continued on IV antibiotic therapy with pulmonary and ID following. Patient had significant respiratory discomfort and was requiring increased oxygen. Sputum culture did come back positive for Proteus mirabilis and also stenotrophomonas maltophilia. Family at the bedside and requested hospice services and patient has been made GIP is currently evaluated on a morphine drip and scopalomine patch for his excess secretions. Patient reports having discomfort and holding left abdomen. Morphine gtt is increased. 08/22/2022 Patient is evaluated today on the medical floor. He continues on a morphine drip currently rate is infusing at 5.61 mL's per hour. Patient appears to be resting more comfortably. Is receiving Ativan IV every 4 hours. Patient maintaining oxygen saturations on a 10 L 40% FiO2 trach collar. Respirations 98. 08/23/2022 Patient looks comfortable and patient, does not look in pain, not restless. Patient is sleeping most of the time, awake for repositioning, mostly lethargic Patient continued with morphine drip He's on Ativan when necessary but he does not needed Also discussed scopolamine patch 08/24/2022 Patient looks comfortable, he is sleeping most of the time Continue with morphine drip Breathing is quiet, no respiratory distress. We will continue with hospice care, continue monitoring 08/25/2022 Patient becomes more obtunded. No distress, does not look in pain. Looks comfortable Continue with hospice care measures Prognosis is very guarded and poor Objective - Vital Signs Vital signs: Vital Signs Temp 98.2 F 08/25/22 07:33 Pulse 104 H 08/25/22 08:00 Resp 18 08/25/22 08:00 BP 85/70 08/25/22 07:33 Pulse Ox 85 L 08/25/22 07:33 FiO2 35 08/25/22 10:08 Intake & Output 08/24/22 08/25/22 08/25/22 18:59 06:59 18:59 Intake Total 225.450 270.75 185.833 Balance 225.450 270.75 185.833 Weight 61 kg Intake: Intake, IV Titration 225.450 270.75 185.833 Amount Morphine Sulfate (100 mg/ 225.450 270.75 185.833 2 ml) 100 mg In Sodium Chloride 0.9% 100 ml @ 1 MG/HR 1.02 mls/hr IV . Q24H [facility] Rx#:[id number] Other: Voiding Method Diaper # Voids 3 1 - Exam -GENERAL: The patient is sleeping comfortable, no distress HEENT: Pupils are round and equally reacting to light. EOMI. No scleral icterus. No conjunctival pallor. Normocephalic, atraumatic. No pharyngeal erythema. No thyromegaly. Trachea: CARDIOVASCULAR: S1 and S2 present. No murmurs, rubs, or gallops. PULMONARY: Chest is clear to auscultation, no wheezing or crackles. ABDOMEN: Soft, nontender, nondistended, normoactive bowel sounds. No palpable organomegaly. MUSCULOSKELETAL: No joint swelling or deformity. EXTREMITIES: No cyanosis, clubbing, or pedal edema. NEUROLOGICAL: Gross neurological examination did not reveal any focal deficits. SKIN: No rashes. no petechiae. Assessment and Plan Assessment: Progressive aspiration pneumonitis rather than infectious pneumonia Acute hypoxic respiratory failure, resolved History of tracheostomy and PEG tube in April 2021 History of left arm amputation Plan: Continue with End-of-life care, hospice care Continue with morphine drip Continue with the scalpel in patch Ativan when necessary, although not needed Monitor for any signs of restlessness or agony Prognosis is very poor DO NOT RESUSCITATE
[2022-08-25] MEDS: SODIUM CHLORIDE 0.9% 1,000 ML IV SCH (21:09)
[2022-08-25] MEDS: SCOPOLAMINE 1 MG/72 HR PATCH TRANSDERM SCH (22:57)
[2022-08-26] MEDS: MORPHINE SULFATE (100 MG/2 ML) 100 MG in SODIUM CHLORIDE 0.9% 100 ML IV SCH ×7 (02:43→22:34)
[2022-08-26] MEDS: LORazepam 2 MG/ML INJ IV SCH ×6 (02:44→23:58)
[2022-08-26] MEDS: SODIUM CHLORIDE 0.9% 1,000 ML IV SCH (19:36)
[2022-08-26 20:17] VITALS: PULSE 109
--- NOTE | 2022-08-26 21:26 | P.PN ---
Subjective This is a 72 year old male with medical history of left arm amputation and patient also has a trach and PEG tube replacement in April 2021 following hospitalization for extensive pneumonia. [facility] and was sent to the hospital with concern for displaced PEG tube which was checked on admission and found to be functioning appropriately. Patient was in this facility recently and was treated for pneumonia at that time. Patient was noted to have dyspnea on admission and initial work up reveals left basilar infiltrate and small left pleural effusion. Patient utilizing trach collar with fio2 of 40%. Patient improved initially with and found to have negative procalcitonin level, there is no fever or luekocytosis. He was started on IV cefepime. Patient has a lot of secretions were tracheostomy tube and there is possibility of patient having some aspiration pneumonitis. Patient did develope low grade fever and pulmonary consultation felt patient likely having recurrent aspiration pneumonia. He was resumed on tube feedings and tolerating. Patient still suffering from thick secretions and he got agitated, he has had secretions developed through the tracheostomy tube and there are thick, he become agitated and he pulled his IV line and PEG tube. Patient had PEG tube replaced for which he did pull it out again. Patient continues with significant respiratory distress with worsening secretions. Patient had chest x-ray done showed increased E left mid and left lower lung zone may reflect atelectasis infiltrate and/or effusion he does have improved aeration in the right lung. She continued on IV antibiotic therapy with pulmonary and ID following. Patient had significant respiratory discomfort and was requiring increased oxygen. Sputum culture did come back positive for Proteus mirabilis and also stenotrophomonas maltophilia. Family at the bedside and requested hospice services and patient has been made GIP is currently evaluated on a morphine drip and scopalomine patch for his excess secretions. Patient reports having discomfort and holding left abdomen. Morphine gtt is increased. 08/22/2022 Patient is evaluated today on the medical floor. He continues on a morphine drip currently rate is infusing at 5.61 mL's per hour. Patient appears to be resting more comfortably. Is receiving Ativan IV every 4 hours. Patient maintaining oxygen saturations on a 10 L 40% FiO2 trach collar. Respirations 98. 08/23/2022 Patient looks comfortable and patient, does not look in pain, not restless. Patient is sleeping most of the time, awake for repositioning, mostly lethargic Patient continued with morphine drip He's on Ativan when necessary but he does not needed Also discussed scopolamine patch 08/24/2022 Patient looks comfortable, he is sleeping most of the time Continue with morphine drip Breathing is quiet, no respiratory distress. We will continue with hospice care, continue monitoring 08/25/2022 Patient becomes more obtunded. No distress, does not look in pain. Looks comfortable Continue with hospice care measures Prognosis is very guarded and poor 08/26/2022 patient looks obtunded today, Apparently he is getting close to the end he is not in distress Continue with hospice care measures Objective - Vital Signs Vital signs: Vital Signs Temp 98.2 F 08/25/22 07:33 Pulse 108 H 08/26/22 08:00 Resp 9 L 08/26/22 08:00 BP 85/70 08/25/22 07:33 Pulse Ox 85 L 08/25/22 07:33 FiO2 35 08/26/22 07:45 Intake & Output 08/25/22 08/26/22 08/26/22 18:59 06:59 18:59 Intake Total 272.083 375.000 101.666 Balance 272.083 375.000 101.666 Intake: Intake, IV Titration 272.083 375.000 101.666 Amount Morphine Sulfate (100 mg/ 272.083 375.000 101.666 2 ml) 100 mg In Sodium Chloride 0.9% 100 ml @ 1 MG/HR 1.02 mls/hr IV . Q24H [facility] Rx#:[id number] Other: Voiding Method Diaper Diaper # Voids 0 1 # Bowel Movements 0 - Exam -GENERAL: The patient is sleeping comfortable, no distress HEENT: Pupils are round and equally reacting to light. EOMI. No scleral icterus. No conjunctival pallor. Normocephalic, atraumatic. No pharyngeal erythema. No thyromegaly. Trachea: CARDIOVASCULAR: S1 and S2 present. No murmurs, rubs, or gallops. PULMONARY: Chest is clear to auscultation, no wheezing or crackles. ABDOMEN: Soft, nontender, nondistended, normoactive bowel sounds. No palpable organomegaly. MUSCULOSKELETAL: No joint swelling or deformity. EXTREMITIES: No cyanosis, clubbing, or pedal edema. NEUROLOGICAL: Gross neurological examination did not reveal any focal deficits. SKIN: No rashes. no petechiae. Assessment and Plan Assessment: Progressive aspiration pneumonitis rather than infectious pneumonia Acute hypoxic respiratory failure, resolved History of tracheostomy and PEG tube in April 2021 History of left arm amputation Plan: Continue with End-of-life care, hospice care Continue with morphine drip Continue with the scalpel in patch Ativan when necessary, although not needed Monitor for any signs of restlessness or agony Prognosis is very poor DO NOT RESUSCITATE
[2022-08-27] MEDS: MORPHINE SULFATE (100 MG/2 ML) 100 MG in SODIUM CHLORIDE 0.9% 100 ML IV SCH ×2 (01:43→04:34)
[2022-08-27] MEDS: LORazepam 2 MG/ML INJ IV SCH ×5 (04:33→20:02)
[2022-08-27] MEDS: MORPHINE SULFATE IV SCH ×3 (07:08→19:58)
[2022-08-27] MEDS: SODIUM CHLORIDE 0.9% IV SCH ×3 (07:08→19:58)
--- NOTE | 2022-08-27 17:04 | P.PN ---
Subjective This is a 72 year old male with medical history of left arm amputation and patient also has a trach and PEG tube replacement in April 2021 following hospitalization for extensive pneumonia. [facility] and was sent to the hospital with concern for displaced PEG tube which was checked on admission and found to be functioning appropriately. Patient was in this facility recently and was treated for pneumonia at that time. Patient was noted to have dyspnea on admission and initial work up reveals left basilar infiltrate and small left pleural effusion. Patient utilizing trach collar with fio2 of 40%. Patient improved initially with and found to have negative procalcitonin level, there is no fever or luekocytosis. He was started on IV cefepime. Patient has a lot of secretions were tracheostomy tube and there is possibility of patient having some aspiration pneumonitis. Patient did develope low grade fever and pulmonary consultation felt patient likely having recurrent aspiration pneumonia. He was resumed on tube feedings and tolerating. Patient still suffering from thick secretions and he got agitated, he has had secretions developed through the tracheostomy tube and there are thick, he become agitated and he pulled his IV line and PEG tube. Patient had PEG tube replaced for which he did pull it out again. Patient continues with significant respiratory distress with worsening secretions. Patient had chest x-ray done showed increased E left mid and left lower lung zone may reflect atelectasis infiltrate and/or effusion he does have improved aeration in the right lung. She continued on IV antibiotic therapy with pulmonary and ID following. Patient had significant respiratory discomfort and was requiring increased oxygen. Sputum culture did come back positive for Proteus mirabilis and also stenotrophomonas maltophilia. Family at the bedside and requested hospice services and patient has been made GIP is currently evaluated on a morphine drip and scopalomine patch for his excess secretions. Patient reports having discomfort and holding left abdomen. Morphine gtt is increased. 08/22/2022 Patient is evaluated today on the medical floor. He continues on a morphine drip currently rate is infusing at 5.61 mL's per hour. Patient appears to be resting more comfortably. Is receiving Ativan IV every 4 hours. Patient maintaining oxygen saturations on a 10 L 40% FiO2 trach collar. Respirations 98. 08/23/2022 Patient looks comfortable and patient, does not look in pain, not restless. Patient is sleeping most of the time, awake for repositioning, mostly lethargic Patient continued with morphine drip He's on Ativan when necessary but he does not needed Also discussed scopolamine patch 08/24/2022 Patient looks comfortable, he is sleeping most of the time Continue with morphine drip Breathing is quiet, no respiratory distress. We will continue with hospice care, continue monitoring 08/25/2022 Patient becomes more obtunded. No distress, does not look in pain. Looks comfortable Continue with hospice care measures Prognosis is very guarded and poor 08/26/2022 patient looks obtunded today, Apparently he is getting close to the end he is not in distress Continue with hospice care measures 08/27/2022 Patient becomes more obtunded, less responsive He is not in distress, he looks comfortable Remains on morphine drip and hospice care measures Objective - Vital Signs Vital signs: Vital Signs Temp 98.2 F 08/25/22 07:33 Pulse 109 H 08/26/22 19:51 Resp 20 08/27/22 02:12 BP 85/70 08/25/22 07:33 Pulse Ox 83 L 08/27/22 10:17 FiO2 35 08/27/22 10:17 Intake & Output 08/26/22 08/27/22 08/27/22 18:59 06:59 18:59 Intake Total 290.033 428.667 Balance 290.033 428.667 Intake: Intake, IV Titration 290.033 428.667 Amount Morphine Sulfate (100 mg/ 290.033 428.667 2 ml) 100 mg In Sodium Chloride 0.9% 100 ml @ 1 MG/HR 1.02 mls/hr IV . Q24H [facility] Rx#:[id number] Oral 0 Other: Voiding Method Diaper # Voids 0 1 - Exam -GENERAL: The patient is sleeping comfortable, no distress HEENT: Pupils are round and equally reacting to light. EOMI. No scleral icterus. No conjunctival pallor. Normocephalic, atraumatic. No pharyngeal erythema. No thyromegaly. Trachea: CARDIOVASCULAR: S1 and S2 present. No murmurs, rubs, or gallops. PULMONARY: Chest is clear to auscultation, no wheezing or crackles. ABDOMEN: Soft, nontender, nondistended, normoactive bowel sounds. No palpable organomegaly. MUSCULOSKELETAL: No joint swelling or deformity. EXTREMITIES: No cyanosis, clubbing, or pedal edema. NEUROLOGICAL: Gross neurological examination did not reveal any focal deficits. SKIN: No rashes. no petechiae. Assessment and Plan Assessment: Progressive aspiration pneumonitis rather than infectious pneumonia Acute hypoxic respiratory failure, resolved History of tracheostomy and PEG tube in April 2021 History of left arm amputation Plan: Continue with End-of-life care, hospice care Continue with morphine drip Continue with the scalpel in patch Ativan when necessary, although not needed Monitor for any signs of restlessness or agony Prognosis is very poor DO NOT RESUSCITATE
[2022-08-27] MEDS: SODIUM CHLORIDE 0.9% 1,000 ML IV SCH (19:59)
[2022-08-28] MEDS: MORPHINE SULFATE IV SCH ×7 (00:06→22:20)
[2022-08-28] MEDS: SODIUM CHLORIDE 0.9% IV SCH ×7 (00:06→22:20)
[2022-08-28] MEDS: LORazepam 2 MG/ML INJ IV SCH ×6 (00:14→20:27)
[2022-08-28] MEDS: SODIUM CHLORIDE 0.9% 1,000 ML IV SCH (11:23)
--- NOTE | 2022-08-28 13:56 | P.PN ---
Subjective This is a 72 year old male with medical history of left arm amputation and patient also has a trach and PEG tube replacement in April 2021 following hospitalization for extensive pneumonia. [facility] and was [facility] to the hospital with concern for displaced PEG tube which was checked on admission and found to be functioning appropriately. Patient was in this facility recently and was treated for pneumonia at that time. Patient was noted to have dyspnea on admission and initial work up reveals left basilar infiltrate and small left pleural effusion. Patient utilizing trach collar with fio2 of 40%. Patient improved initially with and found to have negative procalcitonin level, there is no fever or luekocytosis. He was started on IV cefepime. Patient has a lot of secretions were tracheostomy tube and there is possibility of patient having some aspiration pneumonitis. Patient did develope low grade fever and pulmonary consultation felt patient likely having recurrent aspiration pneumonia. He was resumed on tube feedings and tolerating. Patient still suffering from thick secretions and he got agitated, he has had secretions developed through the tracheostomy tube and there are thick, he become agitated and he pulled his IV line and PEG tube. Patient had PEG tube replaced for which he did pull it out again. Patient continues with significant respiratory distress with worsening secretions. Patient had chest x-ray done showed increased E left mid and left lower lung zone may reflect atelectasis infiltrate and/or effusion he does have improved aeration in the right lung. She continued on IV antibiotic therapy with pulmonary and ID following. Patient had significant respiratory discomfort and was requiring increased oxygen. Sputum culture did come back positive for Proteus mirabilis and also stenotrophomonas maltophilia. Family at the bedside and requested hospice services and patient has been made GIP is currently evaluated on a morphine drip and scopalomine patch for his excess secretions. Patient reports having discomfort and holding left abdomen. Morphine gtt is increased. 08/22/2022 Patient is evaluated today on the medical floor. He continues on a morphine drip currently rate is infusing at 5.61 mL's per hour. Patient appears to be resting more comfortably. Is receiving Ativan IV every 4 hours. Patient maintaining oxygen saturations on a 10 L 40% FiO2 trach collar. Respirations 98. 08/23/2022 Patient looks comfortable and patient, does not look in pain, not restless. Patient is sleeping most of the time, awake for repositioning, mostly lethargic Patient continued with morphine drip He's on Ativan when necessary but he does not needed Also discussed scopolamine patch 08/24/2022 Patient looks comfortable, he is sleeping most of the time Continue with morphine drip Breathing is quiet, no respiratory distress. We will continue with hospice care, continue monitoring 08/25/2022 Patient becomes more obtunded. No distress, does not look in pain. Looks comfortable Continue with hospice care measures Prognosis is very guarded and poor 08/26/2022 patient looks obtunded today, Apparently he is getting close to the end he is not in distress Continue with hospice care measures 08/27/2022 Patient becomes more obtunded, less responsive He is not in distress, he looks comfortable Remains on morphine drip and hospice care measures 08/28/2022 Patient comfortable, unresponsive Remains on morphine drip and hospice care measures Objective - Vital Signs Vital signs: Vital Signs Temp 98.2 F 08/25/22 07:33 Pulse 109 H 08/26/22 19:51 Resp 24 08/28/22 08:00 BP 85/70 08/25/22 07:33 Pulse Ox 94 L 08/28/22 07:42 FiO2 35 08/28/22 07:42 Intake & Output 08/27/22 08/28/22 08/28/22 18:59 06:59 18:59 Intake Total 100.000 298.8 173.167 Balance 100.000 298.8 173.167 Intake: Intake, IV Titration 100.000 298.8 173.167 Amount Morphine Sulfate (100 mg/ 100.000 298.8 173.167 2 ml) 200 mg In Sodium Chloride 0.9% 80 ml @ 1 MG/HR 0.5 mls/hr IV .Q24H [facility] Rx#:[id number] Oral 0 Other: Voiding Method Diaper # Voids 1 1 - Exam -GENERAL: The patient is sleeping comfortable, no distress HEENT: Pupils are round and equally reacting to light. EOMI. No scleral icterus. No conjunctival pallor. Normocephalic, atraumatic. No pharyngeal erythema. No thyromegaly. Trachea: CARDIOVASCULAR: S1 and S2 present. No murmurs, rubs, or gallops. PULMONARY: Chest is clear to auscultation, no wheezing or crackles. ABDOMEN: Soft, nontender, nondistended, normoactive bowel sounds. No palpable organomegaly. MUSCULOSKELETAL: No joint swelling or deformity. EXTREMITIES: No cyanosis, clubbing, or pedal edema. NEUROLOGICAL: Gross neurological examination did not reveal any focal deficits. SKIN: No rashes. no petechiae. Assessment and Plan Assessment: Progressive aspiration pneumonitis rather than infectious pneumonia Acute hypoxic respiratory failure, resolved History of tracheostomy and PEG tube in April 2021 History of left arm amputation Plan: Continue with End-of-life care, hospice care Continue with morphine drip Continue with the scalpel in patch Ativan when necessary, although not needed Monitor for any signs of restlessness or agony Prognosis is very poor DO NOT RESUSCITATE
[2022-08-28] MEDS: SCOPOLAMINE 1 MG/72 HR PATCH TRANSDERM SCH (20:27)
[2022-08-29] MEDS: LORazepam 2 MG/ML INJ IV SCH ×7 (01:00→23:55)
[2022-08-29] MEDS: SODIUM CHLORIDE 0.9% IV SCH ×9 (01:24→23:51)
[2022-08-29] MEDS: MORPHINE SULFATE IV SCH ×9 (01:24→23:51)
--- NOTE | 2022-08-29 10:50 | P.PN ---
Subjective This is a 72 year old male with medical history of left arm amputation and patient also has a trach and PEG tube replacement in April 2021 following hospitalization for extensive pneumonia. [facility] and was sent to the hospital with concern for displaced PEG tube which was checked on admission and found to be functioning appropriately. Patient was in this facility recently and was treated for pneumonia at that time. Patient was noted to have dyspnea on admission and initial work up reveals left basilar infiltrate and small left pleural effusion. Patient utilizing trach collar with fio2 of 40%. Patient improved initially with and found to have negative procalcitonin level, there is no fever or luekocytosis. He was started on IV cefepime. Patient has a lot of secretions were tracheostomy tube and there is possibility of patient having some aspiration pneumonitis. Patient did develope low grade fever and pulmonary consultation felt patient likely having recurrent aspiration pneumonia. He was resumed on tube feedings and tolerating. Patient still suffering from thick secretions and he got agitated, he has had secretions developed through the tracheostomy tube and there are thick, he become agitated and he pulled his IV line and PEG tube. Patient had PEG tube replaced for which he did pull it out again. Patient continues with significant respiratory distress with worsening secretions. Patient had chest x-ray done showed increased E left mid and left lower lung zone may reflect atelectasis infiltrate and/or effusion he does have improved aeration in the right lung. She continued on IV antibiotic therapy with pulmonary and ID following. Patient had significant respiratory discomfort and was requiring increased oxygen. Sputum culture did come back positive for Proteus mirabilis and also stenotrophomonas maltophilia. Family at the bedside and requested hospice services and patient has been made GIP is currently evaluated on a morphine drip and scopalomine patch for his excess secretions. Patient reports having discomfort and holding left abdomen. Morphine gtt is increased. 08/22/2022 Patient is evaluated today on the medical floor. He continues on a morphine drip currently rate is infusing at 5.61 mL's per hour. Patient appears to be resting more comfortably. Is receiving Ativan IV every 4 hours. Patient maintaining oxygen saturations on a 10 L 40% FiO2 trach collar. Respirations 98. 08/23/2022 Patient looks comfortable and patient, does not look in pain, not restless. Patient is sleeping most of the time, awake for repositioning, mostly lethargic Patient continued with morphine drip He's on Ativan when necessary but he does not needed Also discussed scopolamine patch 08/24/2022 Patient looks comfortable, he is sleeping most of the time Continue with morphine drip Breathing is quiet, no respiratory distress. We will continue with hospice care, continue monitoring 08/25/2022 Patient becomes more obtunded. No distress, does not look in pain. Looks comfortable Continue with hospice care measures Prognosis is very guarded and poor 08/26/2022 patient looks obtunded today, Apparently he is getting close to the end he is not in distress Continue with hospice care measures 08/27/2022 Patient becomes more obtunded, less responsive He is not in distress, he looks comfortable Remains on morphine drip and hospice care measures 08/28/2022 Patient comfortable, unresponsive Remains on morphine drip and hospice care measures 08/29/2022 Patient remains obtunded, breathing quietly. No much secretions Continued on morphine drip once, and scopolamine patch Objective - Vital Signs Vital signs: Vital Signs Temp 98.2 F 08/25/22 07:33 Pulse 109 H 08/26/22 19:51 Resp 24 08/29/22 07:28 BP 85/70 08/25/22 07:33 Pulse Ox 94 L 08/28/22 07:42 FiO2 28 08/29/22 07:50 Intake & Output 08/28/22 08/29/22 08/29/22 18:59 06:59 18:59 Intake Total 373.167 286 180 Output Total 400 250 Balance -26.833 36 180 Intake: Intake, IV Titration 373.167 286 180 Amount Morphine Sulfate (100 mg/ 373.167 286 180 2 ml) 200 mg In Sodium Chloride 0.9% 80 ml @ 1 MG/HR 0.5 mls/hr IV .Q24H [facility] Rx#:[id number] Output: Urine 400 250 Other: Voiding Method Diaper Indwelling Catheter Indwelling Catheter - Exam -GENERAL: The patient is sleeping comfortable, no distress HEENT: Pupils are round and equally reacting to light. EOMI. No scleral icterus. No conjunctival pallor. Normocephalic, atraumatic. No pharyngeal erythema. No thyromegaly. Trachea: CARDIOVASCULAR: S1 and S2 present. No murmurs, rubs, or gallops. PULMONARY: Chest is clear to auscultation, no wheezing or crackles. ABDOMEN: Soft, nontender, nondistended, normoactive bowel sounds. No palpable organomegaly. MUSCULOSKELETAL: No joint swelling or deformity. EXTREMITIES: No cyanosis, clubbing, or pedal edema. NEUROLOGICAL: Gross neurological examination did not reveal any focal deficits. SKIN: No rashes. no petechiae. Assessment and Plan Assessment: Progressive aspiration pneumonitis rather than infectious pneumonia Acute hypoxic respiratory failure, resolved History of tracheostomy and PEG tube in April 2021 History of left arm amputation Plan: Continue with End-of-life care, hospice care Continue with morphine drip Continue with the scalpel in patch Ativan when necessary, although not needed Monitor for any signs of restlessness or agony Prognosis is very poor DO NOT RESUSCITATE
[2022-08-29] MEDS: SODIUM CHLORIDE 0.9% 1,000 ML IV SCH (11:48)
[2022-08-30 01:38] VITALS: RESP 22
[2022-08-30] MEDS: SODIUM CHLORIDE 0.9% IV SCH ×3 (01:58→06:08)
[2022-08-30] MEDS: MORPHINE SULFATE IV SCH ×3 (01:58→06:08)
[2022-08-30] MEDS: LORazepam 2 MG/ML INJ IV SCH (04:54)
[2022-08-30] MEDS: GLYCOPYRROLATE 0.2 MG/ML 2 ML VIAL IVP PRN (05:24)
--- NOTE | 2022-08-30 20:25 | P.DS ---
Providers Date of admission: 08/20/22 11:33 Attending physician: Ant Wyatt MD Primary care physician: Amaris Jiménez DO Hospital Course: Diagnoses: Progressive aspiration pneumonitis rather than infectious pneumonia Acute hypoxic respiratory failure, resolved History of tracheostomy and PEG tube in April 2021 History of left arm amputation Hospital course This is a 72 year old male with medical history of left arm amputation and patient also has a trach and PEG tube replacement in April 2021 following hospitalization for extensive pneumonia. [facility] with concern for displaced PEG tube which was checked on admission and found to be functioning appropriately. Patient was in this facility recently and was treated for pneumonia at that time. Patient was noted to have dyspnea on admission and initial work up reveals left basilar infiltrate and small left pleural effusion. Patient utilizing trach collar with fio2 of 40%. Patient improved initially with and found to have negative pr ocalcitonin level, there is no fever or luekocytosis. He was started on IV cefepime. Patient has a lot of secretions were tracheostomy tube and there is possibility of patient having some aspiration pneumonitis. Patient did develope low grade fever and pulmonary consultation felt patient likely having recurrent aspiration pneumonia. He was resumed on tube feedings and tolerating. Patient still suffering from thick secretions and he got agitated, he has had secretions developed through the tracheostomy tube and there are thick, he become agitated and he pulled his IV line and PEG tube. Patient had PEG tube replaced for which he did pull it out again. Patient continues with significant respiratory distress with worsening secretions. Patient had chest x-ray done showed increased E left mid and left lower lung zone may reflect atelectasis infiltrate and/or effusion he does have improved aeration in the right lung. She continued on IV antibiotic therapy with pulmonary and ID following. Patient had significant respiratory discomfort and was requiring increased oxygen. Sputum culture did come back positive for Proteus mirabilis and also stenotrophomonas maltophilia. Family at the bedside and requested hospice services and patient has been made GIP is currently evaluated on a morphine drip and scopalomine patch for his excess secretions. Patient reports having discomfort and holding left abdomen. Morphine gtt is increased. 08/22/2022 Patient is evaluated today on the medical floor. He continues on a morphine drip currently rate is infusing at 5.61 mL's per hour. Patient appears to be resting more comfortably. Is receiving Ativan IV every 4 hours. Patient maintaining oxygen saturations on a 10 L 40% FiO2 trach collar. Respirations 98. 08/23/2022 Patient looks comfortable and patient, does not look in pain, not restless. Patient is sleeping most of the time, awake for repositioning, mostly lethargic Patient continued with morphine drip He's on Ativan when necessary but he does not needed Also discussed scopolamine patch 08/24/2022 Patient looks comfortable, he is sleeping most of the time Continue with morphine drip Breathing is quiet, no respiratory distress. We will continue with hospice care, continue monitoring 08/25/2022 Patient becomes more obtunded. No distress, does not look in pain. Looks comfortable Continue with hospice care measures Prognosis is very guarded and poor 08/26/2022 patient looks obtunded today, Apparently he is getting close to the end he is not in distress Continue with hospice care measures 08/27/2022 Patient becomes more obtunded, less responsive He is not in distress, he looks comfortable Remains on morphine drip and hospice care measures 08/28/2022 Patient comfortable, unresponsive Remains on morphine drip and hospice care measures 08/29/2022 Patient remains obtunded, breathing quietly. No much secretions Continued on morphine drip once, and scopolamine patch 08/30/2022 Patient was obtunded, not in distress, his breathing was shallow. Unresponsive Patient was placed on hospice care measures Patient eventually As expected at 6:54. Discussed with the bedside nurse and family were notified. Staff: The upper procedure Physical Exam prior to expiration -GENERAL: The patient is sleeping comfortable, no distress HEENT: Pupils are round and equally reacting to light. EOMI. No scleral icterus. No conjunctival pallor. Normocephalic, atraumatic. No pharyngeal erythema. No thyromegaly. Trachea: CARDIOVASCULAR: S1 and S2 present. No murmurs, rubs, or gallops. PULMONARY: Chest is clear to auscultation, no wheezing or crackles. ABDOMEN: Soft, nontender, nondistended, normoactive bowel sounds. No palpable organomegaly. MUSCULOSKELETAL: No joint swelling or deformity. EXTREMITIES: No cyanosis, clubbing, or pedal edema. NEUROLOGICAL: Gross neurological examination did not reveal any focal deficits. SKIN: No rashes. no petechiae. Plan - Discharge Summary New Discharge Prescriptions: No Action RX: L.acidoph,Paracasei, B.lactis [Probiotic] 1 cap PEG/G-TUBE BID RX: Famotidine [Pepcid] 20 mg PEG/G-TUBE BID RX: Sertraline HCl [Sertraline HCl Oral Conc] 50 mg PEG/G-TUBE DAILY RX: Furosemide 40 mg PEG/G-TUBE DAILY Atropine Ophth Soln 1% 5Ml [Isopto Atropine 1% 5Ml] 2 drop BUCCAL BID Amino Acids/Protein Hydrolys [Pro-Stat Awc Liquid] 1 dose PO HS RX: Potassium Chloride 20 meq PEG/G-TUBE DAILY Donepezil [Aricept] 5 mg PEG/G-TUBE DAILY Levothyroxine Sodium [Synthroid] 75 mcg PEG/G-TUBE DAILY HYDROcodone/APAP 7.5-325MG [[place] 7.5-325] 1 tab PEG/G-TUBE QID@05,11,17,23 RX: Gentamicin 0.1% Cream 1 applic TOPICAL TID@0700,1300,1900 Propylene Glycol/Peg 400/Pf [Systane 0.3-0.4% Ophth Dropperette] 1 drop BOTH EYES BID Pregabalin [Lyrica] 50 mg PEG/G-TUBE BID Diclofenac Sodium [Voltaren Arthritis Pain 1% Gel] 2 gm TOPICAL Q8H PRN PRN Reason: JOINT, RIGHT HAND PAIN Discharge Medication List RX: Famotidine [Pepcid] 20 mg PEG/G-TUBE BID 12/26/21 [History] RX: Furosemide 40 mg PEG/G-TUBE DAILY 12/26/21 [History] RX: L.acidoph,Paracasei, B.lactis [Probiotic] 1 cap PEG/G-TUBE BID 12/26/21 [History] RX: Sertraline HCl [Sertraline HCl Oral Conc] 50 mg PEG/G-TUBE DAILY 12/26/21 [History] Amino Acids/Protein Hydrolys [Pro-Stat Awc Liquid] 1 dose PO HS 08/11/22 [History] Atropine Ophth Soln 1% 5Ml [Isopto Atropine 1% 5Ml] 2 drop BUCCAL BID 08/11/22 [History] Diclofenac Sodium [Voltaren Arthritis Pain 1% Gel] 2 gm TOPICAL Q8H PRN 08/11/22 [History] Donepezil [Aricept] 5 mg PEG/G-TUBE DAILY 08/11/22 [History] HYDROcodone/APAP 7.5-325MG [[place] 7.5-325] 1 tab PEG/G-TUBE QID@05,11,17,08/11/22 [History] Levothyroxine Sodium [Synthroid] 75 mcg PEG/G-TUBE DAILY 08/11/22 [History] Pregabalin [Lyrica] 50 mg PEG/G-TUBE BID 08/11/22 [History] Propylene Glycol/Peg 400/Pf [Systane 0.3-0.4% Ophth Dropperette] 1 drop BOTH EYES BID 08/11/22 [History] RX: Gentamicin 0.1% Cream 1 applic TOPICAL TID@0700,1300,1900 08/11/22 [History] RX: Potassium Chloride 20 meq PEG/G-TUBE DAILY 08/11/22 [History] Discharge Disposition: - Preliminary Cause of Preliminary Cause of : recurrent aspiration pneumonitis and resp faliure
== END 2022-08-30 06:54 | disposition expired | DRG 951 ==
LOC: 4SSUR 11:33
PROVIDERS: ADMIT Internal Medicine; ATTEND Internal Medicine
DX: Z51.5 Encounter for palliative care (principal); J69.0 Pneumonitis due to inhalation of food and vomit; J96.01 Acute respiratory failure with hypoxia; Z66 Do not resuscitate; E03.9 Hypothyroidism, unspecified; J40 Bronchitis, not specified as acute or chronic; R53.81 Other malaise; M19.90 Unspecified osteoarthritis, unspecified site; Z79.899 Other long term (current) drug therapy; Z87.891 Personal history of nicotine dependence; Z93.0 Tracheostomy status; R45.1 Restlessness and agitation; Z93.1 Gastrostomy status; Z89.202 Acquired absence of left upper limb, unspecified level; Z88.0 Allergy status to penicillin; Z91.041 Radiographic dye allergy status
CPT/HCPCS: 94760